=== PATIENT | male | born 1995 | race African-American/Black ===

== ENCOUNTER 2016-04-19 17:35 | Inpatient (IN) | payer MEDICAID ==
[~2016-04-19] VITALS: Ht 167.6 cm; Wt 55.6 kg
[2016-04-19 17:44] VITALS: BP 111/71; PULSE 130; RESP 18; TEMP 99.9; O2SAT 100
[2016-04-19] MEDS ORDERED: SODIUM CHLORIDE 0.9% FLUSH 5 ML FLUSH IVF PRN (19:00)
[2016-04-19 19:33] LABS: AUTOMATED NEUTROPHIL # 2.6 TH/MM3 (1.8-7.7); BASOPHIL % 0.4 % (0.0-2.0); EOSINOPHIL % 0.1 % (0.0-4.0); HEMATOCRIT 30.2 % (39.0-51.0); HEMO FLAGS DIFF FINAL; LYMPH % 44.9 % (9.0-44.0); LYMPHOCYTE # 2.5 TH/MM3 (1.0-4.8); MEAN CELL VOLUME 77.3 FL (80.0-100.0); MEAN CORPUSCULAR HEMOGLOBIN 25.5 PG (27.0-34.0); MONO % 7.2 % (0.0-8.0); NEUT % 47.4 % (16.0-70.0); PLATELET COUNT 249 TH/MM3 (150-450); RED BLOOD COUNT 3.91 MIL/MM3 (4.50-5.90); RED CELL DISTRIBUTION WIDTH 11.8 % (11.6-17.2); WHITE BLOOD COUNT 5.5 TH/MM3 (4.0-11.0)
[2016-04-19 19:43] LABS: CHLORIDE 101 MEQ/L (98-107); POTASSIUM 3.4 MEQ/L (3.5-5.1); SODIUM (NA) 137 MEQ/L (136-145)
[2016-04-19] MEDS ORDERED: AZTREONAM INJ 1,000 MG in SODIUM CHLORIDE 0.9% INJ 100 ML IV ONE (19:45)
[2016-04-19] MEDS ORDERED: VANCOMYCIN INJ 1,000 MG in SODIUM CHLOR 0.9% 250 ML INJ 250 ML IV ONE (19:45)
[2016-04-19 19:46] LABS: ANION GAP 8 MEQ/L (5-15); BICARBONATE 28.2 MEQ/L (21.0-32.0)
[2016-04-19 19:47] LABS: BLOOD UREA NITROGEN 10 MG/DL (7-18)
[2016-04-19 19:49] LABS: APTT (PATIENT) 32.7 SEC (24.3-30.1); INTERNATIONAL NORMALIZED RATIO 1.1 RATIO; PROTHROMBIN TIME - PATIENT 11.9 SEC (9.8-11.6)
[2016-04-19 19:50] LABS: ALT (GPT) 26 U/L (9-52); AST (GOT) 28 U/L (15-39); GLOMERULAR FILTRATION RATE 103 ML/MIN (>89)
[2016-04-19 19:51] LABS: TOTAL BILIRUBIN ADULT 0.6 MG/DL (0.2-1.0)
[2016-04-19 19:52] LABS: ALKALINE PHOSPHATASE 170 U/L (45-117)
[2016-04-19 20:40] VITALS: RESP 18; O2SAT 100
[2016-04-19 20:41] VITALS: BP 94/47; PULSE 124; RESP 18; O2SAT 100
[2016-04-19] MEDS ORDERED: SODIUM CHLOR 0.9% 1000 ML INJ 1,000 ML IV ONE ×2 (20:45)
[2016-04-19] MEDS ORDERED: SODIUM CHLORIDE 0.9% FLUSH 5 ML FLUSH FLUSH PRN (21:30)
[2016-04-19] MEDS ORDERED: NALOXONE HCL 0.4 MG/ML AMP IV PRN (21:30)
[2016-04-19 21:35] VITALS: BP 113/53; PULSE 112; RESP 18; TEMP 97.5; TEMP 99; O2SAT 100
[2016-04-19 21:55] LABS: BLOOD, URINE TRACE (NEG); GLUCOSE,URINE NEG (NEG); KETONE, URINE NEG (NEG); NITRITE,URINE NEG (NEG)
[2016-04-19 22:09] LABS: METHOD OF COLLECTION VOIDED; MUCUS URINE RARE /lpf (OCC); URINE COLOR YELLOW (YELLW/STRAW); WBC, URINE 0-2 /hpf (0-5)
[2016-04-19 22:10] LABS: COMMENT (UR) CULT NOT INDICATED; CULTURE IF INDICATED CULT NOT INDICATED; SQUAMOUS EPITHELIAL CELL URINE 0-2 /hpf (0-5)
[2016-04-19 22:12] LABS: AMPHETAMINE, URINE NEG (NEG); BARBITURATES, URINE NEG (NEG)
[2016-04-19 22:17] LABS: COCAINE, URINE NEG (NEG)
--- NOTE | 2016-04-19 22:29 | PD ---
HPI Chief Complaint: Skin Problem Time Seen by Provider: 18:22 Travel History International Travel<30 days: No Contact w/Intl Traveler<30days: No Traveled to known affect area: No History of Present Illness HPI Patient is a 20-year-old male presents to emergency department with fever and rash. Patient states that he's been having the rash for 2 weeks and is not getting any better. [facility] and was diagnosed himself with chickenpox. He came in to have confirmation. Patient states his been fairly rundown. He does admit to me that he is homosexual and does have anal sex states he uses protection. States he had an HIV test a year ago but it was negative. Patient denies any nausea vomiting diarrhea abdominal pain. Patient denies any headache or nuchal rigidity. PFSH Past Medical History ADHD: No Asthma: Yes (CHILDHOOD) Cancer: No Cardiovascular Problems: No Diabetes: No Diminished Hearing: No Psychiatric: No Respiratory: Yes (ASTHMA AT ) Immunizations Current: Yes Migraines: No Seizures: No Thyroid Disease: No Tetanus Vaccination: > 5 Years Influenza Vaccination: No Past Surgical History Other Surgery: No Social History Alcohol Use: No Tobacco Use: No Substance Use: No Allergies-Medications (Allergen,Severity, Reaction): Coded Allergies: Penicillin (Verified Allergy, Severe, RASH, 04/19/16) Reported Meds & Prescriptions Reported Meds & Active Scripts Active No Active Prescriptions or Reported Medications Review of Systems Except as stated in HPI: all other systems reviewed are Neg Physical Exam Narrative GENERAL: Well-developed well-nourished no apparent distress SKIN: The entirety of the patient's skin is covered with papule or lesions on that of erythema. There are no vesicles. I do not see any that are scabbed. There is no palmar involvement. No oral lesions that I can see. The lesions do bruno with some pressure. They are raised. They're approximately half centimeter in diameter each. Fairly consistent distribution over the head neck chest back abdomen extremities. HEAD: Atraumatic. Normocephalic. EYES: Pupils equal and round. No scleral icterus. No injection or drainage. ENT: No nasal bleeding or discharge. Mucous membranes pink and moist. NECK: Trachea midline. No JVD. CARDIOVASCULAR: Regular rate and rhythm. No murmur appreciated. RESPIRATORY: No accessory muscle use. Clear to auscultation. Breath sounds equal bilaterally. GASTROINTESTINAL: Abdomen soft, non-tender, nondistended. Hepatic and splenic margins not palpable. MUSCULOSKELETAL: No obvious deformities. No clubbing. No cyanosis. No edema. NEUROLOGICAL: Awake and alert. No obvious cranial nerve deficits. Motor grossly within normal limits. Normal speech. PSYCHIATRIC: Appropriate mood and affect; insight and judgment normal. Data Data Last Documented VS Vital Signs Date Time Temp Pulse Resp B/P Pulse Ox O2 Delivery O2 Flow Rate FiO2 04/19/16 20:41 124 18 94/47 100 Room Air 04/19/16 17:44 99.9 Orders Complete Blood Count With Diff (04/19/16 18:57) Comprehensive Metabolic Panel (04/19/16 18:57) Westergren Sedimentation Rate (04/19/16 18:57) C-Reactive Protein (Crp) (04/19/16 18:57) Prothrombin Time / Inr (Pt) (04/19/16 18:57) Act Partial Throm Time (Ptt) (04/19/16 18:57) Ecg Monitoring (04/19/16 18:57) Iv Access Insert/Monitor (04/19/16 18:57) Oximetry (04/19/16 18:57) Sodium Chloride 0.9% Flush (Ns Flush) (04/19/16 19:00) Rpr With Reflex To Fta Abs (04/19/16 18:57) Blood Culture (04/19/16 19:40) Lactic Acid (04/19/16 19:40) Hiv Antibody Screen (04/19/16 19:40) Vancomycin Inj (Vancomycin Inj) (04/19/16 19:45) Aztreonam Inj (Azactam Inj) (04/19/16 19:45) Sodium Chlor 0.9% 1000 Ml Inj (Ns 1000 M (04/19/16 20:45) Sodium Chlor 0.9% 1000 Ml Inj (Ns 1000 M (04/19/16 20:45) Admit To Inpatient (04/19/16 ) Admit Order (Ed Use Only) (04/19/16 ) Labs Laboratory Tests Test 04/19/16 04/19/16 19:20 20:05 White Blood Count 5.5 TH/MM3 Red Blood Count 3.91 MIL/MM3 Hemoglobin 9.9 GM/DL Hematocrit 30.2 % Mean Corpuscular Volume 77.3 FL Mean Corpuscular Hemoglobin 25.5 PG Mean Corpuscular Hemoglobin 33.0 % Concent Red Cell Distribution Width 11.8 % Platelet Count 249 TH/MM3 Mean Platelet Volume 8.2 FL Neutrophils (%) (Auto) 47.4 % Lymphocytes (%) (Auto) 44.9 % Monocytes (%) (Auto) 7.2 % Eosinophils (%) (Auto) 0.1 % Basophils (%) (Auto) 0.4 % Neutrophils # (Auto) 2.6 TH/MM3 Lymphocytes # (Auto) 2.5 TH/MM3 Monocytes # (Auto) 0.4 TH/MM3 Eosinophils # (Auto) 0.0 TH/MM3 Basophils # (Auto) 0.0 TH/MM3 CBC Comment DIFF FINAL Differential Comment Erythrocyte Sedimentation Rate 68 mm/hr Prothrombin Time 11.9 SEC Prothromb Time International 1.1 RATIO Ratio Activated Partial 32.7 SEC Thromboplast Time Sodium Level 137 MEQ/L Potassium Level 3.4 MEQ/L Chloride Level 101 MEQ/L Carbon Dioxide Level 28.2 MEQ/L Anion Gap 8 MEQ/L Blood Urea Nitrogen 10 MG/DL Creatinine 1.10 MG/DL Estimat Glomerular Filtration 103 ML/MIN Rate Random Glucose 98 MG/DL Calcium Level 8.4 MG/DL Total Bilirubin 0.6 MG/DL Aspartate Amino Transf 28 U/L (AST/SGOT) Alanine Aminotransferase 26 U/L (ALT/SGPT) Alkaline Phosphatase 170 U/L C-Reactive Protein 1.10 MG/DL Total Protein 8.0 GM/DL Albumin 3.1 GM/DL Lactic Acid Level 1.0 mmol/L [facility] Medical Decision Making Medical Screen Exam Complete: Yes Emergency Medical Condition: Yes Differential Diagnosis Septicemia, sepsis, bacteremia, HIV, syphilis, chickenpox Narrative Course Patient was roomed emergency department, initially seen very briefly by my PA who asked me to see the patient. I think the rash is highly inconsistent with chickenpox. He does have risk factors for HIV and may be immunocompromised. He does meet SIRS criteria. His white blood cell count is normal. He does have some minimal elevation of ESR and CRP. I still have a high suspicion for bacteremia in this patient given the nature of the rash and discussed my concerns with Dr. Shaffer who will admit and further evaluate. He is started on vancomycin as well as aztreonam. An RPR was sent to the emergency department. Diagnosis Primary Impression: Sepsis Qualified Code: A41.9 - Sepsis, due to unspecified organism Additional Impression: Sepsis affecting skin Admitting Information Admitting Physician Requests: Admit Scripts No Active Prescriptions or Reported Meds Condition: Simone Capone MD Apr 19, 2016 22:29
[2016-04-19 22:48] VITALS: BP 116/64; PULSE 118; RESP 20; TEMP 103; O2SAT 100
[2016-04-19 23:09] VITALS: PULSE 113
[2016-04-20] VITALS (10 sets, daily range): BP systolic 90–122; BP diastolic 38–60; PULSE 85–131; RESP 18–20; TEMP 97.3–104; O2SAT 95–100
[2016-04-20 01:42] LABS: CHLAMYDIA PCR NOT DETECTED (NOT DETECT); NEISSERIA PCR NOT DETECTED (NOT DETECT)
[2016-04-20] MEDS ORDERED: Vancomycin Consult Pharmacy 1 EA OTHER SCH (06:15)
[2016-04-20] MEDS ORDERED: ACETAMINOPHEN 325 MG TAB PO PRN (06:15)
[2016-04-20 06:33] LABS: CHLORIDE 103 MEQ/L (98-107); POTASSIUM 4.1 MEQ/L (3.5-5.1); SODIUM (NA) 138 MEQ/L (136-145)
[2016-04-20 06:36] LABS: ANION GAP 11 MEQ/L (5-15); BICARBONATE 23.7 MEQ/L (21.0-32.0)
[2016-04-20 06:37] LABS: BLOOD UREA NITROGEN 10 MG/DL (7-18)
[2016-04-20 06:39] LABS: AUTOMATED NEUTROPHIL # 2.8 TH/MM3 (1.8-7.7); BASOPHIL % 0.1 % (0.0-2.0); EOSINOPHIL % 0.1 % (0.0-4.0); HEMATOCRIT 29.2 % (39.0-51.0); LYMPH % 33.7 % (9.0-44.0); LYMPHOCYTE # 1.6 TH/MM3 (1.0-4.8); MEAN CELL VOLUME 77.2 FL (80.0-100.0); MEAN CORPUSCULAR HEMOGLOBIN 24.6 PG (27.0-34.0); MEAN CORPUSCULAR HGB CONC 31.8 % (32.0-36.0); MONO % 8.3 % (0.0-8.0); NEUT % 57.8 % (16.0-70.0); PLATELET COUNT 248 TH/MM3 (150-450); RED BLOOD COUNT 3.79 MIL/MM3 (4.50-5.90); RED CELL DISTRIBUTION WIDTH 11.9 % (11.6-17.2); WHITE BLOOD COUNT 4.8 TH/MM3 (4.0-11.0)
[2016-04-20 06:42] LABS: HEMO FLAGS AUTO DIFF
[2016-04-20 06:46] LABS: ALKALINE PHOSPHATASE 221 U/L (45-117); ALT (GPT) 52 U/L (9-52); AST (GOT) 104 U/L (15-39); GLOMERULAR FILTRATION RATE 103 ML/MIN (>89); TOTAL BILIRUBIN ADULT 0.8 MG/DL (0.2-1.0)
--- NOTE | 2016-04-20 06:52 | RADHPO ---
EXAM DATE/TIME: 04/20/2016 06:32 [place] COMPARISON: No previous studies available for comparison. INDICATIONS : Fever MEDICAL HISTORY : Skin rash SURGICAL HISTORY : None. ENCOUNTER: Initial ACUITY: 1 day PAIN SCORE: 5/10 LOCATION: Bilateral chest FINDINGS: PA and lateral views of the chest demonstrate the lungs to be symmetrically aerated without evidence of mass, infiltrate or effusion. The cardiomediastinal contours are unremarkable. Osseous structure s are intact. CONCLUSION: No acute disease. Cristian Warner MD on April 20, 2016 at 6:50 Board Certified Radiologist. This report was verified electronically.
[2016-04-20 07:24] LABS: SCAN/DIFF AUTO DIFF CONFIRMED
[2016-04-20] MEDS: VANCOMYCIN 1,000 MG/NS 250 ML IV SCH ×4 (08:46→22:07)
[2016-04-20] MEDS: SODIUM CHLORIDE 0.9% FLUSH 5 ML FLUSH FLUSH SCH ×2 (08:46→22:07)
--- NOTE | 2016-04-20 13:00 | HHI.HP ---
HPI Service [facility] Primary Care Physician No Primary Care Physician Admission Diagnosis Sepsis, Rash, Fever. Diagnoses: Chief Complaint: Rash and fever Travel History International Travel<30 Days: No Contact w/Intl Traveler <30 Da: No Traveled to Known Affected Are: No Sepsis Criteria SIRS Criteria (2 or more): Temp > 100.9 or < 96.8, Heart rate over 90 Sepsis Criteria (SIRS+source): Infect source susp/known History of Present Illness . The patient has had no penile discharge or dysuria. The rash has been 1 on for 2 weeks and has gotten more progressive. He reports chills and fevers at home. He finally came to the emergency room on the advice of his mother. Patient is a homosexual male who admits protected sex with multiple partners. Most recently he had a trip to [place] and had illicit sexual activity. Patient at this size been admitted to the hospital through the emergency room due to fever and rash and signs and symptoms consistent with sepsis due to tachycardia and fever with a maximum temperature 104. Patient at this point does have a positive RPR and positive HIV test which are new to him. For these reasons the patient is admitted to the hospital. Apparently he has a penicillin allergy per his mother and will need desensitization as per the infectious disease team. This is discussed with the patient at length Review of Systems Constitutional: COMPLAINS OF: Fatigue, Fever, Chills, Dizziness, Night Sweats, DENIES: Diaphoretic episodes, Weight gain, Weight loss, Change in appetite Endocrine: DENIES: Heat/cold intolerance, Polydipsia, Polyuria, Polyphagia Eyes: DENIES: Blurred vision, Diplopia, Eye inflammation, Eye pain, Vision loss , Photosensitivity, Double Vision Ears, nose, mouth, throat: DENIES: Tinnitus, Hearing loss, Vertigo, Nasal discharge, Oral lesions, Throat pain, Hoarseness, Ear Pain, Running Nose, Epistaxis, Sinus Pain, Toothache, Odynophagia Respiratory: DENIES: Apneas, Cough, Snoring, Wheezing, Hemoptysis, Sputum production, Shortness of breath Cardiovascular: DENIES: Chest pain, Palpitations, Syncope, Dyspnea on Exertion , PND, Lower Extremity Edema, Orthopnea, Claudication Gastrointestinal: DENIES: Abdominal pain, Black stools, Bloody stools, Constipation, Diarrhea, Nausea, Vomiting, Difficulty Swallowing, Anorexia Genitourinary: DENIES: Sexual dysfunction, Urinary frequency, Urinary incontinence, Urgency, Hematuria, Dysuria, Nocturia, Penile Discharge, Testicular Pain, Testicular Swelling Musculoskeletal: DENIES: Joint pain, Muscle aches, Stiffness, Joint Swelling, Back pain, Neck pain Integumentary: DENIES: Abnormal pigmentation, Nail changes, Pruritus, Rash Hematologic/lymphatic: DENIES: Bruising, Lymphadenopathy Immunologic/allergic: DENIES: Eczema, Urticaria Neurologic: DENIES: Abnormal gait, Headache, Localized weakness, Paresthesias, Seizures, Speech Problems, Tremor, Poor Balance Psychiatric: DENIES: Anxiety, Confusion, Mood changes, Depression, Hallucinations, Agitation, Suicidal Ideation, Homicidal Ideation, Delusions Past Family Social History Past Medical History denies Past Surgical History denies Reported Medications denies Allergies: Coded Allergies: Penicillin (Verified Allergy, Severe, RASH, 04/19/16) Active Ordered Medications Reviewed in the medical record Family History Mom has diabetes Social History No tobacco or alcohol dependency Homosexual male with a history of unprotected sex, denies IV drug use Physical Exam Vital Signs Vital Signs Date Time Temp Pulse Resp B/P Pulse Ox O2 Delivery O2 Flow Rate FiO2 04/20/16 08:00 102.2 105 18 112/50 97 04/20/16 06:10 99.3 04/20/16 05:20 103.1 04/20/16 04:00 104.0 131 20 116/38 100 04/20/16 02:29 100.9 04/19/16 23:09 113 04/19/16 22:48 103.0 118 20 116/64 100 04/19/16 21:35 99.0 112 18 113/53 100 Room Air 04/19/16 21:35 99.0 112 18 113/53 100 Room Air 04/19/16 20:41 124 18 94/47 100 Room Air 04/19/16 20:40 18 100 Room Air 04/19/16 17:44 99.9 130 18 111/71 100 Physical Exam GENERAL: This is a thin, well-developed patient, in no apparent distress. SKIN: diffuse nontender papular rash sparing palms and soles; . Cool and dry. HEAD: Atraumatic. Normocephalic. No temporal or scalp tenderness. EYES: Pupils equal round and reactive. Extraocular motions intact. No scleral icterus. No injection or drainage. ENT: Nose without bleeding, purulent drainage or septal hematoma. Throat without erythema, tonsillar hypertrophy or exudate. Uvula midline. Airway patent. NECK: Trachea midline. No JVD or lymphadenopathy. Supple, nontender, no meningeal signs. CARDIOVASCULAR: Regular rate and rhythm without murmurs, gallops, or rubs. RESPIRATORY: Clear to auscultation. Breath sounds equal bilaterally. No wheezes , rales, or rhonchi. GASTROINTESTINAL: Abdomen soft, non-tender, nondistended. No hepato-splenomegaly , or palpable masses. No guarding. MUSCULOSKELETAL: Extremities without clubbing, cyanosis, or edema. No joint tenderness, effusion, or edema noted. No calf tenderness. Negative Homans sign bilaterally. NEUROLOGICAL: Awake and alert. Cranial nerves II through XII intact. Motor and sensory grossly within normal limits. Five out of 5 muscle strength in all muscle groups. Normal speech. Laboratory Laboratory Tests Test 04/19/16 04/19/16 04/19/16 04/20/16 19:20 20:05 21:40 05:45 White Blood Count 5.5 4.8 Red Blood Count 3.91 3.79 Hemoglobin 9.9 9.3 Hematocrit 30.2 29.2 Mean Corpuscular Volume 77.3 77.2 Mean Corpuscular Hemoglobin 25.5 24.6 Mean Corpuscular Hemoglobin 33.0 31.8 Concent Red Cell Distribution Width 11.8 11.9 Platelet Count 249 248 Mean Platelet Volume 8.2 9.1 Neutrophils (%) (Auto) 47.4 57.8 Lymphocytes (%) (Auto) 44.9 33.7 Monocytes (%) (Auto) 7.2 8.3 Eosinophils (%) (Auto) 0.1 0.1 Basophils (%) (Auto) 0.4 0.1 Neutrophils # (Auto) 2.6 2.8 Lymphocytes # (Auto) 2.5 1.6 Monocytes # (Auto) 0.4 0.4 Eosinophils # (Auto) 0.0 0.0 Basophils # (Auto) 0.0 0.0 CBC Comment DIFF FINAL AUTO DIFF Differential Comment AUTO DIFF CONFIRMED Erythrocyte Sedimentation Rate 68 Prothrombin Time 11.9 Prothromb Time International 1.1 Ratio Activated Partial 32.7 Thromboplast Time Sodium Level 137 138 Potassium Level 3.4 4.1 Chloride Level 101 103 Carbon Dioxide Level 28.2 23.7 Anion Gap 8 11 Blood Urea Nitrogen 10 10 Creatinine 1.10 1.10 Estimat Glomerular Filtration 103 103 Rate Random Glucose 98 105 Calcium Level 8.4 8.1 Total Bilirubin 0.6 0.8 Aspartate Amino Transf 28 104 (AST/SGOT) Alanine Aminotransferase 26 52 (ALT/SGPT) Alkaline Phosphatase 170 221 C-Reactive Protein 1.10 Total Protein 8.0 7.3 Albumin 3.1 2.7 Lactic Acid Level 1.0 Urine Collection Type VOIDED Urine Color YELLOW Urine Turbidity CLEAR Urine pH 6.0 Urine Specific [place] 1.015 Urine Protein TRACE Urine Glucose (UA) NEG Urine Ketones NEG Urine Occult Blood TRACE Urine Nitrite NEG Urine Bilirubin NEG Urine Leukocyte Esterase NEG Urine WBC 0-2 Urine Squamous Epithelial 0-2 Cells Urine Mucus RARE Microscopic Urinalysis Comment CULT NOT INDICATED Urine Opiates Screen NEG Urine Barbiturates Screen NEG Urine Amphetamines Screen NEG Urine Benzodiazepines Screen NEG Urine Cocaine Screen NEG Urine Cannabinoids Screen POS Chlamydia trachomatis DNA NOT DETECTED (PCR) Neisseria gonorrhoeae DNA NOT DETECTED (PCR) Rapid Plasma Reagin REACTIVE HIV (1&2) Antibody REFLEX Date/Time Procedure Status Source Growth 04/19/16 20:05 Aerobic Blood Culture - Preliminary Resulted Blood Peripheral NO GROWTH IN 1 DAY 04/19/16 20:05 Anaerobic Blood Culture - Preliminary Resulted Blood Peripheral NO GROWTH IN 1 DAY 04/19/16 19:40 Aerobic Blood Culture Received Blood Peripheral Pending 04/19/16 19:40 Anaerobic Blood Culture Received Blood Peripheral Pending Result Diagram: 04/20/16 0545 04/20/16 0545 Imaging Last Impressions Chest X-Ray 04/20/16 0000 Signed Impressions: Service Date/Time: Wednesday, April 20, 2016 06:32 - CONCLUSION: No acute disease. Cristian Warner MD Septic Shock Reassessment Heart: Other (tahycardia) Lungs: Clear Skin: Warm Peripheral Pulses: Bounding Right Radial Bounding Left Radial Bounding Right Popliteal Bounding Left Popliteal Bounding Right Dorsalis Pedis Bounding Left Dorsalis Pedis Bounding Right Posterior Tibial Bounding Left Posterior Tibial Assessment and Plan Problem List: (1) Rash ICD Code: R21 Status: Acute Plan: With associated fever Reactive HIV (new), reactive RPR (new) Patient allergic to penicillin (and a child his mother reports a severe reaction ) the patient will need desensitization which will need to be done at the main hospital This is discussed with ID team as well as the patient CD4 count, blood cultures pending Physician Certification 2 Midnight Certification Type: Admission for Inpatient Services Order for Inpatient Services The services are ordered in accordance with Medicare regulations or non- Medicare payer requirements, as applicable. In the case of services not specified as inpatient-only, they are appropriately provided as inpatient services in accordance with the 2-midnight benchmark. Estimated LOS (days): 5 5 days is the estimated time the patient will need to remain in the hospital, assuming treatment plan goals are met and no additional complications. Post-Hospital Plan: Monserrat Boo MD Apr 20, 2016 13:00
[2016-04-20] MEDS: SODIUM CHLOR 0.9% 1000 ML INJ 1,000 ML IV SCH ×2 (15:27→23:00)
[2016-04-21] VITALS (7 sets, daily range): BP systolic 90–128; BP diastolic 42–59; PULSE 92–106; RESP 16–20; TEMP 98–98.9; O2SAT 97–100
[2016-04-21 07:55] LABS: ALKALINE PHOSPHATASE 194 U/L (45-117); ALT (GPT) 47 U/L (9-52); ANION GAP 7 MEQ/L (5-15); AST (GOT) 40 U/L (15-39); BICARBONATE 27.3 MEQ/L (21.0-32.0); BLOOD UREA NITROGEN 8 MG/DL (7-18); CHLORIDE 105 MEQ/L (98-107); GLOMERULAR FILTRATION RATE 154 ML/MIN (>89); POTASSIUM 4.1 MEQ/L (3.5-5.1); SODIUM (NA) 139 MEQ/L (136-145); TOTAL BILIRUBIN ADULT 0.4 MG/DL (0.2-1.0)
[2016-04-21] MEDS ORDERED: PHARMACY ORDERED LAB XX ONE ×2 (08:45)
[2016-04-21] MEDS: SODIUM CHLORIDE 0.9% FLUSH 5 ML FLUSH FLUSH SCH ×2 (09:17→21:00)
[2016-04-21] MEDS: VANCOMYCIN 1,000 MG/NS 250 ML IV SCH ×4 (09:17→16:11)
[2016-04-21] MEDS: SODIUM CHLOR 0.9% 1000 ML INJ 1,000 ML IV SCH ×2 (09:18→16:12)
--- NOTE | 2016-04-21 11:46 | HHI.PR ---
Objective Vitals Vital Signs Date Time Temp Pulse Resp B/P Pulse Ox O2 Delivery O2 Flow Rate FiO2 04/21/16 04:00 98.1 98 16 90/42 99 04/21/16 00:00 98.2 97 16 100/55 97 04/20/16 20:21 94 04/20/16 20:00 97.8 117 18 122/60 98 04/20/16 17:03 97.3 85 18 114/58 100 04/20/16 15:17 98.0 85 18 90/48 95 04/20/16 12:00 98.5 94 18 94/52 100 I/O 04/20/16 04/20/16 04/20/16 04/21/16 04/21/16 04/21/16 07:00 15:00 23:00 07:00 15:00 23:00 Intake Total 503 ml 842 ml 876 ml Output Total 250 ml 900 ml 700 ml Balance 253 ml -900 ml 142 ml 876 ml Intake Oral 503 ml 240 ml 120 ml IV Total 0 ml 602 ml 756 ml Output Urine Total 250 ml 900 ml 700 ml # Voids 1 1 1 # Bowel Movements 0 0 0 Result Diagram: 04/20/16 0545 04/21/16 0704 A/P Problem List: (1) Rash ICD Code: R21 Status: Acute Lety Matthews MD Apr 21, 2016 11:46
--- NOTE | 2016-04-21 13:32 | HHI.PR ---
Subjective Remarks HIV-positive patient transferred from [facility] due to developing acute skin rash on the which may need penicillin desensitization Patient laying in bed, skin rash still present, is non-pruritic, no fever or chills, awaiting ID consultation Objective Vitals Vital Signs Date Time Temp Pulse Resp B/P Pulse Ox O2 Delivery O2 Flow Rate FiO2 04/21/16 04:00 98.1 98 16 90/42 99 04/21/16 00:00 98.2 97 16 100/55 97 04/20/16 20:21 94 04/20/16 20:00 97.8 117 18 122/60 98 04/20/16 17:03 97.3 85 18 114/58 100 04/20/16 15:17 98.0 85 18 90/48 95 I/O 04/20/16 04/20/16 04/20/16 04/21/16 04/21/16 04/21/16 07:00 15:00 23:00 07:00 15:00 23:00 Intake Total 503 ml 842 ml 876 ml Output Total 250 ml 900 ml 700 ml Balance 253 ml -900 ml 142 ml 876 ml Intake Oral 503 ml 240 ml 120 ml IV Total 0 ml 602 ml 756 ml Output Urine Total 250 ml 900 ml 700 ml # Voids 1 1 1 # Bowel Movements 0 0 0 Result Diagram: 04/20/16 0545 04/21/16 0704 Objective Remarks GENERAL: This is a well-nourished, well-developed patient, in no apparent distress. SKIN: Diffuse nonpertinent nontender papular skin rash head to toe preserving palms and soles, it percent on the scrotum to HEAD: Atraumatic. Normocephalic. EYES: Pupils equal round and reactive. Extraocular motions intact. No scleral icterus. ENT: Nose without bleeding, or drainage, Airway patent. NECK: Trachea midline. Supple CARDIOVASCULAR: Regular rate and rhythm without murmurs, gallops, or rubs. RESPIRATORY: Fair air entry bilaterally. No wheezes, rales, or rhonchi. GASTROINTESTINAL: Abdomen soft, non-tender, nondistended. Positive bowel sounds MUSCULOSKELETAL: Extremities without clubbing, cyanosis, or edema. Pedal pulses appreciated NEUROLOGICAL: Awake and alert. Moves all extremity. Normal speech.no focal neurological deficit A/P Problem List: (1) Rash ICD Code: R21 Status: Acute Assessment and Plan Acute skin rash with fever With newly reactive Reactive HIV AND RPR Patient allergic to penicillin (and a child his mother reports a severe reaction ) the patient will need desensitization which will need to be done at the main hospital This is discussed with ID team as well as the patient CD4 count, blood cultures pending Awaiting ID consultation for further recommendation Lety Matthews MD Apr 21, 2016 13:32
--- NOTE | 2016-04-21 15:28 | PD.ID.CON ---
History of Present Illness Service ID Consult Requested By Dr Cabello Reason for Consult rash and STD Primary Care Physician No Primary Care Physician Diagnoses: History of Present Illness 20 yo homosexual male with h/o anprotected sex (anal, genital and oral) with anonimous parthnres presents with fever and rash x 2 weeks Rash is no proritic denies oral lesions Fever high up to 102-103, but no fever today HIs RPR was + 1:4, FTA -abs test is P HIV ZEENAT also positive with confirmation P Pt was never diagnosed with syphilis, but reports a negative HIV test 1 yr ago He denies headache, difficulty walking but gives a hstory of blury vision about a week ago which got better Review of Systems Constitutional: COMPLAINS OF: Fever, Chills Eyes: COMPLAINS OF: Blurred vision, DENIES: Diplopia, Eye inflammation, Eye pain, Vision loss, Photosensitivity, Double Vision Integumentary: COMPLAINS OF: Rash, DENIES: Pruritus Neurologic: DENIES: Abnormal gait, Headache, Localized weakness, Paresthesias, Seizures, Speech Problems, Tremor, Poor Balance Other as per history of present illnees, the rest of 12 point review is negative unless mentioned above Past Family Social History Allergies: Coded Allergies: Penicillin (Verified Allergy, Severe, RASH, 04/19/16) Past Medical History denies Past Surgical History hand sx Active Ordered Medications Medications where reviewed in EMR Antibiotics Include: vancomycin Family History Non-Contributory. Social History No Tobacco. No ETOH. No Illicit Drugs. Physical Exam Vital Signs Vital Signs Date Time Temp Pulse Resp B/P Pulse Ox O2 Delivery O2 Flow Rate FiO2 04/21/16 12:00 98.0 97 20 108/59 100 04/21/16 08:00 98.3 105 20 128/58 99 04/21/16 04:00 98.1 98 16 90/42 99 04/21/16 00:00 98.2 97 16 100/55 97 04/20/16 20:21 94 04/20/16 20:00 97.8 117 18 122/60 98 04/20/16 17:03 97.3 85 18 114/58 100 04/20/16 15:17 98.0 85 18 90/48 95 Physical Exam CONSTITUTIONAL/GENERAL: This is a thin and chronically ill appearing patient, in no apparent distress. TUBES/LINES/DRAINS: SKIN: No jaundice, Diffuse papular -pustular rash involnving skin of face, torso and esxteremities , lesions present on palms and soles. Skin temperature appropriate. Not diaphoretic. HEAD: Atraumatic. Normocephalic. EYES: Pupils equal and round and reactive. Extraocular motions intact. No scleral icterus. No injection or drainage. Fundi not examined. ENT: Hearing grossly normal. Nose without bleeding or purulent drainage. Throat without visible erythema, exudates, masses, or lesions. NECK: Trachea midline. Supple, nontender. No palpable thyroid enlargement or nodularity. CARDIOVASCULAR: Regular rate and rhythm without murmurs, gallops, or rubs. No JVD. Peripheral pulses symmetric. RESPIRATORY/CHEST: Symmetric, unlabored respirations. Clear to auscultation. Breath sounds equal bilaterally. No wheezes, rales, or rhonchi. GASTROINTESTINAL: Abdomen soft, non-tender, nondistended. No hepato-splenomegaly , or palpable masses. No guarding. Bowel sounds present. GENITOURINARY: Without palpable bladder distension. Scrotum with a painless ulcer on the anterior aspect ? healing shancre MUSCULOSKELETAL: Extremities without clubbing, cyanosis, or edema. No joint tenderness or effusion noted. No calf tenderness. No mottling or clubbing. LYMPHATICS: No palpable cervical or supraclavicular adenopathy. NEUROLOGICAL: Awake and alert. Motor and sensory grossly within normal limits. Follows commands. Speech normal Moves all extremities. PSYCHIATRIC: calm, cooperative Laboratory Laboratory Tests Test 04/21/16 04/21/16 07:04 09:15 Sodium Level 139 Potassium Level 4.1 Chloride Level 105 Carbon Dioxide Level 27.3 Anion Gap 7 Blood Urea Nitrogen 8 Creatinine 0.78 Estimat Glomerular Filtration 154 Rate Random Glucose 84 Calcium Level 8.1 Total Bilirubin 0.4 Aspartate Amino Transf 40 (AST/SGOT) Alanine Aminotransferase 47 (ALT/SGPT) Alkaline Phosphatase 194 Total Protein 7.1 Albumin 2.6 Vancomycin Level Trough 7.5 Date/Time Procedure Status Source Growth 04/19/16 20:05 Aerobic Blood Culture - Preliminary Resulted Blood Peripheral NO GROWTH IN 2 DAYS 04/19/16 20:05 Anaerobic Blood Culture - Preliminary Resulted Blood Peripheral NO GROWTH IN 2 DAYS 04/19/16 19:40 Aerobic Blood Culture Received Blood Peripheral Pending 04/19/16 19:40 Anaerobic Blood Culture Received Blood Peripheral Pending Result Diagram: 04/20/16 0545 04/21/16 0704 Imaging Last Impressions Chest X-Ray 04/20/16 0000 Signed Impressions: Service Date/Time: Wednesday, April 20, 2016 06:32 - CONCLUSION: No acute disease. 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 Rocephin is an option if ocular and neuro syphilis are ruled out in case of HIV coinfection dc vancomycin - awaiting for FTA abs result ; if positive will start tx for syphilis - if FTA + will need chemistry department chair consult to ro syphilitic uveitis ( vision disturbances) - awaiting for HIV confirmatory test -probably LP with confirmed HIV/syphilis coinfx (will definetely need it if CD4<350); after results available will define the tx duration Discussed Condition With Dr Irineo Krueger from pharmacy pt Nataliia Webster MD Apr 21, 2016 15:27
[2016-04-21 16:19] LABS: HIV 1 AB DIFFERENTIATION Positive (Negative); HIV 1/2 AG AND AB SCREEN Reactive (Negative); HIV 2 AB DIFFERENTIATION Negative (Negative)
[2016-04-22] VITALS (7 sets, daily range): BP systolic 99–115; BP diastolic 50–53; PULSE 89–101; RESP 16–18; TEMP 97.6–98.8; O2SAT 96–100
[2016-04-22] MEDS: VANCOMYCIN 1,000 MG/NS 250 ML IV SCH ×4 (01:41→08:11)
[2016-04-22] MEDS: SODIUM CHLOR 0.9% 1000 ML INJ 1,000 ML IV SCH ×2 (04:48→15:00)
[2016-04-22] MEDS: SODIUM CHLORIDE 0.9% FLUSH 5 ML FLUSH FLUSH SCH ×2 (08:14→20:26)
--- NOTE | 2016-04-22 09:44 | HHI.PR ---
Addendum to Inpatient Note Additional Information HIV confirmed awaiting FTA fu CD4 Nataliia Cortez MD Apr 22, 2016 09:44
[2016-04-22] MEDS ORDERED: ONDANSETRON HCL 4 MG/2 ML VIAL IV PRN (11:30)
[2016-04-22] MEDS ORDERED: DOCUSATE SODIUM 100 MG CAP PO PRN (11:30)
[2016-04-22] MEDS ORDERED: TEMAZEPAM 15 MG CAP PO PRN (11:30)
--- NOTE | 2016-04-22 11:30 | HHI.PR ---
Subjective Remarks Follow-up newly diagnosed HIV/rule out syphilis/skin rash 04/22/16-patient seen and examined; currently afebrile and denies any significant pruritus. Denies any blurred vision. HIV 1 positive. CD4 count finding. FTA antibody pending Objective Vitals Vital Signs Date Time Temp Pulse Resp B/P Pulse Ox O2 Delivery O2 Flow Rate FiO2 04/22/16 09:00 90 04/22/16 08:00 97.7 97 18 115/53 100 04/22/16 04:00 97.6 89 18 104/52 97 04/22/16 00:00 98.2 94 18 109/53 96 04/21/16 20:00 98.0 104 18 111/53 98 04/21/16 20:00 94 04/21/16 16:00 98.9 106 20 126/58 100 04/21/16 12:00 98.0 97 20 108/59 100 I/O 04/21/16 04/21/16 04/21/16 04/22/16 04/22/16 04/22/16 07:00 15:00 23:00 07:00 15:00 23:00 Intake Total 876 ml 240 ml 360 ml 240 ml Output Total 250 ml 600 ml 450 ml Balance 876 ml -10 ml -240 ml -210 ml Intake Oral 120 ml 240 ml 360 ml 240 ml IV Total 756 ml Output Urine Total 250 ml 600 ml 450 ml # Voids 1 # Bowel Movements 0 1 0 0 Result Diagram: 04/20/16 0545 04/21/16 0704 Imaging Last Impressions Chest X-Ray 04/20/16 0000 Signed Impressions: Service Date/Time: Wednesday, April 20, 2016 06:32 - CONCLUSION: No acute disease. Cristian Warner MD Objective Remarks GENERAL: NAD SKIN: Systemic skin rash, covering entire body HEAD: Normocephalic. EYES: No scleral icterus. No injection or drainage. NECK: Supple, trachea midline. No JVD or lymphadenopathy. CARDIOVASCULAR: Regular rate and rhythm without murmurs, gallops, or rubs. RESPIRATORY: Breath sounds equal bilaterally. No accessory muscle use. GASTROINTESTINAL: Abdomen soft, non-tender, nondistended. MUSCULOSKELETAL: No cyanosis, or edema. BACK: Nontender without obvious deformity. No CVA tenderness. A/P Problem List: (1) Rash ICD Code: R21 Status: Acute (2) Newly diagnosed HIV-positive ICD Code: Z21 Status: Acute (3) Syphilis ICD Code: A53.9 Status: Acute Assessment and Plan 20-year-old male with 1-Newly diagnosed HIV 1 positive: HIV 1 antibody positive pending CD4 count. Appreciate input from infectious disease. Therapy to be dictated when all workup completed 2-Rule out syphilis: RPR titer elevated and RPR positive, FTA antibody pending prior to starting therapy as patient with history of penicillin allergy. If FTA + will need ophthalmology consult to rule out syphilitic uveitis 3-DVT prophylaxis: Not indicated Cristian Traore MD Apr 22, 2016 11:30
--- NOTE | 2016-04-22 18:09 | PD.CONS ---
History of Present Illness Service Ophthalmology Consult Requested By Reason for Consult blurred vision Primary Care Physician No Primary Care Physician Diagnoses: History of Present Illness 20 yo homosexual male recently diagnosed with syphilis and HIV. Ophthalmology was consulted due to the patient having new visual complaints. Patient denies any current problems with his eyes or vision. He states his eyes were blurry a few weeks ago but it has gone back to normal. Ocular history significant for glasses, which the patient does not have with him. Past Family Social History Allergies: Coded Allergies: Penicillin (Verified Allergy, Severe, RASH, 04/19/16) Physical Exam Vital Signs Vital Signs Date Time Temp Pulse Resp B/P Pulse Ox O2 Delivery O2 Flow Rate FiO2 04/22/16 16:00 98.2 101 18 99/50 98 04/22/16 12:00 98.8 95 18 101/51 97 04/22/16 09:00 90 04/22/16 08:00 97.7 97 18 115/53 100 04/22/16 04:00 97.6 89 18 104/52 97 04/22/16 00:00 98.2 94 18 109/53 96 04/21/16 20:00 98.0 104 18 111/53 98 04/21/16 20:00 94 Physical Exam Va sc at near OD 20/20, OS 20/20 EOM full OU, no diplopia CVF full OU Pupils 2-1 no APD OU IOP normal to palpation OU Anterior exam OD - normal eyelid, C/S W&Q, K clear, AC deep, pupil round, lens clear OS - normal eyelid, C/S W&Q, K clear, AC deep, pupil round, lens clear Laboratory Date/Time Procedure Status Source Growth 04/19/16 20:05 Aerobic Blood Culture - Preliminary Resulted Blood Peripheral NO GROWTH IN 3 DAYS 04/19/16 20:05 Anaerobic Blood Culture - Preliminary Resulted Blood Peripheral NO GROWTH IN 3 DAYS 04/19/16 19:40 Aerobic Blood Culture Received Blood Peripheral Pending 04/19/16 19:40 Anaerobic Blood Culture Received Blood Peripheral Pending Result Diagram: 04/20/16 0545 04/21/16 0704 Assessment and Plan Problem List: (1) Newly diagnosed HIV-positive Status: Acute Plan: Patient currently not having visual problems. Can follow up as outpatient for dilated exam. CD4 pending. Page De MD Apr 22, 2016 18:09
[2016-04-23] VITALS (11 sets, daily range): BP systolic 101–123; BP diastolic 53–62; PULSE 90–110; RESP 16–20; TEMP 98.2–101.9; O2SAT 95–100
[2016-04-23] MEDS ORDERED: PHARMACY ORDERED LAB XX ONE (00:45)
[2016-04-23] MEDS: SODIUM CHLOR 0.9% 1000 ML INJ 1,000 ML IV SCH ×3 (01:48→21:55)
[2016-04-23 03:52] LABS: CD4/CD8 RATIO 0.1 (0.86-5.00)
[2016-04-23] MEDS: SODIUM CHLORIDE 0.9% FLUSH 5 ML FLUSH FLUSH SCH ×2 (07:48→21:53)
--- NOTE | 2016-04-23 11:18 | HHI.PR ---
Subjective Remarks Follow-up newly diagnosed HIV/rule out syphilis/skin rash 04/22/16-patient seen and examined; currently afebrile and denies any significant pruritus. Denies any blurred vision. HIV 1 positive. CD4 count finding. FTA antibody pending 04/23/16-patient seen and examined; FTA antibody reactive. Case discussed with Dr. Cortez, ID and plan for LP and then transferred to ICU for PCN desensitization Objective Vitals Vital Signs Date Time Temp Pulse Resp B/P Pulse Ox O2 Delivery O2 Flow Rate FiO2 04/23/16 08:00 100.3 98 16 107/53 100 04/23/16 07:44 Room Air 04/23/16 04:00 98.7 96 20 123/60 98 04/23/16 00:07 98.8 96 16 121/58 99 04/22/16 20:00 98.6 96 16 102/50 100 04/22/16 19:30 Room Air 04/22/16 16:00 98.2 101 18 99/50 98 04/22/16 12:00 98.8 95 18 101/51 97 I/O 04/22/16 04/22/16 04/22/16 04/23/16 04/23/16 04/23/16 07:00 15:00 23:00 07:00 15:00 23:00 Intake Total 240 ml 360 ml 720 ml 1660 ml Output Total 450 ml 300 ml 700 ml Balance -210 ml 360 ml 420 ml 960 ml Intake Oral 240 ml 360 ml 720 ml 960 ml IV Total 700 ml Output Urine Total 450 ml 300 ml 700 ml # Voids 2 # Bowel Movements 0 0 0 Result Diagram: 04/20/16 0545 04/21/16 0704 Imaging Last Impressions Chest X-Ray 04/20/16 0000 Signed Impressions: Service Date/Time: Wednesday, April 20, 2016 06:32 - CONCLUSION: No acute disease. Cristian Warner MD Objective Remarks GENERAL: NAD SKIN: Systemic skin rash, covering entire body HEAD: Normocephalic. EYES: No scleral icterus. No injection or drainage. NECK: Supple, trachea midline. No JVD or lymphadenopathy. CARDIOVASCULAR: Regular rate and rhythm without murmurs, gallops, or rubs. RESPIRATORY: Breath sounds equal bilaterally. No accessory muscle use. GASTROINTESTINAL: Abdomen soft, non-tender, nondistended. MUSCULOSKELETAL: No cyanosis, or edema. BACK: Nontender without obvious deformity. No CVA tenderness. A/P Problem List: (1) Rash ICD Code: R21 Status: Acute (2) Newly diagnosed HIV-positive ICD Code: Z21 Status: Acute (3) Syphilis ICD Code: A53.9 Status: Acute Assessment and Plan 20-year-old male with 1-Newly diagnosed HIV 1 positive: HIV 1 antibody positive,absolute CD4 count 186 and % CD4 12. Appreciate input from infectious disease. Therapy to be dictated when all workup completed 2-Rule out syphilis: RPR titer elevated and RPR positive, FTA antibody reactive however will get LP CSF VDRL today 04/23/16 prior to starting therapy as patient with history of penicillin allergy. Transfer to ICU after LP. Patient will also need ophthalmology consult to rule out syphilitic uveitis 3-DVT prophylaxis: Not indicated Cristian Traore MD Apr 23, 2016 11:18
--- NOTE | 2016-04-23 12:39 | PD.RAD ---
Post Procedure Progress Note Pre Procedure Diagnosis: (1) Newly diagnosed HIV-positive (2) Sepsis (3) Syphilis Post Procedure Diagnosis: (1) Newly diagnosed HIV-positive (2) Sepsis (3) Syphilis Procedure Date: Apr 23, 2016 Supervising Radiologist: Brendon Palacio Proceduralist/Assist: Anna Mauricio, RT(R), RT Peggy(R)() Anesthesia: Local Plan of Activity Patient to Unit: Nursing Unit Patient Condition: Fair See PACS Report for procedural detail/treatment Spinal Procedure Lumbar Puncture L4-L5 Fluid Removal (CCs): 15 Fluid Description: Clear Puncture Time: 12:13 Findings: opening pressure 19-20 cm H2O Brendon Palacio MD Apr 23, 2016 12:39
--- NOTE | 2016-04-23 12:43 | RADRPT ---
EXAM DATE/TIME: 04/23/2016 12:15 [facility] COMPARISON: No previous studies available for comparison. INDICATIONS : Patient with HIV in need of lumbar puncture to rule out neurosyphilis. MEDICAL HISTORY : Asthma SURGICAL HISTORY : Hand surgery ENCOUNTER: Initial ACUITY: 2 weeks PAIN SCORE: 0/10 LUMBAR PUNCTURE TIME: 1213 hours FLUORO TIME: 0.58 minutes ACCESS LEVEL: L4-5 OPENING PRESSURE: 19-20 cm of water FLUID: 15 cc of clear CSF was collected and sent to the laboratory for analysis. PROCEDURE : 1. Fluoroscopic guided lumbar puncture. 2. Recording of opening pressure. The risks, benefits and alternatives to the procedure were explained and verbal and written consent w as obtained. The site was prepped in sterile fashion. Full sterile technique was used, including ca p, mask, sterile gloves and gown and a large sterile sheet. Hand hygiene and 2% chlorhexidine and/or betadine/alcohol prep was utilized per protocol for cutaneous antisepsis. The skin and subcutaneous tissues were infiltrated with local anesthetic solution. With fluoroscopic guidance the lumbar thecal sac was punctured at the above level described above and the opening pressure was recorded. The above described fluid was removed without difficulty. The patient tolerated the procedure well and there were no complications. CONCLUSION: Uncomplicated fluoroscopically guided lumbar puncture with pressures as above. Brendon Palacio MD on April 23, 2016 at 12:40 Board Certified Radiologist. This report was verified electronically.
--- NOTE | 2016-04-23 13:56 | HHI.IDPN ---
Subjective Subjective Remarks cont to have low gradce fever pt was seen by instructor programmable controllers, no e/o uveitis Pt s blurry vision smx resolved LP was done but results not available yet Allergies: Coded Allergies: Penicillin (Verified Allergy, Severe, RASH, 04/19/16) Objective . Vital Signs Date Time Temp Pulse Resp B/P Pulse Ox O2 Delivery O2 Flow Rate FiO2 04/23/16 13:00 90 04/23/16 13:00 98.2 90 17 111/58 95 04/23/16 08:00 100.3 98 16 107/53 100 04/23/16 07:57 90 04/23/16 07:44 Room Air 04/23/16 04:00 98.7 96 20 123/60 98 04/23/16 00:07 98.8 96 16 121/58 99 04/22/16 20:00 98.6 96 16 102/50 100 04/22/16 19:30 Room Air 04/22/16 16:00 98.2 101 18 99/50 98 04/22/16 04/22/16 04/23/16 15:00 23:00 07:00 Intake Total 360 ml 720 ml 1660 ml Output Total 300 ml 700 ml Balance 360 ml 420 ml 960 ml Intake Oral 360 ml 720 ml 960 ml IV Total 700 ml Output Urine Total 300 ml 700 ml # Voids 2 # Bowel Movements 0 0 . Microbiology Date/Time Procedure Status Source Growth 04/23/16 12:13 Gram Stain Received Cerebral Spinal Fluid Lumbar Puncture Pending 04/23/16 12:13 CSF Culture Received Cerebral Spinal Fluid Lumbar Puncture Pending Imaging Last Impressions Lumbar Puncture Fluoroscopy 04/23/16 0000 Signed Impressions: Service Date/Time: Saturday, April 23, 2016 12:15 - CONCLUSION: Uncomplicated fluoroscopically guided lumbar puncture with pressures as above. Brendon Palacio MD Chest X-Ray 04/20/16 0000 Signed Impressions: Service Date/Time: Wednesday, April 20, 2016 06:32 - CONCLUSION: No acute disease. Cristian Warner MD Physical Exam CONSTITUTIONAL/GENERAL: This is a thin and chronically ill appearing patient, in no apparent distress. TUBES/LINES/DRAINS: SKIN: No jaundice, Diffuse papular -pustular rash involnving skin of face, torso and esxteremities , lesions present on palms and soles. Rash is less prominernt resolving on palms Skin temperature appropriate. Not diaphoretic. HEAD: Atraumatic. Normocephalic. EYES: Pupils equal and round and reactive. Extraocular motions intact. No scleral icterus. No injection or drainage. Fundi not examined. ENT: Hearing grossly normal. Oral mucosae without visible erythema, exudates, masses, or lesions. POor dentition NECK: Trachea midline. Supple, nontender. No palpable thyroid enlargement or nodularity. CARDIOVASCULAR: Regular rate and rhythm without murmurs, gallops, or rubs. No JVD. Peripheral pulses symmetric. RESPIRATORY/CHEST: Symmetric, unlabored respirations. Clear to auscultation. Breath sounds equal bilaterally. No wheezes, rales, or rhonchi. GASTROINTESTINAL: Abdomen soft, non-tender, nondistended. No hepato-splenomegaly , or palpable masses. No guarding. Bowel sounds present. GENITOURINARY: Without palpable bladder distension. Scrotum with a painless ulcer on the anterior aspect ? healing shancre MUSCULOSKELETAL: Extremities without clubbing, cyanosis, or edema. No joint tenderness or effusion noted. No calf tenderness. No mottling or clubbing. NEUROLOGICAL: Awake and alert. Motor and sensory grossly within normal limits. Follows commands. Speech normal Moves all extremities. 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 - pt stated that he never had Keflex REC'S: Pt is going to have PCN desensitization protocol and after it to have one dose of benzyl PCN G IM In case CSF sugg of neurosyphilis on cell count and diff will have to change to neurosyphilis Rx VDRL should be followed and in case of positivity should be Rx d as neurolues Pt can go back to regular floor after desensitisation is completed Pt should be refierred to HIV provider to start o/p Rx Will need to be on PCP profilaxis (will order later, after PCN tx completed) Hepatitis profile dw Evans Salcido from pharmacy, RN Time spent in access of 30 min in coordinating care, communicating with other providers Nataliia Cortez MD Apr 23, 2016 13:56
[2016-04-23] MEDS ORDERED: diphenhydrAMINE HCL 50 MG/ML VIAL IV PRN (14:00)
[2016-04-23 15:19] LABS: GROSS BLOOD TUBE #1 0 (0); GROSS BLOOD TUBE #2 0 (0); GROSS BLOOD TUBE #3 0 (0); SUPERNATE COLOR TUBE #1 CLEAR (CLEAR); SUPERNATE COLOR TUBE #2 CLEAR (CLEAR); SUPERNATE COLOR TUBE #3 CLEAR (CLEAR); SUPERNATE COLOR TUBE #4 CLEAR (CLEAR); VOLUME TUBE # 2 3.9 ML; VOLUME TUBE # 3 4.1 ML; VOLUME TUBE # 4 4.4 ML
[2016-04-23 15:20] LABS: CSF LYMPHOCYTES 93 %; CSF MONOCYTES 1 %; CSF NEUTROPHILS 6 %
[2016-04-23] MEDS ORDERED: EPINEPHrine HCL (1:10,000) 1 MG/10 ML SYRINGE ONE (15:20)
[2016-04-23] MEDS ORDERED: PENICILLIN POTASSIUM IV SCH (16:00)
[2016-04-23] MEDS ORDERED: SODIUM CHLORIDE 0.9% IV SCH (16:00)
--- NOTE | 2016-04-23 16:19 | PD.CONS ---
HPI Service Critical Care Medicine Consult Requested By Dr. Cortez Reason for Consult PNC desensitization Primary Care Physician No Primary Care Physician History of Present Illness 20 year old homosexual male with recent history of unprotected sex (anal, genital and oral) with anonymous partners presents with fever and rash x 2 weeks. Fever high up to 102-103. FTA -abs test is positive as well as HIV ZEENAT with confirmation. He has a history of Penicillin allergies and is admitted to ICU for desensitization to be able to treat Syphilis with Penicillin which the only treatment of this disease and is absolute medical necessity. Review of Systems Constitutional: COMPLAINS OF: Diaphoretic episodes, Fever, Chills, Night Sweats , DENIES: Fatigue, Weight gain, Weight loss, Dizziness, Change in appetite Endocrine: DENIES: Heat/cold intolerance, Polydipsia, Polyuria, Polyphagia Eyes: DENIES: Blurred vision, Diplopia, Eye inflammation, Eye pain, Vision loss , Photosensitivity, Double Vision Ears, nose, mouth, throat: DENIES: Tinnitus, Hearing loss, Vertigo, Nasal discharge, Oral lesions, Throat pain, Hoarseness, Ear Pain, Running Nose, Epistaxis, Sinus Pain, Toothache, Odynophagia Respiratory: DENIES: Apneas, Cough, Snoring, Wheezing, Hemoptysis, Sputum production, Shortness of breath Cardiovascular: DENIES: Chest pain, Palpitations, Syncope, Dyspnea on Exertion , PND, Lower Extremity Edema, Orthopnea, Claudication Gastrointestinal: DENIES: Abdominal pain, Black stools, Bloody stools, Constipation, Diarrhea, Nausea, Vomiting, Difficulty Swallowing, Anorexia Genitourinary: DENIES: Sexual dysfunction, Urinary frequency, Urinary incontinence, Urgency, Hematuria, Dysuria, Nocturia, Penile Discharge, Testicular Pain, Testicular Swelling Musculoskeletal: DENIES: Joint pain, Muscle aches, Stiffness, Joint Swelling, Back pain, Neck pain Integumentary: DENIES: Abnormal pigmentation, Nail changes, Pruritus, Rash Hematologic/lymphatic: DENIES: Bruising, Lymphadenopathy Immunologic/allergic: DENIES: Eczema, Urticaria Neurologic: COMPLAINS OF: Headache, DENIES: Abnormal gait, Localized weakness , Paresthesias, Seizures, Speech Problems, Tremor, Poor Balance Psychiatric: DENIES: Anxiety, Confusion, Mood changes, Depression, Hallucinations, Agitation, Suicidal Ideation, Homicidal Ideation, Delusions Past Family Social History Allergies: Coded Allergies: Penicillin (Verified Allergy, Severe, RASH, 04/19/16) Past Medical History None Past Surgical History None Reported Medications None Active Ordered Medications Current Medications Medications (Trade) Dose Ordered Sig/Kailyn Route PRN Reason Start Time Stop Time Status Last Admin Dose Admin IV Flush (NS Flush) 2 ml UNSCH PRN FLUSH FLUSH AFTER USING IV ACCESS 04/19/16 21:30 IV Flush (NS Flush) 2 ml BID FLUSH 04/20/16 09:00 04/22/16 20:26 Naloxone HCl (Narcan Inj) 0.4 mg UNSCH PRN IV SEE LABEL COMMENTS 04/19/16 21:30 Acetaminophen 650 mg 650 mg Q4H PRN PO fever >101 04/20/16 06:15 04/20/16 08:46 Sodium Chloride (NS 1000 ml Inj) 1,000 ml @ 100 mls/hr Q10H IV 04/20/16 13:00 04/23/16 11:18 Ondansetron HCl (Zofran Inj) 4 mg Q6H PRN IV NAUSEA 04/22/16 11:30 Docusate Sodium (Colace) 100 mg BID PRN PO CONSTIPATION 04/22/16 11:30 Temazepam 15 mg 15 mg HS PRN PO INSOMNIA 04/22/16 11:30 Penicillin G Potassium/Sodium Chloride (Pfizerpen-G Inj/ NS Inj) 50 ml @ 200 mls/hr ONCE IV 04/23/16 16:00 04/23/16 22:00 Penicillin G Benzathine (Bicillin L-A Inj) 2,400,000 units ONCE ONCE IM 04/24/16 02:00 04/24/16 02:01 Diphenhydramine HCl (Benadryl Inj) 50 mg Q2H PRN IV LABEL COMMENTS 04/23/16 14:00 04/23/16 23:59 Family History Noncontributory Social History Negative Physical Exam Vital Signs Vital Signs Date Time Temp Pulse Resp B/P Pulse Ox O2 Delivery O2 Flow Rate FiO2 04/23/16 14:00 94 04/23/16 13:00 90 04/23/16 13:00 98.2 90 17 111/58 95 04/23/16 08:00 100.3 98 16 107/53 100 04/23/16 07:57 90 04/23/16 07:44 Room Air 04/23/16 04:00 98.7 96 20 123/60 98 04/23/16 00:07 98.8 96 16 121/58 99 04/22/16 20:00 98.6 96 16 102/50 100 04/22/16 19:30 Room Air Physical Exam GENERAL: Well-nourished, well-developed patient. SKIN: Warm and dry. HEAD: Normocephalic. EYES: No scleral icterus. No injection or drainage. NECK: Supple, trachea midline. No JVD or lymphadenopathy. CARDIOVASCULAR: Regular rate and rhythm without murmurs, gallops, or rubs. RESPIRATORY: Breath sounds equal bilaterally. No accessory muscle use. GASTROINTESTINAL: Abdomen soft, non-tender, nondistended. MUSCULOSKELETAL: No cyanosis, or edema. BACK: Nontender without obvious deformity. No CVA tenderness. Laboratory Laboratory Tests Test 04/23/16 12:13 CSF Volume (Tube 1) 2.0 CSF Supernatant Color (tube 1) CLEAR CSF Gross Blood (Tube 1) 0 CSF Volume (Tube 2) 3.9 CSF Supernatant Color (tube 2) CLEAR CSF Gross Blood (Tube 2) 0 CSF Volume (Tube 3) 4.1 CSF Supernatant Color (tube 3) CLEAR CSF Gross Blood (Tube 3) 0 CSF Volume (Tube 4) 4.4 CSF Supernatant Color (tube 4) CLEAR CSF Neutrophils 6 CSF Lymphocytes 93 CSF Monocytes 1 CSF Glucose 40 CSF Total Protein 35.1 Date/Time Procedure Status Source Growth 04/23/16 12:13 Gram Stain - Final Resulted Cerebral Spinal Fluid Lumbar Puncture 04/23/16 12:13 CSF Culture Resulted Cerebral Spinal Fluid Lumbar Puncture Pending 04/19/16 20:05 Aerobic Blood Culture - Preliminary Resulted Blood Peripheral NO GROWTH IN 4 DAYS 04/19/16 20:05 Anaerobic Blood Culture - Preliminary Resulted Blood Peripheral NO GROWTH IN 4 DAYS 04/19/16 19:40 Aerobic Blood Culture Received Blood Peripheral Pending 04/19/16 19:40 Anaerobic Blood Culture Received Blood Peripheral Pending Result Diagram: 04/20/16 0545 04/21/16 0704 Imaging Last 24 hours Impressions Lumbar Puncture Fluoroscopy 04/23/16 0000 Signed Impressions: Service Date/Time: Saturday, April 23, 2016 12:15 - CONCLUSION: Uncomplicated fluoroscopically guided lumbar puncture with pressures as above. Brendon Palacio MD Septic Shock Reassessment Heart: Regular rate and rhythm Lungs: Clear Peripheral Pulses: Bounding Right Radial Bounding Left Radial Assessment and Plan Problem List: (1) Newly diagnosed HIV-positive ICD Code: Z21 Status: Acute (2) Syphilis ICD Code: A53.9 Status: Acute Assessment and Plan HIV/AIDS - CD4 182 - Rx per ID Secondary syphilis - Penicillin - Desensitization protocol first as this is the only option and available treatment as well as an absolute medical necessity. Level 1 Bon Ragland MD Apr 23, 2016 16:19
[2016-04-23 16:31] LABS: WBC TUBE #4 34 /MM3 (0-10)
--- NOTE | 2016-04-23 21:08 | HHI.PR ---
Addendum to Inpatient Note Additional Information CSF reviewed WBC 34; 93% lymphs - will switch to neurosyphilis Rx -PCN G 4 mln U q 4 hrs x 10-14 days dw RN : pt tolerating desentization protocol Nataliia Knight MD Apr 23, 2016 21:08
[2016-04-24 00:53] VITALS: BP 107/53; PULSE 102; RESP 16; TEMP 99.1; O2SAT 99
[2016-04-24] MEDS ORDERED: PENICILLIN G BENZATHINE 2,400,000 UNITS/4 ML SYRINGE IM ONE (03:00)
[2016-04-24] MEDS: PENICILLIN G POTASSIUM INJ 4,000,000 UNITS in SODIUM CHLORIDE 0.9% INJ 100 ML IV SCH ×6 (03:15→22:37)
[2016-04-24 04:00] VITALS: BP 107/55; PULSE 103; RESP 17; TEMP 100.7; O2SAT 97
[2016-04-24] MEDS: SODIUM CHLOR 0.9% 1000 ML INJ 1,000 ML IV SCH ×2 (06:29→21:19)
[2016-04-24 08:00] VITALS: BP 110/55; PULSE 89; RESP 16; TEMP 97.7; O2SAT 98
[2016-04-24] MEDS: SODIUM CHLORIDE 0.9% FLUSH 5 ML FLUSH FLUSH SCH ×2 (08:52→21:00)
[2016-04-24 12:00] VITALS: BP 118/65; PULSE 99; RESP 16; TEMP 98.2; O2SAT 98
--- NOTE | 2016-04-24 12:17 | HHI.PR ---
Subjective Remarks Follow-up newly diagnosed HIV/syphilis/skin rash 04/22/16-patient seen and examined; currently afebrile and denies any significant pruritus. Denies any blurred vision. HIV 1 positive. CD4 count finding. FTA antibody pending 04/23/16-patient seen and examined; FTA antibody reactive. Case discussed with Dr. Cortez, ID and plan for LP and then transferred to ICU for PCN desensitization 04/24/16-patient seen and examined, currently on penicillin for neurosyphilis pending CSF VDRL. LP completed yesterday. case discussed with patient's mom via telephone Objective Vitals Vital Signs Date Time Temp Pulse Resp B/P Pulse Ox O2 Delivery O2 Flow Rate FiO2 04/24/16 08:50 98 Room Air 21 04/24/16 08:00 97.7 89 16 110/55 98 04/24/16 04:00 100.7 103 17 107/55 97 04/24/16 01:02 99 Room Air 04/24/16 00:53 99.1 102 16 107/53 99 04/23/16 22:00 97 04/23/16 20:00 101.9 106 17 101/54 100 04/23/16 20:00 110 04/23/16 19:00 Room Air 100 04/23/16 18:00 100 04/23/16 16:00 107 04/23/16 16:00 101.9 107 17 114/62 99 04/23/16 14:00 94 04/23/16 13:00 90 04/23/16 13:00 98.2 90 17 111/58 95 I/O 04/23/16 04/23/16 04/23/16 04/24/16 04/24/16 04/24/16 07:00 15:00 23:00 07:00 15:00 23:00 Intake Total 1660 ml 480 ml 824 ml 480 ml 397 ml Output Total 700 ml 600 ml 600 ml 550 ml Balance 960 ml -120 ml 224 ml -70 ml 397 ml Intake Oral 960 ml 480 ml 340 ml 480 ml IV Total 700 ml 484 ml 397 ml Output Urine Total 700 ml 600 ml 600 ml 550 ml # Bowel Movements 0 0 Result Diagram: 04/20/16 0545 04/21/16 0704 Imaging Last Impressions Lumbar Puncture Fluoroscopy 04/23/16 0000 Signed Impressions: Service Date/Time: Saturday, April 23, 2016 12:15 - CONCLUSION: Uncomplicated fluoroscopically guided lumbar puncture with pressures as above. Brendon Palacio MD Chest X-Ray 04/20/16 0000 Signed Impressions: Service Date/Time: Wednesday, April 20, 2016 06:32 - CONCLUSION: No acute disease. Cristian Warner MD Objective Remarks GENERAL: NAD SKIN: Systemic skin rash, covering entire body HEAD: Normocephalic. EYES: No scleral icterus. No injection or drainage. NECK: Supple, trachea midline. No JVD or lymphadenopathy. CARDIOVASCULAR: Regular rate and rhythm without murmurs, gallops, or rubs. RESPIRATORY: Breath sounds equal bilaterally. No accessory muscle use. GASTROINTESTINAL: Abdomen soft, non-tender, nondistended. MUSCULOSKELETAL: No cyanosis, or edema. BACK: Nontender without obvious deformity. No CVA tenderness. A/P Problem List: (1) Rash ICD Code: R21 Status: Acute (2) Newly diagnosed HIV-positive ICD Code: Z21 Status: Acute (3) Syphilis ICD Code: A53.9 Status: Acute (4) Neurosyphilis in adult ICD Code: A52.3 Status: Acute Assessment and Plan 20-year-old male with 1-Newly diagnosed HIV 1 positive: HIV 1 antibody positive,absolute CD4 count 186 and % CD4 12. Appreciate input from infectious disease. Therapy to be dictated when all workup completed 2-Neurosyphilis:RPR titer elevated and RPR positive, FTA antibody reactive; status post LP with elevated the WBC pending CSF VDRL. Underwent desensitization for PCN. Currently on PCN G 4H 10-14 days per infectious disease specialist. Patient will also need ophthalmology consult to rule out syphilitic uveitis 3-DVT prophylaxis: Not indicated Cristian Traore MD Apr 24, 2016 12:17
[2016-04-24 16:00] VITALS: BP 121/62; PULSE 85; RESP 14; TEMP 98.4; O2SAT 98
[2016-04-24 20:00] VITALS: BP 109/53; PULSE 101; RESP 17; TEMP 101; O2SAT 98
[2016-04-25] VITALS: BP 120/58; PULSE 84; RESP 17; TEMP 98.5; O2SAT 99
[2016-04-25] MEDS: PENICILLIN G POTASSIUM INJ 4,000,000 UNITS in SODIUM CHLORIDE 0.9% INJ 100 ML IV SCH ×6 (03:08→22:47)
[2016-04-25] MEDS: SODIUM CHLOR 0.9% 1000 ML INJ 1,000 ML IV SCH ×3 (03:08→21:39)
[2016-04-25 04:00] VITALS: BP 107/56; PULSE 103; RESP 16; TEMP 99.5; O2SAT 99
[2016-04-25 08:00] VITALS: BP 131/60; PULSE 64; RESP 18; TEMP 98; O2SAT 97
[2016-04-25] MEDS: SODIUM CHLORIDE 0.9% FLUSH 5 ML FLUSH FLUSH SCH ×2 (09:00→21:34)
--- NOTE | 2016-04-25 11:26 | HHI.PR ---
Subjective Remarks Follow-up newly diagnosed HIV/syphilis/skin rash 04/22/16-patient seen and examined; currently afebrile and denies any significant pruritus. Denies any blurred vision. HIV 1 positive. CD4 count finding. FTA antibody pending 04/23/16-patient seen and examined; FTA antibody reactive. Case discussed with Dr. Cortez, ID and plan for LP and then transferred to ICU for PCN desensitization 04/24/16-patient seen and examined, currently on penicillin for neurosyphilis pending CSF VDRL. LP completed yesterday. case discussed with patient's mom via telephone 04/25/16-patient seen and examined; Tmax 101.0 at 8 PM however currently afebrile. No other issues Objective Vitals Vital Signs Date Time Temp Pulse Resp B/P Pulse Ox O2 Delivery O2 Flow Rate FiO2 04/25/16 08:14 99 Room Air 21 04/25/16 08:00 98.0 64 18 131/60 97 04/25/16 04:00 99.5 103 16 107/56 99 04/25/16 00:00 98.5 84 17 120/58 99 04/24/16 21:30 98 Room Air 04/24/16 20:00 101.0 101 17 109/53 98 04/24/16 16:00 98.4 85 14 121/62 98 04/24/16 12:00 98.2 99 16 118/65 98 I/O 04/24/16 04/24/16 04/24/16 04/25/16 04/25/16 04/25/16 07:00 15:00 23:00 07:00 15:00 23:00 Intake Total 480 ml 1960 ml 1760 ml 1280 ml Output Total 550 ml 1500 ml 1100 ml 1470 ml 350 ml Balance -70 ml 460 ml 660 ml -190 ml -350 ml Intake Oral 480 ml 720 ml 960 ml 480 ml IV Total 1240 ml 800 ml 800 ml Output Urine Total 550 ml 1500 ml 1100 ml 1470 ml 350 ml # Bowel Movements 1 Result Diagram: 04/21/16 0704 Imaging Last Impressions Lumbar Puncture Fluoroscopy 04/23/16 0000 Signed Impressions: Service Date/Time: Saturday, April 23, 2016 12:15 - CONCLUSION: Uncomplicated fluoroscopically guided lumbar puncture with pressures as above. Brendon Palacio MD Chest X-Ray 04/20/16 0000 Signed Impressions: Service Date/Time: Wednesday, April 20, 2016 06:32 - CONCLUSION: No acute disease. Cristian Warner MD Objective Remarks GENERAL: NAD SKIN: Systemic skin rash, covering entire body HEAD: Normocephalic. EYES: No scleral icterus. No injection or drainage. NECK: Supple, trachea midline. No JVD or lymphadenopathy. CARDIOVASCULAR: Regular rate and rhythm without murmurs, gallops, or rubs. RESPIRATORY: Breath sounds equal bilaterally. No accessory muscle use. GASTROINTESTINAL: Abdomen soft, non-tender, nondistended. MUSCULOSKELETAL: No cyanosis, or edema. BACK: Nontender without obvious deformity. No CVA tenderness. A/P Problem List: (1) Rash ICD Code: R21 Status: Acute (2) Newly diagnosed HIV-positive ICD Code: Z21 Status: Acute (3) Syphilis ICD Code: A53.9 Status: Acute (4) Neurosyphilis in adult ICD Code: A52.3 Status: Acute Assessment and Plan 20-year-old male with 1-Newly diagnosed HIV 1 positive: HIV 1 antibody positive,absolute CD4 count 186 and % CD4 12. Appreciate input from infectious disease. Therapy to be dictated when all workup completed 2-Neurosyphilis:RPR titer elevated and RPR positive, FTA antibody reactive; status post LP with elevated the WBC and nonreactive CSF FTA pending CSF VDRL. Underwent desensitization for PCN 04/23/16. Currently on PCN G 4H 10-14 days per infectious disease specialist. Patient will also need ophthalmology consult to rule out syphilitic uveitis 3-DVT prophylaxis: Not indicated Cristian Traore MD Apr 25, 2016 11:26
[2016-04-25 12:00] VITALS: BP 128/70; PULSE 70; RESP 16; TEMP 97.4; O2SAT 96
[2016-04-25 16:00] VITALS: BP 132/65; PULSE 62; RESP 18; TEMP 98.2; O2SAT 97
[2016-04-25 20:00] VITALS: BP 111/59; PULSE 89; RESP 17; TEMP 97.1; O2SAT 100
[2016-04-26] VITALS: BP 102/51; PULSE 95; RESP 16; TEMP 97.7; O2SAT 99
[2016-04-26] MEDS: PENICILLIN G POTASSIUM INJ 4,000,000 UNITS in SODIUM CHLORIDE 0.9% INJ 100 ML IV SCH ×6 (03:31→22:12)
[2016-04-26 04:00] VITALS: BP 95/55; PULSE 90; RESP 16; TEMP 98; O2SAT 100
[2016-04-26 08:00] VITALS: BP 111/48; PULSE 99; RESP 16; TEMP 97.4; O2SAT 92
[2016-04-26] MEDS: SODIUM CHLORIDE 0.9% FLUSH 5 ML FLUSH FLUSH SCH ×2 (09:00→21:00)
[2016-04-26] MEDS: SODIUM CHLOR 0.9% 1000 ML INJ 1,000 ML IV SCH ×2 (09:06→22:12)
[2016-04-26 12:00] VITALS: BP 108/47; PULSE 104; RESP 18; TEMP 96.4; O2SAT 99
--- NOTE | 2016-04-26 12:49 | HHI.PR ---
Subjective Remarks Follow-up newly diagnosed HIV/syphilis/skin rash 04/22/16-patient seen and examined; currently afebrile and denies any significant pruritus. Denies any blurred vision. HIV 1 positive. CD4 count finding. FTA antibody pending 04/23/16-patient seen and examined; FTA antibody reactive. Case discussed with Dr. Cortez, ID and plan for LP and then transferred to ICU for PCN desensitization 04/24/16-patient seen and examined, currently on penicillin for neurosyphilis pending CSF VDRL. LP completed yesterday. case discussed with patient's mom via telephone 04/25/16-patient seen and examined; Tmax 101.0 at 8 PM however currently afebrile. No other issues 04/26/16-patient seen and examined, currently afebrile. No chest pain or shortness of breath CSF VDRL pending Objective Vitals Vital Signs Date Time Temp Pulse Resp B/P Pulse Ox O2 Delivery O2 Flow Rate FiO2 04/26/16 12:00 96.4 104 18 108/47 99 04/26/16 09:10 Room Air 04/26/16 08:00 97.4 99 16 111/48 92 04/26/16 04:00 98.0 90 16 95/55 100 04/26/16 00:00 97.7 95 16 102/51 99 04/25/16 21:40 96 Room Air 04/25/16 20:00 97.1 89 17 111/59 100 04/25/16 16:00 98.2 62 18 132/65 97 I/O 04/25/16 04/25/16 04/25/16 04/26/16 04/26/16 04/26/16 07:00 15:00 23:00 07:00 15:00 23:00 Intake Total 1280 ml 1971 ml 1520 ml 1040 ml Output Total 1470 ml 1100 ml 400 ml 850 ml 1200 ml Balance -190 ml 871 ml 1120 ml 190 ml -1200 ml Intake Oral 480 ml 1080 ml 720 ml 240 ml IV Total 800 ml 891 ml 800 ml 800 ml Output Urine Total 1470 ml 1100 ml 400 ml 850 ml 1200 ml # Bowel Movements 0 Objective Remarks GENERAL: NAD SKIN: Systemic skin rash improving, covering entire body HEAD: Normocephalic. EYES: No scleral icterus. No injection or drainage. NECK: Supple, trachea midline. No JVD or lymphadenopathy. CARDIOVASCULAR: Regular rate and rhythm without murmurs, gallops, or rubs. RESPIRATORY: Breath sounds equal bilaterally. No accessory muscle use. GASTROINTESTINAL: Abdomen soft, non-tender, nondistended. MUSCULOSKELETAL: No cyanosis, or edema. BACK: Nontender without obvious deformity. No CVA tenderness. A/P Problem List: (1) Rash ICD Code: R21 Status: Acute (2) Newly diagnosed HIV-positive ICD Code: Z21 Status: Acute (3) Syphilis ICD Code: A53.9 Status: Acute (4) Neurosyphilis in adult ICD Code: A52.3 Status: Acute Assessment and Plan 20-year-old male with 1-Newly diagnosed HIV 1 positive: HIV 1 antibody positive,absolute CD4 count 186 and % CD4 12. Appreciate input from infectious disease. Therapy to be dictated when all workup completed 2-Neurosyphilis?:RPR titer elevated and RPR positive, FTA antibody reactive; status post LP with elevated the WBC and nonreactive CSF FTA pending CSF VDRL. CSF fluid negative. Underwent desensitization for PCN 04/23/16. Currently on PCN G 4H 10-14 days per infectious disease specialist. Patient will also need ophthalmology consult to rule out syphilitic uveitis 3-DVT prophylaxis: Not indicated Cristian Traore MD Apr 26, 2016 12:49
[2016-04-26 13:17] LABS: CSF CRYPTOCOCCUS AG CONF ND (NOT DETECTD)
--- NOTE | 2016-04-26 13:42 | HHI.PR ---
Addendum to Inpatient Note Additional Information IF both CSF VDRL and CSF FTA abs are negative in this pt with significant > 20 lymphocytic pleocytosis , will dc neurosyphilis Rx and just will give him a dose of benzathine PCN G 2.4 mln U x 1 4 hrs after the l;ast PCN G potassium dose PLAN cont curretnPCN IV Rx for now - fu CSF VDRL Nataliia Cortez MD Apr 26, 2016 13:42
[2016-04-26 13:45] VITALS: BP 114/55
[2016-04-26 14:44] LABS: RAPID PLASMA REAGIN SCREEN REACTIVE (NON-REACTVE)
--- NOTE | 2016-04-26 19:04 | HHI.IDPN ---
Subjective Subjective Remarks no fever since 04/24 pt co rash denies itching no new co Antibiotics PCN G Past Medical History HIV AIDS Allergies: Coded Allergies: Penicillin (Verified Allergy, Severe, RASH, 04/19/16) Objective . Vital Signs Date Time Temp Pulse Resp B/P Pulse Ox O2 Delivery O2 Flow Rate FiO2 04/26/16 13:45 114/55 04/26/16 12:00 96.4 104 18 108/47 99 04/26/16 09:10 Room Air 04/26/16 08:00 97.4 99 16 111/48 92 04/26/16 04:00 98.0 90 16 95/55 100 04/26/16 00:00 97.7 95 16 102/51 99 04/25/16 21:40 96 Room Air 04/25/16 20:00 97.1 89 17 111/59 100 04/25/16 04/25/16 04/26/16 15:00 23:00 07:00 Intake Total 1971 ml 1520 ml 1040 ml Output Total 1100 ml 400 ml 850 ml Balance 871 ml 1120 ml 190 ml Intake Oral 1080 ml 720 ml 240 ml IV Total 891 ml 800 ml 800 ml Output Urine Total 1100 ml 400 ml 850 ml # Bowel Movements 0 Imaging Last Impressions Lumbar Puncture Fluoroscopy 04/23/16 0000 Signed Impressions: Service Date/Time: Saturday, April 23, 2016 12:15 - CONCLUSION: Uncomplicated fluoroscopically guided lumbar puncture with pressures as above. Brendon Palacio MD Chest X-Ray 04/20/16 0000 Signed Impressions: Service Date/Time: Wednesday, April 20, 2016 06:32 - CONCLUSION: No acute disease. Cristian Warner MD Physical Exam CONSTITUTIONAL/GENERAL: This is a thin and chronically ill appearing patient, in no apparent distress. TUBES/LINES/DRAINS: SKIN: No jaundice, Diffuse papular -pustular rash involnving skin of face, torso and esxteremities , lesions present on palms and soles. Rash is less prominernt resolving on palms Skin temperature appropriate. Not diaphoretic. HEAD: Atraumatic. Normocephalic. EYES: Pupils equal and round and reactive. Extraocular motions intact. No scleral icterus. No injection or drainage. Fundi not examined. ENT: Hearing grossly normal. NECK: Trachea midline. Supple, nontender. RESPIRATORY/CHEST: Symmetric, unlabored respirations. GASTROINTESTINAL: Abdomen soft, non-tender, nondistended. MUSCULOSKELETAL: Extremities without clubbing, cyanosis, or edema. NEUROLOGICAL: Awake and alert. Motor and sensory grossly within normal limits. Follows commands. Speech normal Moves all extremities. 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 - pt stated that he never had Keflex - sp successful PCN desensitization protocol no HCV/HBV REC'S: IF both CSF VDRL and CSF FTA abs are negative in this pt with significant > 20 lymphocytic pleocytosis , will dc neurosyphilis Rx and just will give him a dose of benzathine PCN G 2.4 mln U x 1 dose 4 hrs after the l;ast PCN G potassium dose If VDRL positive will need to complete PCN G neurolues Rx Start Bactrim DS daily (or 3 x/week) for PCP profilaxis AFTER PCN completed Pt can be d/c'd afte the last dose of abx pt is instructed to cont to report PCN allergy. He understands that desensitisation is temporarily short term and if needs PCN in future he will need again undergo desensitisation Pt should be referred to HIV provider to start o/p Rx ([facility]); no indications tostart in-house HAART Nataliia Cortez MD Apr 26, 2016 19:03
[2016-04-26 20:00] VITALS: BP 118/54; PULSE 95; RESP 18; TEMP 96.7; O2SAT 100
[2016-04-27] VITALS: BP 99/48; PULSE 86; RESP 15; TEMP 96.6; O2SAT 98
[2016-04-27] MEDS: PENICILLIN G POTASSIUM INJ 4,000,000 UNITS in SODIUM CHLORIDE 0.9% INJ 100 ML IV SCH ×6 (02:10→23:41)
[2016-04-27 04:00] VITALS: BP 100/50; PULSE 98; RESP 15; TEMP 96.2; O2SAT 99
[2016-04-27 08:00] VITALS: BP 103/47; PULSE 88; RESP 18; TEMP 97.1; O2SAT 100
[2016-04-27] MEDS: SODIUM CHLORIDE 0.9% FLUSH 5 ML FLUSH FLUSH SCH ×2 (09:00→20:31)
--- NOTE | 2016-04-27 09:19 | HHI.PR ---
Subjective Remarks Follow-up newly diagnosed HIV/syphilis/skin rash 04/22/16-patient seen and examined; currently afebrile and denies any significant pruritus. Denies any blurred vision. HIV 1 positive. CD4 count finding. FTA antibody pending 04/23/16-patient seen and examined; FTA antibody reactive. Case discussed with Dr. Cortez, ID and plan for LP and then transferred to ICU for PCN desensitization 04/24/16-patient seen and examined, currently on penicillin for neurosyphilis pending CSF VDRL. LP completed yesterday. case discussed with patient's mom via telephone 04/25/16-patient seen and examined; Tmax 101.0 at 8 PM however currently afebrile. No other issues 04/26/16-patient seen and examined, currently afebrile. No chest pain or shortness of breath CSF VDRL pending 04/27/16-patient seen and examined; stable and no complaint. Afebrile Objective Vitals Vital Signs Date Time Temp Pulse Resp B/P Pulse Ox O2 Delivery O2 Flow Rate FiO2 04/27/16 04:00 96.2 98 15 100/50 99 04/27/16 00:00 96.6 86 15 99/48 98 04/26/16 22:00 Room Air 04/26/16 20:00 96.7 95 18 118/54 100 04/26/16 13:45 114/55 04/26/16 12:00 96.4 104 18 108/47 99 I/O 04/26/16 04/26/16 04/26/16 04/27/16 04/27/16 04/27/16 07:00 15:00 23:00 07:00 15:00 23:00 Intake Total 1040 ml 840 ml 240 ml 480 ml Output Total 850 ml 1900 ml 1350 ml Balance 190 ml -1060 ml 240 ml -870 ml Intake Oral 240 ml 840 ml 240 ml 480 ml IV Total 800 ml Output Urine Total 850 ml 1900 ml 1350 ml # Voids 1 Objective Remarks GENERAL: NAD SKIN: Systemic skin rash improving, covering entire body HEAD: Normocephalic. EYES: No scleral icterus. No injection or drainage. NECK: Supple, trachea midline. No JVD or lymphadenopathy. CARDIOVASCULAR: Regular rate and rhythm without murmurs, gallops, or rubs. RESPIRATORY: Breath sounds equal bilaterally. No accessory muscle use. GASTROINTESTINAL: Abdomen soft, non-tender, nondistended. MUSCULOSKELETAL: No cyanosis, or edema. BACK: Nontender without obvious deformity. No CVA tenderness. A/P Problem List: (1) Rash ICD Code: R21 Status: Acute (2) Newly diagnosed HIV-positive ICD Code: Z21 Status: Acute (3) Syphilis ICD Code: A53.9 Status: Acute (4) Neurosyphilis in adult ICD Code: A52.3 Status: Acute Assessment and Plan 20-year-old male with 1-Newly diagnosed HIV 1 positive/AIDS: HIV 1 antibody positive,absolute CD4 count 186 and % CD4 12. Appreciate input from infectious disease. Patient will need follow-up heart she had care department to establish care with HIV specialist for ART therapy. Currently on Bactrim daily for prophylaxis 2-Neurosyphilis?:RPR titer elevated and RPR positive, FTA antibody reactive; status post LP with elevated the WBC and nonreactive CSF FTA pending CSF VDRL. CSF fluid negative. Underwent desensitization for PCN 04/23/16. Currently on PCN G 4H 10-14 days per infectious disease specialist. However per infectious disease specialist if both CSF VDRL as well as CSF FTA negative patient would only need PCN G 2.4 mln U x 14hrs from last PCN G prior to discharge; otherwise will have to complete 10- 14 days therapy if positive 3-DVT prophylaxis: Not indicated Cristian Traore MD Apr 27, 2016 09:19
[2016-04-27] MEDS: SODIUM CHLOR 0.9% 1000 ML INJ 1,000 ML IV SCH ×2 (10:57→15:00)
[2016-04-27 12:00] VITALS: BP 119/54; PULSE 93; RESP 16; TEMP 99.3; O2SAT 100
[2016-04-27 16:00] VITALS: BP 116/55; PULSE 102; RESP 16; TEMP 98.2; O2SAT 100
[2016-04-27 20:00] VITALS: BP 101/49; PULSE 95; RESP 16; TEMP 96.9; O2SAT 100
[2016-04-28 00:04] VITALS: BP 106/65; PULSE 94; RESP 16; TEMP 98.5; O2SAT 100
[2016-04-28] MEDS: SODIUM CHLOR 0.9% 1000 ML INJ 1,000 ML IV SCH (01:00)
[2016-04-28] MEDS: PENICILLIN G POTASSIUM INJ 4,000,000 UNITS in SODIUM CHLORIDE 0.9% INJ 100 ML IV SCH ×2 (03:09→06:47)
[2016-04-28 04:47] VITALS: BP 104/54; PULSE 89; RESP 16; TEMP 97.3; O2SAT 98
[2016-04-28 08:00] VITALS: BP 106/53; PULSE 84; RESP 20; TEMP 97.4; O2SAT 98
--- NOTE | 2016-04-28 09:45 | HHI.PR ---
Subjective Remarks Follow-up newly diagnosed HIV/syphilis/skin rash 04/22/16-patient seen and examined; currently afebrile and denies any significant pruritus. Denies any blurred vision. HIV 1 positive. CD4 count finding. FTA antibody pending 04/23/16-patient seen and examined; FTA antibody reactive. Case discussed with Dr. Cortez, ID and plan for LP and then transferred to ICU for PCN desensitization 04/24/16-patient seen and examined, currently on penicillin for neurosyphilis pending CSF VDRL. LP completed yesterday. case discussed with patient's mom via telephone 04/25/16-patient seen and examined; Tmax 101.0 at 8 PM however currently afebrile. No other issues 04/26/16-patient seen and examined, currently afebrile. No chest pain or shortness of breath CSF VDRL pending 04/27/16-patient seen and examined; stable and no complaint. Afebrile 04/28/16-patient seen and examined; CSF VDRL nonreactive, afebrile and no complaint. Objective Vitals Vital Signs Date Time Temp Pulse Resp B/P Pulse Ox O2 Delivery O2 Flow Rate FiO2 04/28/16 08:50 Room Air 04/28/16 04:47 97.3 89 16 104/54 98 04/28/16 00:04 98.5 94 16 106/65 100 04/27/16 20:34 Room Air 04/27/16 20:00 96.9 95 16 101/49 100 04/27/16 16:00 98.2 102 16 116/55 100 04/27/16 12:00 99.3 93 16 119/54 100 04/27/16 09:50 Room Air I/O 04/27/16 04/27/16 04/27/16 04/28/16 04/28/16 04/28/16 07:00 15:00 23:00 07:00 15:00 23:00 Intake Total 480 ml 480 ml 4022 ml 500 ml Output Total 1350 ml 1400 ml 600 ml 900 ml Balance -870 ml -920 ml 3422 ml -400 ml Intake Oral 480 ml 480 ml 400 ml 500 ml IV Total 3622 ml Output Urine Total 1350 ml 1400 ml 600 ml 900 ml # Bowel Movements 0 0 Imaging Last Impressions Lumbar Puncture Fluoroscopy 04/23/16 0000 Signed Impressions: Service Date/Time: Saturday, April 23, 2016 12:15 - CONCLUSION: Uncomplicated fluoroscopically guided lumbar puncture with pressures as above. Brendon Palacio MD Chest X-Ray 04/20/16 0000 Signed Impressions: Service Date/Time: Wednesday, April 20, 2016 06:32 - CONCLUSION: No acute disease. Cristian Warner MD Objective Remarks GENERAL: NAD SKIN: Systemic skin rash improving, covering entire body HEAD: Normocephalic. EYES: No scleral icterus. No injection or drainage. NECK: Supple, trachea midline. No JVD or lymphadenopathy. CARDIOVASCULAR: Regular rate and rhythm without murmurs, gallops, or rubs. RESPIRATORY: Breath sounds equal bilaterally. No accessory muscle use. GASTROINTESTINAL: Abdomen soft, non-tender, nondistended. MUSCULOSKELETAL: No cyanosis, or edema. BACK: Nontender without obvious deformity. No CVA tenderness. A/P Problem List: (1) Rash ICD Code: R21 Status: Acute (2) Newly diagnosed HIV-positive ICD Code: Z21 Status: Acute (3) Syphilis ICD Code: A53.9 Status: Acute (4) Neurosyphilis in adult ICD Code: A52.3 Status: Acute Assessment and Plan 20-year-old male with 1-Newly diagnosed HIV 1 positive/AIDS: HIV 1 antibody positive,absolute CD4 count 186 and % CD4 12. Appreciate input from infectious disease. Patient will need follow-up heart she had care department to establish care with HIV specialist for ART therapy. Currently on Bactrim daily for prophylaxis 2-Neurosyphilis?:RPR titer elevated and RPR positive, FTA antibody reactive; status post LP with elevated the WBC and nonreactive CSF FTA as well as CSF VDRL. CSF fluid negative. Underwent desensitization for PCN 04/23/16. Currently on PCN G 4H 10-14 days per infectious disease specialist. However per infectious disease specialist if both CSF VDRL and CSF FTA negative patient would only need PCN G 2.4 mln U x 1 4hrs from last PCN G prior to discharge today 04/28/16. Appreciate input from ophthalmology as patient has no visual problems associated with syphilis 3-DVT prophylaxis: Not indicated Cristian Traore MD Apr 28, 2016 09:45
--- NOTE | 2016-04-28 09:50 | HHI.DS ---
Discharge Summary Admission Date Apr 19, 2016 at 21:08 Discharge Date: Apr 28, 2016 Admitting Diagnosis Sepsis, Rash, Fever. (1) Rash ICD Code: R21 (2) Newly diagnosed HIV-positive ICD Code: Z21 (3) Syphilis ICD Code: A53.9 (4) Neurosyphilis in adult ICD Code: A52.3 Procedures Penicillin desensitization Brief History - From Admission . The patient has had no penile discharge or dysuria. The rash has been 1 on for 2 weeks and has gotten more progressive. He reports chills and fevers at home. He finally came to the emergency room on the advice of his mother. Patient is a homosexual male who admits protected sex with multiple partners. Most recently he had a trip to [place] and had illicit sexual activity. Patient at this size been admitted to the hospital through the emergency room due to fever and rash and signs and symptoms consistent with sepsis due to tachycardia and fever with a maximum temperature 104. Patient at this point does have a positive RPR and positive HIV test which are new to him. For these reasons the patient is admitted to the hospital. Apparently he has a penicillin allergy per his mother and will need desensitization as per the infectious disease team. This is discussed with the patient at length Imaging Last Impressions Lumbar Puncture Fluoroscopy 04/23/16 0000 Signed Impressions: Service Date/Time: Saturday, April 23, 2016 12:15 - CONCLUSION: Uncomplicated fluoroscopically guided lumbar puncture with pressures as above. Brendon Palacio MD Chest X-Ray 04/20/16 0000 Signed Impressions: Service Date/Time: Wednesday, April 20, 2016 06:32 - CONCLUSION: No acute disease. Cristian Warner MD PE at Discharge GENERAL: NAD SKIN: Systemic skin rash improving, covering entire body HEAD: Normocephalic. EYES: No scleral icterus. No injection or drainage. NECK: Supple, trachea midline. No JVD or lymphadenopathy. CARDIOVASCULAR: Regular rate and rhythm without murmurs, gallops, or rubs. RESPIRATORY: Breath sounds equal bilaterally. No accessory muscle use. GASTROINTESTINAL: Abdomen soft, non-tender, nondistended. MUSCULOSKELETAL: No cyanosis, or edema. BACK: Nontender without obvious deformity. No CVA tenderness. Hospital Course Patient was admitted and was diagnosed with HIV 1 as well as AIDS due to CD4 count of less than 200. He had positive RPR titer and RPR positive along with FTA antibody reactive for which after he underwent desensitization to penicillin on 04/23/16 patient was started on PCN G per infectious disease specialist. LP was obtained and CSF VDRL and CSF FTA were both nonreactive. He was given PCN G 2.4 mln U x 1. Patient was evaluated by ophthalmology who ruled out any visual problems associated with syphilis. Patient will receive Bactrim DS prophylaxis on discharge after completed penicillin therapy. Vitals were stable prior to discharge. Patient will follow up with [facility] to establish care with HIV specialist and start HAART Pt Condition on Discharge: Stable Discharge Disposition: Discharge Home Discharge Time: <= 30 minutes Discharge Instructions DIET: Follow Instructions for: As Tolerated, No Restrictions Follow up Referrals: Infectious Disease - 1 Week PCP Follow-up - 1 Week New Medications: Sulfamethoxazole-Trimethoprim (Bactrim DS) 800-160 Mg Tab 1 TAB PO DAILY Infection #30 Ref 12 TAB Cristian Troare MD Apr 28, 2016 09:50
[2016-04-28] MEDS ORDERED: BACT800T5 PO (09:53)
[2016-04-28] MEDS ORDERED: PENICILLIN G BENZATHINE 2,400,000 UNITS/4 ML SYRINGE IM ONE (11:00)
[2016-04-28] MEDS: SODIUM CHLORIDE 0.9% FLUSH 5 ML FLUSH FLUSH SCH (11:13)
[2016-04-28 11:41] VITALS: BP 112/59; PULSE 101; RESP 20; TEMP 97.3; O2SAT 94
== END 2016-04-28 14:13 | disposition home or self-care (01) | DRG 977 ==
LOC: PHEFT 17:35 → PHEDA 21:08 → PH3B 22:48 → N04B 04-20 16:40 → N03B 04-23 13:55 → HOCA 04-24 00:38 → HOCB 04-27 12:47 → HOCA 04-27 12:47 → HOCB 04-27 12:53 → HOCA 04-27 12:55
PROVIDERS: ADMIT Hospitalist; ATTEND Hospitalist
PROC: 009U3ZX Drainage of Spinal Canal, Percutaneous Approach, Diagnostic (ICD-10-PCS; principal; 2016-04-23)
DX: B20 Human immunodeficiency virus [HIV] disease (principal); A52.3 Neurosyphilis, unspecified; A51.49 Other secondary syphilitic conditions; H53.8 Other visual disturbances; R21 Rash and other nonspecific skin eruption; Z88.0 Allergy status to penicillin
CPT/HCPCS: 62270; 71020; 77003; 80053; 80074; 80202; 80307; 81001; 82945; 83605; 84157; 85025; 85610; 85652; 85730; 86140; 86355; 86357; 86359; 86360; 86403; 86592; 86593; 86701; 86702; 86703; 86780; 87040; 87070; 87205; 87491; 87591; 89051; 96365; 96375; J0171; J0561; J2540; J3370; J7030; J7050

== ENCOUNTER 2017-08-28 19:39 | Observation (INO) | payer SELFPAY ==
[~2017-08-28 19:39] MED LIST: BACT800T5 PO
[2017-08-28 19:55] VITALS: BP 155/88; PULSE 114; RESP 16; TEMP 99.9; O2SAT 100
[2017-08-28 20:14] VITALS: BP 137/75; PULSE 129; RESP 20; TEMP 98.5; O2SAT 100
--- NOTE | 2017-08-28 20:41 | PD ---
HPI Chief Complaint: Fever Time Seen by Provider: 20:04 Travel History International Travel<30 days: No Contact w/Intl Traveler<30days: No Traveled to known affect area: No History of Present Illness HPI 22-year-old black male presents emergency department evaluation of right sided sensory loss. Patient states that he has had a history of HIV is is and syphilis. Patient has been off his medications for the past 6 months. The patient reportedly had a episode of slurred speech, right sided sensory loss involving the right upper extremity, right lower extremity and reportedly the right side of his face for approximately 30 minutes approximately 1-1-1/2 hours prior to arrival. He states that the episode lasted for approximately 30 minutes and then resolve spontaneously.The patient also reports that he felt somewhat weak on that side as well. This is also resolved. He denies any associated headache, chest pain, shortness of breath, focal weakness nausea, vomiting or abdominal pain. The patient is concerned that this may be associated with having had unprotected intercourse a few months ago and is concerned that he may have syphilis. He has also reported congestion, cough and general malaise. He denies any genital sores but he has had a rash in his groin for some time. No urethral symptoms. Patient reportedly has an appointment this week with [employer] patient assistance. [facility], [facility] Past Medical History Narrative Medical Asthma, HIV, syphilis ADHD: No Asthma: Yes (CHILDHOOD) Heart Rhythm Problems: No Cancer: No Cardiovascular Problems: No High Cholesterol: No Diabetes: No Diminished Hearing: No Endocrine: No Genitourinary: No Musculoskeletal: No Neurologic: No Psychiatric: No Reproductive: No Respiratory: Yes (ASTHMA AT ) Immunizations Current: Yes Migraines: No Seizures: No Thyroid Disease: No Tetanus Vaccination: Unknown Past Surgical History Abdominal Surgery: No Cardiac Surgery: No Ear Surgery: No Endocrine Surgery: No Eye Surgery: No Genitourinary Surgery: No Oral Surgery: No Thoracic Surgery: No Other Surgery: No Social History Alcohol Use: No Tobacco Use: No Substance Use: No Allergies-Medications (Allergen,Severity, Reaction): Coded Allergies: penicillin G (Unverified Allergy, Severe, RASH, 08/28/17) Reported Meds & Prescriptions Reported Meds & Active Scripts Active No Active Prescriptions or Reported Medications Review of Systems General / Constitutional: No: Fever Eyes: No: Visual changes HENT: No: Headaches Cardiovascular: No: Chest Pain or Discomfort Respiratory: Positive: Cough, Other (Brown sputum), No: Shortness of Breath Gastrointestinal: No: Abdominal Pain Genitourinary: No: Dysuria Musculoskeletal: No: Pain Skin: Positive Rash Neurologic: Positive: Weakness, Focal Abnormalities, Slurred Speech, Paresthesia, Sensory Disturbance, No: Coordination Problem, Headache, Change in Mentation Psychiatric: No: Depression Endocrine: No: Polydipsia Hematologic/Lymphatic: No: Easy Bruising Physical Exam Narrative GENERAL: Well-developed, well-nourished in no apparent distress. Nontoxic appearing. HEAD: Normocephalic, atraumatic. EYES: Pupils equal round and reactive. Extraocular motions intact. No scleral icterus. No injection or drainage. ENT: Nose clear. Throat without erythema, tonsillar hypertrophy or exudate. Uvula midline. Airway patent. NECK: Trachea midline. Supple, nontender, moves head freely. No central bony tenderness or spasm. CARDIOVASCULAR: Regular rate and rhythm without murmurs, gallops, or rubs. RESPIRATORY: Clear to auscultation. Breath sounds equal bilaterally. No wheezes , rales, or rhonchi. GASTROINTESTINAL: Abdomen soft, non-tender, nondistended. No hepato-splenomegaly , or palpable masses. No guarding. EXTREMITIES: No clubbing, cyanosis, or edema. No joint tenderness. BACK: Nontender without deformity. No flank tenderness. NEUROLOGICAL: Awake, alert and oriented x 3 .Cranial nerves grossly intact. Motor and sensory grossly within normal limits. Normal speech. Skin: Patient has dermatitis in the groin consistent with tinea Data Data Last Documented VS Vital Signs Date Time Temp Pulse Resp B/P (MAP) Pulse Ox O2 Delivery O2 Flow Rate FiO2 08/28/17 20:14 98.5 129 20 137/75 (95) 100 Room Air Orders Orders Complete Blood Count With Diff (08/28/17 20:14) Comprehensive Metabolic Panel (08/28/17 20:14) Prothrombin Time / Inr (Pt) (08/28/17 20:14) Act Partial Throm Time (Ptt) (08/28/17 20:14) C-Reactive Protein (Crp) (08/28/17 20:14) Ua Includes Microscopic (08/28/17 20:14) Westergren Sedimentation Rate (08/28/17 20:14) Thyroid Stimulating Hormone (08/28/17 20:14) Gc And Chlamydia Pcr (08/28/17 20:14) Chest, Single Ap (08/28/17 20:14) Ct Brain W/O Iv Contrast(Rout) (08/28/17 20:14) Iv Access Insert/Monitor (08/28/17 20:14) Rapid Plasmin Reagin Screen (08/28/17 20:14) Electrocardiogram (08/28/17 20:22) Potassium Chloride (Kcl) (08/28/17 21:45) Labs Laboratory Tests Test 08/28/17 20:20 08/28/17 20:50 08/28/17 20:55 White Blood Count 7.0 TH/MM3 Red Blood Count 3.84 MIL/MM3 Hemoglobin 9.8 GM/DL Hematocrit 29.7 % Mean Corpuscular Volume 77.2 FL Mean Corpuscular Hemoglobin 25.5 PG Mean Corpuscular Hemoglobin Concent 33.0 % Red Cell Distribution Width 13.3 % Platelet Count 215 TH/MM3 Mean Platelet Volume 8.5 FL CBC Comment AUTO DIFF Erythrocyte Sedimentation Rate 45 mm/hr Blood Urea Nitrogen 14 MG/DL Creatinine 1.25 MG/DL Random Glucose 139 MG/DL Total Protein 7.9 GM/DL Albumin 3.5 GM/DL Calcium Level 8.5 MG/DL Alkaline Phosphatase 188 U/L Aspartate Amino Transf (AST/SGOT) 40 U/L Alanine Aminotransferase (ALT/SGPT) 40 U/L Total Bilirubin 0.3 MG/DL Sodium Level 139 MEQ/L Potassium Level 3.1 MEQ/L Chloride Level 101 MEQ/L Carbon Dioxide Level 28.1 MEQ/L Anion Gap 10 MEQ/L Estimat Glomerular Filtration Rate 88 ML/MIN C-Reactive Protein LESS THAN 0.29 MG/DL Thyroid Stimulating Hormone 3rd Gen 0.556 uIU/ML Urine Color LIGHT-YELLOW Urine Turbidity CLEAR Urine pH 6.0 Urine Specific [place] 1.012 Urine Protein TRACE mg/dL Urine Glucose (UA) NEG mg/dL Urine Ketones NEG mg/dL Urine Occult Blood NEG Urine Nitrite NEG Urine Bilirubin NEG Urine Urobilinogen LESS THAN 2.0 MG/DL Urine Leukocyte Esterase NEG Urine RBC LESS THAN 1 /hpf Urine WBC LESS THAN 1 /hpf Urine Squamous Epithelial Cells <1 /hpf Prothrombin Time 11.1 SEC Prothromb Time International Ratio 1.1 RATIO Activated Partial Thromboplast Time 27.5 SEC MDM Medical Decision Making Medical Screen Exam Complete: Yes Emergency Medical Condition: Yes Medical Record Reviewed: Yes Interpretation(s) EKG: Sinus rhythm with a ventricular rate of 99. Normal intervals. No ST-T wave elevation. CBC & BMP Diagram 08/28/17 20:20 Total Protein 7.9, Albumin 3.5, Calcium Level 8.5, Alkaline Phosphatase 188 H, Aspartate Amino Transf (AST/SGOT) 40 H, Alanine Aminotransferase (ALT/SGPT) 40, Total Bilirubin 0.3 Last [address] 08/28/172013 Signed Impressions: Service Date/Time: Monday, August 28, 2017 20:39 - CONCLUSION: 1. No acute intracranial abnormality. Dave Rivero MD Chest X-Ray 08/28/172013 Signed Impressions: Service Date/Time: Monday, August 28, 2017 20:41 - CONCLUSION: 1. No acute cardiopulmonary disease. Dave Rivero MD Differential Diagnosis Differential diagnosis: CVA, TIA, septic emboli, brain tumor, HIV disease, syphilis, electrolyte abnormality, anxiety Narrative Course IV access is obtained. Routine laboratories including CBC, chemistry, sed rate , CRP, CT brain, chest x-ray, EKG have been performed The CT is unremarkable. I reviewed the patient's medical record from his last admission last year. It appears that the patient tested positive for syphilis. He was treated as an inpatient and was discharged on Bactrim. The patient here is a poor historian. He does not appear to be a reliable individual. He continues to have unprotected promiscuous intercourse. The patient reports acute neurological symptoms prior to coming in which have resolved. He is not on antiviral therapy. It is not clear the true etiology of his symptoms. I have advised him that he will need further diagnostic testing possibly including an LP and further evaluation by a neurologist. The patient verbally states understanding and agrees to stay. I discussed the case with Dr. Bolanos the admitting service who is agreed to admit the patient to observation status. This is neurological symptoms-resolved, HIV positive, history of neurosyphilis Diagnosis Primary Impression: Neurological symptoms-resolved Additional Impression: AIDS (acquired immunodeficiency syndrome), CD4 <=200 Scripts No Active Prescriptions or Reported Meds Condition: Stable Denis Chang August 28, 2017 20:41
[2017-08-28 20:51] LABS: HEMATOCRIT 29.7 % (39.0-51.0); HEMOGLOBIN 9.8 GM/DL (13.0-17.0); MEAN CELL VOLUME 77.2 FL (80.0-100.0); MEAN CORPUSCULAR HEMOGLOBIN 25.5 PG (27.0-34.0); MEAN PLATELET VOLUME 8.5 FL (7.0-11.0); PLATELET COUNT 215 TH/MM3 (150-450); RED BLOOD COUNT 3.84 MIL/MM3 (4.50-5.90); RED CELL DISTRIBUTION WIDTH 13.3 % (11.6-17.2)
--- NOTE | 2017-08-28 20:54 | RADRPT ---
EXAM DATE/TIME: 08/28/2017 20:39 [facility] COMPARISON: No previous studies available for comparison. INDICATIONS : Altered mental status. RADIATION DOSE: 38.53 CTDIvol (mGy) MEDICAL HISTORY : None SURGICAL HISTORY : None. ENCOUNTER: Initial ACUITY: 1 day PAIN SCALE: 0/10 LOCATION: cranial TECHNIQUE: Multiple contiguous axial images were obtained of the head. Using automated exposure control and adj ustment of the mA and/or kV according to patient size, radiation dose was kept as low as reasonably a chievable to obtain optimal diagnostic quality images. DICOM format image data is available electro nically for review and comparison. FINDINGS: CEREBRUM: The ventricles are normal for age. No evidence of midline shift, mass lesion, hemorrhage or acute in farction. No extra-axial fluid collections are seen. POSTERIOR FOSSA: The cerebellum and brainstem are intact. The 4th ventricle is midline. The cerebellopontine angle i s unremarkable. EXTRACRANIAL: The visualized portion of the orbits is intact. SKULL: The calvaria is intact. No evidence of skull fracture. CONCLUSION: 1. No acute intracranial abnormality. Dave Rivero MD on August 28, 2017 at 20:51 Board Certified Radiologist. This report was verified electronically.
[2017-08-28 21:09] LABS: ALBUMIN 3.5 GM/DL (3.4-5.0); AST (GOT) 40 U/L (15-37); BICARBONATE 28.1 MEQ/L (21.0-32.0); BLOOD UREA NITROGEN 14 MG/DL (7-18); CALCIUM 8.5 MG/DL (8.5-10.1); CHLORIDE 101 MEQ/L (98-107); CREATININE 1.25 MG/DL (0.60-1.30); GLOMERULAR FILTRATION RATE 88 ML/MIN (>89); GLUCOSE,RANDOM 139 MG/DL (74-106); SODIUM (NA) 139 MEQ/L (136-145)
[2017-08-28 21:11] LABS: ALT (GPT) 40 U/L (12-78); C-REACTIVE PROTEIN LESS THAN 0.29 MG/DL (0.00-0.30)
[2017-08-28 21:11] LABS: BILIRUBIN, URINE NEG (NEG); BLOOD, URINE NEG (NEG); GLUCOSE,URINE NEG (NEG); KETONE, URINE NEG (NEG); NITRITE,URINE NEG (NEG); SQUAMOUS EPITHELIAL CELL URINE <1 /hpf (0-5); URINE COLOR LIGHT-YELLOW (YELLW/STRAW); URINE LEUKOCYTE ESTERASE NEG (NEG)
[2017-08-28 21:14] LABS: INTERNATIONAL NORMALIZED RATIO 1.1 RATIO; PROTHROMBIN TIME - PATIENT 11.1 SEC (9.8-11.6)
--- NOTE | 2017-08-28 21:18 | RADRPT ---
EXAM DATE/TIME: 08/28/2017 20:41 [facility] COMPARISON: No previous studies available for comparison. INDICATIONS : Cough MEDICAL HISTORY : Asthma SURGICAL HISTORY : Hand Surgery ENCOUNTER: Initial ACUITY: 1 day PAIN SCORE: 0/10 LOCATION: chest FINDINGS: A single view of the chest demonstrates the lungs to be symmetrically aerated without evidence of mas s, infiltrate or effusion. The cardiomediastinal contours are unremarkable. Osseous structures are intact. CONCLUSION: 1. No acute cardiopulmonary disease. Dave Rivero MD on August 28, 2017 at 21:16 Board Certified Radiologist. This report was verified electronically.
[2017-08-28 21:20] LABS: ALKALINE PHOSPHATASE 188 U/L (45-117); TOTAL BILIRUBIN ADULT 0.3 MG/DL (0.2-1.0); TOTAL PROTEIN 7.9 GM/DL (6.4-8.2)
[2017-08-28 21:41] LABS: BANDS 3 % (0-6); BASOPHILS 1 % (0-2); LYMPHOCYTES 43 % (9-44); MONOCYTES 5 % (0-8); NEUTROPHIL # MANUAL DIFF 3.2 TH/MM3 (1.8-7.7); POLYS (SEG NEUTROPHILS) 43 % (16-70)
[2017-08-28 21:42] LABS: OVALOCYTES 1+ (NORMAL)
[2017-08-28] MEDS: SODIUM CHLOR 0.9% 1000 ML INJ 1,000 ML IV SCH (21:43)
[2017-08-28] MEDS ORDERED: ACETAMINOPHEN/HYDROcodone 325 MG/10 MG TAB PO PRN (21:45)
[2017-08-28] MEDS ORDERED: SENNOSIDES 8.6 MG TAB PO PRN (21:45)
[2017-08-28] MEDS ORDERED: ACETAMINOPHEN/HYDROcodone 325 MG/5 MG TAB PO PRN (21:45)
[2017-08-28] MEDS ORDERED: SODIUM CHLORIDE 0.9% FLUSH 10 ML FLUSH IV FLUSH PRN (21:45)
[2017-08-28] MEDS ORDERED: BISACODYL 10 MG SUPP RECTAL PRN (21:45)
[2017-08-28] MEDS ORDERED: METOCLOPRAMIDE HCL 10 MG/2 ML VIAL IV PUSH PRN (21:45)
[2017-08-28] MEDS ORDERED: MAGNESIUM HYDROXIDE SUSP 30 ML CUP PO PRN (21:45)
[2017-08-28] MEDS ORDERED: LACTULOSE SYRUP 20 GM/30 ML CUP PO PRN (21:45)
[2017-08-28] MEDS ORDERED: ACETAMINOPHEN 325 MG TAB PO PRN (21:45)
[2017-08-28] MEDS ORDERED: POTASSIUM CHLORIDE 20 MEQ CONTROLLED RELEASE TAB PO ONE (21:45)
--- NOTE | 2017-08-28 21:46 | HHI.HP ---
[facility] No Primary Care Physician Admission Diagnosis Diagnoses: (1) Fever Diagnosis: Principal (2) AIDS (acquired immunodeficiency syndrome), CD4 <=200 Diagnosis: Principal (3) Syphilis Diagnosis: Principal Travel History International Travel<30 Days: No Contact w/Intl Traveler <30 Da: No Traveled to Known Affected Are: No History of Present Illness This is a 22-year-old male with PMH of HIV/AIDS (CD4 186 04/20/16) and h/o Syphilis who presented to the ER w/ complaints of fever x1 wk and right-sided numbness/tingling starting earlier tonight. Previous admit 04/2016 at which time he was newly diagnosed w/ HIV, CD4 186 at that time, also found to have Syphilis, s/p desensitization due to PCN ALLERGY and ultimately d/c'd on Bactrim w/ instructions to follow up as outpatient for initiation of HAART. Pt has been non-compliant w/ follow up and has not started HAART, states he has appt w/ [facility] [employer] on Tuesday. Reports fever, nasal congestion and non-productive cough x1 wk, in addition to right facial and RUE/RLE numbness /tingling starting today. Also notes difficulty w/ speech, now resolved. On arrival, BP 155/88, HR 114, O2 sat 100% on RA, Temp 99.9. WBC 7.0. Hemoglobin 9.8. No shift or bandemia. K+ 3.1. Chemistry otherwise unremarkable. INR 1.1. UA negative for UTI. CXR with no acute findings. CT Head negative. Review of Systems Except as stated in HPI: all other systems reviewed are Neg ROS: 14 point review of systems otherwise negative. Past Family Social History Past Medical History PMH: HIV/AIDS (CD4 186 04/20/16) and h/o Syphilis Past Surgical History PAST SURGICAL HISTORY: None Allergies: Coded Allergies: penicillin G (Unverified Allergy, Severe, RASH, 08/28/17) Family History PAST FAMILY HISTORY: Reviewed. No h/o DM or CAD Social History PAST SOCIAL HISTORY: Negative for alcohol, tobacco or drugs. Physical Exam Vital Signs Vital Signs Date Time Temp Pulse Resp B/P (MAP) Pulse Ox O2 Delivery O2 Flow Rate FiO2 08/28/17 20:14 98.5 129 20 137/75 (95) 100 Room Air 08/28/17 19:55 99.9 114 16 155/88 (110) 100 Physical Exam PE: GENERAL: Thin young black male in no acute distress. HEENT: PERRLA, EOMI. No scleral icterus or conjunctival pallor. No lid lag or facial droop. CARDIOVASCULAR: Regular rate and rhythm. No obvious murmurs to auscultation. No chest tenderness to palpation. RESPIRATORY: No obvious rhonchi or wheezing. Clear to auscultation. Breath sounds equal bilaterally. GASTROINTESTINAL: Abdomen soft, non-tender, nondistended. BS normal. MUSCULOSKELETAL: Extremities without clubbing, cyanosis, or edema. No obvious deformities. NEUROLOGICAL: Awake, alert and oriented x4. No focal neurologic deficits. Moving both upper and lower extremities spontaneously. Laboratory Laboratory Tests Test 08/28/17 20:20 08/28/17 20:50 08/28/17 20:55 White Blood Count 7.0 Red Blood Count 3.84 Hemoglobin 9.8 Hematocrit 29.7 Mean Corpuscular Volume 77.2 Mean Corpuscular Hemoglobin 25.5 Mean Corpuscular Hemoglobin Concent 33.0 Red Cell Distribution Width 13.3 Platelet Count 215 Mean Platelet Volume 8.5 CBC Comment AUTO DIFF Differential Total Cells Counted 100 Neutrophils % (Manual) 43 Band Neutrophils % 3 Lymphocytes % 43 Monocytes % 5 Eosinophils % 5 Basophils % 1 Neutrophils # (Manual) 3.2 Differential Comment FINAL DIFF MANUAL Atypical Lymphocytes Platelet Estimate NORMAL Platelet Morphology Comment NORMAL Ovalocytes 1+ Erythrocyte Sedimentation Rate 45 Blood Urea Nitrogen 14 Creatinine 1.25 Random Glucose 139 Total Protein 7.9 Albumin 3.5 Calcium Level 8.5 Alkaline Phosphatase 188 Aspartate Amino Transf (AST/SGOT) 40 Alanine Aminotransferase (ALT/SGPT) 40 Total Bilirubin 0.3 Sodium Level 139 Potassium Level 3.1 Chloride Level 101 Carbon Dioxide Level 28.1 Anion Gap 10 Estimat Glomerular Filtration Rate 88 C-Reactive Protein LESS THAN 0.29 Thyroid Stimulating Hormone 3rd Gen 0.556 Urine Color LIGHT-YELLOW Urine Turbidity CLEAR Urine pH 6.0 Urine Specific [place] 1.012 Urine Protein TRACE Urine Glucose (UA) NEG Urine Ketones NEG Urine Occult Blood NEG Urine Nitrite NEG Urine Bilirubin NEG Urine Urobilinogen LESS THAN 2.0 Urine Leukocyte Esterase NEG Urine RBC LESS THAN 1 Urine WBC LESS THAN 1 Urine Squamous Epithelial Cells <1 Prothrombin Time 11.1 Prothromb Time International Ratio 1.1 Activated Partial Thromboplast Time 27.5 Result Diagram: 08/28/17201908/28/172019 Capkatja VTE Risk Assessment Caprini VTE Risk Assessment: No/Low Risk (score <= 1) Caprini Risk Assessment Model Point Value = 1 Point Value = 2 Point Value = 3 Point Value = 5 Age 41-60 Minor surgery BMI > 25 kg/m2 Swollen legs Varicose veins or History of unexplained or recurrent spontaneous Oral contraceptives or hormone replacement Sepsis (< 1 month) Serious lung disease, including pneumonia (< 1 month) Abnormal pulmonary function Acute myocardial infarction Congestive heart failure (< 1 month) History of inflammatory bowel disease Medical patient at bed rest Age 61-74 Arthroscopic surgery Major open surgery (> 45 min) Laparoscopic surgery (> 45 min) Malignancy Confined to bed (> 72 hours) Immobilizing plaster cast Central venous access Age >= 75 History of VTE Family history of VTE Factor V Leiden Prothrombin [id number] Lupus anticoagulant Anticardiolipin antibodies Elevated serum homocysteine Heparin-induced thrombocytopenia Other congenital or acquired thrombophilia Stroke (< 1 month) Elective arthroplasty Hip, pelvis, or leg fracture Acute spinal cord injury (< 1 month) Prophylaxis Regimen Total Risk Factor Score Risk Level Prophylaxis Regimen 0-1 Low Early ambulation 2 Moderate Order ONE of the following: *Sequential Compression Device (SCD) *Heparin 5000 units SQ BID 3-4 Higher Order ONE of the following medications: *Heparin 5000 units SQ TID *Enoxaparin/Lovenox 40 mg SQ daily (WT < 150 kg, CrCl > 30 mL/min) *Enoxaparin/Lovenox 30 mg SQ daily (WT < 150 kg, CrCl > 10-29 mL/min) *Enoxaparin/Lovenox 30 mg SQ BID (WT < 150 kg, CrCl > 30 mL/min) AND/OR *Sequential Compression Device (SCD) 5 or more Highest Order ONE of the following medications: *Heparin 5000 units SQ TID (Preferred with Epidurals) *Enoxaparin/Lovenox 40 mg SQ daily (WT < 150 kg, CrCl > 30 mL/min) *Enoxaparin/Lovenox 30 mg SQ daily (WT < 150 kg, CrCl > 10-29 mL/min) *Enoxaparin/Lovenox 30 mg SQ BID (WT < 150 kg, CrCl > 30 mL/min) AND *Sequential Compression Device (SCD) Assessment and Plan Problem List: (1) Fever ICD Code: R50.9 - Fever, unspecified (2) AIDS (acquired immunodeficiency syndrome), CD4 <=200 ICD Code: B20 - Human immunodeficiency virus [HIV] disease Status: Acute (3) Syphilis ICD Code: A53.9 - Syphilis, unspecified Status: Acute Assessment and Plan A/P: 1. Fever: reports fever x1 wk w/ associated nasal congestion/non-productive cough, Temp 99.9 on arrival, WBC normal, no shift/no bandemia. Possibly related to underlying HIV infection. CXR w/ no acute findings, images reviewed by me, U/a negative for UTI. Check Blood Cultures. Repeat labs in am. 2. HIV/AIDS: Diagnosed 04/2016 on previous admit, CD4 186 at that time, non- compliant w/ follow-up, not on HAART. Start Bactrim/Zithro prophylaxis. Consult ID for further evaluation/recommendations. Acute onset facial/right- sided numbness/tingling, CT Head w/ no acute findings, images reviewed by me, Check MRI Brain to eval for possible [employer] Lesions. 3. Syphilis: h/o Syphilis s/p desensitization and treatment w/ PCN by ID on last admit, Check RPR. Consult ID as above 4. DVT Prophylaxis: SCD/Teds 5. Social work for d/c planning as needed. 6. Case discussed w/ ER physician at length, labs/records/imaging reviewed by me. Milagros Bolanos MD August 28, 2017 21:46
[2017-08-28] MEDS ORDERED: GADODIAMIDE PF 287 MG/ML 5 ML VIAL (for RAD MRI) IVCONTRAST ONE ×2 (21:51)
[2017-08-28] MEDS ORDERED: AZITHROMYCIN 600 MG TAB PO SCH (22:00)
[2017-08-28 22:41] VITALS: BP 115/62; PULSE 110; RESP 20; O2SAT 100
[2017-08-28 23:15] VITALS: BP 116/56; RESP 18; TEMP 99.1; O2SAT 99
[2017-08-29 07:31] VITALS: BP 107/55; PULSE 87; RESP 18; TEMP 98.7; O2SAT 100
--- NOTE | 2017-08-29 08:06 | EKG ---
Date Performed: 08/28/2017 Time Performed: 21:18:01 PTAGE: 22 years EKG: Sinus rhythm NONSPECIFIC T-WAVE ABNORMALITY BORDERLINE ECG NO PREVIOUS TRACING DOCTOR: Shukri Mcdonnell Interpretating Date/Time 08/29/2017 08:05:47
[2017-08-29 09:22] LABS: AUTOMATED NEUTROPHIL # 1.8 TH/MM3 (1.8-7.7); BASOPHIL % 0.4 % (0.0-2.0); EOSINOPHIL # 0.1 TH/MM3 (0-0.4); EOSINOPHIL % 2.4 % (0.0-4.0); HEMATOCRIT 28.1 % (39.0-51.0); HEMOGLOBIN 9.2 GM/DL (13.0-17.0); LYMPH % 51.6 % (9.0-44.0); LYMPHOCYTE # 2.5 TH/MM3 (1.0-4.8); MEAN CELL VOLUME 77.6 FL (80.0-100.0); MEAN CORPUSCULAR HEMOGLOBIN 25.6 PG (27.0-34.0); MEAN CORPUSCULAR HGB CONC 32.9 % (32.0-36.0); MEAN PLATELET VOLUME 8.8 FL (7.0-11.0); MONO % 9.1 % (0.0-8.0); MONOCYTE # 0.4 TH/MM3 (0-0.9); NEUT % 36.5 % (16.0-70.0); PLATELET COUNT 188 TH/MM3 (150-450); RED BLOOD COUNT 3.62 MIL/MM3 (4.50-5.90); RED CELL DISTRIBUTION WIDTH 13.4 % (11.6-17.2); WHITE BLOOD COUNT 4.8 TH/MM3 (4.0-11.0)
[2017-08-29 09:54] LABS: ALKALINE PHOSPHATASE 175 U/L (45-117); ALT (GPT) 35 U/L (12-78); AST (GOT) 32 U/L (15-37); BICARBONATE 27.8 MEQ/L (21.0-32.0); BLOOD UREA NITROGEN 13 MG/DL (7-18); CALCIUM 8.4 MG/DL (8.5-10.1); CHLORIDE 106 MEQ/L (98-107); CREATININE 0.95 MG/DL (0.60-1.30); GLOMERULAR FILTRATION RATE 120 ML/MIN (>89); GLUCOSE,RANDOM 78 MG/DL (74-106); SODIUM (NA) 142 MEQ/L (136-145); TOTAL BILIRUBIN ADULT 0.3 MG/DL (0.2-1.0)
[2017-08-29] MEDS: DOCUSATE SODIUM 50 MG/SENNA 8.6 MG TAB PO SCH ×2 (09:55→20:54)
[2017-08-29] MEDS: SODIUM CHLORIDE 0.9% FLUSH 10 ML FLUSH IV FLUSH SCH ×2 (09:56→20:55)
[2017-08-29] MEDS: SULFAMETHOXAZOLE-TRIMETHOPRIM DS 800-160 MG TAB PO SCH (09:56)
[2017-08-29 11:33] VITALS: BP 123/68; PULSE 86; RESP 18; TEMP 98.3; O2SAT 100
[2017-08-29] MEDS: SODIUM CHLOR 0.9% 1000 ML INJ 1,000 ML IV SCH ×2 (11:43→19:44)
--- NOTE | 2017-08-29 12:03 | RADRPT ---
EXAM DATE/TIME: 08/29/2017 10:53 [facility] COMPARISON: No previous studies available for comparison. INDICATIONS : Neurosyphilis. CONTRAST: 9 cc Omniscan (gadodiamide) IV MEDICAL HISTORY : HIV. SURGICAL HISTORY : Left thumb sx. ENCOUNTER: Initial ACUITY: 1 day PAIN SCORE: 04/20 LOCATION: Bilateral cranial TECHNIQUE: Multiplanar, multisequence MRI of the brain was performed both prior to and following the administrat ion of paramagnetic contrast. FINDINGS: CEREBRUM: The ventricles are normal for age. No evidence of midline shift, mass lesion, hemorrhage or acute in farction. No extraaxial fluid collections are seen. The pituitary gland and suprasellar cistern are normal in configuration. WHITE MATTER: No significant signal abnormalities are seen in the white matter. POSTERIOR FOSSA: The cerebellum and brainstem are intact. The 4th ventricle is midline. The cerebellopontine angle is unremarkable. The cerebellar tonsils are normal in position. DIFFUSION IMAGING: No focal areas of restricted diffusion are seen. No evidence of acute infarction. EXTRACRANIAL: The visualized portions of the orbits and paranasal sinuses are unremarkable. POST-CONTRAST: No abnormal areas of parenchymal or dural enhancement. No evidence of blood-brain barrier breakdown. CONCLUSION: Normal examination. Brendon Palacio MD on August 29, 2017 at 11:59 Board Certified Radiologist. This report was verified electronically.
[2017-08-29] MEDS ORDERED: ASPIRIN EC 81 MG TABEC PO SCH (13:00)
--- NOTE | 2017-08-29 13:02 | HHI.PR ---
Subjective Remarks Follow-up neuro symptoms. States he had transient numbness of the right hand and right lower extremity with aphasia for 30 minutes yesterday. Today he is feeling better tolerated liquid. No bleeding issues. States he follows with HIV doctor outpatient (Dr. Munir Diop) Objective Vitals Vital Signs Date Time Temp Pulse Resp B/P (MAP) Pulse Ox O2 Delivery O2 Flow Rate FiO2 08/29/17 11:33 98.3 86 18 123/68 (86) 100 08/29/17 07:31 98.7 87 18 107/55 (72) 100 08/28/17 23:15 99.1 18 116/56 (76) 99 08/28/17 22:41 110 20 115/62 (79) 100 Room Air 08/28/17 20:14 98.5 129 20 137/75 (95) 100 Room Air 08/28/17 19:55 99.9 114 16 155/88 (110) 100 I/O 08/28/17 08/28/17 08/28/17 08/29/17 08/29/17 08/29/17 07:00 15:00 23:00 07:00 15:00 23:00 Output Total 900 ml Balance -900 ml Output Urine Total 900 ml Result Diagram: 08/29/17 0824 08/29/17 0824 Imaging Last Impressions Brain MRI 08/29/17 0000 Signed Impressions: Service Date/Time: Tuesday, August 29, 2017 10:53 - CONCLUSION: Normal examination. Brendon Palacio MD Head CT 08/28/172013 Signed Impressions: Service Date/Time: Monday, August 28, 2017 20:39 - CONCLUSION: 1. No acute intracranial abnormality. Dave Rivero MD Chest X-Ray 08/28/172013 Signed Impressions: Service Date/Time: Monday, August 28, 2017 20:41 - CONCLUSION: 1. No acute cardiopulmonary disease. Dave Rivero MD Objective Remarks GENERAL: Thin young black male in no acute distress. CARDIOVASCULAR: Regular rate and rhythm. No obvious murmurs to auscultation. No chest tenderness to palpation. RESPIRATORY: No obvious rhonchi or wheezing. Clear to auscultation. Breath sounds equal bilaterally. GASTROINTESTINAL: Abdomen soft, non-tender, nondistended. BS normal. MUSCULOSKELETAL: Extremities without clubbing, cyanosis, or edema. No obvious deformities. NEUROLOGICAL: Awake, alert and oriented x4. No focal neurologic deficits. Moving both upper and lower extremities spontaneously. Procedures none A/P Problem List: (1) Fever ICD Code: R50.9 - Fever, unspecified (2) AIDS (acquired immunodeficiency syndrome), CD4 <=200 ICD Code: B20 - Human immunodeficiency virus [HIV] disease Status: Acute (3) Syphilis ICD Code: A53.9 - Syphilis, unspecified Status: Acute Assessment and Plan 1. Fever: reports fever x1 wk w/ associated nasal congestion/non-productive cough, Temp 99.9 on arrival, WBC normal, no shift/no bandemia. Possibly related to underlying HIV infection. CXR w/ no acute findings, images reviewed by me, U/a negative for UTI. Check Blood Cultures. No recurrence 2. HIV/AIDS: Diagnosed 04/2016 on previous admit, CD4 186 at that time, non- compliant w/ follow-up, not on HAART. Start Bactrim/Zithro prophylaxis. Outpatient follow-up with HIV MD 3. Acute onset facial/right-sided numbness/tingling, CT Head w/ no acute findings, images reviewed by me. Unremarkable brain MRI. Possibly TIA. Start aspirin and initiate stroke workup with 2D echo and carotid ultrasound. Monitor on telemetry. EKG with sinus rhythm. Consult neurology, PT and ST 3. Syphilis: h/o Syphilis s/p desensitization and treatment w/ PCN by ID on last admit, RPR nonreactive. 4. DVT Prophylaxis: SCD/Teds Discharge Planning Discharge pending neurology [place] Wong MD August 29, 2017 13:02
[2017-08-29] MEDS ORDERED: SULF1TAB23 PO (13:04)
[2017-08-29] MEDS ORDERED: ECASA81 PO (13:04)
[2017-08-29] MEDS ORDERED: AZIT600T PO (13:04)
--- NOTE | 2017-08-29 13:04 | HHI.DCPOC ---
Discharge Care Plan Diagnosis: (1) AIDS (acquired immunodeficiency syndrome), CD4 <=200 Your Health Problems Are: Difficulty with ADL Exercise Tolerance Goals to Promote Your Health * To prevent worsening of your condition and complications * To maintain your health at the optimal level Directions to Meet Your Goals Take your medications as prescribed Follow your dietary instruction Follow activity as directed Keep your appointments as scheduled Take your immunizations and boosters as scheduled If your symptoms worsen call your PCP, if no PCP go to Urgent Care Center or Emergency Room Smoking is Dangerous to Your Health. Avoid second hand smoke Call the 24-hour hour crisis hotline for domestic abuse at [facility] Bonner MD August 29, 2017 13:04
[2017-08-29 13:39] LABS: CHOLESTEROL/ HDL RATIO 2.85 RATIO; HDL CHOLESTEROL 36.4 MG/DL (40.0-60.0)
[2017-08-29 15:15] VITALS: BP 109/59; PULSE 91; RESP 16; TEMP 98.7; O2SAT 100
--- NOTE | 2017-08-29 15:21 | RADRPT ---
EXAM DATE/TIME: 08/29/2017 14:07 [facility] COMPARISON: No previous studies available for comparison. INDICATIONS : Transient ischemic attack. MEDICAL HISTORY : Asthma. HIV+. SURGICAL HISTORY : Left thumb surgery. ENCOUNTER: Initial ACUITY: 1 day PAIN SCORE: 0/10 LOCATION: Bilateral neck PEAK SYSTOLIC VELOCITIES (cm/sec): ICA/CCA RATIO: Right: 0.8 Left: 0.6 ICA: Right: 107 Left: 90 CCA: Right: 134 Left: 144 ECA: Right: 63 Left: 66 VERTEBRAL: Right: 51 antegrade Left: 67 antegrade Elevated flow velocities and ICA/CCA ratios have been found to correlate with increased degrees of vessel stenosis, calculated as percentage of diameter relative to a normal segment of distal ICA/CCA FINDINGS: RIGHT CAROTID: No significant stenosis is visualized. The waveforms are within normal limits. LEFT CAROTID: No significant stenosis is visualized. The waveforms are within normal limits. VERTEBRAL ARTERIES: Antegrade flow is seen in both vertebral arteries. MISCELLANEOUS: None. CONCLUSION: Negative exam. Pietro Corado MD on August 29, 2017 at 15:18 Board Certified Radiologist. This report was verified electronically.
--- NOTE | 2017-08-29 17:18 | ECHRPT ---
Indication: Afib Flutter CONCLUSIONS The left ventricular systolic function is mildly abnormal; estimated LVEF is about 45% (no more than 50%) with mild global hypokinesis. The aortic root and proximal ascending aorta are not well visualized. No tricuspid valve stenosis there is trace tricuspid valve regurgitation. BP: / HR: Rhythm: MEASUREMENTS (Male / Female) Normal Values Technical Quality: 2D ECHO LV Diastolic Diameter PLAX 4.7 cm 4.2 - 5.9 / 3.9 - 5.3 cm LV Systolic Diameter PLAX 3.3 cm IVS Diastolic Thickness 0.9 cm 0.6 - 1.0 / 0.6 - 0.9 cm LVPW Diastolic Thickness 0.8 cm 0.6 - 1.0 / 0.6 - 0.9 cm LV Relative Wall Thickness 0.4 RV Internal Dim ED PLAX 1.3 cm M-MODE Aortic Root Diameter MM 2.8 cm LA Systolic Diameter MM 2.2 cm LA Ao Ratio MM 0.8 AV Cusp Separation MM 1.8 cm DOPPLER Mitral E Point Velocity 141.0 cm/s Mitral A Point Velocity 65.2 cm/s Mitral E to A Ratio 2.2 FINDINGS LEFT VENTRICLE Normal left ventricular size and wall thickness. The left ventricular systolic function is mildly ab normal; estimated LVEF is about 45% (no more than 50%) with mild global hypokinesis. RIGHT VENTRICLE Normal right ventricular size and systolic function. LEFT ATRIUM The left atrial size is normal. RIGHT ATRIUM The right atrial size is normal. ATRIAL SEPTUM Normal atrial septal thickness without atrial level shunting by limited color doppler interrogation. AORTA The aortic root and proximal ascending aorta are not well visualized. MITRAL VALVE Structurally normal mitral valve. No mitral valve stenosis or regurgitation. AORTIC VALVE Trileaflet aortic valve. No aortic valve stenosis or regurgitation. TRICUSPID VALVE Structurally normal tricuspid valve. No tricuspid valve stenosis there is trace tricuspid valve regu rgitation. PULMONARY VALVE No pulmonary valve regurgitation or stenosis. VESSELS The inferior vena cava is normal in size. PERICARDIUM No pericardial effusion. Neel Bauman MD (Electronically Signed) Final Date:29 Aug 2017 17:17
[2017-08-29 17:30] VITALS: PULSE 72
[2017-08-29] MEDS: ASPIRIN EC 325 MG TABEC PO SCH (19:00)
--- NOTE | 2017-08-29 19:31 | MB ---
cc: Sagar Pineda MD DATE: 08/29/2017 HISTORY OF PRESENT ILLNESS: A 22-year-old right-handed man without significant past medical history except he is HIV positive, not on antivirals. He is supposed to have evidently some kind of meeting or appointment next week about that. He has history of ADHD. Yesterday he was just doing some work around his house and he developed some tingling in the right hand and it slowly went up to his right shoulder, his face and then down his right leg. It took about 10 minutes to spread fully. Then, he had some slurred speech which lasted about 30-40 minutes, and he was admitted to the hospital. PAST MEDICAL HISTORY: History of ADHD. Evidently has a history of syphilis also. ALLERGIES: ALLERGIC TO PENICILLIN. MEDICATIONS: None. REVIEW OF SYSTEMS: He denied any headache, chest pain or palpitations. He gets rare headaches, maybe 1 a month or so, nothing major over the years. He denies any history of hypertension, diabetes, hypercholesterolemia, NM, CABG, cardiac arrhythmia, renal, hepatic or pulmonary disease, thyroid disease, lupus, ulcer, cancer, seizure or stroke. SOCIAL HISTORY: He is not a smoker. He denies any drinking or drugs. Lives with his mother. FAMILY HISTORY: Negative for cancer, seizure or stroke. MEDICATIONS: He does not take an aspirin a day. PHYSICAL EXAMINATION: VITAL SIGNS: He has been in sinus rhythm here. Afebrile, 91, 16, 109/59. NECK: There were no carotid bruits. HEART: Regular rhythm. I did not detect a murmur. NEUROLOGIC: Pupils are equal. Visual roberts are full. Extraocular movements intact without nystagmus. He denied any vision change with this. Face is symmetric with normal sensation. Tongue was midline. There is no drift. He had normal strength in upper and lower extremities bilaterally. DTRs are trace throughout. Toes downgoing bilaterally. Pinprick is intact to face, arm, and leg bilaterally. He is not ataxic on pocves-we-snus. Speech is fluent. He is not aphasic. Gives a good history. LABORATORY DATA: CBC shows an MCV of 77, which he has had that before. Hematocrit is only 28, platelet count 188. Sedimentation rate is 45; it had been 68 in April. RPR was 1:4 in April of 2016 and nonreactive now. Gonorrhea was negative. Absolute CD4 count low at 186, percent CD4 count was low at 12. UA is negative. Coags normal. Basic metabolic profile was normal. LFTs normal. CRP normal. LDL cholesterol normal at 46. TSH normal. EKG shows sinus rhythm. IMAGING STUDIES: MRI of the brain was read as normal; it was done with and without contrast, carotid ultrasound negative. Chest x-ray negative. Head CT normal. Review of the MRI of the brain films: MRI of the brain is normal. No acute infarct is noted. Hippocampi look normal looks. His echocardiogram: Ejection fraction 45%, mild hypokinesis globally. LA size 22. Aortic and mitral valve normal. IMPRESSION: The onset of the symptoms over 10 minutes makes stroke less likely. Usually that would come on very suddenly. Complicated acephalgic migraine could be considered. Small seizure is a consideration. He has got a low ejection fraction and he should have a Holter monitor done and consider having Cardiology see him. We will check a CPK and troponin on him and a couple of other blood tests including a hypercoagulable screen. RECOMMENDATIONS: I will put him on a baby aspirin a day, check an EEG and MRA of the neck and [place] and I would have the medication team consider if they want Cardiology see him with the low ejection fraction at such a young age, whether he could have some HIV involvement in his heart. His exam has normalized now and the MRI does not show a stroke. We will also check an MR venogram of the brain. MD ANA Garrison/TIMOTHY , 06:57 PM , 07:30 PM
[2017-08-29 20:21] VITALS: BP 108/49; PULSE 84; RESP 16; TEMP 98.4; O2SAT 100
[2017-08-29 23:00] VITALS: PULSE 84
[2017-08-29 23:22] LABS: FOLATE 8.8 NG/ML (3.1-17.5); TROPONIN I LESS THAN 0.02 NG/ML (0.02-0.05)
[2017-08-30] VITALS (10 sets, daily range): BP systolic 105–136; BP diastolic 52–75; PULSE 68–96; RESP 16–20; TEMP 97.8–98.9; O2SAT 98–100
--- NOTE | 2017-08-30 07:27 | HHI.PR ---
Subjective Remarks sr Objective Vital Signs Date Time Temp Pulse Resp B/P (MAP) Pulse Ox O2 Delivery O2 Flow Rate FiO2 08/30/17 05:12 97.8 68 18 121/62 (81) 98 08/30/17 01:04 98.2 77 16 111/55 (73) 99 08/29/17 23:00 84 08/29/17 20:21 98.4 84 16 108/49 (68) 100 08/29/17 17:30 72 08/29/17 15:15 98.7 91 16 109/59 (76) 100 08/29/17 11:33 98.3 86 18 123/68 (86) 100 08/29/17 07:31 98.7 87 18 107/55 (72) 100 I/O 08/29/17 08/29/17 08/29/17 08/30/17 08/30/17 08/30/17 07:00 15:00 23:00 07:00 15:00 23:00 Intake Total 360 ml Output Total 900 ml 300 ml Balance -900 ml 60 ml Intake Oral 360 ml Output Urine Total 900 ml 300 ml Result Diagram: 08/29/1782308/29/1724 Objective Remarks alert no focal deficit no new numbness Assessment and Plan Assessment and Plan imp lower ef possible tia hiv pos triop neg labs pend asa have cards see mra eeg hyper screen fu holter needs hiv meds eduarda ?should id see him? defer to med team on that if cards clears and mras nl and holter done could dc on asa Sagar Pineda MD August 30, 2017 07:27
[2017-08-30] MEDS ORDERED: GADODIAMIDE PF 287 MG/ML 20 ML VIAL (for RAD MRI) IVCONTRAST ONE (09:00)
[2017-08-30] MEDS: DOCUSATE SODIUM 50 MG/SENNA 8.6 MG TAB PO SCH ×2 (10:38→21:00)
[2017-08-30] MEDS: SODIUM CHLORIDE 0.9% FLUSH 10 ML FLUSH IV FLUSH SCH ×2 (10:39→21:34)
[2017-08-30] MEDS: ASPIRIN EC 325 MG TABEC PO SCH (10:39)
--- NOTE | 2017-08-30 10:56 | RADRPT ---
EXAM DATE: 08/30/2017 10:31 AM EDT AGE/SEX: 22 years / Male INDICATIONS: Altered mental status. Neurosyphillis. CLINICAL DATA: This is the patient's subsequent encounter. Patient reports that signs and symptoms h ave been present for 2 days and indicates a pain score of 0/10. MEDICAL/SURGICAL HISTORY: HIV. . Lt thumb surgery. COMPARISON: No prior [facility] exams available for comparison. TECHNIQUE: 3D jaur-so-nedlam MRA was performed. Source images, multiplanar STS MIP, and 3D volum e MIP reconstructions were reviewed. FINDINGS: There is excellent visualization of the major intracranial arteries out to the second-o rder branch vessels. There is no evidence for aneurysm, vessel truncation or stenosis, and no eviden ce for vascular malformation. There are bilateral patent posterior communicating arteries. CONCLUSION: 1. Unremarkable MRA of the brain Electronically signed by: Demetris Hillman MD 08/30/2017 10:55 AM EDT
--- NOTE | 2017-08-30 11:12 | RADRPT ---
EXAM DATE: 08/30/2017 11:06 AM EDT AGE/SEX: 22 years / Male INDICATIONS: Altered mental status. Neurosyphillis. CLINICAL DATA: This is the patient's subsequent encounter. Patient reports that signs and symptoms h ave been present for 2 days and indicates a pain score of 0/10. MEDICAL/SURGICAL HISTORY: HIV. . Lt thumb sx COMPARISON: No prior [facility] exams available for comparison. TECHNIQUE: 20 ml Omniscan (gadodiamide) contrast infused MRA (single exam dose) of the extracranial circulation was performed using a neurovascular coil. Postprocessing was performed, including rotat ing sub-volume maximum intensity projections of each carotid artery, rotating full-volume maximum int ensity projections of both carotid arteries, sagittal and coronal sliding thin-slab reformations of e ach carotid artery, and left oblique sliding thin-slab reformation through the aortic arch to include the origin of the arch branch vessels. FINDINGS: Aortic Arch : There is a three-vessel origin of the great vessels from the aorta. No evidence of o stial narrowing. Right Carotid : The common carotid artery is intact. The carotid bulb has a normal configuration wi thout ulceration or narrowing. The internal carotid artery lumen is smooth without stenosis. The ex ternal carotid artery is intact. Left Carotid : The common carotid artery is intact. The carotid bulb has a normal configuration wit hout ulceration or narrowing. The internal carotid artery lumen is smooth without stenosis. The ext ernal carotid artery is intact. Vertebrals : The vertebral arteries have a symmetric diameter. No stenotic lesions are seen. CONCLUSION: 1. Unremarkable MRA of the carotids. Percent stenosis is calculated using the diameter of the stenotic region over the diameter of the nor mal distal internal carotid artery Electronically signed by: Demetris Hillman MD 08/30/2017 11:11 AM [facility]
[2017-08-30] MEDS ORDERED: CARVEDILOL 3.125 MG TAB PO ONE (13:00)
[2017-08-30] MEDS ORDERED: RAMIPRIL 2.5 MG CAP PO ONE (13:00)
--- NOTE | 2017-08-30 13:22 | MB ---
cc: Jack Cortez MD DATE: 08/30/2017 HISTORY OF PRESENT ILLNESS: This is a 22-year-old young man who presented with right lower extremity weakness, found to have HIV, cardiomyopathy, ejection fraction of 45% by echocardiogram read by Dr. Neel Bauman. The patient denies shortness of breath, chest pain, fever, chills, cough, GI/ bleeding, pain, orthopnea, syncope or dizziness. Per the ER note, it is also noted he had right sided sensory loss. PAST MEDICAL HISTORY: Includes a history of HIV and syphilis off medications for 6 months. REVIEW OF SYSTEMS: Also significant for a melee "congestion and cough." PAST MEDICAL HISTORY: Includes HIV, syphilis, asthma as a child. SOCIAL HISTORY: Denies tobacco or alcohol use. ALLERGIES: PENICILLIN G. MEDICATIONS: In the hospital aspirin 81 mg a day, Bactrim double strength, azithromycin 1200 mg q. 7 days. PHYSICAL EXAMINATION: VITAL SIGNS: Blood pressure 122/59, pulse 92, respiratory rate 20, saturations 100% on room air, temperature 98.8. GENERAL: He is alert and oriented x 3 in no acute distress. NECK: Supple. No JVD. No bruit. CARDIOVASCULAR: S1, S2. No murmurs, rubs or gallops. LUNGS: Clear to auscultation bilaterally. ABDOMEN: Soft, nontender, nondistended with positive bowel sounds. EXTREMITIES: No lower extremity edema. LABORATORY DATA: Head CT on 08/28/2017, no acute intracranial abnormality. Chest x-ray on 08/28/2017, no acute cardiopulmonary disease. Carotid ultrasound 08/29/2017, negative exam. Brain MRI 08/29/2017, normal examination. Neck MRA, 08/30/2017, unremarkable MRA of the carotids. A head MRA, 08/30/2017, unremarkable MRA of the brain. EKG on 08/28/2017, normal sinus rhythm at 99 beats per minute, otherwise normal. LABS: White count 4.8, hemoglobin at 9.2, hematocrit 28.1, MCV is 77.6, platelet count 188. Sedimentation rate is 45. INR 1.1. Sodium initially 139, potassium 3.1, chloride 101, bicarbonate 28.1, BUN is 14, creatinine 1.25, glucose 139, AST 40, ALT 40, alkaline phosphatase 188, troponin less than 0.02. C-reactive protein less than 0.29. Albumin 3.0. LDL is 46. TSH 0.556. Toxicology is positive for cannabinoids. Blood cultures are pending. DIAGNOSES: 1. Cardiomyopathy. 2. Human immunodeficiency virus. 3. Syphilis. 4. Possible transient ischemic attack. DISCUSSION: At this point in time, given the patient's unstable neurologic presentation, recommend treating the patient empirically for his cardiomyopathy with BANDAR inhibitors and beta blockers. He is also anemic making potential PCI high risk. Jack Cortez MD AWC/DL , 12:57 PM , 01:20 PM
--- NOTE | 2017-08-30 16:00 | HHI.PR ---
Subjective Remarks Follow-up TIA. Patient is doing well. Neurological workup reveals cardiomyopathy cardiology recommending medical management at this time Objective Vitals Vital Signs Date Time Temp Pulse Resp B/P (MAP) Pulse Ox O2 Delivery O2 Flow Rate FiO2 08/30/17 15:04 98.0 84 18 113/59 (77) 100 08/30/17 11:46 98.8 92 20 122/59 (80) 100 08/30/17 09:36 98.1 88 18 123/55 (77) 100 08/30/17 05:12 97.8 68 18 121/62 (81) 98 08/30/17 01:04 98.2 77 16 111/55 (73) 99 08/29/17 23:00 84 08/29/17 20:21 98.4 84 16 108/49 (68) 100 08/29/17 17:30 72 I/O 08/29/17 08/29/17 08/29/17 08/30/17 08/30/17 08/30/17 07:00 15:00 23:00 07:00 15:00 23:00 Intake Total 360 ml Output Total 900 ml 300 ml 750 ml Balance -900 ml 60 ml -750 ml Intake Oral 360 ml Output Urine Total 900 ml 300 ml 750 ml Result Diagram: 08/29/17 0824 08/29/17823 Imaging Last Impressions Neck Magnetic Resonance Angiography 08/30/171854 Signed Impressions: CONCLUSION: Head Magnetic Resonance Angiography 08/30/171854 Signed Impressions: CONCLUSION: Carotid Artery Ultrasound 08/29/17 0000 Signed Impressions: Service Date/Time: Tuesday, August 29, 2017 14:07 - CONCLUSION: Negative exam. Pietro Corado MD Brain MRI 08/29/17 0000 Signed Impressions: Service Date/Time: Tuesday, August 29, 2017 10:53 - CONCLUSION: Normal examination. Brendon Palacio MD Head CT 08/28/172013 Signed Impressions: Service Date/Time: Monday, August 28, 2017 20:39 - CONCLUSION: 1. No acute intracranial abnormality. Dave Rivero MD Chest X-Ray 08/28/172013 Signed Impressions: Service Date/Time: Monday, August 28, 2017 20:41 - CONCLUSION: 1. No acute cardiopulmonary disease. Dave Rivero MD Objective Remarks GENERAL: Thin young black male in no acute distress. CARDIOVASCULAR: Regular rate and rhythm. No obvious murmurs to auscultation. No chest tenderness to palpation. RESPIRATORY: No obvious rhonchi or wheezing. Clear to auscultation. Breath sounds equal bilaterally. GASTROINTESTINAL: Abdomen soft, non-tender, nondistended. BS normal. MUSCULOSKELETAL: Extremities without clubbing, cyanosis, or edema. No obvious deformities. NEUROLOGICAL: Awake, alert and oriented x4. No focal neurologic deficits. Moving both upper and lower extremities spontaneously. Procedures none A/P Problem List: (1) Fever ICD Code: R50.9 - Fever, unspecified (2) AIDS (acquired immunodeficiency syndrome), CD4 <=200 ICD Code: B20 - Human immunodeficiency virus [HIV] disease Status: Acute (3) Syphilis ICD Code: A53.9 - Syphilis, unspecified Status: Acute Assessment and Plan 1. Fever: reports fever x1 wk w/ associated nasal congestion/non-productive cough, Temp 99.9 on arrival, WBC normal, no shift/no bandemia. Possibly related to underlying HIV infection. CXR w/ no acute findings, images reviewed by me, U/a negative for UTI. Check Blood Cultures. No recurrence 2. HIV/AIDS: Diagnosed 04/2016 on previous admit, CD4 186 at that time, non- compliant w/ follow-up, not on HAART. Start Bactrim/Zithro prophylaxis. Outpatient follow-up with HIV MD 3. Acute onset facial/right-sided numbness/tingling, CT Head w/ no acute findings, images reviewed by me. Unremarkable brain MRI. Possibly TIA. Continue aspirin. Monitor on telemetry which is unremarkable. EKG with sinus rhythm. Consulted neurology, PT and ST. Risk factor modification fasting glucose 78 LDL 44 4. Cardiomyopathy. Compensated at this time. Cardiology recommended medical management with BANDAR and beta-marifer consider ischemic workup when cleared by neurology with stable anemia. 5. Syphilis: h/o Syphilis s/p desensitization and treatment w/ PCN by ID on last admit, RPR nonreactive. 6. DVT Prophylaxis: SCD/Teds Discharge Planning Possible discharge in the morning will observe patient hemodynamic status while being started on BANDAR inhibitor and beta-marifer. Mt Bonner MD August 30, 2017 15:59
[2017-08-30] MEDS ORDERED: RAMI2.5C PO (16:03)
[2017-08-30] MEDS ORDERED: CARV3.125 PO (16:03)
--- NOTE | 2017-08-30 20:35 | MG ---
cc: Sagar Pineda MD, David J MD EEG 18-850 A 22-year-old man with right-sided numbness. Aspirin. Azithromycin INTERPRETATION: A 9 Hz, 60 microvolt symmetric posterior rhythm is seen. Hyperventilation was performed with fair effort without change in the background. Photic stimulation was performed without any posterior driving. No epileptiform or seizure activity was noted. There were no hemisphere asymmetries. IMPRESSION: Normal awake electroencephalogram. No evidence for a focal or diffuse abnormality. No left hemisphere abnormalities are noted. MD ANA Garrison/ , 07:46 PM , 08:34 PM
[2017-08-30] MEDS: CARVEDILOL 3.125 MG TAB PO SCH (21:34)
[2017-08-31 04:00] VITALS: PULSE 92
[2017-08-31 04:05] VITALS: BP 96/54; PULSE 101; RESP 16; TEMP 98.4; O2SAT 99
--- NOTE | 2017-08-31 07:52 | HHI.PR ---
Subjective Remarks sr Objective Vital Signs Date Time Temp Pulse Resp B/P (MAP) Pulse Ox O2 Delivery O2 Flow Rate FiO2 08/31/17 04:05 98.4 101 16 96/54 (68) 99 08/31/17 04:00 92 08/30/17 23:44 98.9 96 16 105/52 (69) 99 08/30/17 20:05 98.8 93 16 136/75 (95) 98 08/30/17 19:59 98.6 94 16 116/55 (75) 99 08/30/17 15:04 98.0 84 18 113/59 (77) 100 08/30/17 15:00 86 08/30/17 11:46 98.8 92 20 122/59 (80) 100 08/30/17 10:30 76 08/30/17 09:36 98.1 88 18 123/55 (77) 100 I/O 08/30/17 08/30/17 08/30/17 08/31/17 08/31/17 08/31/17 07:00 15:00 23:00 07:00 15:00 23:00 Intake Total 480 ml Output Total 750 ml Balance -750 ml 480 ml Intake Oral 480 ml Output Urine Total 750 ml Result Diagram: 08/29/1724 08/29/1724 Objective Remarks alert no focal deficit no new numbness nad Assessment and Plan Assessment and Plan imp lower ef possible tia hiv pos trop neg labs pend neg so far asa cards saw mra neg eeg neg hyper screen pend fu holter pend needs hiv meds eduarda ?should id see him? defer to med team on that can dc on asa Sagar Pineda MD August 31, 2017 07:51
[2017-08-31 08:37] VITALS: BP 121/58; PULSE 96; RESP 18; TEMP 99; O2SAT 100
[2017-08-31] MEDS ORDERED: RAMIPRIL 2.5 MG CAP PO SCH (09:00)
[2017-08-31 09:50] VITALS: PULSE 103
[2017-08-31] MEDS: DOCUSATE SODIUM 50 MG/SENNA 8.6 MG TAB PO SCH (09:52)
[2017-08-31] MEDS: SULFAMETHOXAZOLE-TRIMETHOPRIM DS 800-160 MG TAB PO SCH (09:52)
[2017-08-31] MEDS: CARVEDILOL 3.125 MG TAB PO SCH (09:52)
[2017-08-31] MEDS: SODIUM CHLORIDE 0.9% FLUSH 10 ML FLUSH IV FLUSH SCH (09:52)
[2017-08-31] MEDS: ASPIRIN EC 325 MG TABEC PO SCH (09:53)
[2017-08-31 10:01] LABS: BICARBONATE 25.8 MEQ/L (21.0-32.0); CALCIUM 8.6 MG/DL (8.5-10.1); MAGNESIUM 1.6 MG/DL (1.5-2.5)
[2017-08-31 10:11] LABS: CREATININE 1.13 MG/DL (0.60-1.30)
--- NOTE | 2017-08-31 12:26 | HHI.PR ---
Subjective Remarks F/U TIA and CMP. Doing ok stable for dc pending labs and HM Objective Vitals Vital Signs Date Time Temp Pulse Resp B/P (MAP) Pulse Ox O2 Delivery O2 Flow Rate FiO2 08/31/17 08:37 99.0 96 18 121/58 (79) 100 08/31/17 04:05 98.4 101 16 96/54 (68) 99 08/31/17 04:00 92 08/30/17 23:44 98.9 96 16 105/52 (69) 99 08/30/17 20:05 98.8 93 16 136/75 (95) 98 08/30/17 19:59 98.6 94 16 116/55 (75) 99 08/30/17 15:04 98.0 84 18 113/59 (77) 100 08/30/17 15:00 86 I/O 08/30/17 08/30/17 08/30/17 08/31/17 08/31/17 08/31/17 07:00 15:00 23:00 07:00 15:00 23:00 Intake Total 480 ml Output Total 750 ml Balance -750 ml 480 ml Intake Oral 480 ml Output Urine Total 750 ml Result Diagram: 08/29/17 0824 08/31/17 0905 Imaging Last Impressions Neck Magnetic Resonance Angiography 08/30/171854 Signed Impressions: CONCLUSION: Head Magnetic Resonance Angiography 08/30/171854 Signed Impressions: CONCLUSION: Carotid Artery Ultrasound 08/29/17 0000 Signed Impressions: Service Date/Time: Tuesday, August 29, 2017 14:07 - CONCLUSION: Negative exam. Pietro Corado MD Brain MRI 08/29/17 0000 Signed Impressions: Service Date/Time: Tuesday, August 29, 2017 10:53 - CONCLUSION: Normal examination. Brendon Palacio MD Head CT 08/28/172013 Signed Impressions: Service Date/Time: Monday, August 28, 2017 20:39 - CONCLUSION: 1. No acute intracranial abnormality. Dave Rivero MD Chest X-Ray 08/28/172013 Signed Impressions: Service Date/Time: Monday, August 28, 2017 20:41 - CONCLUSION: 1. No acute cardiopulmonary disease. Dave Rivero MD Objective Remarks GENERAL: Thin young black male in no acute distress. CARDIOVASCULAR: Regular rate and rhythm. No obvious murmurs to auscultation. No chest tenderness to palpation. RESPIRATORY: No obvious rhonchi or wheezing. Clear to auscultation. Breath sounds equal bilaterally. GASTROINTESTINAL: Abdomen soft, non-tender, nondistended. BS normal. MUSCULOSKELETAL: Extremities without clubbing, cyanosis, or edema. No obvious deformities. NEUROLOGICAL: Awake, alert and oriented x4. No focal neurologic deficits. Moving both upper and lower extremities spontaneously. Procedures none A/P Problem List: (1) Fever ICD Code: R50.9 - Fever, unspecified (2) AIDS (acquired immunodeficiency syndrome), CD4 <=200 ICD Code: B20 - Human immunodeficiency virus [HIV] disease Status: Acute (3) Syphilis ICD Code: A53.9 - Syphilis, unspecified Status: Acute Assessment and Plan 1. Fever: reports fever x1 wk w/ associated nasal congestion/non-productive cough, Temp 99.9 on arrival, WBC normal, no shift/no bandemia. Possibly related to underlying HIV infection. CXR w/ no acute findings, images reviewed by me, U/a negative for UTI. Check Blood Cultures. No recurrence 2. HIV/AIDS: Diagnosed 04/2016 on previous admit, CD4 186 at that time, non- compliant w/ follow-up, not on HAART. Start Bactrim/Zithro prophylaxis. Outpatient follow-up with HIV MD 3. Acute onset facial/right-sided numbness/tingling, CT Head w/ no acute findings, images reviewed by me. Unremarkable brain MRI. Possibly TIA. Continue aspirin. Monitor on telemetry which is unremarkable. EKG with sinus rhythm. Consulted neurology, PT and ST. Risk factor modification fasting glucose 78 LDL 44. Per neuro dc after HM is started pt to bring back HM after 24 hrs 4. Cardiomyopathy. Compensated at this time. Cardiology recommended medical management with BANDAR and beta-marifer consider ischemic workup when cleared by neurology with stable anemia. 5. Syphilis: h/o Syphilis s/p desensitization and treatment w/ PCN by ID on last admit, RPR nonreactive. 6. DVT Prophylaxis: SCD/Teds Discharge Planning Stable for dc Mt Bonner MD August 31, 2017 12:26
[2017-08-31 12:46] VITALS: BP 103/57; PULSE 123; RESP 18; TEMP 98.7; O2SAT 100
[2017-08-31 14:07] LABS: CARDIOLIPIN IGG AB <9.4 GPL; CARDIOLIPIN IGM AB 10.6 MPL
--- NOTE | 2017-08-31 15:24 | PD.CARD.PN ---
Subjective Subjective Remarks assymptomatic, in nad Objective Medications Current Medications Medications (Trade) Dose Ordered Sig/Kailyn Route Start Time Stop Time Status Last Admin (Bactrim Ds 800-160 Mg) 1 tab MoWeFr@09 PO 08/29/17 09:00 08/31/17 09:52 (Zithromax) 1,200 mg Q7D PO 08/28/17 22:00 08/28/17 22:00 (NS Flush) 2 ml UNSCH PRN IV FLUSH 08/28/17 21:45 (NS Flush) 2 ml BID IV FLUSH 08/29/17 09:00 08/31/17 09:52 (Reglan Inj) 5 mg Q6H PRN IV PUSH 08/28/17 21:45 (Tylenol) 650 mg Q6H PRN PO 08/28/17 21:45 ([place] 5-325 Mg) 1 tab Q4H PRN PO 08/28/17 21:45 ([place] 10-325 Mg) 1 tab Q4H PRN PO 08/28/17 21:45 (Dorothy-Colace) 1 tab BID PO 08/29/17 09:00 08/31/17 09:52 (Milk Of Magnesia Liq) 30 ml Q12H PRN PO 08/28/17 21:45 (Senokot) 17.2 mg Q12H PRN PO 08/28/17 21:45 (Dulcolax Supp) 10 mg DAILY PRN RECTAL 08/28/17 21:45 (Lactulose Liq) 30 ml DAILY PRN PO 08/28/17 21:45 (Ecotrin Ec) 81 mg DAILY PO 08/29/17 19:00 08/31/17 09:53 (Coreg) 3.125 mg Q12HR PO 08/30/17 21:00 08/31/17 09:52 (Altace) 2.5 mg DAILY PO 08/31/17 09:00 08/31/17 09:52 Vital Signs / I&O Vital Signs Date Time Temp Pulse Resp B/P (MAP) Pulse Ox O2 Delivery O2 Flow Rate FiO2 08/31/17 12:46 98.7 123 18 103/57 (72) 100 08/31/17 08:37 99.0 96 18 121/58 (79) 100 08/31/17 04:05 98.4 101 16 96/54 (68) 99 08/31/17 04:00 92 08/30/17 23:44 98.9 96 16 105/52 (69) 99 08/30/17 20:05 98.8 93 16 136/75 (95) 98 08/30/17 19:59 98.6 94 16 116/55 (75) 99 I/O 08/30/17 08/30/17 08/30/17 08/31/17 08/31/17 08/31/17 07:00 15:00 23:00 07:00 15:00 23:00 Intake Total 480 ml Output Total 750 ml Balance -750 ml 480 ml Intake Oral 480 ml Output Urine Total 750 ml Physical Exam GENERAL: SKIN: Warm and dry. HEAD: Normocephalic. EYES: No scleral icterus. No injection or drainage. NECK: Supple, trachea midline. No JVD or lymphadenopathy. CARDIOVASCULAR: Regular rate and rhythm without murmurs, gallops, or rubs. RESPIRATORY: Breath sounds equal bilaterally. No accessory muscle use. GASTROINTESTINAL: Abdomen soft, non-tender, nondistended. MUSCULOSKELETAL: No cyanosis, or edema. BACK: Nontender without obvious deformity. No CVA tenderness. Laboratory Laboratory Tests Test 08/31/17 09:05 Blood Urea Nitrogen 13 MG/DL Creatinine 1.13 MG/DL Random Glucose 89 MG/DL Calcium Level 8.6 MG/DL Magnesium Level 1.6 MG/DL Sodium Level 139 MEQ/L Potassium Level 4.0 MEQ/L Chloride Level 104 MEQ/L Carbon Dioxide Level 25.8 MEQ/L Anion Gap 9 MEQ/L Estimat Glomerular Filtration Rate 98 ML/MIN B-Type Natriuretic Peptide 2 PG/ML Imaging Last 24 hours Impressions Neck Magnetic Resonance Angiography 08/30/171854 Signed Impressions: CONCLUSION: Head Magnetic Resonance Angiography 08/30/171854 Signed Impressions: CONCLUSION: Assessment and Plan Problem List: (1) Cardiomyopathy ICD Codes: I42.9 - Cardiomyopathy, unspecified (2) Newly diagnosed HIV-positive ICD Codes: Z21 - Asymptomatic human immunodeficiency virus [HIV] infection status Status: Acute Assessment and Plan 1.) Cardiomyopathy - recent tia, nyha class 1, mild, continue coreg, lisinopril Jack Cortez MD August 31, 2017 15:24
[2017-08-31 15:43] VITALS: PULSE 95
--- NOTE | 2017-08-31 15:59 | HHI.DS ---
Discharge Summary Admission Date August 28, 2017 at 21:50 Discharge Date: August 31, 2017 Admitting Diagnosis (1) Fever ICD Code: R50.9 - Fever, unspecified Diagnosis: Principal (2) AIDS (acquired immunodeficiency syndrome), CD4 <=200 ICD Code: B20 - Human immunodeficiency virus [HIV] disease Diagnosis: Principal Status: Acute (3) Syphilis ICD Code: A53.9 - Syphilis, unspecified Diagnosis: Principal Status: Acute (4) Cardiomyopathy ICD Code: I42.9 - Cardiomyopathy, unspecified Diagnosis: Principal Procedures none Brief History - From Admission This is a 22-year-old male with PMH of HIV/AIDS (CD4 186 04/20/16) and h/o Syphilis who presented to the ER w/ complaints of fever x1 wk and right-sided numbness/tingling starting earlier tonight. Previous admit 04/2016 at which time he was newly diagnosed w/ HIV, CD4 186 at that time, also found to have Syphilis, s/p desensitization due to PCN ALLERGY and ultimately d/c'd on Bactrim w/ instructions to follow up as outpatient for initiation of HAART. Pt has been non-compliant w/ follow up and has not started HAART, states he has appt w/ [facility] on Tuesday. Reports fever, nasal congestion and non-productive cough x1 wk, in addition to right facial and RUE/RLE numbness /tingling starting today. Also notes difficulty w/ speech, now resolved. On arrival, BP 155/88, HR 114, O2 sat 100% on RA, Temp 99.9. WBC 7.0. Hemoglobin 9.8. No shift or bandemia. K+ 3.1. Chemistry otherwise unremarkable. INR 1.1. UA negative for UTI. CXR with no acute findings. CT Head negative. CBC/BMP: 08/29/17 0824 08/31/17 0905 Significant Findings Laboratory Tests Test 08/28/17 20:14 08/28/17 20:20 08/28/17 20:50 08/28/17 20:55 Red Blood Count 3.84 MIL/MM3 (4.50-5.90) Hemoglobin 9.8 GM/DL (13.0-17.0) Hematocrit 29.7 % (39.0-51.0) Mean Corpuscular Volume 77.2 FL (80.0-100.0) Mean Corpuscular Hemoglobin 25.5 PG (27.0-34.0) Eosinophils % 5 % (0-4) Ovalocytes 1+ (NORMAL) Erythrocyte Sedimentation Rate 45 mm/hr (0-15) Random Glucose 139 MG/DL (74-106) Alkaline Phosphatase 188 U/L (45-117) Aspartate Amino Transf (AST/SGOT) 40 U/L (15-37) Potassium Level 3.1 MEQ/L (3.5-5.1) Estimat Glomerular Filtration Rate 88 ML/MIN (>89) Test 08/29/17 08:24 08/29/17 22:12 08/30/17 03:38 08/31/17 09:05 Red Blood Count 3.62 MIL/MM3 (4.50-5.90) Hemoglobin 9.2 GM/DL (13.0-17.0) Hematocrit 28.1 % (39.0-51.0) Mean Corpuscular Volume 77.6 FL (80.0-100.0) Mean Corpuscular Hemoglobin 25.6 PG (27.0-34.0) Lymphocytes (%) (Auto) 51.6 % (9.0-44.0) Monocytes (%) (Auto) 9.1 % (0.0-8.0) Albumin 3.0 GM/DL (3.4-5.0) Calcium Level 8.4 MG/DL (8.5-10.1) Alkaline Phosphatase 175 U/L (45-117) Cholesterol Level 104 MG/DL (120-200) HDL Cholesterol 36.4 MG/DL (40.0-60.0) Troponin I LESS THAN 0.02 NG/ML Vitamin B12 Level 1028 PG/ML (193-986) Urine Cannabinoids Screen POS (NEG) Imaging Last Impressions Neck Magnetic Resonance Angiography 08/30/171854 Signed Impressions: CONCLUSION: Head Magnetic Resonance Angiography 08/30/171854 Signed Impressions: CONCLUSION: Carotid Artery Ultrasound 08/29/17 0000 Signed Impressions: Service Date/Time: Tuesday, August 29, 2017 14:07 - CONCLUSION: Negative exam. Pietro Corado MD Brain MRI 08/29/17 Signed Impressions: Service Date/Time: Tuesday, August 29, 2017 10:53 - CONCLUSION: Normal examination. Brendon Palacio MD Head CT 08/28/172013 Signed Impressions: Service Date/Time: Monday, August 28, 2017 20:39 - CONCLUSION: 1. No acute intracranial abnormality. Dave Rivero MD Chest X-Ray 08/28/172013 Signed Impressions: Service Date/Time: Monday, August 28, 2017 20:41 - CONCLUSION: 1. No acute cardiopulmonary disease. Dave Rivero MD PE at Discharge GENERAL: Thin young black male in no acute distress. CARDIOVASCULAR: Regular rate and rhythm. No obvious murmurs to auscultation. No chest tenderness to palpation. RESPIRATORY: No obvious rhonchi or wheezing. Clear to auscultation. Breath sounds equal bilaterally. GASTROINTESTINAL: Abdomen soft, non-tender, nondistended. BS normal. MUSCULOSKELETAL: Extremities without clubbing, cyanosis, or edema. No obvious deformities. NEUROLOGICAL: Awake, alert and oriented x4. No focal neurologic deficits. Moving both upper and lower extremities spontaneously. Hospital Course 1. Fever: reports fever x1 wk w/ associated nasal congestion/non-productive cough, Temp 99.9 on arrival, WBC normal, no shift/no bandemia. Possibly related to underlying HIV infection. CXR w/ no acute findings, images reviewed by me, U/a negative for UTI. Check Blood Cultures. No recurrence 2. HIV/AIDS: Diagnosed 04/2016 on previous admit, CD4 186 at that time, non- compliant w/ follow-up, not on HAART. Start Bactrim/Zithro prophylaxis. Outpatient follow-up with HIV MD 3. Acute onset facial/right-sided numbness/tingling, CT Head w/ no acute findings, images reviewed by me. Unremarkable brain MRI. Possibly TIA. Continue aspirin. Monitor on telemetry which is unremarkable. EKG with sinus rhythm. Consulted neurology, PT and ST. Risk factor modification fasting glucose 78 LDL 44. Per neuro dc after HM is started pt to bring back HM after 24 hrs 4. Cardiomyopathy. Compensated at this time. Cardiology recommended medical management with BANDAR and beta-marifer consider ischemic workup when cleared by neurology with stable anemia. 5. Syphilis: h/o Syphilis s/p desensitization and treatment w/ PCN by ID on last admit, RPR nonreactive. 6. DVT Prophylaxis: SCD/Teds Pt Condition on Discharge: Stable Discharge Disposition: Discharge Home Discharge Time: > 30 minutes Discharge Instructions DIET: Follow Instructions for: Heart Healthy Diet Activities you can perform: Regular-No Restrictions Activities to Avoid: Driving Follow up Referrals: Appointment for Follow Up - 1 Week with [facility] PCP Follow-up - 1 Week New Medications: Aspirin DR (Aspirin DR) 81 Mg Tabdr 81 MG PO DAILY for Prevent Blood Clot, #30 TAB Azithromycin (Azithromycin) 600 Mg Tab 1200 MG PO Q7D for Infection, #6 TAB Carvedilol (Coreg) 3.125 Mg Tab 3.125 MG PO Q12HR for Prevent Heart Failure, #60 TAB Ramipril (Ramipril) 2.5 Mg Cap 2.5 MG PO DAILY for Prevent Heart Failure, #30 CAP Sulfamethoxazole-Trimethoprim (Sulfamethoxazole-Trimethoprim) 800-160 Mg Tab 1 TAB PO MoWeFr@09 for Infection, #15 TAB Mt Bonner MD August 31, 2017 15:59
[2017-09-02 03:51] LABS: ANTI-THROMBIN III ACT 104 (80-120)
[2017-09-02 15:39] LABS: METHYLMALONIC ACID 0.2 nmol/mL (<=0.40)
[2017-09-02 23:51] LABS: DRVVT 1:1 MIX ND (CORRECTED); DRVVT CONFIRM ND (NEGATIVE); FACTOR VIII(8) ACTIVITY 89 (50-180); HEXAGONAL PHASE CONFIRM ND (NEGATIVE)
== END 2017-08-31 17:15 | disposition home or self-care (01) ==
LOC: NEPD 19:39 → NEDA 21:50 → NEPHCDU 22:58
PROVIDERS: ADMIT Internal Medicine; ATTEND Internal Medicine
DX: B20 Human immunodeficiency virus [HIV] disease (principal); I42.9 Cardiomyopathy, unspecified; G45.9 Transient cerebral ischemic attack, unspecified; R94.31 Abnormal electrocardiogram [ECG] [EKG]; Z88.0 Allergy status to penicillin; Z79.82 Long term (current) use of aspirin; Z91.19 Patient's noncompliance with other medical treatment and regimen
CPT/HCPCS: 70450; 70544; 70548; 70553; 71045; 80048; 80053; 80061; 80307; 81001; 81240; 81241; 81291; 82550; 82607; 82746; 83735; 83880; 83921; 84207; 84425; 84443; 84484; 85007; 85025; 85027; 85240; 85300; 85303; 85306; 85610; 85613; 85652; 85730; 86038; 86140; 86147; 86592; 87040; 87491; 87591; 92610; 93005; 93306; 93880; 95819; 96360; 96361; 97161; 99285; A9579; G0378; G8987; G8988; G8996; G8997; G8998; J7030

== ENCOUNTER 2017-10-11 13:17 | Observation (INO) ==
[2017-10-11] MEDS ORDERED: Sod Chloride 0.9% Inj 1,000 ML IV.SIG ONE (13:30)
[2017-10-11] MEDS ORDERED: levETIRAcetam 500mg/100mL Inj 100 ML IV.SIG ONE (13:32)
--- NOTE | 2017-10-11 13:34 | ED ---
HPI General Chief Complaint: Seizure Stated Complaint: EVAC/SEIZURE Time Seen by Provider: 10/11/17 13:26 Source: patient and EMS Mode of arrival: EMS Limitations: other History of Present Illness HPI Narrative: 22-year-old -Turkish male with history of HIV and syphilis in the past, presents emergency department status post his first witnessed tonic-clonic seizure. Patient was seen here last in August, and admitted for some neurological symptoms with no seizure. MD complaint: seizure Onset (ago): hour(s) Description of Episode: loss of consciousness and tonic-clonic movement -: second(s) Witnessed: yes - by bystander Trauma: Yes (Bit telling otherwise no trauma) Seizure History: none Place: street/outdoors Possible Precipitating Event: none Associated symptoms: denies other symptoms Treatments prior to arrival: none Related Data Home Medications Medication Instructions Recorded Confirmed No Known Home Medications 10/11/17 10/11/17 Allergies Allergy/AdvReac Type Severity Reaction Status Date / Time penicillin G Allergy Severe RASH Verified 10/11/17 14:00 Review of Systems ROS Unobtainable All other systems reviewed negative except as stated in HPI Constitutional Reports as per HPI Eyes Reports as per HPI ENT Reports system reviewed and no additional complaints, except as docu Cardiovascular Reports as per HPI Respiratory Reports as per HPI Gastrointestinal Reports as per HPI Genitourinary Reports system reviewed and no additional complaints, except as docu and Reports as per HPI Musculoskeletal Reports system reviewed and no additional complaints, except as docu and Reports as per HPI Neurologic Reports system reviewed and no additional complaints, except as docu and Reports as per HPI Psychiatric Reports system reviewed and no additional complaints, except as docu and Reports as per HPI Endocrine Reports system reviewed and no additional complaints, except as docu and Reports as per HPI Hematologic/Lymphatic Reports other (Patient has a history of HIV currently not on medications) [facility] Medical History Medical History Cardiomyopathy (Acute) HIV (human immunodeficiency virus infection) (Acute) Noncompliance with medication regimen (Acute) Seizure disorder (Acute) TIA (transient ischemic attack) (Acute) Surgical History Surgical History No history of previous surgery (Acute) Family History Family History Other Family history of diabetes mellitus Social History Social History Substance History: No History of Abuse Second Hand Smoke Exposure: No Smoking Status: Never smoker Tobacco Type: Cigarettes How Often Do You Have a Drink Containing Alcohol: Monthly or less (Patient reports last alcoholic beverages was over a week ago) Recent Travel in [facility] within the Last 8 Weeks: No Recent Out of Country Travel within the Last 8 Weeks: No Exam Const General: cooperative, healthy appearing, comfortable, no acute distress, well developed and well groomed Nutritional Appearance: average body habitus Orientation: alert, awake and oriented x3 [facility] Head: normal to inspection, no palpable skull fracture, normocephalic and atraumatic Ears: hearing grossly normal bilaterally, external ears normal and TM's normal bilaterally Nose: external nose normal, nares normal and no nasal polyps Face and sinus: normal facial exam, sinuses nontender and face symmetric Mouth: oral mucosae normal, abnormal tongue (Patient is small superficial bite marilee to the right lateral tongue) and oropharynx normal Teeth and gingiva: dentition normal Throat: posterior oropharynx normal Eyes General: appearance normal, both eyes and all related structures Visual Sandoval: normal visual sandoval by confrontation Pupils: PERRL EOM: EOM intact bilaterally and No nystagmus Neck Neck: normal visual inspection, full ROM, no lymphadenopathy, supple and no midline deformity Thyroid: thyroid normal Carotids: normal carotid upstroke Lymphatic: no lymphadenopathy noted Chest Chest: normal inspection of the chest Resp Effort & Inspection: normal respiratory effort and able to speak in complete sentences Auscultation: clear to auscultation bilaterally Cardio Rate: tachycardic Rhythm: regular rhythm GI Inspection: normal to inspection Palpation: soft and no hepatosplenomegaly Percussion: normal to percussion Auscultation: normal bowel sounds Back/Spine/Pelvis Back: no CVA tenderness Cervical Spine: normal cervical lordosis and No pain with cervical ROM Thoracic/Lumbar Spine: thoracic and lumbar spine normal to inspection and No pain with thoraco-lumbar ROM Skin General: no rashes or lesions noted, elasticity normal and turgor normal Hair: normal Neuro General: alert, awake, oriented x3, moves all extremities and no focal motor deficits Cranial Nerves: CN's II-XI intact bilaterally Speech: speech normal Gait: normal gait Motor: muscle tone normal throughout Sensory Exam: no sensory deficits noted Extrem General: normal to inspection, full ROM and normal capillary refill Psych Appearance: grossly normal and well kempt Mental Status: mental status grossly normal Speech and Movement: speech and movement normal Course Initial Documented Vital Signs Temperature 98.4 F 10/11/17 13:31 Pulse Rate 104 H 10/11/17 13:31 Respiratory Rate 20 10/11/17 13:31 Blood Pressure 129/60 10/11/17 13:31 Pulse Oximetry 100 10/11/17 13:31 Last Documented Vital Signs Temperature 99.4 F 10/12/17 16:00 Pulse Rate 101 H 10/12/17 16:00 Respiratory Rate 18 10/12/17 16:00 Blood Pressure 99/57 L 10/12/17 16:00 Pulse Oximetry 99 10/12/17 16:00 Medical Decision Making SREEKANTH Attestation SREEKANTH supervised visit: Yes MDM Narrative Medical decision making narrative: Patient has new onset seizure witnessed as tonic-clonic. Patient has history of HIV currently not being treated. Patient has history of syphilis, currently not being treated. Patient appears medically stable at time of exam. Labs ordered including CBC, CMP, magnesium, urinalysis, urine drug screen. CT of the brain is ordered as well as chest x-ray Patient is discussed with Dr. Barakat, who feels the patient warrants at least observation, as this is a new onset seizure with fairly significant underlying diseases that are not being treated. Findings were discussed with the patient and he agrees to be admitted for further workup. Hospitalist was called for admission. Differential Diagnosis Differential Diagnosis: New onset seizure. Intracranial process. HIV flare. History of syphilis. Lab Data Result diagrams: 10/11/17 14:49 10/12/17 03:26 Lab Results 10/11/17 10/11/17 10/11/17 Range/Units 14:49 14:49 14:49 WBC 4.9 (4.0-11.0) th/mm3 RBC 3.94 L (4.50-5.90) mil/mm3 Hgb 9.9 L (13.0-17.0) gm/dL Hct 31.0 L (39.0-51.0) % MCV 78.6 L (80.0-100.0) fL MCH 25.1 L (27.0-34.0) pg MCHC 31.9 L (32.0-36.0) % RDW 14.4 (11.6-17.2) % Plt Count 192 (150-450) th/mm3 MPV 9.2 (7.0-11.0) fL Neut % (Auto) 34.7 (16.0-70.0) % Lymph % (Auto) 56.9 H (9.0-44.0) % [place] % (Auto) 4.5 (0.0-8.0) % Eos % (Auto) 3.5 (0.0-4.0) % Baso % (Auto) 0.4 (0.0-2.0) % Neut # (Auto) 1.7 L (1.8-7.7) th/mm3 Lymph # (Auto) 2.8 (1.0-4.8) th/mm3 [place] # (Auto) 0.2 (0.0-0.9) th/mm3 Eos # (Auto) 0.2 (0.0-0.4) th/mm3 Baso # (Auto) 0.0 (0.0-0.2) th/mm3 WBC Differential . Differential Comment Auto diff final Sodium Cancelled Potassium Cancelled Chloride Cancelled Carbon Dioxide Cancelled Anion Gap Cancelled BUN Cancelled Creatinine Cancelled Estimated GFR Cancelled Random Glucose Cancelled Calcium Cancelled Magnesium Cancelled Iron (65-175) mcg/dL TIBC (250-450) mcg/dL % Saturation (20-50) % Ferritin (26-388) ng/mL Total Bilirubin (0.2-1.0) mg/dL AST (15-37) U/L ALT (12-78) U/L Alkaline Phosphatase (45-117) U/L Total Protein (6.4-8.2) g/dL Albumin (3.4-5.0) g/dL Urine Opiates Screen (Neg) Ur Barbiturates Screen (Neg) Ur Amphetamines Screen (Neg) U Benzodiazepines Scrn (Neg) Urine Cocaine Screen (Neg) U Cannabinoids Screen (Neg) Serum Alcohol Cancelled 10/11/17 10/12/17 10/12/17 Range/Units 14:49 01:00 03:26 WBC (4.0-11.0) th/mm3 RBC (4.50-5.90) mil/mm3 Hgb (13.0-17.0) gm/dL Hct (39.0-51.0) % MCV (80.0-100.0) fL MCH (27.0-34.0) pg MCHC (32.0-36.0) % RDW (11.6-17.2) % Plt Count (150-450) th/mm3 MPV (7.0-11.0) fL Neut % (Auto) (16.0-70.0) % Lymph % (Auto) (9.0-44.0) % [place] % (Auto) (0.0-8.0) % Eos % (Auto) (0.0-4.0) % Baso % (Auto) (0.0-2.0) % Neut # (Auto) (1.8-7.7) th/mm3 Lymph # (Auto) (1.0-4.8) th/mm3 [place] # (Auto) (0.0-0.9) th/mm3 Eos # (Auto) (0.0-0.4) th/mm3 Baso # (Auto) (0.0-0.2) th/mm3 WBC Differential Differential Comment Sodium 143 140 Potassium 3.4 L 3.6 Chloride 108 H 105 Carbon Dioxide 21.4 22.2 Anion Gap 14 13 BUN 11 10 Creatinine 1.02 1.08 Estimated GFR Greater than 89 Greater than 89 Random Glucose 96 66 L Calcium 8.6 8.5 Magnesium 1.5 Iron (65-175) mcg/dL TIBC (250-450) mcg/dL % Saturation (20-50) % Ferritin (26-388) ng/mL Total Bilirubin 0.4 (0.2-1.0) mg/dL AST 32 (15-37) U/L ALT 44 (12-78) U/L Alkaline Phosphatase 169 H (45-117) U/L Total Protein 7.7 (6.4-8.2) g/dL Albumin 3.5 (3.4-5.0) g/dL Urine Opiates Screen Neg (Neg) Ur Barbiturates Screen Neg (Neg) Ur Amphetamines Screen Neg (Neg) U Benzodiazepines Scrn Neg (Neg) Urine Cocaine Screen Neg (Neg) U Cannabinoids Screen Pos (Neg) Serum Alcohol Less than 3 10/12/17 Range/Units 03:26 WBC (4.0-11.0) th/mm3 RBC (4.50-5.90) mil/mm3 Hgb (13.0-17.0) gm/dL Hct (39.0-51.0) % MCV (80.0-100.0) fL MCH (27.0-34.0) pg MCHC (32.0-36.0) % RDW (11.6-17.2) % Plt Count (150-450) th/mm3 MPV (7.0-11.0) fL Neut % (Auto) (16.0-70.0) % Lymph % (Auto) (9.0-44.0) % [place] % (Auto) (0.0-8.0) % Eos % (Auto) (0.0-4.0) % Baso % (Auto) (0.0-2.0) % Neut # (Auto) (1.8-7.7) th/mm3 Lymph # (Auto) (1.0-4.8) th/mm3 [place] # (Auto) (0.0-0.9) th/mm3 Eos # (Auto) (0.0-0.4) th/mm3 Baso # (Auto) (0.0-0.2) th/mm3 WBC Differential Differential Comment Sodium Potassium Chloride Carbon Dioxide Anion Gap BUN Creatinine Estimated GFR Random Glucose Calcium Magnesium Iron 31 L (65-175) mcg/dL TIBC 322 (250-450) mcg/dL % Saturation 9.6 L (20-50) % Ferritin 507 H (26-388) ng/mL Total Bilirubin (0.2-1.0) mg/dL AST (15-37) U/L ALT (12-78) U/L Alkaline Phosphatase (45-117) U/L Total Protein (6.4-8.2) g/dL Albumin (3.4-5.0) g/dL Urine Opiates Screen (Neg) Ur Barbiturates Screen (Neg) Ur Amphetamines Screen (Neg) U Benzodiazepines Scrn (Neg) Urine Cocaine Screen (Neg) U Cannabinoids Screen (Neg) Serum Alcohol Imaging Data Radiologist's impression: ITS Impressions Head CT 10/11/17 14:00 CONCLUSION: No evidence of acute intracranial pathology. No masses are identified. Chest X-Ray 10/11/17 14:03 CONCLUSION: No acute cardiopulmonary disease Discharge Plan Discharge Disposition Patient Disposition: 30 Still Patient Discharge Condition Condition: Stable Discharge Details Discharge Problem: New onset seizure, Epileptic seizure Physicians Team ED Provider: Rashaun Barakat ED Midlevel Provider: Fredo Simenatl Primary Care Provider: Primary Care Physici,Nyasia Attending Provider: Kimi Cruz Other Providers: Keara Maynard Status ED Status: Left Department Discharge Information Discharge Date/Time: 10/12/17 07:34
--- NOTE | 2017-10-11 14:38 | XR ---
EXAM DATE: 10/11/2017 2:24 PM EDT AGE/SEX: 22 years / Male INDICATIONS: Seizure at work today. Cough for a month. CLINICAL DATA: This is the patient's initial encounter. Patient reports that signs and symptoms have been present for 1 day and indicates a pain score of 0/10. MEDICAL/SURGICAL HISTORY: . Smoker. None. COMPARISON: [facility], CHEST SINGLE AP, 08/28/2017. . FINDINGS: PA and lateral views of the chest demonstrate the lungs to be symmetrically aerated without evidence of mass, infiltrate or effusion. The cardiomediastinal contours are unremarkable. Osseous structures are intact. CONCLUSION: No acute cardiopulmonary disease Electronically signed by: Cristian Warner MD 10/11/2017 2:37 PM EDT
[2017-10-11 15:09] LABS: Baso % (Auto) 0.4 % (0.0-2.0); Eos # (Auto) 0.2 th/mm3 (0.0-0.4); Eos % (Auto) 3.5 % (0.0-4.0); Hemoglobin 9.9 gm/dL (13.0-17.0); Lymph # (Auto) 2.8 th/mm3 (1.0-4.8); Lymph % (Auto) 56.9 % (9.0-44.0); Mean Corpuscular HGB Conc 31.9 % (32.0-36.0); Mean Corpuscular Hemoglobin 25.1 pg (27.0-34.0); Mean Corpuscular Volume 78.6 fL (80.0-100.0); Mean Platelet Volume 9.2 fL (7.0-11.0); Mono # (Auto) 0.2 th/mm3 (0.0-0.9); Mono % (Auto) 4.5 % (0.0-8.0); Neut # (Auto) 1.7 th/mm3 (1.8-7.7); Neut % (Auto) 34.7 % (16.0-70.0); Platelet Count 192 th/mm3 (150-450); Red Blood Count 3.94 mil/mm3 (4.50-5.90); Red Cell Distribution Width 14.4 % (11.6-17.2); White Blood Count 4.9 th/mm3 (4.0-11.0)
[2017-10-11 15:27] LABS: Alanine Aminotransferase 44 U/L (12-78); Albumin 3.5 g/dL (3.4-5.0); Anion Gap 14 meq/L (5-15); Aspartate Aminotransferase 32 U/L (15-37); Blood Urea Nitrogen 11 mg/dL (7-18); Calcium 8.6 mg/dL (8.5-10.1); Carbon Dioxide 21.4 meq/L (21.0-32.0); Chloride 108 meq/L (98-107); Glomerular Filtration Rate Greater Than 89 mL/min (>89); Glucose,Random 96 mg/dL (74-106); Magnesium 1.5 mg/dL (1.5-2.5); Potassium 3.4 meq/L (3.5-5.1); Sodium 143 meq/L (136-145)
[2017-10-11 15:29] LABS: Alkaline Phosphatase 169 U/L (45-117); Total Protein 7.7 g/dL (6.4-8.2)
--- NOTE | 2017-10-11 18:51 | P.HP ---
History of Present Illness Primary Care Physician: No Primary Care Physician Chief Complaint: New onset seizure History of Present Illness: This is a 22-year-old -Latvian male with past medical history significant for HIV noncompliant off of HAART medications for the past 6-8 months, cardiomyopathy, history of syphilis status post treatment and recent admission in August of this year with acute onset facial/right-sided numbness and tingling likely secondary to TIA who presents to [facility] ED with complaints of new onset seizures. Patient denies any previous history of seizure. Patient had a witnessed tonic-clonic seizure. He reports biting his tongue. He denies any urinary or bowel incontinence. He does endorse post ictal confusion. Patient states that he has had cough and chills for the past several weeks. He denies any recorded temperatures. He denies any chest pain or shortness of breath. He denies any nausea, vomiting or abdominal pain. Patient has not yet followed up with HIV/infectious disease physician as an outpatient. He states that he ran out of all of his medications a couple of weeks ago. In the ED, head CT was obtained was unremarkable. Patient was started on IV Keppra. CBC was significant for hypochromic, microcytic anemia. White count was WNL. He is mildly hypokalemic and was given repletion in the ED. - Inpatient Certification If this patient has been admitted as an Inpatient: I certify that the inpatient services were ordered in accordance with Medicare regulations governing the order. This includes certification that hospital inpatient services are reasonable and necessary and in the case of services not specified as inpatient-only under 42 CFR 419.22(n), that they are appropriately provided as inpatient services in accordance to with the 2-midnight benchmark under 43 CFR 412.3(e) Review of Systems All other systems reviewed negative except as stated in HPI PMFSH - History History Provided By: Patient - Medical / Surgical Hx Neg / Unobtainable Medical Problems Denied: Yes - Medical History Medical History: Medical History (Last Updated 10/11/17 @ 18:22 by Christen Yin) Cardiomyopathy HIV (human immunodeficiency virus infection) Noncompliance with medication regimen Seizure disorder TIA (transient ischemic attack) - Surgical History Surgical History: Surgical History (Last Updated 10/11/17 @ 18:22 by Christen Yin) No history of previous surgery - Family History Family History: Family History (Last Updated 10/11/17 @ 18:23 by Christen Yin) Other Family history of diabetes mellitus - Tobacco History Second Hand Smoke Exposure: No Tobacco Use In Past 30 Days: Yes (Patient reports tobacco use of 5 cigs/week) Tobacco Type: Cigarettes - Alcohol History How Often Do You Have a Drink Containing Alcohol: Monthly or less (Patient reports last alcoholic beverages was over a week ago) - Substance Use History Substance History: No History of Abuse - Travel History Recent Travel in the [place] Within the Last 8 Weeks: No Recent Travel Out of the Country Within the Last 8 Weeks: No - Immunization History Tetanus Immunization: Unsure Hx Influenza Vaccine This Season: Unable to Assess Medications and Allergies Active Medications: Active Medications Levetiracetam (Keppra) 500 mg PO BID FILEMON Sodium Chloride (Ns Flush) 2 ml IV.FLUSH PRN PRN PRN Reason: FLUSH AFTER USING IV ACCESS Last Admin: 10/11/17 14:03 Dose: 2 ml Allergies Allergy/AdvReac Type Severity Reaction Status Date / Time penicillin G Allergy Severe RASH Verified 10/11/17 14:00 Home Medications Medication Instructions Recorded Confirmed Type No Known Home Medications 10/11/17 10/11/17 History Exam Vital signs: Vital Signs 10/11/17 13:31 10/11/17 14:04 10/11/17 15:57 Temperature 98.4 F 98.4 F 98.8 F Pulse Rate 104 H 111 H 108 H Respiratory Rate 20 18 18 Blood Pressure 129/60 129/60 118/63 Pulse Oximetry 100 100 Intake & Output 10/10/17 10/11/17 10/11/17 18:59 06:59 18:59 Weight 61.235 kg Narrative: GENERAL: This is a thin well-developed well-nourished young male patient, in no acute distress. Awake and alert. SKIN: Warm and dry. Hypopigmented facial rash. HEAD: Atraumatic. Normocephalic. EYES: Pupils equal and round. No scleral icterus. No injection or drainage. ENT: No nasal bleeding or discharge. Mucous membranes pink and moist. + Tongue contusion NECK: Trachea midline. No JVD. CARDIOVASCULAR: Tachycardic, no murmurs rubs or gallops RESPIRATORY: Nonlabored. Clear to auscultation. Breath sounds equal bilaterally. GASTROINTESTINAL: Abdomen soft, non-tender, nondistended. Hepatic and splenic margins not palpable. MUSCULOSKELETAL: Extremities without clubbing, cyanosis, or edema. No obvious deformities. NEUROLOGICAL: Awake and alert. No obvious cranial nerve deficits. Motor grossly within normal limits. Five out of 5 muscle strength in the arms and legs. Normal speech. PSYCHIATRIC: Appropriate mood and affect; insight and judgment normal. Results - Labs CBC & Chem 7: 10/11/17 14:49 10/11/17 14:49 Labs: Laboratory Results - last 24 hr 10/11/17 10/11/17 10/11/17 14:49 14:49 14:49 WBC 4.9 RBC 3.94 L Hgb 9.9 L Hct 31.0 L MCV 78.6 L MCH 25.1 L MCHC 31.9 L RDW 14.4 Plt Count 192 MPV 9.2 Neut % (Auto) 34.7 Lymph % (Auto) 56.9 H [place] % (Auto) 4.5 Eos % (Auto) 3.5 Baso % (Auto) 0.4 Neut # (Auto) 1.7 L Lymph # (Auto) 2.8 [place] # (Auto) 0.2 Eos # (Auto) 0.2 Baso # (Auto) 0.0 WBC Differential . Differential Comment Auto diff final Sodium Cancelled Potassium Cancelled Chloride Cancelled Carbon Dioxide Cancelled Anion Gap Cancelled BUN Cancelled Creatinine Cancelled Estimated GFR Cancelled Random Glucose Cancelled Calcium Cancelled Magnesium Cancelled Total Bilirubin AST ALT Alkaline Phosphatase Total Protein Albumin Serum Alcohol Cancelled 10/11/17 14:49 WBC RBC Hgb Hct MCV MCH MCHC RDW Plt Count MPV Neut % (Auto) Lymph % (Auto) [place] % (Auto) Eos % (Auto) Baso % (Auto) Neut # (Auto) Lymph # (Auto) [place] # (Auto) Eos # (Auto) Baso # (Auto) WBC Differential Differential Comment Sodium 143 Potassium 3.4 L Chloride 108 H Carbon Dioxide 21.4 Anion Gap 14 BUN 11 Creatinine 1.02 Estimated GFR Greater than 89 Random Glucose 96 Calcium 8.6 Magnesium 1.5 Total Bilirubin 0.4 AST 32 ALT 44 Alkaline Phosphatase 169 H Total Protein 7.7 Albumin 3.5 Serum Alcohol Less than 3 - Imaging Impressions Head CT 10/11/17 14:00 CONCLUSION: No evidence of acute intracranial pathology. No masses are identified. Chest X-Ray 10/11/17 14:03 CONCLUSION: No acute cardiopulmonary disease Caprini VTE Risk Assessment Caprini VTE Risk Assessment: No/Low Risk (score <= 1) Caprini Risk Assessment Model: Point Value = 1 Point Value = 2 Point Value = 3 Point Value = 5 Age 41-60 Minor surgery BMI > 25 kg/m2 Swollen legs Varicose veins or History of unexplained or recurrent spontaneous Oral contraceptives or hormone replacement Sepsis (< 1 month) Serious lung disease, including pneumonia (< 1 month) Abnormal pulmonary function Acute myocardial infarction Congestive heart failure (< 1 month) History of inflammatory bowel disease Medical patient at bed rest Age 61-74 Arthroscopic surgery Major open surgery (> 45 min) Laparoscopic surgery (> 45 min) Malignancy Confined to bed (> 72 hours) Immobilizing plaster cast Central venous access Age >= 75 History of VTE Family history of VTE Factor V Leiden Prothrombin [id number] Lupus anticoagulant Anticardiolipin antibodies Elevated serum homocysteine Heparin-induced thrombocytopenia Other congenital or acquired thrombophilia Stroke (< 1 month) Elective arthroplasty Hip, pelvis, or leg fracture Acute spinal cord injury (< 1 month) Prophylaxis Regimen: Total Risk Factor Score Risk Level Prophylaxis Regimen 0-1 Low Early ambulation 2 Moderate Order ONE of the following: *Sequential Compression Device (SCD) *Heparin 5000 units SQ BID 3-4 Higher Order ONE of the following medications: *Heparin 5000 units SQ TID *Enoxaparin/Lovenox 40 mg SQ daily (WT < 150 kg, CrCl > 30 mL/min) *Enoxaparin/Lovenox 30 mg SQ daily (WT < 150 kg, CrCl > 10-29 mL/min) *Enoxaparin/Lovenox 30 mg SQ BID (WT < 150 kg, CrCl > 30 mL/min) AND/OR *Sequential Compression Device (SCD) 5 or more Highest Order ONE of the following medications: *Heparin 5000 units SQ TID (Preferred with Epidurals) *Enoxaparin/Lovenox 40 mg SQ daily (WT < 150 kg, CrCl > 30 mL/min) *Enoxaparin/Lovenox 30 mg SQ daily (WT < 150 kg, CrCl > 10-29 mL/min) *Enoxaparin/Lovenox 30 mg SQ BID (WT < 150 kg, CrCl > 30 mL/min) AND *Sequential Compression Device (SCD) Assessment and Plan - Plan This is a 22-year-old -Latvian male with past medical history significant for HIV noncompliant off of HAART medications for the past 6-8 months, cardiomyopathy, history of syphilis status post treatment and recent admission in August of this year with acute onset facial/right-sided numbness and tingling likely secondary to TIA who presents to [facility] ED with complaints of new onset seizures. New onset seizure, witnessed by bystanders +tongue biting no urinary or bowel incontinence Patient given IV Keppra in ED -obtain UDS -Consult neurology, appreciate assistance -Start on po Keppra -EEG ordered -fall and seizure precautions -No driving 6 months or until cleared by neurologist HIV, medication noncompliant Patient has not been on HAART medications for the past 6-8 mos -obtain CD4 count -Begin prophylaxis with azithromycin and Bactrim -Patient will need to follow-up with HIV/ID specialist as outpatient Hypokalemia -po repletion given by ED -repeat BMP to monitor response Hypochromic, microcytic anemia, chronic -H/H appears stable -obtain iron studies, B12 elevated in August -repeat CBC as indicated Cardiomyopathy, medication noncompliant Echo 08/29/17 EF 45% with mild global hypokinesis -Resume patient on BANDAR and beta-marifer with holding parameters Recent TIA Patient admitted 08/26 right sided numbness/tingling, likely TIA -ASA daily -monitor Syphilis -hx of syphilis s/p desensitization and treatment with PCN,, repeat RPR negative in August 2017 DVT prophylaxis -Bilateral SCD/SETH angulo Discussed Condition With: patient
[2017-10-12] MEDS: levETIRAcetam 500 MG Tablet PO SCH ×3 (00:50→21:08)
[2017-10-12 01:53] LABS: Amphetamine Screen,Urine Neg (Neg); Barbiturate Screen,Urine Neg (Neg); Cannabinoid Screen,Urine Pos (Neg); Cocaine Screen,Urine Neg (Neg); Opiate Screen,Urine Neg (Neg)
[2017-10-12 05:42] LABS: Anion Gap 13 meq/L (5-15); Blood Urea Nitrogen 10 mg/dL (7-18); Calcium 8.5 mg/dL (8.5-10.1); Carbon Dioxide 22.2 meq/L (21.0-32.0); Chloride 105 meq/L (98-107); Glomerular Filtration Rate Greater Than 89 mL/min (>89); Glucose,Random 66 mg/dL (74-106); Potassium 3.6 meq/L (3.5-5.1); Sodium 140 meq/L (136-145)
[2017-10-12 05:52] LABS: % Iron Saturation 9.6 % (20-50)
[2017-10-12] MEDS: Sulfamethoxazole/Trimethoprim 400/80 MG Tablet PO SCH (09:09)
--- NOTE | 2017-10-12 09:59 | MB ---
cc: Keara Maynard MD DATE: 10/12/2017 REASON FOR CONSULTATION: Seizure. 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 Apparent had some cough and chills the last few weeks. He was started in the ED on Keppra, noted to be anemic with a normal white count and hypokalemic, given potassium. PAST MEDICAL HISTORY: Also of epilepsy and possible TIA in the past. PHYSICAL EXAMINATION: VITAL SIGNS: Temperature is 100.0, pulse 95, respiratory rate 18, blood pressure 106/59, saturating at 100% on room air. NEUROLOGIC: He is awake and alert. He has a slight slur from his tongue biting. His pupils are reactive. Otherwise, face is symmetrical. Motor rivers, he does not have any drift or leg lag. No tremor. Cerebellar is normal. DTRs are intact. Toes downgoing. Gait is held at this time. LABORATORY STUDIES: His white count is 4.9; hemoglobin 9.9; platelets are 192,000. Chemistries: Potassium currently is 3.6. Ferritin 507. Alkaline phosphatase 169, glucose 66. Tox screen was positive for cannabinoids. Immunology CD4 count, viral load, all that is pending. IMAGING STUDIES: Chest x-ray did not show any acute cardiopulmonary disease. Head CT was also unremarkable. IMPRESSION AND RECOMMENDATIONS: Seizure with a patient with a history of epilepsy. Continue the Keppra. He was given 500 mg once in the emergency department. Continue 500 mg b.i.d. Hopefully, he will be compliant and able to obtain it. Have case management assist. Get an EEG. Maintain seizure precautions. Defer treatment for his fever to the primary team. Continue current care. Further recommendations will be made if needed. Please call me with any questions or concerns. Keara Maynard MD DF/SUZY , 09:30 AM , 09:57 AM
--- NOTE | 2017-10-12 10:13 | P.PN ---
Subjective Interval history: Patient states that his tongue is sore. Otherwise denies any chest pain, shortness of breath, nausea or vomiting. States he has no insurance and does not have a primary care doctor. He tells me this was the first episode of seizure and has not had one since his been in the hospital. Physical Exam Vital signs: Vital Signs 10/11/17 13:31 10/11/17 14:04 10/11/17 15:57 Temperature 98.4 F 98.4 F 98.8 F Pulse Rate 104 H 111 H 108 H Respiratory Rate 20 18 18 Blood Pressure 129/60 129/60 118/63 Pulse Oximetry 100 100 10/11/17 20:00 10/11/17 23:33 10/12/17 00:46 Temperature 99.0 F 98.2 F Pulse Rate 111 H 109 H Respiratory Rate 16 18 Blood Pressure 124/67 117/59 L Pulse Oximetry 99 99 97 10/12/17 07:43 Temperature 100.0 F H Pulse Rate 95 H Respiratory Rate 18 Blood Pressure 106/59 L Pulse Oximetry 100 Intake & Output 10/11/17 10/12/17 10/12/17 18:59 06:59 18:59 Weight 61.235 kg Narrative: GENERAL: This is a thin well-developed well-nourished young male patient. Awake and alert. SKIN: Warm and dry. Hypopigmented facial rash. ENT: Mild thrush noted + Tongue contusion no overt wound CARDIOVASCULAR: Regular rate and rhythm no murmurs rubs or gallops RESPIRATORY: Nonlabored. Clear to auscultation. Breath sounds equal bilaterally. GASTROINTESTINAL: Abdomen soft, non-tender, nondistended. MUSCULOSKELETAL: Extremities without edema. No obvious deformities. NEUROLOGICAL: Awake and alert. Moves extremities with no difficulty Results - Labs CBC & Chem 7: 10/11/17 14:49 10/12/17 03:26 Laboratory Results - last 24 hr 10/11/17 10/11/17 10/11/17 14:49 14:49 14:49 WBC 4.9 RBC 3.94 L Hgb 9.9 L Hct 31.0 L MCV 78.6 L MCH 25.1 L MCHC 31.9 L RDW 14.4 Plt Count 192 MPV 9.2 Neut % (Auto) 34.7 Lymph % (Auto) 56.9 H Coleman % (Auto) 4.5 Eos % (Auto) 3.5 Baso % (Auto) 0.4 Neut # (Auto) 1.7 L Lymph # (Auto) 2.8 Coleman # (Auto) 0.2 Eos # (Auto) 0.2 Baso # (Auto) 0.0 WBC Differential . Differential Comment Auto diff final Sodium Cancelled Potassium Cancelled Chloride Cancelled Carbon Dioxide Cancelled Anion Gap Cancelled BUN Cancelled Creatinine Cancelled Estimated GFR Cancelled Random Glucose Cancelled Calcium Cancelled Magnesium Cancelled Iron TIBC % Saturation Ferritin Total Bilirubin AST ALT Alkaline Phosphatase Total Protein Albumin Urine Opiates Screen Ur Barbiturates Screen Ur Amphetamines Screen U Benzodiazepines Scrn Urine Cocaine Screen U Cannabinoids Screen Serum Alcohol Cancelled 10/11/17 10/12/17 10/12/17 14:49 01:00 03:26 WBC RBC Hgb Hct MCV MCH MCHC RDW Plt Count MPV Neut % (Auto) Lymph % (Auto) Coleman % (Auto) Eos % (Auto) Baso % (Auto) Neut # (Auto) Lymph # (Auto) Coleman # (Auto) Eos # (Auto) Baso # (Auto) WBC Differential Differential Comment Sodium 143 140 Potassium 3.4 L 3.6 Chloride 108 H 105 Carbon Dioxide 21.4 22.2 Anion Gap 14 13 BUN 11 10 Creatinine 1.02 1.08 Estimated GFR Greater than 89 Greater than 89 Random Glucose 96 66 L Calcium 8.6 8.5 Magnesium 1.5 Iron TIBC % Saturation Ferritin Total Bilirubin 0.4 AST 32 ALT 44 Alkaline Phosphatase 169 H Total Protein 7.7 Albumin 3.5 Urine Opiates Screen Neg Ur Barbiturates Screen Neg Ur Amphetamines Screen Neg U Benzodiazepines Scrn Neg Urine Cocaine Screen Neg U Cannabinoids Screen Pos Serum Alcohol Less than 3 10/12/17 03:26 WBC RBC Hgb Hct MCV MCH MCHC RDW Plt Count MPV Neut % (Auto) Lymph % (Auto) Coleman % (Auto) Eos % (Auto) Baso % (Auto) Neut # (Auto) Lymph # (Auto) Coleman # (Auto) Eos # (Auto) Baso # (Auto) WBC Differential Differential Comment Sodium Potassium Chloride Carbon Dioxide Anion Gap BUN Creatinine Estimated GFR Random Glucose Calcium Magnesium Iron 31 L TIBC 322 % Saturation 9.6 L Ferritin 507 H Total Bilirubin AST ALT Alkaline Phosphatase Total Protein Albumin Urine Opiates Screen Ur Barbiturates Screen Ur Amphetamines Screen U Benzodiazepines Scrn Urine Cocaine Screen U Cannabinoids Screen Serum Alcohol - Imaging Impressions Head CT 10/11/17 14:00 CONCLUSION: No evidence of acute intracranial pathology. No masses are identified. Chest X-Ray 10/11/17 14:03 CONCLUSION: No acute cardiopulmonary disease Assessment and Plan - Plan This is a 22-year-old -[place] male with past medical history significant for HIV noncompliant off of HAART medications for the past 6-8 months, cardiomyopathy, history of syphilis status post treatment and recent admission in August of this year with acute onset facial/right-sided numbness and tingling likely secondary to TIA who presents to [facility] ED with complaints of new onset seizures. New onset seizure, witnessed by bystanders +tongue biting no urinary or bowel incontinence Patient given IV Keppra in ED -UDS for cannabinoids -Neurology was consulted and evaluated the patient. Per neurology's note, pt has a hx of epilepsy. Recommends continuing the Keppra 500 mg twice daily. EEG pending seizure/fall precautions. There is concern for non compliance which may be due to lack of financial assistance. will consult CM for d/c planning -No driving 6 months or until cleared by neurologist HIV, medication noncompliant Patient has not been on HAART medications for the past 6-8 mos -CD4 count pending -on prophylaxis with azithromycin and Bactrim -Patient will need to follow-up with HIV/ID specialist as outpatient - Tmax 100.0, monitor closely Hypokalemia -po repletion given by ED -repeat BMP to monitor response Hypochromic, microcytic anemia, chronic -H/H appears stable -obtain iron studies, B12 elevated in August -repeat CBC as indicated Cardiomyopathy, medication noncompliant Echo 08/29/17 EF 45% with mild global hypokinesis - on BANDAR and beta-marifer with holding parameters Recent TIA Patient admitted 08/26 right sided numbness/tingling, likely TIA -ASA daily -monitor Syphilis -hx of syphilis s/p desensitization and treatment with PCN,, repeat RPR negative in August 2017 DVT prophylaxis -Bilateral SCD/SETH hose
[2017-10-12] MEDS: Nystatin Liq 500,000 UNIT/5 ML UDC SWISH-SWAL SCH ×3 (13:40→21:08)
[2017-10-13 06:58] LABS: Alanine Aminotransferase 47 U/L (12-78); Albumin 3.3 g/dL (3.4-5.0); Anion Gap 11 meq/L (5-15); Aspartate Aminotransferase 51 U/L (15-37); Blood Urea Nitrogen 13 mg/dL (7-18); Calcium 8.3 mg/dL (8.5-10.1); Carbon Dioxide 23.2 meq/L (21.0-32.0); Chloride 106 meq/L (98-107); Glomerular Filtration Rate Greater Than 89 mL/min (>89); Glucose,Random 73 mg/dL (74-106); Potassium 3.9 meq/L (3.5-5.1); Sodium 140 meq/L (136-145)
[2017-10-13 07:00] LABS: Alkaline Phosphatase 165 U/L (45-117); Total Protein 7.1 g/dL (6.4-8.2)
[2017-10-13] MEDS: Sulfamethoxazole/Trimethoprim 400/80 MG Tablet PO SCH (09:03)
[2017-10-13] MEDS: levETIRAcetam 500 MG Tablet PO SCH ×2 (09:03→21:42)
[2017-10-13] MEDS: Nystatin Liq 500,000 UNIT/5 ML UDC SWISH-SWAL SCH ×4 (09:03→21:42)
--- NOTE | 2017-10-13 10:28 | P.PN ---
Subjective Interval history: Pt states his tongue still hurts but is improving. has been doing the nystatin as recommended. denies any CP/SOB/N/v. admits to chills. has a mild cough but not much. denies any burning w urination or urinary frequency. denies any new rashes or wounds. Physical Exam Vital signs: Vital Signs 10/12/17 12:15 10/12/17 16:00 10/12/17 20:52 Temperature 98.1 F 99.4 F 98.2 F Pulse Rate 94 H 101 H 110 H Respiratory Rate 18 18 17 Blood Pressure 94/53 L 99/57 L 122/57 L Pulse Oximetry 100 99 98 10/13/17 00:43 10/13/17 03:29 Temperature 98.0 F 100.5 F H Pulse Rate 105 H 107 H Respiratory Rate 17 18 Blood Pressure 98/57 L 110/63 Pulse Oximetry 94 L 96 Intake & Output 10/12/17 10/13/17 10/13/17 18:59 06:59 18:59 Intake Total 1100 / 1100 Output Total 300 / 300 Balance 800 / 800 Intake: IV 1100 / 1100 Output: Urine 300 / 300 Narrative: GENERAL: Awake and alert. SKIN: Hypopigmented facial rash. no open sores or wound noted ENT: thrush noted + Tongue contusion no overt wound CARDIOVASCULAR: Regular rate and rhythm no murmurs RESPIRATORY: Nonlabored. Clear to auscultation. Breath sounds equal bilaterally. GASTROINTESTINAL: Abdomen soft, non-tender, nondistended. MUSCULOSKELETAL: Extremities without edema. No obvious deformities. NEUROLOGICAL: Awake and alert. Moves extremities with no difficulty Results - Labs CBC & Chem 7: 10/11/17 14:49 10/13/17 06:00 Laboratory Results - last 24 hr 10/13/17 06:00 Sodium 140 Potassium 3.9 Chloride 106 Carbon Dioxide 23.2 Anion Gap 11 BUN 13 Creatinine 1.07 Estimated GFR Greater than 89 Random Glucose 73 L Calcium 8.3 L Total Bilirubin 0.4 AST 51 H ALT 47 Alkaline Phosphatase 165 H Total Protein 7.1 D Albumin 3.3 L Assessment and Plan - Plan This is a 22-year-old -[place] male with past medical history significant for HIV noncompliant off of HAART medications for the past 6-8 months, cardiomyopathy, history of syphilis status post treatment and recent admission in August of this year with acute onset facial/right-sided numbness and tingling likely secondary to TIA who presents to [facility] ED with complaints of new onset seizures. New onset seizure, witnessed by bystanders +tongue biting no urinary or bowel incontinence Patient given IV Keppra in ED -UDS for cannabinoids -Neurology was consulted and evaluated the patient. Per neurology's note, pt has a hx of epilepsy. Recommends continuing the Keppra 500 mg twice daily. EEG pending seizure/fall precautions. There is concern for non compliance which may be due to lack of financial assistance. will consult CM for d/c planning -No driving 6 months or until cleared by neurologist HIV, medication noncompliant. Pt had a Tmax of 100.5 today Patient has not been on HAART medications for the past 6-8 mos -CD4 count pending -on prophylaxis with azithromycin and Bactrim -Patient will need to follow-up with HIV/ID specialist as outpatient -u/a ordered, blood cx ordered. ID consulted. May need LP, will defer to ID. chest x-ray reviewed no acute disease. Hypokalemia -po repletion given by ED -repeat BMP to monitor response Hypochromic, microcytic anemia, chronic -H/H appears stable -obtain iron studies, B12 elevated in August -repeat CBC as indicated Cardiomyopathy, medication noncompliant Echo 08/29/17 EF 45% with mild global hypokinesis - on BANDAR and beta-marifer with holding parameters Recent TIA Patient admitted 08/26 right sided numbness/tingling, likely TIA -ASA daily -monitor Syphilis -hx of syphilis s/p desensitization and treatment with PCN,, repeat RPR negative in August 2017 DVT prophylaxis -Bilateral SCD/SETH angulo
[2017-10-13 10:59] LABS: Baso % (Auto) 0.4 % (0.0-2.0); Eos # (Auto) 0.1 th/mm3 (0.0-0.4); Eos % (Auto) 1.4 % (0.0-4.0); Hematocrit 29.4 % (39.0-51.0); Hemoglobin 9.6 gm/dL (13.0-17.0); Lymph # (Auto) 1.5 th/mm3 (1.0-4.8); Lymph % (Auto) 38.8 % (9.0-44.0); Mean Corpuscular HGB Conc 32.8 % (32.0-36.0); Mean Corpuscular Volume 76.4 fL (80.0-100.0); Mono # (Auto) 0.3 th/mm3 (0.0-0.9); Mono % (Auto) 8.8 % (0.0-8.0); Neut % (Auto) 50.6 % (16.0-70.0); Platelet Count 192 th/mm3 (150-450); Red Blood Count 3.84 mil/mm3 (4.50-5.90); Red Cell Distribution Width 14.6 % (11.6-17.2)
--- NOTE | 2017-10-13 15:35 | MG ---
cc: Everett Westbrook MD, PhD DATE OF STUDY: 10/13/2017 TEST NUMBER: [id number] TECHNIQUE: A 17-channel EEG. DESCRIPTION: The background rhythm reveals slowing in the theta range at 6 Hz, amplitude of 10-20 microvolts. No epileptiform discharges are seen. No lateralizing features are identified. Photic results in a fairly well-developed driving response. INTERPRETATION: Abnormal study consistent with a mild encephalopathy or drowsiness. Everett Westbrook MD, PhD MAURI/SUZY , 03:25 PM , 03:33 PM
--- NOTE | 2017-10-13 17:12 | P.CONID ---
History of Present Illness Service: Infectious disease Consult date: 10/13/17 Requesting Physician: Kimi Cruz Reason for Consult: Evaluate patient with HIV and fever Primary Care Provider: No Primary Care Physician Family Provider: No Primary Care Physician Chief Complaint: New onset seizure History of Present Illness: Patient seen and examined. Records reviewed. Patient is a 22-year-old male, presented to the hospital after he had acute onset of tonic-clonic seizure. He gave a history that he had history of epilepsy, but has not been on any medication. Patient was seen by neurologist and put back on anticonvulsant therapy. CT of the head was negative. He has not had any recurrent seizures. Since admission, patient has had 2 episodes of low-grade temps. He denies any headache or any neck pain. Patient has a chronic smoker's cough, and brings up some green phlegm. He denies any chest pain or any shortness of breath. He has not had any nausea or vomiting, diarrhea or any urinary complaints. He is complaining of some swelling in his mouth area due to the fact that he bit his tongue when he had the seizure. Patient has known HIV, and he really could not tell me how long he has had it. He was in the hospital in April, and at that time his CD4 count was 186. He was treated for syphilis and has had follow-up RPR that is now nonreactive. Patient was supposed to follow-up with an HIV provider but he never did. His WBC is normal. Chest x-ray is normal. Infectious disease consultation has been requested to evaluate the patient with low-grade fevers. Review of Systems Constitutional: Reports fever(s), Denies chills, Denies headache(s) Eyes: Denies discharge, Denies pain Ears, Nose, Mouth, and Throat: Reports mouth lesions, Denies difficulty swallowing, Denies dry mouth, Denies sore throat, Denies throat swelling Cardiovascular: Denies chest pain, Denies shortness of breath Respiratory: Reports cough, Denies pain on inspiration, Denies pain with cough, Denies shortness of breath Gastrointestinal: Denies abdominal pain, Denies nausea, Denies pain with swallowing, Denies vomiting Genitourinary: Denies painful urination, Denies urinary frequency, Denies urinary urgency Musculoskeletal: Denies joint swelling Skin/Breast: Denies rash Neurologic: Reports convulsions, Denies headache(s) PMFSH - History History Provided By: Patient - Medical / Surgical Hx Neg / Unobtainable Medical Problems Denied: Yes - Medical History Medical History: Medical History (Last Updated 10/13/17 @ 17:08 by Mayela Salas MD) Cardiomyopathy HIV (human immunodeficiency virus infection) Noncompliance with medication regimen Seizure disorder Syphilis TIA (transient ischemic attack) - Surgical History Surgical History: Surgical History (Last Reviewed 10/13/17 @ 17:08 by Mayela Salas MD) No history of previous surgery - Family History Family History: Family History (Last Reviewed 10/13/17 @ 17:08 by Mayela Salas MD) Other Family history of diabetes mellitus - Tobacco History Second Hand Smoke Exposure: No Tobacco Use In Past 30 Days: Yes (Patient reports tobacco use of 5 cigs/week) Smoking Status: Never smoker Tobacco Type: Cigarettes - Alcohol History How Often Do You Have a Drink Containing Alcohol: Monthly or less (Patient reports last alcoholic beverages was over a week ago) - Substance Use History Substance History: No History of Abuse - Travel History Recent Travel in the [place] Within the Last 8 Weeks: No Recent Travel Out of the Country Within the Last 8 Weeks: No - Immunization History Tetanus Immunization: Unsure Hx Influenza Vaccine This Season: Unable to Assess Medications and Allergies Active Medications: Active Medications Aspirin (Ecotrin) 81 mg PO DAILY [facility] Last Admin: 10/13/17 09:03 Dose: Not Given Azithromycin (Zithromax) 1,200 mg PO WEEKLY [facility] Carvedilol (Coreg) 3.125 mg PO BID [facility] Last Admin: 10/13/17 09:03 Dose: 3.125 mg Levetiracetam (Keppra) 500 mg PO BID [facility] Last Admin: 10/13/17 09:03 Dose: 500 mg Nystatin (Mycostatin Liq) 5 ml SWISH-SWAL QID [facility] Last Admin: 10/13/17 09:03 Dose: 5 ml Ramipril (Altace) 1.25 mg PO DAILY [facility] Last Admin: 10/13/17 09:03 Dose: 1.25 mg Sodium Chloride (Ns Flush) 2 ml IV.FLUSH PRN PRN PRN Reason: FLUSH AFTER USING IV ACCESS Last Admin: 10/11/17 14:03 Dose: 2 ml Trimethoprim/Sulfamethoxazole (Bactrim) 1 tab PO DAILY [facility] Last Admin: 10/13/17 09:03 Dose: 1 tab Allergies Allergy/AdvReac Type Severity Reaction Status Date / Time penicillin G Allergy Severe RASH Verified 10/11/17 14:00 Home Medications Medication Instructions Recorded Confirmed Type No Known Home Medications 10/11/17 10/11/17 History Exam Vital signs: Vital Signs 10/12/17 20:52 10/13/17 00:43 10/13/17 03:29 Temperature 98.2 F 98.0 F 100.5 F H Pulse Rate 110 H 105 H 107 H Respiratory Rate 17 17 18 Blood Pressure 122/57 L 98/57 L 110/63 Pulse Oximetry 98 94 L 96 10/13/17 08:24 Temperature 97.6 F Pulse Rate 99 H Respiratory Rate 18 Blood Pressure 124/60 Pulse Oximetry Intake & Output 10/12/17 10/13/17 10/13/17 18:59 06:59 18:59 Intake Total 1100 / 1100 Output Total 300 / 300 Balance 800 / 800 Intake: IV 1100 / 1100 Output: Urine 300 / 300 Narrative: Physical Examination GENERAL: Patient is a thin, well-developed young male, awake and alert, not in respiratory distress. SKIN: Warm and dry. No generalized rash, no ecchymoses and no evidence of embolic lesions. HEAD: Atraumatic. Normocephalic. No temporal wasting, or tenderness. EYES: [place] conjunctiva. No petechia or hemorrhage. Pupils equal, round and reactive to light. Extraocular movements full and intact. No scleral icterus. No injection or drainage. EARS, NOSE AND THROAT: Nose without bleeding or purulent nasal discharge. No sinus tenderness. Mucous membranes pink and moist. Has ulcer lateral tongue with white exudate. NECK: Trachea midline. Supple and not tender, no meningeal signs CARDIOVASCULAR: Regular rate and rhythm. No murmurs, rubs or gallops heard RESPIRATORY: Clear to auscultation. Breath sounds equal bilaterally. No rales , wheezing or rhonchi ABDOMEN: Soft, non-tender, nondistended. Bowel sounds present and normoactive. No guarding. No rebound. No organomegaly. EXTREMITIES: No clubbing, cyanosis, or edema.No joint effusion, has good ROM. No calf tenderness. Well perfused and warm. NEUROLOGICAL: Awake and alert. Cranial nerves grossly intact. Motor grossly within normal limits. PSYCHIATRIC: Normal affect, calm and cooperative. LINE: No evidence of infection Results - Labs CBC & Chem 7: 10/13/17 10:30 10/13/17 06:00 Labs: Laboratory Results - last 24 hr 10/13/17 10/13/17 06:00 10:30 WBC 4.0 RBC 3.84 L Hgb 9.6 L Hct 29.4 L MCV 76.4 L MCH 25.0 L MCHC 32.8 RDW 14.6 Plt Count 192 MPV 9.0 Neut % (Auto) 50.6 Lymph % (Auto) 38.8 Randall % (Auto) 8.8 H Eos % (Auto) 1.4 Baso % (Auto) 0.4 Neut # (Auto) 2.0 Lymph # (Auto) 1.5 Randall # (Auto) 0.3 Eos # (Auto) 0.1 Baso # (Auto) 0.0 WBC Differential . Differential Comment Auto diff final Sodium 140 Potassium 3.9 Chloride 106 Carbon Dioxide 23.2 Anion Gap 11 BUN 13 Creatinine 1.07 Estimated GFR Greater than 89 Random Glucose 73 L Calcium 8.3 L Total Bilirubin 0.4 AST 51 H ALT 47 Alkaline Phosphatase 165 H Total Protein 7.1 D Albumin 3.3 L - Imaging Head CT 10/11/17 14:00 CONCLUSION: No evidence of acute intracranial pathology. No masses are identified. Chest X-Ray 10/11/17 14:03 CONCLUSION: No acute cardiopulmonary disease Assessment and Plan - Plan Impression Low grade fevers, intermittent - has cough, same as before, smoker's cough, CXR negative Seizure, known hx, not on meds HIV, has not followup with HIV provider - last CD4 count 186 Recommendation Continue prophylaxis: Zithromax and Bactrim Check UA and C/S Levaquin x 7 days for his cough Follow temps Await CD4 counts Monitor progress I will follow along with you Thank you for this consultation
[2017-10-13] MEDS: levoFLOXacin 500 MG Tablet PO SCH (20:36)
[2017-10-14 06:50] LABS: Baso % (Auto) 0.3 % (0.0-2.0); Eos # (Auto) 0.1 th/mm3 (0.0-0.4); Eos % (Auto) 1.8 % (0.0-4.0); Hemoglobin 9.6 gm/dL (13.0-17.0); Lymph # (Auto) 1.8 th/mm3 (1.0-4.8); Lymph % (Auto) 45.3 % (9.0-44.0); Mean Corpuscular HGB Conc 33.2 % (32.0-36.0); Mean Corpuscular Hemoglobin 25.3 pg (27.0-34.0); Mean Corpuscular Volume 76.3 fL (80.0-100.0); Mean Platelet Volume 8.7 fL (7.0-11.0); Mono # (Auto) 0.4 th/mm3 (0.0-0.9); Mono % (Auto) 10.2 % (0.0-8.0); Neut # (Auto) 1.7 th/mm3 (1.8-7.7); Neut % (Auto) 42.4 % (16.0-70.0); Platelet Count 180 th/mm3 (150-450); Red Cell Distribution Width 14.6 % (11.6-17.2); White Blood Count 3.9 th/mm3 (4.0-11.0)
[2017-10-14 07:13] LABS: Albumin 3.1 g/dL (3.4-5.0); Anion Gap 11 meq/L (5-15); Aspartate Aminotransferase 38 U/L (15-37); Blood Urea Nitrogen 12 mg/dL (7-18); Calcium 9.1 mg/dL (8.5-10.1); Carbon Dioxide 25.2 meq/L (21.0-32.0); Chloride 103 meq/L (98-107); Glomerular Filtration Rate Greater Than 89 mL/min (>89); Glucose,Random 82 mg/dL (74-106); Potassium 4.2 meq/L (3.5-5.1); Sodium 139 meq/L (136-145)
[2017-10-14 07:15] LABS: Alanine Aminotransferase 48 U/L (12-78)
[2017-10-14 07:17] LABS: Alkaline Phosphatase 163 U/L (45-117); Total Protein 7.5 g/dL (6.4-8.2)
[2017-10-14] MEDS: levETIRAcetam 500 MG Tablet PO SCH ×2 (09:32→23:01)
[2017-10-14] MEDS: Sulfamethoxazole/Trimethoprim 400/80 MG Tablet PO SCH (09:32)
[2017-10-14] MEDS: levoFLOXacin 500 MG Tablet PO SCH (09:32)
[2017-10-14] MEDS: Nystatin Liq 500,000 UNIT/5 ML UDC SWISH-SWAL SCH ×4 (09:33→23:02)
--- NOTE | 2017-10-14 11:36 | P.PNIM ---
Subjective Interval history: Patient reports he is feeling okay. Maximum temperature last night was 100.0. He denies any chills. No shortness of breath. I had a long discussion with the patient and his mother over the phone regarding the need to be compliant with medications. Physical Exam Vital signs: Vital Signs 10/13/17 12:32 10/13/17 16:45 10/13/17 20:00 Temperature 98.0 F 98.0 F 98.0 F Pulse Rate 106 H 106 H 105 H Respiratory Rate 18 18 18 Blood Pressure 109/59 L 109/59 L 110/60 Pulse Oximetry 100 10/13/17 22:49 10/13/17 23:45 10/14/17 04:00 Temperature 100.0 F H 99.4 F Pulse Rate 100 H 83 Respiratory Rate 18 18 15 Blood Pressure 106/59 L 107/65 Pulse Oximetry 100 100 99 10/14/17 08:00 Temperature 97.8 F Pulse Rate 93 H Respiratory Rate 16 Blood Pressure 107/60 Pulse Oximetry 98 Intake & Output 10/13/17 10/14/17 10/14/17 18:59 06:59 18:59 Intake Total 280 / 280 Balance 280 / 280 Intake: Oral 280 / 280 Narrative: GENERAL: This is a well-nourished, well-developed patient, in no apparent distress. CARDIOVASCULAR: Normal rate and regular rhythm without murmurs, gallops, or rubs. RESPIRATORY: Good respiratory efforts. Breath sounds equal and clear to auscultation bilaterally. GASTROINTESTINAL: Abdomen soft, non-tender, non-distended. Normal active bowel sounds MUSCULOSKELETAL: Extremities without cyanosis, or edema. NEURO: Alert & Oriented x4 to person, place, time, situation. Moves all ext x4 PSYCH: Appropriate mood and affect. Results - Labs CBC & Chem 7: 10/14/17 06:19 10/14/17 06:19 Laboratory Results - last 24 hr 10/14/17 10/14/17 06:19 06:19 WBC 3.9 L RBC 3.80 L Hgb 9.6 L Hct 29.0 L MCV 76.3 L MCH 25.3 L MCHC 33.2 RDW 14.6 Plt Count 180 MPV 8.7 Neut % (Auto) 42.4 Lymph % (Auto) 45.3 H Ripley % (Auto) 10.2 H Eos % (Auto) 1.8 Baso % (Auto) 0.3 Neut # (Auto) 1.7 L Lymph # (Auto) 1.8 [place] # (Auto) 0.4 Eos # (Auto) 0.1 Baso # (Auto) 0.0 WBC Differential . Differential Comment Auto diff final Sodium 139 Potassium 4.2 Chloride 103 Carbon Dioxide 25.2 Anion Gap 11 BUN 12 Creatinine 1.16 Estimated GFR Greater than 89 Random Glucose 82 Calcium 9.1 D Total Bilirubin 0.4 AST 38 H ALT 48 Alkaline Phosphatase 163 H Total Protein 7.5 Albumin 3.1 L Microbiology 10/13/17 10:30 Blood - Peripheral Aerobic Blood Culture - Preliminary No growth in 1 day 10/13/17 10:30 Blood - Peripheral Anaerobic Blood Culture - Preliminary No growth in 1 day 10/13/17 10:20 Blood - Peripheral Aerobic Blood Culture - Preliminary No growth in 1 day 10/13/17 10:20 Blood - Peripheral Anaerobic Blood Culture - Preliminary No growth in 1 day Assessment and Plan - Assessment (1) Epileptic seizure Code(s): G40.909 - Epilepsy, unspecified, not intractable, without status epilepticus Status: Acute (2) HIV (human immunodeficiency virus infection) Code(s): B20 - Human immunodeficiency virus [HIV] disease Status: Acute (3) Fever Code(s): R50.9 - Fever, unspecified Status: Acute (4) Cardiomyopathy Code(s): I42.9 - Cardiomyopathy, unspecified Status: Acute - Plan 22-year-old -[place] male with past medical history significant for HIV noncompliant off of HAART medications for the past 6-8 months, cardiomyopathy, history of syphilis status post treatment and recent admission in August of this year with acute onset facial/right-sided numbness and tingling likely secondary to TIA who presents to [facility] ED with complaints of new onset seizures. Seizure disorder -Neurology was consulted and evaluated the patient. Per neurology's note, pt has a hx of epilepsy. Recommends continuing the Keppra 500 mg twice daily. EEG pending seizure/fall precautions. There is concern for non compliance which may be due to lack of financial assistance. will consult CM for d/c planning -No driving 6 months or until cleared by neurologist HIV, medication noncompliant. Patient has not been on HAART medications for the past 6-8 mos -CD4 count pending -on prophylaxis with azithromycin and Bactrim -Patient will need to follow-up with HIV/ID specialist as outpatient -Levaquin added per ID. Continue to monitor. -I had an extensive discussion with the patient and his mother regarding the need to be compliant with medications. Especially the need to follow-up outpatient for HIV treatment. Hypochromic, microcytic anemia, chronic -H/H appears stable -repeat CBC as indicated Cardiomyopathy, medication noncompliant Echo 08/29/17 EF 45% with mild global hypokinesis - on BANDAR and beta-marifer with holding parameters DVT prophylaxis -Bilateral SCD/SETH hose Discharge Planning: Appreciate infectious disease following. The patient can likely be discharged once cleared by infectious disease.
--- NOTE | 2017-10-14 13:55 | P.PNID ---
Subjective Remarks: Patient is a 22-year-old male, presented to the hospital after he had acute onset of tonic-clonic seizure. He gave a history that he had history of epilepsy, but has not been on any medication. Patient was seen by neurologist and put back on anticonvulsant therapy. CT of the head was negative. He has not had any recurrent seizures. Since admission, patient has had 2 episodes of low-grade temps. He denies any headache or any neck pain. Patient has a chronic smoker's cough, and brings up some green phlegm. He denies any chest pain or any shortness of breath. He has not had any nausea or vomiting, diarrhea or any urinary complaints. He is complaining of some swelling in his mouth area due to the fact that he bit his tongue when he had the seizure. Patient has known HIV, and he really could not tell me how long he has had it. He was in the hospital in April, and at that time his CD4 count was 186. He was treated for syphilis and has had follow-up RPR that is now nonreactive. Patient was supposed to follow-up with an HIV provider but he never did. His WBC is normal. Chest x-ray is normal. Infectious disease consultation has been requested to evaluate the patient with low-grade fevers. Notes reviewed One low grade temps last night He feels ok otherwise No new complaints CD4 count pending Antibiotics: Levaquin Past Medical History: Cardiomyopathy HIV (human immunodeficiency virus infection) Noncompliance with medication regimen Seizure disorder Syphilis TIA (transient ischemic attack) Allergies/Adverse Reactions: Allergies penicillin G Allergy (Severe, Verified 10/11/17 14:00) RASH Objective Vital Signs 10/13/17 16:45 10/13/17 20:00 10/13/17 22:49 Temperature 98.0 F 98.0 F Pulse Rate 106 H 105 H Respiratory Rate 18 18 18 Blood Pressure 109/59 L 110/60 Pulse Oximetry 100 100 10/13/17 23:45 10/14/17 04:00 10/14/17 08:00 Temperature 100.0 F H 99.4 F 97.8 F Pulse Rate 100 H 83 93 H Respiratory Rate 18 15 16 Blood Pressure 106/59 L 107/65 107/60 Pulse Oximetry 100 99 98 10/14/17 12:00 Temperature 98.4 F Pulse Rate 88 Respiratory Rate 16 Blood Pressure 109/58 L Pulse Oximetry 100 Intake & Output 10/13/17 10/14/17 10/14/17 18:59 06:59 18:59 Intake Total 280 / 280 Balance 280 / 280 Intake: Oral 280 / 280 10/13/17 10:30 Blood - Peripheral Aerobic Blood Culture - Preliminary No growth in 1 day 10/13/17 10:30 Blood - Peripheral Anaerobic Blood Culture - Preliminary No growth in 1 day 10/13/17 10:20 Blood - Peripheral Aerobic Blood Culture - Preliminary No growth in 1 day 10/13/17 10:20 Blood - Peripheral Anaerobic Blood Culture - Preliminary No growth in 1 day Lab - Hematology Results 10/13/17 10/14/17 10:30 06:19 WBC 4.0 3.9 L RBC 3.84 L 3.80 L Hgb 9.6 L 9.6 L Hct 29.4 L 29.0 L MCV 76.4 L 76.3 L MCH 25.0 L 25.3 L MCHC 32.8 33.2 RDW 14.6 14.6 Plt Count 192 180 MPV 9.0 8.7 Neut % (Auto) 50.6 42.4 Lymph % (Auto) 38.8 45.3 H [place] % (Auto) 8.8 H 10.2 H Eos % (Auto) 1.4 1.8 Baso % (Auto) 0.4 0.3 Neut # (Auto) 2.0 1.7 L Lymph # (Auto) 1.5 1.8 [place] # (Auto) 0.3 0.4 Eos # (Auto) 0.1 0.1 Baso # (Auto) 0.0 0.0 WBC Differential . . Differential Comment Auto diff final Auto diff final Lab - Chemistry Results 10/13/17 10/14/17 06:00 06:19 Sodium 140 139 Potassium 3.9 4.2 Chloride 106 103 Carbon Dioxide 23.2 25.2 Anion Gap 11 11 BUN 13 12 Creatinine 1.07 1.16 Estimated GFR Greater than 89 Greater than 89 Random Glucose 73 L 82 Calcium 8.3 L 9.1 D Total Bilirubin 0.4 0.4 AST 51 H 38 H ALT 47 48 Alkaline Phosphatase 165 H 163 H Total Protein 7.1 D 7.5 Albumin 3.3 L 3.1 L Imaging: ITS Impressions Head CT 10/11/17 14:00 CONCLUSION: No evidence of acute intracranial pathology. No masses are identified. Chest X-Ray 10/11/17 14:03 CONCLUSION: No acute cardiopulmonary disease Physical Exam: Physical Examination GENERAL: awake and alert, not in respiratory distress. SKIN: Warm and dry. No generalized rash, no ecchymoses and no evidence of embolic lesions. HEAD: Atraumatic. Normocephalic. No temporal wasting, or tenderness. EYES: [place] conjunctiva. No petechia or hemorrhage. Pupils equal, round and reactive to light. Extraocular movements full and intact. No scleral icterus. No injection or drainage. EARS, NOSE AND THROAT: Nose without bleeding or purulent nasal discharge. No sinus tenderness. Mucous membranes pink and moist. Has ulcer lateral tongue with white exudate. NECK: Trachea midline. Supple and not tender, no meningeal signs CARDIOVASCULAR: Regular rate and rhythm. No murmurs, rubs or gallops heard RESPIRATORY: Clear to auscultation. Breath sounds equal bilaterally. No rales , wheezing or rhonchi ABDOMEN: Soft, non-tender, nondistended. Bowel sounds present and normoactive. No guarding. No rebound. No organomegaly. EXTREMITIES: No clubbing, cyanosis, or edema.No joint effusion, has good ROM. No calf tenderness. Well perfused and warm. NEUROLOGICAL: Awake and alert. Cranial nerves grossly intact. Motor grossly within normal limits. PSYCHIATRIC: Normal affect, calm and cooperative. LINE: No evidence of infection Assessment and Plan - Plan Impression Low grade fevers, intermittent - has cough, same as before, smoker's cough, CXR negative Seizure, known hx, not on meds HIV, has not followup with HIV provider - last CD4 count 186 Recommendation Continue prophylaxis: Zithromax and Bactrim Levaquin x 7 days for his cough Follow temps - if temps less than 100 in 24 hours, should be ok To D/C this weekend Await CD4 counts Monitor progress Will need followup with HIV provider
--- NOTE | 2017-10-15 09:07 | P.DS ---
Date of admission: 10/11/17 17:22 Primary care physician: No Primary Care Physician Brief History from admission: HPI from the admitting physician: This is a 22-year-old -Indian male with past medical history significant for HIV noncompliant off of HAART medications for the past 6-8 months, cardiomyopathy, history of syphilis status post treatment and recent admission in August of this year with acute onset facial/right-sided numbness and tingling likely secondary to TIA who presents to [facility] ED with complaints of new onset seizures. Patient denies any previous history of seizure. Patient had a witnessed tonic-clonic seizure. He reports biting his tongue. He denies any urinary or bowel incontinence. He does endorse post ictal confusion. Patient states that he has had cough and chills for the past several weeks. He denies any recorded temperatures. He denies any chest pain or shortness of breath. He denies any nausea, vomiting or abdominal pain. Patient has not yet followed up with HIV/infectious disease physician as an outpatient. He states that he ran out of all of his medications a couple of weeks ago. In the ED, head CT was obtained was unremarkable. Patient was started on IV Keppra. CBC was significant for hypochromic, microcytic anemia. White count was WNL. He is mildly hypokalemic and was given repletion in the ED. DS: Diagnosis - Discharge Diagnosis (1) Epileptic seizure Status: Acute (2) HIV (human immunodeficiency virus infection) Status: Acute (3) Fever Status: Acute (4) Cardiomyopathy Status: Acute (5) Cough Status: Acute DS: Medications - Discharge Medications Prescriptions: aspirin 81 mg PO DAILY #30 tab azithromycin 1,200 mg PO WEEKLY #20 tab carvedilol [Coreg] 3.125 mg PO BID #30 tab levetiracetam [Keppra] 500 mg PO BID #60 tab levofloxacin 500 mg PO DAILY #5 tab ramipril 1.25 mg PO DAILY #30 cap sulfamethoxazole-trimethoprim 1 tab PO DAILY #30 tab DS: Summary Hospital Course: 22-year-old male with HIV, noncompliant with anti-retroviral treatment, cardiomyopathy, history of syphilis status post treatment admitted and treated for the following: Seizure disorder -Neurology was consulted and evaluated the patient. Per neurology's note, pt has a hx of epilepsy. Recommends continuing the Keppra 500 mg twice daily. There is concern for non compliance which may be due to lack of financial assistance. Case management was consulted to assist with outpatient medication. The patient was counseled extensively. I also discussed with his mother extensively regarding the need to be compliant with medications. -No driving 6 months or until cleared by neurologist HIV, medication noncompliant. Patient has not been on HAART medications for the past 6-8 mos -CD4 count 92 -on prophylaxis with azithromycin and Bactrim -Patient will need to follow-up with HIV/ID specialist as outpatient. Case management provided the patient with information for outpatient follow-up. -Levaquin X7 days ID. Continue to monitor. -I had an extensive discussion with the patient and his mother regarding the need to be compliant with medications. Especially the need to follow-up outpatient for HIV treatment. Hypochromic, microcytic anemia, chronic -H/H appears stable Cardiomyopathy, medication noncompliant Echo 08/29/17 EF 45% with mild global hypokinesis - on BANDAR and beta-marifer. Patient advised to follow-up with PCP at [facility]. Fever/cough: Fever resolved. Patient is to take Levaquin X7 days total per ID recs. - Time Spent with Patient Total time spent providing and/or coordinating discharge services: - Quality: VTE Deep Vein Thrombosis/Pulmonary Embolism Present on Admission: No Exam Vital signs: Vital Signs 10/14/17 12:00 10/14/17 16:00 10/14/17 20:13 Temperature 98.4 F 98.4 F 98.5 F Pulse Rate 88 91 H 100 H Respiratory Rate 16 20 17 Blood Pressure 109/58 L 104/56 L 108/57 L Pulse Oximetry 100 96 98 10/15/17 00:01 10/15/17 04:00 10/15/17 04:29 Temperature 98.7 F 97.5 F L Pulse Rate 102 H 93 H Respiratory Rate 16 15 15 Blood Pressure 106/57 L 104/55 L Pulse Oximetry 98 100 10/15/17 08:00 Temperature 97.4 F L Pulse Rate 83 Respiratory Rate 16 Blood Pressure 105/58 L Pulse Oximetry 100 Narrative: GENERAL: This is a well-nourished, well-developed patient, in no apparent distress. CARDIOVASCULAR: Normal rate and regular rhythm without murmurs, gallops, or rubs. RESPIRATORY: Good respiratory efforts. Breath sounds equal and clear to auscultation bilaterally. GASTROINTESTINAL: Abdomen soft, non-tender, non-distended. Normal active bowel sounds MUSCULOSKELETAL: Extremities without cyanosis, or edema. NEURO: Alert & Oriented x4 to person, place, time, situation. Moves all ext x4 PSYCH: Appropriate mood and affect. Results Procedures completed during hospitalization: None Labs on day of discharge: Labs from last 24 hours 10/12/17 03:26 Absolute Lymphocytes 2278 % CD3 Cells 92 H Absolute CD3 Count 2088 % CD3-/CD16+/CD56+ 7 Abs CD3-/CD16+/CD56+ 157 % CD4 Cells 4 L Absolute CD4 Count 92 L T-Help/Suppress Ratio 0.10 L % CD8 Cells 87 H Absolute CD8 Count 1932 H % CD19 Cells 1 L Absolute CD19 Count 26 L Preliminary micro results at discharge 10/13/17 10:30 Aerobic Blood Culture - Preliminary Blood - Peripheral No growth in 1 day Anaerobic Blood Culture - Preliminary No growth in 1 day 10/13/17 10:20 Aerobic Blood Culture - Preliminary Blood - Peripheral No growth in 1 day Anaerobic Blood Culture - Preliminary No growth in 1 day - Impressions ITS Impressions Head CT 10/11/17 14:00 CONCLUSION: No evidence of acute intracranial pathology. No masses are identified. Chest X-Ray 10/11/17 14:03 CONCLUSION: No acute cardiopulmonary disease Discharge Plan - Discharge Disposition Patient Disposition: 01 Discharge Home - Discharge Condition Condition: Stable - Discharge Order Discharge Orders: Discharge Order (Routine); Ordered 10/15/17 Ordered By: Julio Daniels - Physicians Team Primary Care Provider: Primary Care Toyin,Nyasia Attending Provider: Julio Daniels Other Providers: Keara Maynard MD ; Mayela Salas MD
[2017-10-15] MEDS: Sulfamethoxazole/Trimethoprim 400/80 MG Tablet PO SCH (09:52)
[2017-10-15] MEDS: Nystatin Liq 500,000 UNIT/5 ML UDC SWISH-SWAL SCH ×2 (09:52→12:28)
[2017-10-15] MEDS: levoFLOXacin 500 MG Tablet PO SCH (09:52)
[2017-10-15] MEDS: levETIRAcetam 500 MG Tablet PO SCH (09:52)
== END 2017-10-15 15:00 | disposition home or self-care (01) ==
LOC: NEPFCDU 13:17 → NEPD 13:17 → NEDA 17:22 → INTOOBSV 17:22 → NEPFCDU 20:03
PROVIDERS: ADMIT Family Medicine; ATTEND Family Medicine

== ENCOUNTER 2017-11-20 13:14 | Inpatient (IN) ==
[2017-11-20 15:06] LABS: Baso % (Auto) 0.3 % (0.0-2.0); Eos % (Auto) 0.6 % (0.0-4.0); Hematocrit 29.7 % (39.0-51.0); Hemoglobin 9.7 gm/dL (13.0-17.0); Lymph # (Auto) 2.6 th/mm3 (1.0-4.8); Lymph % (Auto) 46.8 % (9.0-44.0); Mean Corpuscular HGB Conc 32.8 % (32.0-36.0); Mean Corpuscular Hemoglobin 25.4 pg (27.0-34.0); Mean Corpuscular Volume 77.3 fL (80.0-100.0); Mean Platelet Volume 9.3 fL (7.0-11.0); Mono # (Auto) 0.4 th/mm3 (0.0-0.9); Mono % (Auto) 7.9 % (0.0-8.0); Neut # (Auto) 2.5 th/mm3 (1.8-7.7); Neut % (Auto) 44.4 % (16.0-70.0); Platelet Count 169 th/mm3 (150-450); Red Blood Count 3.84 mil/mm3 (4.50-5.90); Red Cell Distribution Width 14.4 % (11.6-17.2); White Blood Count 5.5 th/mm3 (4.0-11.0)
--- NOTE | 2017-11-20 15:16 | XR ---
EXAM DATE: 11/20/2017 3:12 PM EDT AGE/SEX: 22 years / Male INDICATIONS: Fever CLINICAL DATA: This is the patient's initial encounter. Patient reports that signs and symptoms have been present for 1 day and indicates a pain score of 0/10. MEDICAL/SURGICAL HISTORY: None. None. COMPARISON: [facility] [place], CHEST 2V PA&LAT, 10/11/2017. . FINDINGS: A single AP view of the chest demonstrates the lungs to be symmetrically aerated without evidence of mass, infiltrate or effusion. The cardiomediastinal contours are unremarkable. Osseous structures a re intact. CONCLUSION: No acute intrathoracic disease. Stable examination. Electronically signed by: Demetris Hillman MD 11/20/2017 3:14 PM EDT
[2017-11-20 15:25] LABS: Albumin 3.6 g/dL (3.4-5.0); Anion Gap 9 meq/L (5-15); Aspartate Aminotransferase 42 U/L (15-37); Blood Urea Nitrogen 18 mg/dL (7-18); Calcium 8.4 mg/dL (8.5-10.1); Carbon Dioxide 25.5 meq/L (21.0-32.0); Chloride 100 meq/L (98-107); Glomerular Filtration Rate 78 mL/min (>89); Glucose,Random 123 mg/dL (74-106); Magnesium 1.6 mg/dL (1.5-2.5); Potassium 4.6 meq/L (3.5-5.1); Sodium 134 meq/L (136-145)
[2017-11-20 15:31] LABS: Alanine Aminotransferase 37 U/L (12-78); Alkaline Phosphatase 199 U/L (45-117); Total Protein 7.9 g/dL (6.4-8.2)
[2017-11-20] MEDS ORDERED: Sod Chloride 0.9% Inj 1,000 ML IV.SIG ONE ×2 (15:31→16:26)
[2017-11-20] MEDS ORDERED: Magnesium Oxide 400 MG Tablet PO ONE (15:31)
--- NOTE | 2017-11-20 15:44 | ED ---
HPI General Chief Complaint: Fever Stated Complaint: weakness Time Seen by Provider: 11/20/17 14:22 Source: patient Mode of arrival: ambulatory Limitations: no limitations History of Present Illness HPI Narrative: Patient is a 22-year-old male presented to the emergency department evaluation of a new onset of fevers. Patient states his mother told him he felt warm this morning and he felt chilled. He reports that he has had a productive cough with yellow sputum for the last 2 weeks. Symptoms started this morning. He denies any shortness of breath, chest pain, nausea, vomiting, abdominal pain, headaches, dizziness. Patient reports a history of HIV, he is not on any antiviral medications, he has not been in the last 9 months. His last CD4 count was 92. Patient is also had a history of epilepsy and syphilis. MD complaint: fever Onset (ago): hour(s) Maximum Temperature: 100.1 F Temperature Source: oral Associated symptoms: chills and cough Relieving factors: nothing Exacerbating factors: nothing Treatments prior to arrival fever: none Related Data Home Medications Medication Instructions Recorded Confirmed No Known Home Medications 10/11/17 11/20/17 Allergies Allergy/AdvReac Type Severity Reaction Status Date / Time penicillin G Allergy Severe RASH Verified 11/20/17 14:29 Review of Systems ROS: all other systems reviewed are negative [facility] Medical History Medical History AIDS (acquired immunodeficiency syndrome), CD4 <=200 (Acute) Cardiomyopathy (Acute) HIV (human immunodeficiency virus infection) (Acute) Noncompliance with medication regimen (Acute) Seizure disorder (Acute) Syphilis (Acute) TIA (transient ischemic attack) (Acute) Surgical History Surgical History No history of previous surgery (Acute) Family History Family History Other Family history of diabetes mellitus Social History Social History Substance History: No History of Abuse Second Hand Smoke Exposure: No Smoking Status: Former smoker Tobacco Type: Cigarettes How Often Do You Have a Drink Containing Alcohol: Never Hx Recent Travel: No Recent Travel in [facility] within the Last 8 Weeks: No Recent Out of Country Travel within the Last 8 Weeks: No Immunization History Tetanus Immunization: >5 Years Hx Influenza Vaccine This Season: Yes Exam Narrative Exam Narrative: GENERAL: Thin, well-developed, alert male. Presenting in no acute distress. SKIN: Focused skin assessment warm/dry. Dry flaky skin noted to the cheeks bilaterally, nose, forehead, well-demarcated, scaling. HEAD: Atraumatic. Normocephalic. EYES: Pupils equal and round. No scleral icterus. No injection or drainage. ENT: No nasal bleeding or discharge. Mucous membranes pink and moist. NECK: Trachea midline. No JVD. CARDIOVASCULAR: Tachycardic. No murmur appreciated. RESPIRATORY: No accessory muscle use. Clear to auscultation. Breath sounds equal bilaterally. GASTROINTESTINAL: Abdomen soft, non-tender, nondistended. Hepatic and splenic margins not palpable. MUSCULOSKELETAL: No obvious deformities. No clubbing. No cyanosis. No edema. NEUROLOGICAL: Awake and alert. No obvious cranial nerve deficits. Motor grossly within normal limits. Normal speech. PSYCHIATRIC: Appropriate mood and affect; insight and judgment normal. Course Initial Documented Vital Signs Temperature 100.1 F H 11/20/17 13:38 Pulse Rate 112 H 11/20/17 13:38 Respiratory Rate 17 11/20/17 13:38 Blood Pressure 125/57 L 11/20/17 13:38 Pulse Oximetry 100 11/20/17 13:38 Last Documented Vital Signs Temperature 98.5 F 11/20/17 17:54 Pulse Rate 90 11/20/17 17:54 Respiratory Rate 18 11/20/17 17:54 Blood Pressure 106/51 L 11/20/17 17:54 Pulse Oximetry 100 11/20/17 17:54 Medical Decision Making [facility] Narrative Medical decision making narrative: Patient is a 22-year-old male, HIV positive noncompliant with antivirals presenting with a fever of unknown origin. Sepsis protocol initiated. Patient was given ibuprofen for pain, IV fluids ordered, labs and imaging ordered. Labs reviewed, patient with mild anemia with a hemoglobin of 9.7/29.7. Creatinine elevated at 1.38. Chest x-ray shows no acute disease, urinalysis unremarkable. Patient will be started on antibiotics empirically, blood cultures are pending. Temperature has trended down after administration of ibuprofen. Patient received a total of 2 L of IV fluids. Lactic acid was borderline at 1.9. Chest x-ray shows no acute disease. Discussed with my attending physician prior to admission. Patient was admitted to Dr. Street. Admit orders placed, patient is agreeable to plan. Differential Diagnosis Differential Diagnosis: UTI versus pneumonia versus metabolic abnormality versus other Medical Records Medical records reviewed: Yes I reviewed the patient's medical records. Lab Data Lab results reviewed: Yes I reviewed the patient's lab results. Result diagrams: 11/20/17 14:41 11/20/17 14:41 Lab Results 11/20/17 11/20/17 11/20/17 Range/Units 14:41 14:41 14:41 WBC 5.5 (4.0-11.0) th/mm3 RBC 3.84 L (4.50-5.90) mil/mm3 Hgb 9.7 L (13.0-17.0) gm/dL Hct 29.7 L (39.0-51.0) % MCV 77.3 L (80.0-100.0) fL MCH 25.4 L (27.0-34.0) pg MCHC 32.8 (32.0-36.0) % RDW 14.4 (11.6-17.2) % Plt Count 169 (150-450) th/mm3 MPV 9.3 (7.0-11.0) fL Neut % (Auto) 44.4 (16.0-70.0) % Lymph % (Auto) 46.8 H (9.0-44.0) % [place] % (Auto) 7.9 (0.0-8.0) % Eos % (Auto) 0.6 (0.0-4.0) % Baso % (Auto) 0.3 (0.0-2.0) % Neut # (Auto) 2.5 (1.8-7.7) th/mm3 Lymph # (Auto) 2.6 (1.0-4.8) th/mm3 [place] # (Auto) 0.4 (0.0-0.9) th/mm3 Eos # (Auto) 0.0 (0.0-0.4) th/mm3 Baso # (Auto) 0.0 (0.0-0.2) th/mm3 WBC Differential . Differential Comment Auto diff final Sodium 134 L (136-145) meq/L Potassium 4.6 (3.5-5.1) meq/L Chloride 100 (98-107) meq/L Carbon Dioxide 25.5 (21.0-32.0) meq/L Anion Gap 9 (5-15) meq/L BUN 18 (7-18) mg/dL Creatinine 1.38 H (0.60-1.30) mg/dL Estimated GFR 78 L (>89) mL/min Random Glucose 123 H (74-106) mg/dL Lactic Acid 1.9 (0.4-2.0) mmol/L Calcium 8.4 L (8.5-10.1) mg/dL Magnesium 1.6 (1.5-2.5) mg/dL Total Bilirubin 0.5 (0.2-1.0) mg/dL AST 42 H (15-37) U/L ALT 37 (12-78) U/L Alkaline Phosphatase 199 H (45-117) U/L Total Protein 7.9 (6.4-8.2) g/dL Albumin 3.6 (3.4-5.0) g/dL Imaging Data Radiologist's impression: Chest X-Ray 11/20/17 14:29 CONCLUSION: No acute intrathoracic disease. Stable examination. Discharge Plan Discharge Disposition Patient Disposition: 30 Still Patient Discharge Condition Condition: Stable Discharge Details Diagnosis: Fever Physicians Team ED Provider: Maco Rudolph ED Midlevel Provider: Teri Chahal Primary Care Provider: Primary Care Nyasia Deal Attending Provider: Bala Street Discharge Interventions Interventions: ED Discharge Assessment Last Done: 11/20/17 17:42 Status ED Status: Left Department Discharge Information Discharge Date/Time: 11/20/17 17:30
[2017-11-20] MEDS ORDERED: Vancomycin Inj 1 GM/200 ML PIGGYBACK IV.SIG ONE (16:26)
[2017-11-20] MEDS ORDERED: Aztreonam Inj 2 GM in Sodium Chloride 0.9% Inj 100 ML IV.SIG STA (16:28)
[2017-11-20] MEDS ORDERED: Vancomycin Inj 1,000 MG in Sodium Chlor 0.9% Inj 250 ML IV.SIG ONE (16:45)
[2017-11-20] MEDS ORDERED: Acetaminophen 325 MG Tablet PO PRN (16:48)
[2017-11-20] MEDS ORDERED: Bisacodyl 10 MG Supp RECTAL PRN (16:48)
[2017-11-20] MEDS ORDERED: Temazepam 15 MG Capsule PO PRN (16:48)
[2017-11-20] MEDS ORDERED: Vancomycin Consult Pharmacy 1 EACH OTHER PRN (17:00)
--- NOTE | 2017-11-20 17:16 | P.HPIM ---
History of Present Illness Service: [facility] Primary Care Physician: No Primary Care Physician Chief Complaint: Fevers History of Present Illness: Patient is a 22-year-old -Congolese gentleman with known history of HIV with previous CD4 count of only about 92 last time it was checked. Had also recently been treated for syphilis in diagnosed with epilepsy also per chart review has a cardiomyopathy. Patient states that his mother told him that he felt warm this morning and he felt chilled. He has had some productive cough with some questionable yellow sputum for the past couple weeks. States that it has been worse this morning. Denies any shortness of breath, denies any chest pain, denies any vomiting, denies any denies any dizziness. Patient has a history of HIV and AIDS not on any chronic medications for this. Had the fevers he states maybe as high as 100.1 at home had chills and cough Review of Systems All other systems reviewed negative except as stated in HPI Constitutional: Reports body ache(s), Reports fatigue, Reports fever(s), Reports malaise Respiratory: Reports cough PMFSH - History History Provided By: Patient - Medical History Medical History: Medical History (Last Updated 11/20/17 @ 17:[address] DO) AIDS (acquired immunodeficiency syndrome), CD4 <=200 Cardiomyopathy HIV (human immunodeficiency virus infection) Noncompliance with medication regimen Seizure disorder Syphilis TIA (transient ischemic attack) - Surgical History Surgical History: Surgical History (Last Reviewed 11/20/17 @ 15:42 by CHIQUITA Reddy) No history of previous surgery - Family History Family History: Family History (Last Reviewed 11/20/17 @ 15:42 by CHIQUITA Reddy) Other Family history of diabetes mellitus - Tobacco History Second Hand Smoke Exposure: No Tobacco Use In Past 30 Days: No Smoking Status: Former smoker Tobacco Type: Cigarettes - Alcohol History How Often Do You Have a Drink Containing Alcohol: Never - Substance Use History Substance History: No History of Abuse - Travel History History of Recent Travel: No Recent Travel in the [place] Within the Last 8 Weeks: No Recent Travel Out of the Country Within the Last 8 Weeks: No - Immunization History Tetanus Immunization: >5 Years Hx Influenza Vaccine This Season: Yes Medications and Allergies Active Medications: Active Medications Acetaminophen (Tylenol) 650 mg PO Q4H PRN PRN Reason: headache/fever/pain1-4 Hydrocodone Bitart/Acetaminophen ([place] 5/325) 1 tab PO Q6H PRN PRN Reason: pain 5-10 Al Hydroxide/Mg Hydroxide (Milk Of Magnesia Liq) 30 ml PO Q12H PRN PRN Reason: Mild Constipation Bisacodyl (Dulcolax Supp) 10 mg RECTAL DAILY PRN PRN Reason: SEVERE CONSITIPATION Vancomycin HCl 1,000 mg/ (Sodium Chloride) 250 mls @ 250 mls/hr IV.SIG ONCE ONE Stop: 11/20/17 17:44 Last Admin: 11/20/17 17:02 Dose: Not Given Metronidazole/Sodium Chloride (Flagyl 500 Mg Inj) 100 mls @ 100 mls/hr IV.SIG STAT STA Stop: 11/20/17 17:27 Last Admin: 11/20/17 16:40 Dose: 100 mls/hr Sodium Chloride (Ns Inj) 1,000 mls @ 100 mls/hr IV.CONT .Q10H [facility] Pharmacy Profile Note (Vancomycin Consult Pharmacy) 0 mls @ 0 mls/hr OTHER UNSCH PRN PRN Reason: ADJUST FOR CREATININE CLRNCE Aztreonam 2 gm/ Sodium (Chloride) 100 mls @ 200 mls/hr IV.SIG Q8H FILE[facility] Lactulose (Lactulose Liq) 30 ml PO DAILY PRN PRN Reason: SEVERE CONSITIPATION Levetiracetam (Keppra) 500 mg PO BID FILE[facility] Ondansetron HCl (Zofran Inj) 4 mg IV.PUSH Q6H PRN PRN Reason: NAUSEA OR VOMITING Senna/Docusate Sodium (Dorothy-Colace) 1 tab PO BID [facility] Sennosides (Senokot) 17.2 mg PO Q12H PRN PRN Reason: Moderate Constipation Temazepam (Restoril) 15 mg PO HS PRN PRN Reason: INSOMNIA Trimethoprim/Sulfamethoxazole (Bactrim Ds) 1 tab PO Q12HR [facility] Allergies Allergy/AdvReac Type Severity Reaction Status Date / Time penicillin G Allergy Severe RASH Verified 11/20/17 14:29 Home Medications Medication Instructions Recorded Confirmed Type No Known Home Medications 10/11/17 11/20/17 History Exam Vital signs: Vital Signs 11/20/17 13:38 11/20/17 14:29 11/20/17 16:00 Temperature 100.1 F H 99.2 F Pulse Rate 112 H 98 H 89 Respiratory Rate 17 16 Blood Pressure 125/57 L 122/77 Pulse Oximetry 100 99 100 Intake & Output 11/19/17 11/20/17 11/20/17 18:59 06:59 18:59 Intake Total 1000 / 1000 Balance 1000 / 1000 Weight 56.699 kg Intake: IV 1000 / 1000 NS Inj 1,000 ML @ Wide Open IV. 1000 / 1000 SIG BOLUS ONE Rx#:[id number] Narrative: GENERAL: Awake alert and oriented 3 talkative and cooperative does not appear to be in any acute distress SKIN: Warm and dry. Mallar-like eczema rash on his face HEAD: Atraumatic. Normocephalic. EYES: Pupils equal and round. No scleral icterus. No injection or drainage. EOMI ENT: No nasal bleeding or discharge. Mucous membranes pink and moist. Tongue is midline NECK: Trachea midline. No JVD. Supple CARDIOVASCULAR: Regular rate and rhythm. S1-S2 no S3 or S4 RESPIRATORY: No accessory muscle use. Clear to auscultation. Breath sounds equal bilaterally. GASTROINTESTINAL: Abdomen soft, non-tender, nondistended. Hepatic and splenic margins not palpable. MUSCULOSKELETAL: Extremities without clubbing, cyanosis, or edema. No obvious deformities. NEUROLOGICAL: Awake and alert. No obvious cranial nerve deficits. Motor grossly within normal limits. Five out of 5 muscle strength in the arms and legs. Normal speech. PSYCHIATRIC: Appropriate mood and affect; insight and judgment ABnormal. Results - Labs CBC & Chem 7: 11/20/17 14:41 11/20/17 14:41 Labs: Short CBC 11/20/17 Range/Units 14:41 WBC 5.5 (4.0-11.0) th/mm3 Hgb 9.7 L (13.0-17.0) gm/dL Hct 29.7 L (39.0-51.0) % Plt Count 169 (150-450) th/mm3 BMP 11/20/17 14:41 Sodium 134 L Potassium 4.6 Chloride 100 Carbon Dioxide 25.5 BUN 18 Creatinine 1.38 H Calcium 8.4 L Liver Function 11/20/17 Range/Units 14:41 Total Bilirubin 0.5 (0.2-1.0) mg/dL AST 42 H (15-37) U/L ALT 37 (12-78) U/L Alkaline Phosphatase 199 H (45-117) U/L Albumin 3.6 (3.4-5.0) g/dL - Imaging Impressions Chest X-Ray 11/20/17 14:29 CONCLUSION: No acute intrathoracic disease. Stable examination. Caprini VTE Risk Assessment Caprini VTE Risk Assessment: No/Low Risk (score <= 1) Caprini Risk Assessment Model: Point Value = 1 Point Value = 2 Point Value = 3 Point Value = 5 Age 41-60 Minor surgery BMI > 25 kg/m2 Swollen legs Varicose veins or History of unexplained or recurrent spontaneous Oral contraceptives or hormone replacement Sepsis (< 1 month) Serious lung disease, including pneumonia (< 1 month) Abnormal pulmonary function Acute myocardial infarction Congestive heart failure (< 1 month) History of inflammatory bowel disease Medical patient at bed rest Age 61-74 Arthroscopic surgery Major open surgery (> 45 min) Laparoscopic surgery (> 45 min) Malignancy Confined to bed (> 72 hours) Immobilizing plaster cast Central venous access Age >= 75 History of VTE Family history of VTE Factor V Leiden Prothrombin [id number] Lupus anticoagulant Anticardiolipin antibodies Elevated serum homocysteine Heparin-induced thrombocytopenia Other congenital or acquired thrombophilia Stroke (< 1 month) Elective arthroplasty Hip, pelvis, or leg fracture Acute spinal cord injury (< 1 month) Prophylaxis Regimen: Total Risk Factor Score Risk Level Prophylaxis Regimen 0-1 Low Early ambulation 2 Moderate Order ONE of the following: *Sequential Compression Device (SCD) *Heparin 5000 units SQ BID 3-4 Higher Order ONE of the following medications: *Heparin 5000 units SQ TID *Enoxaparin/Lovenox 40 mg SQ daily (WT < 150 kg, CrCl > 30 mL/min) *Enoxaparin/Lovenox 30 mg SQ daily (WT < 150 kg, CrCl > 10-29 mL/min) *Enoxaparin/Lovenox 30 mg SQ BID (WT < 150 kg, CrCl > 30 mL/min) AND/OR *Sequential Compression Device (SCD) 5 or more Highest Order ONE of the following medications: *Heparin 5000 units SQ TID (Preferred with Epidurals) *Enoxaparin/Lovenox 40 mg SQ daily (WT < 150 kg, CrCl > 30 mL/min) *Enoxaparin/Lovenox 30 mg SQ daily (WT < 150 kg, CrCl > 10-29 mL/min) *Enoxaparin/Lovenox 30 mg SQ BID (WT < 150 kg, CrCl > 30 mL/min) AND *Sequential Compression Device (SCD) Assessment and Plan - Plan HIV/AIDS with fevers will continue on antibiotics with aztreonam and vancomycin We will restart his Bactrim Consult infectious disease Pharmacy to dose the vancomycin Sepsis and SIRS with tachycardia and fevers No white count probably secondary to his HIV/AIDS -Continue IV fluid rehydration aggressively Renal insufficiency/dehydration -Continue on IV fluid aggressive rehydration also for sepsis and Sirs History of syphilis treated he states Cardiomyopathy by history we will hold off on Coreg and ramipril at this time Noncompliance with medications not a good candidate to start HAART regimen since of poor follow-up and poor compliance with medication Seizure disorders will restart Keppra 500 p.o. twice daily History of TIAs does not appear to be taking anything for it Tachycardia we will continue with fluids for the sepsis and SIRS Continue GI prophylaxis with Pepcid DVT prophylaxis with SCDs Code Status: Full code Discussed Condition With: RN and patient and emergency room Discharge Planning: We will consult infectious disease and pending his improvement
[2017-11-20] MEDS ORDERED: Pharmacy Ordered Lab Info OTHER ONE (18:00)
[2017-11-20] MEDS ORDERED: Aztreonam Inj 2 GM in Sodium Chloride 0.9% Inj 100 ML IV.SIG SCH (18:00)
[2017-11-20] MEDS: Sod Chloride 0.9% Inj 1,000 ML IV.CONT SCH (18:07)
[2017-11-20] MEDS: levETIRAcetam 500 MG Tablet PO SCH (22:17)
[2017-11-20] MEDS: Senna/Docusate Sodium 8.6/50 MG Tablet PO SCH (22:17)
[2017-11-20] MEDS: guaiFENesin 600 MG ER Tablet PO SCH (22:17)
[2017-11-20] MEDS: Famotidine 20 MG Tablet PO SCH (22:17)
[2017-11-21] MEDS: Aztreonam Inj 2 GM in Sodium Chloride 0.9% Inj 100 ML IV.SIG SCH ×4 (02:00→17:19)
[2017-11-21] MEDS ORDERED: Vancomycin Inj 750 MG in Sodium Chlor 0.9% Inj 250 ML IV.SIG SCH (05:00)
[2017-11-21] MEDS: Sod Chloride 0.9% Inj 1,000 ML IV.CONT SCH ×2 (05:57→13:47)
[2017-11-21 09:31] LABS: Baso % (Auto) 0.3 % (0.0-2.0); Eos # (Auto) 0.1 th/mm3 (0.0-0.4); Eos % (Auto) 3.9 % (0.0-4.0); Hematocrit 27.5 % (39.0-51.0); Hemoglobin 9.1 gm/dL (13.0-17.0); Lymph # (Auto) 1.2 th/mm3 (1.0-4.8); Lymph % (Auto) 52.4 % (9.0-44.0); Mean Corpuscular HGB Conc 33.1 % (32.0-36.0); Mean Corpuscular Hemoglobin 25.8 pg (27.0-34.0); Mean Corpuscular Volume 78.1 fL (80.0-100.0); Mean Platelet Volume 9.2 fL (7.0-11.0); Mono # (Auto) 0.3 th/mm3 (0.0-0.9); Mono % (Auto) 12.2 % (0.0-8.0); Neut # (Auto) 0.7 th/mm3 (1.8-7.7); Neut % (Auto) 31.2 % (16.0-70.0); Platelet Count 140 th/mm3 (150-450); Red Blood Count 3.52 mil/mm3 (4.50-5.90); Red Cell Distribution Width 14.4 % (11.6-17.2); White Blood Count 2.4 th/mm3 (4.0-11.0)
[2017-11-21] MEDS: Famotidine 20 MG Tablet PO SCH ×2 (09:47→21:19)
[2017-11-21] MEDS: guaiFENesin 600 MG ER Tablet PO SCH ×2 (09:48→21:19)
[2017-11-21] MEDS: levETIRAcetam 500 MG Tablet PO SCH ×2 (09:48→21:19)
[2017-11-21] MEDS: Senna/Docusate Sodium 8.6/50 MG Tablet PO SCH ×2 (09:49→21:20)
[2017-11-21 10:04] LABS: Anion Gap 7 meq/L (5-15); Aspartate Aminotransferase 70 U/L (15-37); Blood Urea Nitrogen 14 mg/dL (7-18); Calcium 7.9 mg/dL (8.5-10.1); Carbon Dioxide 24.4 meq/L (21.0-32.0); Chloride 112 meq/L (98-107); Glomerular Filtration Rate Greater Than 89 mL/min (>89); Glucose,Random 77 mg/dL (74-106); Magnesium 1.8 mg/dL (1.5-2.5); Potassium 4.4 meq/L (3.5-5.1); Sodium 143 meq/L (136-145)
[2017-11-21 10:06] LABS: Alanine Aminotransferase 55 U/L (12-78); Alkaline Phosphatase 212 U/L (45-117); Free T4 (Free Thyroxine) 1.02 ng/dL (0.76-1.46); Phosphorus 2.4 mg/dL (2.5-4.9); Thyroid Stimulating Hormone 0.652 uIU/mL (0.358-3.740); Total Protein 7.1 g/dL (6.4-8.2)
[2017-11-21 10:51] LABS: Eosinophils 1 % (0-4); Lymphocytes 44 % (9-44); Monocytes 10 % (0-8)
[2017-11-21 10:52] LABS: Ovalocytes 1+; Platelet Morphology Normal (Normal)
--- NOTE | 2017-11-21 11:41 | P.CONID ---
History of Present Illness Service: Infectious Disease Consult date: 11/21/17 Requesting Physician: Bala Street Reason for Consult: Evaluation and Mment of fever in patient with HIV AIDS Primary Care Provider: No Primary Care Physician Family Provider: No Primary Care Physician Chief Complaint: Fevers History of Present Illness: is a 22 y/o AAM who is homosexual. His Past medical history is significant for HIV/AIDS diagnosed in 2017 as well as secondary syphilis. Patient was seen by ID MD Mckeon at that time underwent an LP which showed CSF Pleocytosis and CSF VDRL was negative. His RPR was positive at 1 is to for an FTA antibodies in the serum were positive. 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 Patient was also started on Bactrim for PCP prophylaxis given his low CD4 count. Regarding his HIV patient was following up with Dr. Shields under the [facility] while he was active. He has made several attempts to get restarted on his HIV medicines via the health department but unfortunately due to some documents needed by the health department this is currently on hold. Patient also reports that he has been diagnosed with seizures in the last 1 year and has been on Keppra which she has been compliant with. His last known seizure was 1 month back. Patient reports no cognitive decline or any change in neurological function Patient denies any visual changes Patient reports that he is not sexually active at the present time. Denies any penile discharge or lesions Patient denies any rectal pain discharge or lesions Patient denies any other constitutional symptoms at the present time. Patient reports 2 episodes of loose BMs. Infectious diseases consulted for evaluation and management of fever in a patient with HIV. Review of Systems All other systems reviewed negative except as stated in HPI PMFSH - History History Provided By: Patient - Medical History Medical History: Medical History (Last Updated 11/20/17 @ 17:[address] DO) AIDS (acquired immunodeficiency syndrome), CD4 <=200 Cardiomyopathy HIV (human immunodeficiency virus infection) Noncompliance with medication regimen Seizure disorder Syphilis TIA (transient ischemic attack) - Surgical History Surgical History: Surgical History (Last Reviewed 11/20/17 @ 15:42 by CHIQUITA Reddy) No history of previous surgery - Family History Family History: Family History (Last Reviewed 11/20/17 @ 15:42 by CHIQUITA Reddy) Other Family history of diabetes mellitus - Tobacco History Second Hand Smoke Exposure: No Tobacco Use In Past 30 Days: No Smoking Status: Former smoker Tobacco Type: Cigarettes - Alcohol History How Often Do You Have a Drink Containing Alcohol: Never - Substance Use History Substance History: No History of Abuse - Travel History History of Recent Travel: No Recent Travel in the [place] Within the Last 8 Weeks: No Recent Travel Out of the Country Within the Last 8 Weeks: No - Immunization History Tetanus Immunization: >5 Years Hx Influenza Vaccine This Season: Yes Medications and Allergies Active Medications: Active Medications Acetaminophen (Tylenol) 650 mg PO Q4H PRN PRN Reason: headache/fever/pain1-4 Hydrocodone Bitart/Acetaminophen ([place] 5/325) 1 tab PO Q6H PRN PRN Reason: pain 5-10 Al Hydroxide/Mg Hydroxide (Milk Of Magnesia Liq) 30 ml PO Q12H PRN PRN Reason: Mild Constipation Albuterol (Albuterol Neb (Prn)) 1.25 mg NEB Q4HR NEB PRN PRN Reason: SOB/wheezing Bisacodyl (Dulcolax Supp) 10 mg RECTAL DAILY PRN PRN Reason: SEVERE CONSITIPATION Famotidine (Pepcid) 20 mg PO BID [facility] Last Admin: 11/21/17 09:47 Dose: 20 mg Guaifenesin (Mucinex Er) 600 mg PO BID [facility] Last Admin: 11/21/17 09:48 Dose: 600 mg Sodium Chloride (Ns Inj) 1,000 mls @ 125 mls/hr IV.CONT .Q8H [facility] Last Admin: 11/21/17 05:57 Dose: 125 mls/hr Pharmacy Profile Note (Vancomycin Consult Pharmacy) 0 mls @ 0 mls/hr OTHER UNSCH PRN PRN Reason: ADJUST FOR CREATININE CLRNCE Aztreonam 2 gm/ Sodium (Chloride) 100 mls @ 200 mls/hr IV.SIG Q8H [facility] Last Admin: 11/21/17 10:54 Dose: 200 mls/hr Vancomycin HCl 750 mg/ Sodium (Chloride) 257.5 mls @ 250 mls/hr IV.SIG Q12H [facility] Last Admin: 11/21/17 05:59 Dose: 250 mls/hr Lactulose (Lactulose Liq) 30 ml PO DAILY PRN PRN Reason: SEVERE CONSITIPATION Levetiracetam (Keppra) 500 mg PO BID [facility] Last Admin: 11/21/17 09:48 Dose: 500 mg Miscellaneous Information ([facility] Ordered Lab Info) 0 each OTHER ONCE ONE Stop: 11/22/17 04:46 Ondansetron HCl (Zofran Inj) 4 mg IV.PUSH Q6H PRN PRN Reason: NAUSEA OR VOMITING Senna/Docusate Sodium (Dorothy-Colace) 1 tab PO BID [facility] Last Admin: 11/21/17 09:49 Dose: Not Given Sennosides (Senokot) 17.2 mg PO Q12H PRN PRN Reason: Moderate Constipation Temazepam (Restoril) 15 mg PO HS PRN PRN Reason: INSOMNIA Trimethoprim/Sulfamethoxazole (Bactrim Ds) 1 tab PO Q12HR [facility] Last Admin: 11/21/17 09:48 Dose: 1 tab Allergies Allergy/AdvReac Type Severity Reaction Status Date / Time penicillin G Allergy Severe RASH Verified 11/20/17 14:29 Home Medications Medication Instructions Recorded Confirmed Type No Known Home Medications 10/11/17 11/20/17 History Exam Vital signs: Vital Signs 11/20/17 13:38 11/20/17 14:29 11/20/17 16:00 Temperature 100.1 F H 99.2 F Pulse Rate 112 H 98 H 89 Respiratory Rate 17 16 Blood Pressure 125/57 L 122/77 Pulse Oximetry 100 99 100 11/20/17 17:54 11/20/17 20:00 11/21/17 00:00 Temperature 98.5 F 97.5 F L 97.8 F Pulse Rate 90 101 H 96 H Respiratory Rate 18 16 17 Blood Pressure 106/51 L 109/52 L 109/55 L Pulse Oximetry 100 100 100 11/21/17 04:00 11/21/17 08:00 Temperature 97.5 F L 98.0 F Pulse Rate 74 86 Respiratory Rate 16 18 Blood Pressure 103/48 L 112/54 L Pulse Oximetry 100 96 Intake & Output 11/20/17 11/21/17 11/21/17 18:59 06:59 18:59 Intake Total 1000 / 1000 1580 / 1580 Output Total 1800 / 1800 Balance 1000 / 1000 -220 / -220 Weight 56.699 kg 55.9 kg Intake: IV 1000 / 1000 1100 / 1100 NS Inj 1,000 ML @ 125 mls/hr IV 1000 / 1000 .CONT .Q8H [facility] Rx#:[id number] Azactam Inj 2 GM In NS Inj 100 100 / 100 ML @ 200 mls/hr IV.SIG Q8H [facility] Rx#:[id number] NS Inj 1,000 ML @ Wide Open IV. 1000 / 1000 SIG BOLUS ONE Rx#:[id number] Oral 480 / 480 Output: Urine 1800 / 1800 Other: # Voids 1 Narrative: GENERAL: Well-nourished well-developed, not in acute distress SKIN: Desquamating rash on patient's forehead as well as cheeks. HEAD: Atraumatic. Normocephalic. No temporal or scalp tenderness. EYES: Pupils equal round and reactive. Scleral icterus. No injection or drainage. No petechia ENT: Nothing abnormal detected NECK: Trachea midline. Supple, nontender, no meningeal signs. CARDIOVASCULAR: HS audible. RESPIRATORY: Clear to auscultation bilaterally. GASTROINTESTINAL: Abdomen soft nontender. MUSCULOSKELETAL: Extremities without clubbing, cyanosis. NEUROLOGICAL: Alert oriented 3. Nonfocal. Psych cooperative Gross examination of the rectal area with no obvious discharge or lesions. Patient deferred per rectal finger examination Examination of the genital area with no obvious lesions or any penile discharge. IV line sites ok. Results - Labs CBC & Chem 7: 11/21/17 07:53 11/21/17 07:58 Labs: Laboratory Results - last 24 hr 11/20/17 11/20/17 11/20/17 14:41 14:41 14:41 WBC 5.5 RBC 3.84 L Hgb 9.7 L Hct 29.7 L MCV 77.3 L MCH 25.4 L MCHC 32.8 RDW 14.4 Plt Count 169 MPV 9.3 Prelim Diff (Auto) Neut % (Auto) 44.4 Lymph % (Auto) 46.8 H [place] % (Auto) 7.9 Eos % (Auto) 0.6 Baso % (Auto) 0.3 Neut # (Auto) 2.5 Lymph # (Auto) 2.6 Vernon # (Auto) 0.4 Eos # (Auto) 0.0 Baso # (Auto) 0.0 WBC Differential . Seg Neuts % (Manual) Lymphocytes % (Manual) Monocytes % (Manual) Eosinophils % (Manual) Basophils % (Manual) Abs Neuts (Manual) Differential Comment Auto diff final Platelet Estimate Platelet Morphology Ovalocytes Sodium 134 L Potassium 4.6 Chloride 100 Carbon Dioxide 25.5 Anion Gap 9 BUN 18 Creatinine 1.38 H Estimated GFR 78 L Random Glucose 123 H Lactic Acid 1.9 Calcium 8.4 L Phosphorus Magnesium 1.6 Total Bilirubin 0.5 AST 42 H ALT 37 Alkaline Phosphatase 199 H Total Protein 7.9 Albumin 3.6 TSH Free T4 11/21/17 11/21/17 07:53 07:58 WBC 2.4 L D RBC 3.52 L Hgb 9.1 L Hct 27.5 L MCV 78.1 L MCH 25.8 L MCHC 33.1 RDW 14.4 Plt Count 140 L MPV 9.2 Prelim Diff (Auto) Slide review pending Neut % (Auto) 31.2 Lymph % (Auto) 52.4 H Vernon % (Auto) 12.2 H Eos % (Auto) 3.9 Baso % (Auto) 0.3 Neut # (Auto) 0.7 L Lymph # (Auto) 1.2 Vernon # (Auto) 0.3 Eos # (Auto) 0.1 Baso # (Auto) 0.0 WBC Differential Manual diff final Seg Neuts % (Manual) 44 Lymphocytes % (Manual) 44 Monocytes % (Manual) 10 H Eosinophils % (Manual) 1 Basophils % (Manual) 1 Abs Neuts (Manual) 1.1 L Differential Comment . Platelet Estimate Low L Platelet Morphology Normal Ovalocytes 1+ H Sodium 143 Potassium 4.4 Chloride 112 H D Carbon Dioxide 24.4 Anion Gap 7 BUN 14 Creatinine 0.98 Estimated GFR Greater than 89 Random Glucose 77 Lactic Acid Calcium 7.9 L Phosphorus 2.4 L Magnesium 1.8 Total Bilirubin 0.4 AST 70 H ALT 55 Alkaline Phosphatase 212 H Total Protein 7.1 D Albumin 3.0 L D TSH 0.652 Free T4 1.02 - Imaging Impressions Chest X-Ray 11/20/17 14:29 CONCLUSION: No acute intrathoracic disease. Stable examination. Assessment and Plan - Plan Fever in a patient with HIV AIDS Last known CD4 count 94 currently not on HIV medications for at least the last 1 year. Immune compromised status Neutropenia: AIDS, drug related ? Vanco IV Prior history of secondary syphilis treated with penicillin after desensitization History of seizure disorder, rule out neurosyphilis depending on repeat RPR and MRI findings we will decide on LP. Recommendations Continue aztreonam for now Discontinue vancomycin IV there is no obvious skin source of blood cultures negative Will hold off on Bactrim for now due to Neutropenia. Check AFB blood cultures rule out disseminated BENNY Check fungal blood cultures rule out disseminated fungal infections Serum cryptococcal antigen MRI of the brain with and without contrast possibly in the a.m. since creatinine was abnormal yesterday Check RPR with titers if elevated titers and abnormal imaging will consider a lumbar puncture to rule out neurosyphilis. Check GC and chlamydia Check HIV viral load as well as genotype in anticipation of starting HIV regimen as outpatient. Follow blood cultures Follow clinically Case management to help with outpatient follow up with Health dept when ready for discharge. Discussed with RN Discussed with patient about plan
--- NOTE | 2017-11-21 12:43 | P.PN ---
Subjective Interval history: Patient is a 22-year-old -[place] gentleman with known history of HIV with previous CD4 count of only about 92 last time it was checked. Had also recently been treated for syphilis in diagnosed with epilepsy also per chart review has a cardiomyopathy. Patient states that his mother told him that he felt warm this morning and he felt chilled. He has had some productive cough with some questionable yellow sputum for the past couple weeks. States that it has been worse this morning. Denies any shortness of breath, denies any chest pain, denies any vomiting, denies any denies any dizziness. Patient has a history of HIV and AIDS not on any chronic medications for this. Had the fevers he states maybe as high as 100.1 at home had chills and cough 11/21 -patient seen and examined. Patient complains of episodes of diarrhea, one yesterday into today. He reports feeling chills. Denies any chest pain or shortness of breath. He denies any nausea vomiting or abdominal pain. He denies any dysuria. Physical Exam Vital signs: Vital Signs 11/20/17 13:38 11/20/17 14:29 11/20/17 16:00 Temperature 100.1 F H 99.2 F Pulse Rate 112 H 98 H 89 Respiratory Rate 17 16 Blood Pressure 125/57 L 122/77 Pulse Oximetry 100 99 100 11/20/17 17:54 11/20/17 20:00 11/21/17 00:00 Temperature 98.5 F 97.5 F L 97.8 F Pulse Rate 90 101 H 96 H Respiratory Rate 18 16 17 Blood Pressure 106/51 L 109/52 L 109/55 L Pulse Oximetry 100 100 100 11/21/17 04:00 11/21/17 08:00 Temperature 97.5 F L 98.0 F Pulse Rate 74 86 Respiratory Rate 16 18 Blood Pressure 103/48 L 112/54 L Pulse Oximetry 100 96 Intake & Output 11/20/17 11/21/17 11/21/17 18:59 06:59 18:59 Intake Total 1000 / 1000 1580 / 1580 Output Total 1800 / 1800 Balance 1000 / 1000 -220 / -220 Weight 56.699 kg 55.9 kg Intake: IV 1000 / 1000 1100 / 1100 NS Inj 1,000 ML @ 125 mls/hr IV 1000 / 1000 .CONT .Q8H FILEMON Rx#:[id number] Azactam Inj 2 GM In NS Inj 100 100 / 100 ML @ 200 mls/hr IV.SIG Q8H FILEMON Rx#:[id number] NS Inj 1,000 ML @ Wide Open IV. 1000 / 1000 SIG BOLUS ONE Rx#:[id number] Oral 480 / 480 Output: Urine 1800 / 1800 Other: # Voids 1 Narrative: GENERAL: WDWN young male patient, INAD. Awake alert and oriented 3. SKIN: Warm and dry. Hypopigmented rash on face. HEAD: Atraumatic. Normocephalic. EYES: Pupils equal and round. No scleral icterus. No injection or drainage. EOMI ENT: No nasal bleeding or discharge. Mucous membranes pink and moist. Tongue is midline NECK: Trachea midline. No JVD. Supple CARDIOVASCULAR: Regular rate and rhythm. S1-S2 no S3 or S4 RESPIRATORY: No accessory muscle use. Clear to auscultation. Breath sounds equal bilaterally. GASTROINTESTINAL: Abdomen soft, non-tender, nondistended. +BS. MUSCULOSKELETAL: Extremities without clubbing, cyanosis, or edema. No obvious deformities. NEUROLOGICAL: Awake and alert. No obvious cranial nerve deficits. Motor grossly within normal limits. Five out of 5 muscle strength in the arms and legs. Normal speech. PSYCHIATRIC: Calm and cooperative. Results - Labs CBC & Chem 7: 11/21/17 07:53 11/21/17 07:58 Laboratory Results - last 24 hr 11/20/17 11/20/17 11/20/17 14:41 14:41 14:41 WBC 5.5 RBC 3.84 L Hgb 9.7 L Hct 29.7 L MCV 77.3 L MCH 25.4 L MCHC 32.8 RDW 14.4 Plt Count 169 MPV 9.3 Prelim Diff (Auto) Neut % (Auto) 44.4 Lymph % (Auto) 46.8 H [place] % (Auto) 7.9 Eos % (Auto) 0.6 Baso % (Auto) 0.3 Neut # (Auto) 2.5 Lymph # (Auto) 2.6 [place] # (Auto) 0.4 Eos # (Auto) 0.0 Baso # (Auto) 0.0 WBC Differential . Seg Neuts % (Manual) Lymphocytes % (Manual) Monocytes % (Manual) Eosinophils % (Manual) Basophils % (Manual) Abs Neuts (Manual) Differential Comment Auto diff final Platelet Estimate Platelet Morphology Ovalocytes Sodium 134 L Potassium 4.6 Chloride 100 Carbon Dioxide 25.5 Anion Gap 9 BUN 18 Creatinine 1.38 H Estimated GFR 78 L Random Glucose 123 H Lactic Acid 1.9 Calcium 8.4 L Phosphorus Magnesium 1.6 Total Bilirubin 0.5 AST 42 H ALT 37 Alkaline Phosphatase 199 H Total Protein 7.9 Albumin 3.6 TSH Free T4 11/21/17 11/21/17 07:53 07:58 WBC 2.4 L D RBC 3.52 L Hgb 9.1 L Hct 27.5 L MCV 78.1 L MCH 25.8 L MCHC 33.1 RDW 14.4 Plt Count 140 L MPV 9.2 Prelim Diff (Auto) Slide review pending Neut % (Auto) 31.2 Lymph % (Auto) 52.4 H [place] % (Auto) 12.2 H Eos % (Auto) 3.9 Baso % (Auto) 0.3 Neut # (Auto) 0.7 L Lymph # (Auto) 1.2 [place] # (Auto) 0.3 Eos # (Auto) 0.1 Baso # (Auto) 0.0 WBC Differential Manual diff final Seg Neuts % (Manual) 44 Lymphocytes % (Manual) 44 Monocytes % (Manual) 10 H Eosinophils % (Manual) 1 Basophils % (Manual) 1 Abs Neuts (Manual) 1.1 L Differential Comment . Platelet Estimate Low L Platelet Morphology Normal Ovalocytes 1+ H Sodium 143 Potassium 4.4 Chloride 112 H D Carbon Dioxide 24.4 Anion Gap 7 BUN 14 Creatinine 0.98 Estimated GFR Greater than 89 Random Glucose 77 Lactic Acid Calcium 7.9 L Phosphorus 2.4 L Magnesium 1.8 Total Bilirubin 0.4 AST 70 H ALT 55 Alkaline Phosphatase 212 H Total Protein 7.1 D Albumin 3.0 L D TSH 0.652 Free T4 1.02 Microbiology 11/20/17 14:15 Blood - Peripheral Aerobic Blood Culture - Preliminary No growth in 1 day 11/20/17 14:15 Blood - Peripheral Anaerobic Blood Culture - Preliminary No growth in 1 day 11/20/17 14:41 Blood - Peripheral Aerobic Blood Culture - Preliminary No growth in 1 day 11/20/17 14:41 Blood - Peripheral Anaerobic Blood Culture - Preliminary No growth in 1 day - Imaging Impressions Chest X-Ray 11/20/17 14:29 CONCLUSION: No acute intrathoracic disease. Stable examination. Assessment and Plan - Plan HIV/AIDS with fevers Sepsis and SIRS with tachycardia and fevers Last known CD4 count 94 currently not on HIV medications for at least the last 1 year. Immune compromised status -ID following, appreciate assistance. Continue on aztreonam for now. Discontinue IV vancomycin. Hold Bactrim. Check AFB blood cultures, rule out disseminated BENNY. Check fungal/blood cultures rule out disseminated fungal infections. Obtain MRI of the brain. RPR, GC and Chlamydia. Check HIV viral load. -Patient reports diarrhea. Obtain C. difficile. Monitor stools. -Monitor clinically Neutropenia, possibly secondary to antibiotics WBC 2.4 -Neutropenic precautions -Monitor white count Anemia, microcytic, hypochromic, chronic Thrombocytopenia 7/ iron 31, TIBC 322, %sat 9.6, ferritin 507 -monitor for e/o active bleeding -check B12/folate level -obtain stool hemoccult -monitor CBC Renal insufficiency/dehydration -resolved s/p IVF hydration -Avoid nephrotoxic agents -Continue to monitor History of syphilis s/p treatment - ID workup in place Cardiomyopathy by history we will hold off on Coreg and ramipril at this time Noncompliance with medications not a good candidate to start HAART regimen since of poor follow-up and poor compliance with medication Seizure disorders -continue on Keppra 500 p.o. twice daily -seizure precautions History of TIAs does not appear to be taking anything for it Continue GI prophylaxis with Pepcid DVT prophylaxis with SCDs Code Status: FULL Discussed Condition With: patient, nursing staff, CM Discharge Planning: Not ready for discharge. Discharge pending ID clearance.
[2017-11-22] MEDS: Aztreonam Inj 2 GM in Sodium Chloride 0.9% Inj 100 ML IV.SIG SCH ×2 (01:10→08:45)
[2017-11-22] MEDS ORDERED: Pharmacy Ordered Lab Info OTHER ONE ×2 (04:45→16:45)
[2017-11-22 07:52] LABS: Baso % (Auto) 0.2 % (0.0-2.0); Eos # (Auto) 0.2 th/mm3 (0.0-0.4); Eos % (Auto) 6.2 % (0.0-4.0); Hematocrit 31.5 % (39.0-51.0); Hemoglobin 10.2 gm/dL (13.0-17.0); Lymph # (Auto) 1.7 th/mm3 (1.0-4.8); Lymph % (Auto) 57.4 % (9.0-44.0); Mean Corpuscular HGB Conc 32.5 % (32.0-36.0); Mean Corpuscular Hemoglobin 25.1 pg (27.0-34.0); Mean Corpuscular Volume 77.2 fL (80.0-100.0); Mean Platelet Volume 8.8 fL (7.0-11.0); Mono # (Auto) 0.2 th/mm3 (0.0-0.9); Mono % (Auto) 8.2 % (0.0-8.0); Neut # (Auto) 0.8 th/mm3 (1.8-7.7); Platelet Count 164 th/mm3 (150-450); Red Blood Count 4.08 mil/mm3 (4.50-5.90); Red Cell Distribution Width 14.7 % (11.6-17.2)
[2017-11-22 08:29] LABS: Alanine Aminotransferase 55 U/L (12-78); Albumin 3.1 g/dL (3.4-5.0); Anion Gap 7 meq/L (5-15); Aspartate Aminotransferase 53 U/L (15-37); Blood Urea Nitrogen 12 mg/dL (7-18); Calcium 8.8 mg/dL (8.5-10.1); Chloride 108 meq/L (98-107); Glomerular Filtration Rate Greater Than 89 mL/min (>89); Glucose,Random 85 mg/dL (74-106); Potassium 4.2 meq/L (3.5-5.1); Sodium 141 meq/L (136-145)
[2017-11-22] MEDS: Senna/Docusate Sodium 8.6/50 MG Tablet PO SCH ×2 (08:43→21:06)
[2017-11-22] MEDS: Famotidine 20 MG Tablet PO SCH ×2 (08:45→21:05)
[2017-11-22] MEDS: levETIRAcetam 500 MG Tablet PO SCH ×2 (08:45→21:06)
[2017-11-22] MEDS: guaiFENesin 600 MG ER Tablet PO SCH ×2 (08:45→21:05)
--- NOTE | 2017-11-22 08:45 | P.PN ---
Subjective Interval history: Patient is a 22-year-old -[place] gentleman with known history of HIV with previous CD4 count of only about 92 last time it was checked. Had also recently been treated for syphilis in diagnosed with epilepsy also per chart review has a cardiomyopathy. Patient states that his mother told him that he felt warm this morning and he felt chilled. He has had some productive cough with some questionable yellow sputum for the past couple weeks. States that it has been worse this morning. Denies any shortness of breath, denies any chest pain, denies any vomiting, denies any denies any dizziness. Patient has a history of HIV and AIDS not on any chronic medications for this. Had the fevers he states maybe as high as 100.1 at home had chills and cough 11/21 -patient seen and examined. Patient complains of episodes of diarrhea, one yesterday into today. He reports feeling chills. Denies any chest pain or shortness of breath. He denies any nausea vomiting or abdominal pain. He denies any dysuria. 11/22 -patient has not had any further episodes of diarrhea therefore C. difficile testing unable to be completed. He continues to report feeling chills. He denies any fever, headache, vision changes, nausea, vomiting or abdominal pain. He denies any chest pain or shortness of breath. Physical Exam Vital signs: Vital Signs 11/21/17 16:00 11/21/17 21:32 11/21/17 21:33 Temperature 99.6 F 99.9 F H Pulse Rate 81 90 Respiratory Rate 16 16 Blood Pressure 130/68 111/51 L Pulse Oximetry 94 L 99 99 11/21/17 23:20 11/22/17 04:00 11/22/17 08:00 Temperature 97.6 F 98.0 F 98.2 F Pulse Rate 78 76 78 Respiratory Rate 18 16 16 Blood Pressure 117/55 L 99/54 L 117/53 L Pulse Oximetry 100 98 98 Intake & Output 11/21/17 11/22/17 11/22/17 18:59 06:59 18:59 Intake Total 1820 / 1820 740 / 740 Output Total 1200 / 1200 Balance 1820 / 1820 -460 / -460 Weight 63.5 kg Intake: IV 1100 / 1100 200 / 200 NS Inj 1,000 ML @ 125 mls/hr IV 1000 / 1000 .CONT .Q8H FILEMON Rx#:[id number] Azactam Inj 2 GM In NS Inj 100 100 / 100 200 / 200 ML @ 200 mls/hr IV.SIG Q8H FILEMON Rx#:[id number] Oral 720 / 720 540 / 540 Output: Urine 1200 / 1200 Other: Date of Last Bowel Movement 11/21/17 Narrative: GENERAL: WDWN young male patient, INAD. Awake alert and oriented 3. Sitting up in bed eating breakfast. SKIN: Warm and dry. Hypopigmented rash on face. HEAD: Atraumatic. Normocephalic. EYES: Pupils equal and round. No scleral icterus. No injection or drainage. EOMI ENT: No nasal bleeding or discharge. Mucous membranes pink and moist. Tongue is midline NECK: Trachea midline. CARDIOVASCULAR: Regular rate and rhythm. No murmur appreciated. RESPIRATORY: No accessory muscle use. Clear to auscultation. Breath sounds equal bilaterally. GASTROINTESTINAL: Abdomen soft, non-tender, nondistended. +BS. MUSCULOSKELETAL: Extremities without clubbing, cyanosis, or edema. No obvious deformities. NEUROLOGICAL: Awake and alert. No obvious cranial nerve deficits. Motor grossly within normal limits. No focal neurologic finding appreciated. Normal speech. PSYCHIATRIC: Calm and cooperative. Results - Labs CBC & Chem 7: 11/22/17 06:31 11/22/17 06:31 Laboratory Results - last 24 hr 11/21/17 11/21/17 11/22/17 07:53 07:58 06:31 WBC 2.4 L D RBC 3.52 L Hgb 9.1 L Hct 27.5 L MCV 78.1 L MCH 25.8 L MCHC 33.1 RDW 14.4 Plt Count 140 L MPV 9.2 Prelim Diff (Auto) Slide review pending Neut % (Auto) 31.2 Lymph % (Auto) 52.4 H [place] % (Auto) 12.2 H Eos % (Auto) 3.9 Baso % (Auto) 0.3 Neut # (Auto) 0.7 L Lymph # (Auto) 1.2 [place] # (Auto) 0.3 Eos # (Auto) 0.1 Baso # (Auto) 0.0 WBC Differential Manual diff final Seg Neuts % (Manual) 44 Lymphocytes % (Manual) 44 Monocytes % (Manual) 10 H Eosinophils % (Manual) 1 Basophils % (Manual) 1 Abs Neuts (Manual) 1.1 L Differential Comment . Platelet Estimate Low L Platelet Morphology Normal Ovalocytes 1+ H Sodium 143 141 Potassium 4.4 4.2 Chloride 112 H D 108 H Carbon Dioxide 24.4 26.0 Anion Gap 7 7 BUN 14 12 Creatinine 0.98 1.04 Estimated GFR Greater than 89 Greater than 89 Random Glucose 77 85 Calcium 7.9 L 8.8 D Phosphorus 2.4 L Magnesium 1.8 Total Bilirubin 0.4 AST 70 H 53 H ALT 55 55 Alkaline Phosphatase 212 H Total Protein 7.1 D Albumin 3.0 L D 3.1 L TSH 0.652 Free T4 1.02 11/22/17 06:31 WBC 3.0 L RBC 4.08 L Hgb 10.2 L Hct 31.5 L MCV 77.2 L MCH 25.1 L MCHC 32.5 RDW 14.7 Plt Count 164 MPV 8.8 Prelim Diff (Auto) Slide review pending Neut % (Auto) 28.0 Lymph % (Auto) 57.4 H [place] % (Auto) 8.2 H Eos % (Auto) 6.2 H Baso % (Auto) 0.2 Neut # (Auto) 0.8 L Lymph # (Auto) 1.7 [place] # (Auto) 0.2 Eos # (Auto) 0.2 Baso # (Auto) 0.0 WBC Differential Seg Neuts % (Manual) Lymphocytes % (Manual) Monocytes % (Manual) Eosinophils % (Manual) Basophils % (Manual) Abs Neuts (Manual) Differential Comment . Platelet Estimate Platelet Morphology Ovalocytes Sodium Potassium Chloride Carbon Dioxide Anion Gap BUN Creatinine Estimated GFR Random Glucose Calcium Phosphorus Magnesium Total Bilirubin AST ALT Alkaline Phosphatase Total Protein Albumin TSH Free T4 Microbiology 11/20/17 14:15 Blood - Peripheral Aerobic Blood Culture - Preliminary No growth in 1 day 11/20/17 14:15 Blood - Peripheral Anaerobic Blood Culture - Preliminary No growth in 1 day 11/20/17 14:41 Blood - Peripheral Aerobic Blood Culture - Preliminary No growth in 1 day 11/20/17 14:41 Blood - Peripheral Anaerobic Blood Culture - Preliminary No growth in 1 day - Imaging ITS Impressions Chest X-Ray 11/20/17 14:29 CONCLUSION: No acute intrathoracic disease. Stable examination. - Procedures None Assessment and Plan - Plan HIV/AIDS with fevers Sepsis and SIRS with tachycardia and fevers Last known CD4 count 94 currently not on HIV medications for at least the last 1 year. Immune compromised status RPR nonreactive -ID following, appreciate assistance. D/c Aztreonam. Check AFB blood cultures , rule out disseminated BENNY. Check fungal/blood cultures rule out disseminated fungal infections. Obtain MRI of the brain. Check GC and Chlamydia. Check HIV viral load. Fever possibly secondary to advanced HIV/AIDS -Patient reports diarrhea. Obtain C. difficile -unable to complete test secondary to lack of specimen -Monitor clinically Neutropenia, possibly secondary to antibiotics WBC trending up, 2.4 to 3.0 -Neutropenic precautions -Monitor white count Anemia, microcytic, hypochromic, chronic Thrombocytopenia / iron 31, TIBC 322, %sat 9.6, ferritin 507 -monitor for e/o active bleeding -check B12/folate level -obtain stool hemoccult -monitor CBC Renal insufficiency/dehydration -resolved s/p IVF hydration -Avoid nephrotoxic agents -Continue to monitor History of syphilis s/p treatment - RPR nonreactive Cardiomyopathy by history we will hold off on Coreg and ramipril at this time Noncompliance with medications not a good candidate to start HAART regimen since of poor follow-up and poor compliance with medication Seizure disorders -continue on Keppra 500 p.o. twice daily -seizure precautions History of TIAs does not appear to be taking anything for it Continue GI prophylaxis with Pepcid DVT prophylaxis with SCDs Code Status: FULL Discussed Condition With: patient, nursing staff, CM, Dr. Jackson Discharge Planning: Not ready for discharge. Discharge pending ID clearance.
[2017-11-22 08:47] LABS: Acanthocytes Occ; Eosinophils 6 % (0-4); Lymphocytes 47 % (9-44); Monocytes 5 % (0-8); Ovalocytes 2+; Platelet Estimate Normal (Normal); Platelet Morphology Normal (Normal)
[2017-11-22 09:01] LABS: Alkaline Phosphatase 219 U/L (45-117); Folate 8.8 ng/mL (3.1-17.5); Total Protein 7.5 g/dL (6.4-8.2); Vitamin B12 953 pg/mL (193-986)
--- NOTE | 2017-11-22 13:42 | P.PNID ---
Subjective Remarks: is a 22 y/o AAM who is homosexual. His Past medical history is significant for HIV/AIDS diagnosed in 2017 as well as secondary syphilis. Patient was seen by ID MD Mckeon at that time underwent an LP which showed CSF Pleocytosis and CSF VDRL was negative. His RPR was positive at 1 is to for an FTA antibodies in the serum were positive. 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 Patient was also started on Bactrim for PCP prophylaxis given his low CD4 count. Regarding his HIV patient was following up with Dr. Shields under the [employer] while he was active. He has made several attempts to get restarted on his HIV medicines via the health department but unfortunately due to some documents needed by the health department this is currently on hold. Patient also reports that he has been diagnosed with seizures in the last 1 year and has been on Keppra which she has been compliant with. His last known seizure was 1 month back. Patient reports no cognitive decline or any change in neurological function Patient denies any visual changes Patient reports that he is not sexually active at the present time. Denies any penile discharge or lesions Patient denies any rectal pain discharge or lesions Patient denies any other constitutional symptoms at the present time. Patient reports 2 episodes of loose BMs. Infectious diseases consulted for evaluation and management of fever in a patient with HIV. Overnight events reviewed No fevers No rash No diarrhea WBC at 3.0 Eosinophils in CBC ? drug rash from Vanco IV or Azactam IV. Plus baseline from AIDS. No headache. No seizures. Antibiotics: Azactam IV Lines: Lines ok. Past Medical History: HIV/AIDS Seizure disorder Secondary syphilis s/p Rx. Allergies/Adverse Reactions: Allergies penicillin G Allergy (Severe, Verified 11/20/17 14:29) RASH Objective Vital Signs 11/21/17 16:00 11/21/17 21:32 11/21/17 21:33 Temperature 99.6 F 99.9 F H Pulse Rate 81 90 Respiratory Rate 16 16 Blood Pressure 130/68 111/51 L Pulse Oximetry 94 L 99 99 11/21/17 23:20 11/22/17 04:00 11/22/17 08:00 Temperature 97.6 F 98.0 F 98.2 F Pulse Rate 78 76 78 Respiratory Rate 18 16 16 Blood Pressure 117/55 L 99/54 L 117/53 L Pulse Oximetry 100 98 98 11/22/17 12:00 Temperature 97.5 F L Pulse Rate 85 Respiratory Rate 16 Blood Pressure 113/61 Pulse Oximetry 100 Intake & Output 11/21/17 11/22/17 11/22/17 18:59 06:59 18:59 Intake Total 1820 / 1820 740 / 740 Output Total 1200 / 1200 Balance 1820 / 1820 -460 / -460 Weight 63.5 kg Intake: IV 1100 / 1100 200 / 200 NS Inj 1,000 ML @ 125 mls/hr IV 1000 / 1000 .CONT .Q8H FILEMON Rx#:[id number] Azactam Inj 2 GM In NS Inj 100 100 / 100 200 / 200 ML @ 200 mls/hr IV.SIG Q8H FILEMON Rx#:[id number] Oral 720 / 720 540 / 540 Output: Urine 1200 / 1200 Other: Date of Last Bowel Movement 11/21/17 11/21/17 11/20/17 14:15 Blood - Peripheral Aerobic Blood Culture - Preliminary No growth in 2 days 11/20/17 14:15 Blood - Peripheral Anaerobic Blood Culture - Preliminary No growth in 2 days 11/20/17 14:41 Blood - Peripheral Aerobic Blood Culture - Preliminary No growth in 2 days 11/20/17 14:41 Blood - Peripheral Anaerobic Blood Culture - Preliminary No growth in 2 days 11/21/17 15:01 Blood - Peripheral Blood Fungal Culture - Pending 11/21/17 15:01 Blood - Peripheral Blood Fungal Culture - Pending Lab - Hematology Results 11/20/17 11/21/17 11/22/17 14:41 07:53 06:31 WBC 5.5 2.4 L D 3.0 L RBC 3.84 L 3.52 L 4.08 L Hgb 9.7 L 9.1 L 10.2 L Hct 29.7 L 27.5 L 31.5 L MCV 77.3 L 78.1 L 77.2 L MCH 25.4 L 25.8 L 25.1 L MCHC 32.8 33.1 32.5 RDW 14.4 14.4 14.7 Plt Count 169 140 L 164 MPV 9.3 9.2 8.8 Prelim Diff (Auto) Slide review pending Slide review pending Neut % (Auto) 44.4 31.2 28.0 Lymph % (Auto) 46.8 H 52.4 H 57.4 H [place] % (Auto) 7.9 12.2 H 8.2 H Eos % (Auto) 0.6 3.9 6.2 H Baso % (Auto) 0.3 0.3 0.2 Neut # (Auto) 2.5 0.7 L 0.8 L Lymph # (Auto) 2.6 1.2 1.7 [place] # (Auto) 0.4 0.3 0.2 Eos # (Auto) 0.0 0.1 0.2 Baso # (Auto) 0.0 0.0 0.0 WBC Differential . Manual diff final Manual diff final Seg Neuts % (Manual) 44 39 Band Neuts % (Manual) 2 Lymphocytes % (Manual) 44 47 H Monocytes % (Manual) 10 H 5 Eosinophils % (Manual) 1 6 H Basophils % (Manual) 1 1 Abs Neuts (Manual) 1.1 L 1.2 L Differential Comment Auto diff final . . Platelet Estimate Low L Normal Platelet Morphology Normal Normal Ovalocytes 1+ H 2+ H Acanthocytes (Spur) Occ H Lab - Chemistry Results 11/20/17 11/20/17 11/21/17 14:41 14:41 07:58 Sodium 134 L 143 Potassium 4.6 4.4 Chloride 100 112 H D Carbon Dioxide 25.5 24.4 Anion Gap 9 7 BUN 18 14 Creatinine 1.38 H 0.98 Estimated GFR 78 L Greater than 89 Random Glucose 123 H 77 Lactic Acid 1.9 Calcium 8.4 L 7.9 L Phosphorus 2.4 L Magnesium 1.6 1.8 Total Bilirubin 0.5 0.4 AST 42 H 70 H ALT 37 55 Alkaline Phosphatase 199 H 212 H Total Protein 7.9 7.1 D Albumin 3.6 3.0 L D Vitamin B12 Folate TSH 0.652 Free T4 1.02 11/22/17 06:31 Sodium 141 Potassium 4.2 Chloride 108 H Carbon Dioxide 26.0 Anion Gap 7 BUN 12 Creatinine 1.04 Estimated GFR Greater than 89 Random Glucose 85 Lactic Acid Calcium 8.8 D Phosphorus Magnesium Total Bilirubin 0.3 AST 53 H ALT 55 Alkaline Phosphatase 219 H Total Protein 7.5 Albumin 3.1 L Vitamin B12 953 Folate 8.8 TSH Free T4 Imaging: ITS Impressions Chest X-Ray 11/20/17 14:29 CONCLUSION: No acute intrathoracic disease. Stable examination. Physical Exam: GENERAL: Well-nourished well-developed, not in acute distress SKIN: Desquamating rash on patient's forehead as well as cheeks. HEAD: Atraumatic. Normocephalic. No temporal or scalp tenderness. EYES: Pupils equal round and reactive. Scleral icterus. No injection or drainage. No petechia ENT: Nothing abnormal detected NECK: Trachea midline. Supple, nontender, no meningeal signs. CARDIOVASCULAR: HS audible. RESPIRATORY: Clear to auscultation bilaterally. GASTROINTESTINAL: Abdomen soft nontender. MUSCULOSKELETAL: Extremities without clubbing, cyanosis. NEUROLOGICAL: Alert oriented 3. Nonfocal. Psych cooperative IV line sites ok. Assessment and Plan - Plan Fever in a patient with HIV AIDS Last known CD4 count 94 currently not on HIV medications for at least the last 1 year. Immune compromised status Neutropenia: AIDS, drug related ? Vanco IV Prior history of secondary syphilis treated with penicillin after desensitization History of seizure disorder, rule out neurosyphilis depending on repeat RPR and MRI findings we will decide on LP. Recommendations DC aztreonam Fever on presentation could be from underlying advanced HIV/AIDS. Will hold off on Bactrim for now due to Neutropenia. Please call me when CD4 count and MRI results available. Reordered AFB blood cultures rule out disseminated BENNY Follow fungal blood cultures rule out disseminated fungal infections Reordered Serum cryptococcal antigen MRI of the brain with and without contrast re: seizure new onset with history of AIDS, abnormal LP in past concerning for neurosyphilis rule out [employer] gummas. Check RPR with titers if elevated titers and abnormal imaging will consider a lumbar puncture to rule out neurosyphilis. Check GC and chlamydia Check HIV viral load as well as genotype in anticipation of starting HIV regimen as outpatient. Follow blood cultures Follow clinically Case management to help with outpatient follow up with Health dept when ready for discharge. Discussed with RN Discussed with patient about plan blanka Manuel PA-C
[2017-11-22] MEDS ORDERED: Gadobutrol PF 7.5 MMOL/7.5 ML Vial (for RAD) IV.SIG ONE (18:36)
--- NOTE | 2017-11-22 18:43 | MR ---
EXAM DATE: 11/22/2017 6:35 PM EDT AGE/SEX: 22 years / Male INDICATIONS: Seizure . Concern for Neurosyphilis related BARTENDER gummas CLINICAL DATA: This is the patient's initial encounter. Patient reports that signs and symptoms have been present for 2 days and indicates a pain score of 7/10. MEDICAL/SURGICAL HISTORY: HIV. Seizures. Syphilis. None. COMPARISON: [facility] – [place], CT HEAD W/O CONTRAST, 10/11/2017. . TECHNIQUE: Multiplanar, multisequence examination of the brain was performed without and with 6 ml Ga davist (gadobutrol) contrast as a single exam dose. FINDINGS: Cerebrum: The ventricles are normal for age. No evidence of midline shift, mass lesion, hemorrhage or acute infarction. No extraaxial fluid collections are seen. The pituitary gland and suprasellar cistern are normal in configuration. White Matter: No significant signal abnormalities are seen in the white matter. Posterior Fossa: The cerebellum and brainstem are intact. The 4th ventricle is midline. The cerebel lopontine angle is unremarkable. The cerebellar tonsils are normal in position. Diffusion Imaging: No focal areas of restricted diffusion are seen. No evidence of acute infarction . Extracranial: The visualized portions of the orbits and paranasal sinuses are unremarkable. Post Contrast: No abnormal areas of parenchymal or dural enhancement. No evidence of blood-brain ba rrier breakdown. CONCLUSION: 1. Negative study with no masses or abnormal enhancement. Electronically signed by: Janes Ennis MD 11/22/2017 6:42 PM EDT
[2017-11-22 20:50] VITALS: RESP 18
[2017-11-23 05:42] VITALS: O2SAT 100
[2017-11-23] MEDS: Sod Chloride 0.9% Inj 1,000 ML IV.CONT SCH (06:04)
[2017-11-23 06:07] LABS: Baso % (Auto) 0.2 % (0.0-2.0); Eos # (Auto) 0.2 th/mm3 (0.0-0.4); Hematocrit 29.1 % (39.0-51.0); Hemoglobin 9.7 gm/dL (13.0-17.0); Lymph # (Auto) 1.5 th/mm3 (1.0-4.8); Lymph % (Auto) 44.1 % (9.0-44.0); Mean Corpuscular HGB Conc 33.2 % (32.0-36.0); Mean Corpuscular Hemoglobin 25.2 pg (27.0-34.0); Mean Corpuscular Volume 75.9 fL (80.0-100.0); Mean Platelet Volume 9.1 fL (7.0-11.0); Mono # (Auto) 0.3 th/mm3 (0.0-0.9); Mono % (Auto) 7.8 % (0.0-8.0); Neut # (Auto) 1.4 th/mm3 (1.8-7.7); Neut % (Auto) 42.9 % (16.0-70.0); Platelet Count 149 th/mm3 (150-450); Red Blood Count 3.83 mil/mm3 (4.50-5.90); Red Cell Distribution Width 14.4 % (11.6-17.2); White Blood Count 3.3 th/mm3 (4.0-11.0)
[2017-11-23] MEDS: Senna/Docusate Sodium 8.6/50 MG Tablet PO SCH (08:26)
[2017-11-23] MEDS: Famotidine 20 MG Tablet PO SCH (08:26)
[2017-11-23] MEDS: levETIRAcetam 500 MG Tablet PO SCH (08:26)
[2017-11-23] MEDS: guaiFENesin 600 MG ER Tablet PO SCH (08:26)
[2017-11-23 09:31] LABS: Cryptococcus Ag Screen Negative (Negative)
--- NOTE | 2017-11-23 09:44 | P.DS ---
Date of admission: 11/20/17 17:07 Primary care physician: No Primary Care Physician Attending physician on discharge: Shannan Jackson Anticipated date of discharge: 11/23/17 Brief History from admission: Patient is a 22-year-old -Citizen Of [place] gentleman with known history of HIV with previous CD4 count of only about 92 last time it was checked. Had also recently been treated for syphilis in diagnosed with epilepsy also per chart review has a cardiomyopathy. Patient states that his mother told him that he felt warm this morning and he felt chilled. He has had some productive cough with some questionable yellow sputum for the past couple weeks. States that it has been worse this morning. Denies any shortness of breath, denies any chest pain, denies any vomiting, denies any denies any dizziness. Patient has a history of HIV and AIDS not on any chronic medications for this. Had the fevers he states maybe as high as 100.1 at home had chills and cough DS: Diagnosis - Discharge Diagnosis (1) AIDS Status: Acute (2) Fever Status: Acute (3) HIV (human immunodeficiency virus infection) Status: Acute (4) Granulocytopenia Status: Acute (5) Cardiomyopathy Status: Acute (6) Epileptic seizure Status: Acute DS: Medications - Discharge Medications Prescriptions: carvedilol [Coreg] 3.125 mg PO BID 30 Days #60 tab levetiracetam [Keppra] 500 mg PO BID 30 Days #60 tab ramipril 1.25 mg PO DAILY 30 Days #30 cap sulfamethoxazole-trimethoprim [Bactrim DS] 1 tab PO MOWEFR #30 tab DS: Summary Hospital Course: Patient with HIV/AIDS admitted with sepsis with tachycardia and fevers. Patient 's previous CD4 count was 94. Patient also had prior history of secondary syphilis that was treated with penicillin after desensitization. Patient also history of seizure does recently diagnosed and patient reported being compliant on his Keppra medication. Patient on HIV medications for the past year. Patient's white count was normal. He had a CABG with creatinine 1.38. Patient was started on aztreonam and vancomycin as well as Bactrim. Patient was seen in consultation by infectious disease. Patient developed granulocytopenia. His absolute neutrophil count was 0.7 and white count was 2.4. ID felt this may be related to antibiotics which were discontinued. Extensive workup was ordered by infectious disease. MRI of the brain was obtained was unremarkable. RPR was nonreactive. GC/Chlamydia not detected. Patient did not have any recurrence of fever. His absolute CD4 count was 138. Patient's white count improved to 3.3 and absolute neutrophil count improved 1.4. His creatinine improved. Patient was cleared for discharge from infectious disease standpoint. Case management was consulted to assist with patient following up with health department following discharge. - Time Spent with Patient Total time spent providing and/or coordinating discharge services: Greater than 30 minutes Exam Vital signs: Vital Signs 11/22/17 12:00 11/22/17 16:00 11/22/17 20:00 Temperature 97.5 F L 98 F 97.6 F Pulse Rate 85 98 H 100 H Respiratory Rate 16 16 18 Blood Pressure 113/61 104/51 L 117/47 L Pulse Oximetry 100 100 100 11/23/17 00:00 11/23/17 04:00 Temperature 98.1 F 98.6 F Pulse Rate 90 86 Respiratory Rate 18 18 Blood Pressure 105/52 L 113/55 L Pulse Oximetry 90 L 100 Intake & Output 11/22/17 11/23/17 11/23/17 18:59 06:59 18:59 Intake Total 188 / 188 2557.5 / 2557.5 Output Total 300 / 300 Balance 188 / 188 2257.5 / 2257.5 Intake: IV 2557.5 / 2557.5 Oral 188 / 188 Output: Urine 300 / 300 Other: # Voids 4 2 Date of Last Bowel Movement 11/21/17 11/22/17 11/22/17 # Bowel Movements 0 Narrative: GENERAL: WDWN young male patient, INAD. Awake alert and oriented 3. Sitting up in bed. Patient appears comfortable. SKIN: Warm and dry. Hypopigmented rash on face. HEAD: Atraumatic. Normocephalic. EYES: Pupils equal and round. No scleral icterus. No injection or drainage. EOMI. ENT: No nasal bleeding or discharge. Mucous membranes pink and moist. Tongue is midline NECK: Trachea midline. CARDIOVASCULAR: Regular rate and rhythm. No murmur appreciated. RESPIRATORY: No accessory muscle use. Clear to auscultation. Breath sounds equal bilaterally. GASTROINTESTINAL: Abdomen soft, non-tender, nondistended. +BS. MUSCULOSKELETAL: Extremities without clubbing, cyanosis, or edema. No obvious deformities. NEUROLOGICAL: Awake and alert. No obvious cranial nerve deficits. Motor grossly within normal limits. No focal neurologic finding appreciated. Normal speech. PSYCHIATRIC: Calm and cooperative. Results Procedures completed during hospitalization: None Labs on day of discharge: Labs from last 24 hours 11/23/17 11/23/17 11/22/17 05:17 04:47 15:37 WBC 3.3 L RBC 3.83 L Hgb 9.7 L Hct 29.1 L MCV 75.9 L MCH 25.2 L MCHC 33.2 RDW 14.4 Plt Count 149 L MPV 9.1 Neut % (Auto) 42.9 Lymph % (Auto) 44.1 H [place] % (Auto) 7.8 Eos % (Auto) 5.0 H Baso % (Auto) 0.2 Neut # (Auto) 1.4 L Lymph # (Auto) 1.5 [place] # (Auto) 0.3 Eos # (Auto) 0.2 Baso # (Auto) 0.0 WBC Differential . Differential Comment Auto diff final Levetiracetam Pending Absolute Lymphocytes % CD3 Cells Absolute CD3 Count % CD3-/CD16+/CD56+ Abs CD3-/CD16+/CD56+ % CD4 Cells Absolute CD4 Count T-Help/Suppress Ratio % CD8 Cells Absolute CD8 Count % CD19 Cells Absolute CD19 Count RPR Cryptococcus Ag Screen Pending 11/21/17 11/21/17 11/20/17 15:01 15:01 14:41 WBC RBC Hgb Hct MCV MCH MCHC RDW Plt Count MPV Neut % (Auto) Lymph % (Auto) [place] % (Auto) Eos % (Auto) Baso % (Auto) Neut # (Auto) Lymph # (Auto) [place] # (Auto) Eos # (Auto) Baso # (Auto) WBC Differential Differential Comment Levetiracetam Absolute Lymphocytes 2532 % CD3 Cells 95 H Absolute CD3 Count 2400 % CD3-/CD16+/CD56+ 2 L Abs CD3-/CD16+/CD56+ 46 L % CD4 Cells 5 L Absolute CD4 Count 138 L T-Help/Suppress Ratio 0.10 L % CD8 Cells 88 H Absolute CD8 Count 2270 H % CD19 Cells 2 L Absolute CD19 Count 58 L RPR Nonreactive Nonreactive Cryptococcus Ag Screen Preliminary micro results at discharge 11/20/17 14:15 Aerobic Blood Culture - Preliminary Blood - Peripheral No growth in 2 days Anaerobic Blood Culture - Preliminary No growth in 2 days 11/20/17 14:41 Aerobic Blood Culture - Preliminary Blood - Peripheral No growth in 2 days Anaerobic Blood Culture - Preliminary No growth in 2 days - Impressions ITS Impressions Chest X-Ray 11/20/17 14:29 CONCLUSION: No acute intrathoracic disease. Stable examination. Head MRI 11/22/17 00:00 CONCLUSION: 1. Negative study with no masses or abnormal enhancement. Discharge Plan - Discharge Disposition Patient Disposition: 01 Discharge Home - Discharge Condition Condition: Stable - Discharge Order Discharge Orders: Discharge Order (Routine); Ordered 11/23/17 Ordered By: Christen Yin - Discharge Details Anticipated Discharge Date: 11/23/17 - Physicians Team Primary Care Provider: Primary Care Nyasia Deal Attending Provider: Shannan Jackson Other Providers: Miriam Monsalve MD
[2017-11-23 16:44] VITALS: BP 108/55; PULSE 116; TEMP 97.8
[2017-11-24 14:35] LABS: Darunavir w Ritonavir SUSC; Fosamprenavir w Ritonavir SUSC; HIV 1 Genotyping INTERP; Indinavir w Ritonavir SUSC; Lopinavir w Ritonavir SUSC; Nefinavir SUSC; Saquinavir w Ritonavir SUSC; Tipranavir with Ritanavir SUSC
== END 2017-11-23 18:19 | disposition home or self-care (01) ==
LOC: NEPD 13:14 → NEDA 17:07 → N05 17:50
PROVIDERS: ADMIT Family Medicine; ATTEND Family Medicine

== ENCOUNTER 2017-12-06 19:15 | Inpatient (IN) ==
[2017-12-06] MEDS ORDERED: Acetaminophen 325 MG Tablet PO ONE (19:59)
[2017-12-06] MEDS ORDERED: Sod Chloride 0.9% Inj 1,000 ML IV.SIG ONE ×3 (19:59→21:52)
[2017-12-06] MEDS ORDERED: Aztreonam Inj 2 GM in Sodium Chloride 0.9% Inj 100 ML IV.SIG ONE (20:01)
[2017-12-06] MEDS ORDERED: Vancomycin Inj 1 GM/200 ML PIGGYBACK IV.SIG ONE (20:01)
[2017-12-06] MEDS ORDERED: Vancomycin Inj 1,000 MG in Sodium Chlor 0.9% Inj 250 ML IV.SIG ONE (20:30)
--- NOTE | 2017-12-06 20:33 | ED ---
HPI General Chief complaint: Fever Stated complaint: fever Time Seen by Provider: 12/06/17 19:46 Source: patient Limitations: no limitations History of Present Illness HPI narrative: on admission on November 20 was 138The patient's last CD4 countThe patient is a 22 year old male who presents to the [facility] emergency department with a history of increased fatigue since yesterday. He reports that he was sleeping more than usual. He reports that he also is having intermittent chills. His grandmother felt his head earlier today and told him that he had a temperature. He did not check his temperature with a thermometer. The patient's past medical history is complicated by having HIV that is progressed to AIDS. The patient is not on any medication for his HIV currently according to the record because of a prior history of noncompliance. The patient was recently admitted to the hospital for a fever on November 20. Consultation with infectious disease was made. It appears that attempts were being made by case management for the patient to follow-up with the health department for continuation of his HIV care. He reports that he followed up with the [facility] this past week and is in the process of being referred to a specialist again, however he reports that there has been difficulty with getting this done. He denies having any nausea, vomiting, or diarrhea. He reports that his last bowel movement was yesterday. He denies having any blood in his stool or black or tarry stools. He reports that he has had an occasional cough that has been productive of yellow sputum. He denies having any new rashes, dysuria, hematuria, urinary urgency, or frequency. He denies having any penile discharge, scrotal pain, or scrotal swelling. He denies having any rectal discharge. The patient's CD4 count on admission on November 20 was 138, HIV load was noted to be 217,000. On review of systems otherwise, the patient denies having any headache, neck pain, chest pain, shortness of breath, abdominal pain, or neurologic symptoms. Related Data Previous Rx's Medication Instructions Recorded carvedilol [Coreg] 3.125 mg PO BID 30 Days #60 tab 11/23/17 levetiracetam [Keppra] 500 mg PO BID 30 Days #60 tab 11/23/17 ramipril 1.25 mg PO DAILY 30 Days #30 cap 11/23/17 sulfamethoxazole-trimethoprim 1 tab PO MOWEFR #30 tab 11/23/17 [Bactrim DS] Allergies Allergy/AdvReac Type Severity Reaction Status Date / Time penicillin G Allergy Severe RASH Verified 11/20/17 14:29 Review of Systems ROS: all other systems reviewed are negative (Except for that which was mentioned in the HPI.) [facility] Medical History Medical History AIDS (acquired immunodeficiency syndrome), CD4 <=200 (Acute) Cardiomyopathy (Acute) HIV (human immunodeficiency virus infection) (Acute) Noncompliance with medication regimen (Acute) Seizure disorder (Acute) Syphilis (Acute) TIA (transient ischemic attack) (Acute) Surgical History Surgical History No history of previous surgery (Acute) Family History Family History Other Family history of diabetes mellitus Social History Social History Substance History: No History of Abuse Second Hand Smoke Exposure: No Smoking Status: Former smoker Tobacco Type: Cigarettes How Often Do You Have a Drink Containing Alcohol: Never Hx Recent Travel: No Recent Travel in [facility] within the Last 8 Weeks: No Recent Out of Country Travel within the Last 8 Weeks: No Immunization History Tetanus Immunization: <5 Years Hx Influenza Vaccine This Season: No Exam Const General: cooperative, no acute distress and well developed Nutritional Appearance: thin Orientation: alert, awake and oriented x3 HENMT Head: normocephalic and atraumatic Nose: no nasal discharge and no epistaxis Mouth: moist mucous membranes Throat: posterior oropharynx abnormal (The patient is noted to have thrush.) Eyes Sclera: normal sclerae Pupils: PERRL Neck Neck: no meningeal signs, trachea midline and no JVD Resp Effort & Inspection: no use of accessory muscles Auscultation: clear to auscultation bilaterally Cardio Rate: tachycardic (Sinus tachycardia in the low 100s. No pulse deficits to the extremities on simultaneous auscultation and palpation of his radial artery) Rhythm: regular rhythm Heart Sounds: no gallops, no murmurs and no rubs GI Inspection: non-distended Palpation: soft, no hepatosplenomegaly and nontender Auscultation: normal bowel sounds Back/Spine/Pelvis Back: no CVA tenderness Skin General: dry skin (warm) Neuro General: alert, awake and oriented x3 Cranial Nerves: other (Grossly nonfocal.) Speech: speech normal Motor: no movement abnormalities noted Extrem General: normal to inspection (No calf tenderness on palpation. 2+ pulses in all 4 extremities.), no clubbing, no cyanosis and no edema Psych Mood: congruent mood Affect: normal affect Judgment: judgment good Course Initial Documented Vital Signs Temperature 100.6 F H 12/06/17 19:39 Pulse Rate 129 H 12/06/17 19:39 Respiratory Rate 16 12/06/17 19:39 Blood Pressure 82/47 L 12/06/17 19:39 Pulse Oximetry 99 12/06/17 19:39 Last Documented Vital Signs Temperature 100.6 F H 12/06/17 19:39 Pulse Rate 129 H 12/06/17 19:39 Respiratory Rate 16 12/06/17 19:39 Blood Pressure 89/49 L 12/06/17 19:42 Pulse Oximetry 99 12/06/17 19:39 Medical Decision Making MDM Narrative Medical decision making narrative: During the course of the patient's emergency department visit, the patient's history, examination, and differential diagnosis were reviewed with the patient. The patient was placed on a quality assurance monitor chassis with oximetry and frequent blood pressure monitoring. The patient had IV access obtained and blood work sent for analysis. Diagnostic evaluation was started regarding the patient's fever, sirs criteria, and immunocompromise state. The patient was initially provided normal saline 1 L IV fluid bolus, the patient was started on broad-spectrum antibiotic to include given his penicillin allergy, Azactam, 2 g IV, Flagyl 500 mg IV, vancomycin 1 g IV. Medical Screen Exam Complete: Yes Emergency Medical Condition: Yes Differential Diagnosis Differential Diagnosis: Pneumonia, versus urinary tract infection, versus sepsis of undetermined origin Medical Records Medical records reviewed: Yes I reviewed the patient's medical records. Lab Data Lab results reviewed: Yes I reviewed the patient's lab results. Discharge Plan Discharge Disposition Patient Disposition: 30 Still Patient Physicians Team ED Provider: Perla Bauman Primary Care Provider: Primary Care Nyasia Deal Rxs /Orders / Referrals /Forms Prescriptions: No Action levetiracetam [Keppra] 500 mg Tablet 500 mg PO BID 30 Days Qty: 60 RF: 0 sulfamethoxazole-trimethoprim [Bactrim DS] 800-160 mg Tablet 1 tab PO MOWEFR Qty: 30 RF: 0 carvedilol [Coreg] 3.125 mg Tablet 3.125 mg PO BID 30 Days Qty: 60 RF: 0 ramipril 1.25 mg Capsule 1.25 mg PO DAILY 30 Days Qty: 30 RF: 0 Discharge Interventions Interventions: Vital Signs Last Done: 12/06/17 19:42 Status ED Status: With Doctor
--- NOTE | 2017-12-06 20:40 | XR ---
EXAM DATE: 12/06/2017 8:36 PM EDT AGE/SEX: 22 years / Male INDICATIONS: Fever. CLINICAL DATA: This is the patient's initial encounter. Patient reports that signs and symptoms have been present for 2 days and indicates a pain score of 0/10. MEDICAL/SURGICAL HISTORY: None. None. COMPARISON: . FINDINGS: A single AP view of the chest demonstrates the lungs to be symmetrically aerated without evidence of mass, infiltrate or effusion. The cardiomediastinal contours are unremarkable. Osseous structures a re intact. CONCLUSION: Negative examination. Electronically signed by: Simone Arevalo MD 12/06/2017 8:38 PM EDT
[2017-12-06 21:23] LABS: Activated Partial Thrombo Time 29.3 sec (24.3-30.1); INR 1.1 Ratio; Prothrombin Time 11.1 sec (9.8-11.6)
[2017-12-06 21:27] LABS: Magnesium 1.2 mg/dL (1.5-2.5)
[2017-12-06 21:28] LABS: Bilirubin,Urine Negative (Negative); Clarity,Urine Clear (Clear); Color,Urine Yellow (Yellw/Straw); Glucose,Urine (UA) Negative (Negative); Hyaline Casts,Urine 4 /lpf (0-3); Leukocyte Esterase,Urine Negative (Negative); Mucus,Urine Few /lpf (Occasional); Nitrite,Urine Negative (Negative); Specific Gravity,Urine 1.013 (1.002-1.035)
[2017-12-06 21:31] LABS: Albumin 3.4 g/dL (3.4-5.0); Anion Gap 8 meq/L (5-15); Aspartate Aminotransferase 46 U/L (15-37); Blood Urea Nitrogen 9 mg/dL (7-18); Calcium 8.5 mg/dL (8.5-10.1); Carbon Dioxide 24.7 meq/L (21.0-32.0); Chloride 103 meq/L (98-107); Glomerular Filtration Rate Greater Than 89 mL/min (>89); Glucose,Random 80 mg/dL (74-106); Potassium 4.3 meq/L (3.5-5.1); Sodium 136 meq/L (136-145)
[2017-12-06 21:32] LABS: Alanine Aminotransferase 60 U/L (12-78)
[2017-12-06 21:34] LABS: Alkaline Phosphatase 225 U/L (45-117)
[2017-12-06 21:36] LABS: Hemoglobin 9.5 gm/dL (13.0-17.0); Mean Corpuscular HGB Conc 32.7 % (32.0-36.0); Mean Corpuscular Hemoglobin 25.2 pg (27.0-34.0); Mean Corpuscular Volume 76.9 fL (80.0-100.0); Mean Platelet Volume 9.2 fL (7.0-11.0); Platelet Count 201 th/mm3 (150-450); Red Blood Count 3.77 mil/mm3 (4.50-5.90); Red Cell Distribution Width 14.1 % (11.6-17.2); White Blood Count 7.4 th/mm3 (4.0-11.0)
[2017-12-06 22:32] LABS: Eosinophils 2 % (0-4); Lymphocytes 8 % (9-44); Monocytes 4 % (0-8); Ovalocytes 1+; Platelet Estimate Normal (Normal)
--- NOTE | 2017-12-06 23:03 | P.HPCC ---
History of Present Illness Primary Care Physician: No Primary Care Physician History of Present Illness: 22 year old HIV positive male noncompliant with outpatient medication presents with a history of increased fatigue since yesterday. He reports that he was sleeping more than usual. He reports that he also is having intermittent chills. His grandmother felt his head earlier today and told him that he had an elevated temperature. He did not check his temperature with a thermometer. The patient's past medical history is complicated by having HIV that is progressed to AIDS. The patient is not on any medication for his HIV currently according to the record because of a prior history of noncompliance. The patient was recently admitted to the hospital for a fever on November 20. Consultation with infectious disease was made. It appears that attempts were being made by case management for the patient to follow-up with the health department for continuation of his HIV care. He reports that he followed up with the [facility] this past week and is in the process of being referred to a specialist again, however he reports that there has been difficulty with getting this done. He denies having any nausea, vomiting, or diarrhea. He reports that his last bowel movement was yesterday. He denies having any blood in his stool or black or tarry stools. He reports that he has had an occasional cough that has been productive of yellow sputum. He denies having any new rashes, dysuria, hematuria, urinary urgency, or frequency. He denies having any penile discharge, scrotal pain, or scrotal swelling. He denies having any rectal discharge. The patient's CD4 count on admission on November 20 was 138, HIV load was noted to be 217,000. On review of systems otherwise, the patient denies having any headache, neck pain, chest pain, shortness of breath, abdominal pain, or neurologic symptoms. Inpatient Certification: I certify that the inpatient services were ordered in accordance with Medicare regulations governing the order. This includes certification that hospital inpatient services are reasonable and necessary and in the case of services not specified as inpatient-only under 42 CFR 419.22(n), that they are appropriately provided as inpatient services in accordance to with the 2-midnight benchmark under 43 CFR 412.3(e) Review of Systems All other systems reviewed negative except as stated in HPI PMFSH - History History Provided By: Patient - Medical History Medical History: Medical History (Last Reviewed 12/06/17 @ 20:28 by Perla Bauman MD) AIDS (acquired immunodeficiency syndrome), CD4 <=200 Cardiomyopathy HIV (human immunodeficiency virus infection) Noncompliance with medication regimen Seizure disorder Syphilis TIA (transient ischemic attack) - Surgical History Surgical History: Surgical History (Last Reviewed 12/06/17 @ 20:28 by Perla Bauman MD) No history of previous surgery - Family History Family History: Family History (Last Reviewed 12/06/17 @ 20:28 by Perla Bauman MD) Other Family history of diabetes mellitus - Tobacco History Second Hand Smoke Exposure: No Smoking Status: Former smoker Tobacco Type: Cigarettes - Alcohol History How Often Do You Have a Drink Containing Alcohol: Never - Substance Use History Substance History: No History of Abuse - Travel History History of Recent Travel: No Recent Travel in the [place] Within the Last 8 Weeks: No Recent Travel Out of the Country Within the Last 8 Weeks: No - Immunization History Tetanus Immunization: <5 Years Hx Influenza Vaccine This Season: No Medications and Allergies Active Medications: Active Medications Levetiracetam (Keppra) 500 mg PO BID FILEMON Trimethoprim/Sulfamethoxazole (Bactrim Ds) 1 tab PO MOWEFR FILEMON Current Medications Acetaminophen (Tylenol) 650 mg PO Q6H PRN PRN Reason: PAIN 1-5 AND/OR FEVER >101F Al Hydroxide/Mg Hydroxide (Milk Of Elicia Obrien) 30 ml PO Q12H PRN PRN Reason: Mild Constipation Albuterol (Duoneb Neb (Prn)) 1 ampul NEB Q2HR NEB PRN PRN Reason: WHEEZING Bisacodyl (Dulcolax Supp) 10 mg RECTAL DAILY PRN PRN Reason: SEVERE CONSITIPATION Chlorhexidine Gluconate (Chlorhexidine 2% Cloth) 3 pack TOPICAL DAILY@0400 FILEMON Stop: 12/12/17 03:59 Chlorhexidine Gluconate (Chlorhexidine 2% Cloth) 3 pack TOPICAL DAILY@0400 PRN PRN Reason: Extra cloth needed Stop: 12/12/17 03:59 Famotidine (Pepcid Pf Inj) 20 mg IV.PUSH Q12HR FILEMON Heparin Sodium (Porcine) (Heparin Inj) 5,000 units SQ Q8H FILEMON Hydromorphone HCl (Dilaudid Pf Inj) 1 mg IV.PUSH Q4H PRN PRN Reason: PAIN SCALE 6 TO 10 Aztreonam 2 gm/ Sodium (Chloride) 100 mls @ 200 mls/hr IV.SIG Q8H FILEMON Metronidazole/Sodium Chloride (Flagyl 500 Mg Inj) 100 mls @ 100 mls/hr IV.SIG Q8H FILEMON Sodium Chloride (Ns Inj) 1,000 mls @ 184 mls/hr IV.CONT .Q5H27M FILEMON Aztreonam 2 gm/ Sodium (Chloride) 100 mls @ 200 mls/hr IV.SIG Q8H FILEMON Lactulose (Lactulose Liq) 30 ml PO DAILY PRN PRN Reason: SEVERE CONSITIPATION Levetiracetam (Keppra) 500 mg PO BID FILEMON Ondansetron HCl (Zofran Inj) 4 mg IV.PUSH Q6H PRN PRN Reason: NAUSEA OR VOMITING Senna/Docusate Sodium (Odrothy-Colace) 1 tab PO BID [facility] Sennosides (Senokot) 17.2 mg PO Q12H PRN PRN Reason: Moderate Constipation Sodium Chloride (Ns Flush) 2 ml IV.FLUSH BID FILEMON Sodium Chloride (Ns Flush) 2 ml IV.FLUSH PRN PRN PRN Reason: FLUSH AFTER USING IV ACCESS Temazepam (Restoril) 15 mg PO HS PRN PRN Reason: INSOMNIA Trimethoprim/Sulfamethoxazole (Bactrim Ds) 1 tab PO MOWEFR [facility] Allergies Allergy/AdvReac Type Severity Reaction Status Date / Time penicillin G Allergy Severe RASH Verified 11/20/17 14:29 Results - Labs CBC & Chem 7: 12/06/17 20:20 12/06/17 20:20 Labs: Short CBC 12/06/17 Range/Units 20:20 WBC 7.4 (4.0-11.0) th/mm3 Hgb 9.5 L (13.0-17.0) gm/dL Hct 29.0 L (39.0-51.0) % Plt Count 201 D (150-450) th/mm3 BMP 12/06/17 20:20 Sodium 136 Potassium 4.3 Chloride 103 Carbon Dioxide 24.7 BUN 9 Creatinine 1.03 Calcium 8.5 Liver Function 12/06/17 Range/Units 20:20 Total Bilirubin 0.3 (0.2-1.0) mg/dL AST 46 H (15-37) U/L ALT 60 (12-78) U/L Alkaline Phosphatase 225 H (45-117) U/L Albumin 3.4 (3.4-5.0) g/dL Urine 12/06/17 Range/Units 20:50 Urine Color Yellow (Yellw/Straw) Urine Clarity Clear (Clear) Urine pH 5.0 (5.0-8.5) Ur Specific [place] 1.013 (1.002-1.035) Urine Protein 30 H (Neg-Trace) mg/dL Urine Glucose (UA) Negative (Negative) mg/dL - Imaging Impressions Chest X-Ray 12/06/17 20:00 CONCLUSION: Negative examination. Exam Vital signs: Vital Signs 12/06/17 19:39 12/06/17 19:42 12/06/17 21:30 Temperature 100.6 F H Pulse Rate 129 H 104 H Respiratory Rate 16 20 Blood Pressure 82/47 L 89/49 L 74/38 L Pulse Oximetry 99 99 12/06/17 21:40 12/06/17 21:50 Temperature Pulse Rate 112 H 108 H Respiratory Rate 20 20 Blood Pressure 84/47 L 108/57 L Pulse Oximetry 99 99 Intake & Output 12/06/17 12/06/17 12/07/17 06:59 18:59 06:59 Weight 58.967 kg - Constitutional no acute distress - Routine HEENT Exam Head: Present: normocephalic, atraumatic Eye: Present: EOMI, PERRL, normal accommodation. Absent: conjunctival icterus ENT: Present: mucous membranes moist - Routine Neck Exam Present: supple, full ROM. Absent: JVD, carotid bruit - Routine Respiratory Exam Absent: accessory muscle use, rhonchi, stridor, wheezes - Routine Cardiovascular Exam Present: RRR, S1, S2 - Routine Abdominal Exam Present: soft, normoactive bowel sounds. Absent: tenderness, distended - Routine Extremities Exam Present: full ROM. Absent: cyanosis, clubbing, edema - Routine Skin Exam Absent: intact, cyanosis, erythema - Routine Neurological Exam Present: alert, oriented X3, CN II-XII intact Septic Shock Reassessment Septic shock perfusion: reassessment completed Caprini VTE Risk Assessment Caprini VTE Risk Assessment: Moderate/High Risk (score >= 2) Caprini Risk Assessment Model: Point Value = 1 Point Value = 2 Point Value = 3 Point Value = 5 Age 41-60 Minor surgery BMI > 25 kg/m2 Swollen legs Varicose veins or History of unexplained or recurrent spontaneous Oral contraceptives or hormone replacement Sepsis (< 1 month) Serious lung disease, including pneumonia (< 1 month) Abnormal pulmonary function Acute myocardial infarction Congestive heart failure (< 1 month) History of inflammatory bowel disease Medical patient at bed rest Age 61-74 Arthroscopic surgery Major open surgery (> 45 min) Laparoscopic surgery (> 45 min) Malignancy Confined to bed (> 72 hours) Immobilizing plaster cast Central venous access Age >= 75 History of VTE Family history of VTE Factor V Leiden Prothrombin [id number] Lupus anticoagulant Anticardiolipin antibodies Elevated serum homocysteine Heparin-induced thrombocytopenia Other congenital or acquired thrombophilia Stroke (< 1 month) Elective arthroplasty Hip, pelvis, or leg fracture Acute spinal cord injury (< 1 month) Prophylaxis Regimen: Total Risk Factor Score Risk Level Prophylaxis Regimen 0-1 Low Early ambulation 2 Moderate Order ONE of the following: *Sequential Compression Device (SCD) *Heparin 5000 units SQ BID 3-4 Higher Order ONE of the following medications: *Heparin 5000 units SQ TID *Enoxaparin/Lovenox 40 mg SQ daily (WT < 150 kg, CrCl > 30 mL/min) *Enoxaparin/Lovenox 30 mg SQ daily (WT < 150 kg, CrCl > 10-29 mL/min) *Enoxaparin/Lovenox 30 mg SQ BID (WT < 150 kg, CrCl > 30 mL/min) AND/OR *Sequential Compression Device (SCD) 5 or more Highest Order ONE of the following medications: *Heparin 5000 units SQ TID (Preferred with Epidurals) *Enoxaparin/Lovenox 40 mg SQ daily (WT < 150 kg, CrCl > 30 mL/min) *Enoxaparin/Lovenox 30 mg SQ daily (WT < 150 kg, CrCl > 10-29 mL/min) *Enoxaparin/Lovenox 30 mg SQ BID (WT < 150 kg, CrCl > 30 mL/min) AND *Sequential Compression Device (SCD) Assessment and Plan - Assessment and Plan Plan: Sepsis -Immunocompromised patient -Broad-spectrum antibiotics -Follow-up cultures and de-escalate per sensitivity and results -Infectious disease consultation HIV -HAART per ID Seizure disorder -Keppra DVT GI prophylaxis -Teds SCDs -Subcu heparin -Pepcid The total critical care time was 35 minutes. Time to perform other separately billable procedures was not included in the critical care time.
[2017-12-06] MEDS ORDERED: Vancomycin Consult Pharmacy OTHER ONE (23:39)
[2017-12-06] MEDS ORDERED: Temazepam 15 MG Capsule PO PRN (23:39)
[2017-12-06] MEDS ORDERED: Bisacodyl 10 MG Supp RECTAL PRN (23:39)
[2017-12-06] MEDS ORDERED: Acetaminophen 325 MG Tablet PO PRN (23:39)
[2017-12-07] MEDS ORDERED: Aztreonam Inj 2 GM in Sodium Chloride 0.9% Inj 100 ML IV.SIG SCH ×2
[2017-12-07] MEDS ORDERED: HYDROmorphone PF Inj 2 MG/ML Vial IV.PUSH PRN (00:30)
[2017-12-07] MEDS ORDERED: Vancomycin Consult Pharmacy OTHER PRN (00:35)
[2017-12-07] MEDS: Heparin - SQ 10,000 UNITS/ML Vial SQ SCH ×3 (01:55→15:43)
[2017-12-07] MEDS: Sod Chloride 0.9% Inj 1,000 ML IV.CONT SCH ×5 (01:55→21:33)
[2017-12-07] MEDS: Chlorhexidine Gluconate 2% 1 Pack (2 Cloths) TOPICAL SCH (04:00)
[2017-12-07] MEDS ORDERED: Chlorhexidine Gluconate 2% 1 Pack (2 Cloths) TOPICAL PRN (04:00)
[2017-12-07] MEDS: Aztreonam Inj 2 GM in Sodium Chloride 0.9% Inj 100 ML IV.SIG SCH ×3 (08:00→16:00)
[2017-12-07] MEDS: Famotidine PF Inj 20 MG/2 ML Vial IV.PUSH SCH ×2 (08:05→21:36)
[2017-12-07] MEDS: levETIRAcetam 500 MG Tablet PO SCH ×2 (08:05→21:33)
[2017-12-07] MEDS: Senna/Docusate Sodium 8.6/50 MG Tablet PO SCH ×2 (08:06→21:33)
[2017-12-07] MEDS ORDERED: Potassium Phosphate Inj 30 MMOL in Sodium Chlor 0.9% Inj 250 ML IV.SIG PRN (09:02)
[2017-12-07] MEDS ORDERED: Magnesium Oxide 400 MG Tablet PO PRN (09:02)
[2017-12-07] MEDS ORDERED: Potassium Phosphate 500 MG Soluble Tablet PO PRN ×2 (09:02)
[2017-12-07] MEDS ORDERED: Potassium Chlor 40 mEq Premix 40 MEQ/100 ML PIGGYBACK IV.SIG PRN ×2 (09:02)
[2017-12-07] MEDS ORDERED: Sodium Phosphate Inj 30 MMOL in Sodium Chlor 0.9% Inj 250 ML IV.SIG PRN (09:02)
[2017-12-07] MEDS ORDERED: Magnesium Sulfate Inj 2 GM in Sodium Chlor 0.9% Inj 96 ML IV.SIG PRN (09:02)
[2017-12-07] MEDS ORDERED: Magnesium Sulfate Inj 4 GM in Sodium Chlor 0.9% Inj 92 ML IV.SIG PRN (09:02)
[2017-12-07] MEDS ORDERED: Potassium Chlor 20 mEq Premix 20 MEQ/100 ML PIGGYBACK IV.SIG PRN ×2 (09:02)
[2017-12-07] MEDS ORDERED: Potassium Chloride 25 MEQ Effervescent Tablet PO PRN (09:02)
--- NOTE | 2017-12-07 09:11 | P.PNCC ---
Subjective Subjective Remarks/Hospital Course: 22 year old HIV positive male noncompliant with outpatient medication presents with a history of increased fatigue since yesterday. He reports that he was sleeping more than usual. He reports that he also is having intermittent chills. His grandmother felt his head earlier today and told him that he had an elevated temperature. He did not check his temperature with a thermometer. The patient's past medical history is complicated by having HIV that is progressed to AIDS. The patient is not on any medication for his HIV currently according to the record because of a prior history of noncompliance. The patient was recently admitted to the hospital for a fever on November 20. Consultation with infectious disease was made. It appears that attempts were being made by case management for the patient to follow-up with the health department for continuation of his HIV care. He reports that he followed up with the [facility] this past week and is in the process of being referred to a specialist again, however he reports that there has been difficulty with getting this done. He denies having any nausea, vomiting, or diarrhea. He reports that his last bowel movement was yesterday. He denies having any blood in his stool or black or tarry stools. He reports that he has had an occasional cough that has been productive of yellow sputum. He denies having any new rashes, dysuria, hematuria, urinary urgency, or frequency. He denies having any penile discharge, scrotal pain, or scrotal swelling. He denies having any rectal discharge. The patient's CD4 count on admission on November 20 was 138, HIV load was noted to be 217,000. On review of systems otherwise, the patient denies having any headache, neck pain, chest pain, shortness of breath, abdominal pain, or neurologic symptoms. 12/07 Patient is awake and alert lying in bed in NAD. T:100.6 last night. Objective Vital Signs / I&O: Vital Signs 12/06/17 19:39 12/06/17 19:42 12/06/17 21:30 Temperature 100.6 F H Pulse Rate 129 H 104 H Respiratory Rate 16 20 Blood Pressure 82/47 L 89/49 L 74/38 L Pulse Oximetry 99 99 12/06/17 21:40 12/06/17 21:50 12/06/17 22:10 Temperature Pulse Rate 112 H 108 H 104 H Respiratory Rate 20 20 20 Blood Pressure 84/47 L 108/57 L 93/53 L Pulse Oximetry 99 99 99 12/06/17 22:25 12/06/17 22:40 12/06/17 22:50 Temperature Pulse Rate 106 H 106 H 98 H Respiratory Rate 20 20 20 Blood Pressure 97/47 L 92/50 L 92/53 L Pulse Oximetry 99 100 100 12/06/17 23:05 12/06/17 23:20 12/06/17 23:35 Temperature Pulse Rate 104 H 102 H 102 H Respiratory Rate 20 20 20 Blood Pressure 93/47 L 83/40 L 91/46 L Pulse Oximetry 100 100 99 12/07/17 00:22 12/07/17 01:00 12/07/17 02:00 Temperature 98.1 F Pulse Rate 84 101 H 81 Respiratory Rate 20 21 Blood Pressure 100/56 L 103/53 L Pulse Oximetry 100 100 12/07/17 04:00 12/07/17 06:00 Temperature 98.7 F Pulse Rate 97 H 94 H Respiratory Rate 22 Blood Pressure 104/58 L Pulse Oximetry 100 Intake & Output 12/06/17 12/07/17 12/07/17 18:59 06:59 18:59 Intake Total 350 / 350 Output Total 900 / 900 Balance -550 / -550 Weight 63 kg Intake: IV 350 / 350 Vancomycin Inj 1,000 MG In NS 250 / 250 Inj 250 ML @ 200 mls/hr IV.SIG ONCE ONE Rx#:[id number] Flagyl 500 MG Inj 100 ML @ 100 100 / 100 mls/hr IV.SIG Q8H FILEMON Rx#: [id number] Oral 0 / 0 Output: Urine 900 / 900 Other: # Bowel Movements 0 Weight On Admission 62.3 kg Result Diagrams: 12/06/17 20:20 12/06/17 20:20 Other Results: Laboratory Results - last 12 hr 12/06/17 12/06/17 12/06/17 20:20 20:20 20:20 WBC 7.4 RBC 3.77 L Hgb 9.5 L Hct 29.0 L MCV 76.9 L MCH 25.2 L MCHC 32.7 RDW 14.1 Plt Count 201 D MPV 9.2 Prelim Diff (Auto) Manual diff required WBC Differential Manual diff final Seg Neuts % (Manual) 68 Band Neuts % (Manual) 18 H Lymphocytes % (Manual) 8 L Monocytes % (Manual) 4 Eosinophils % (Manual) 2 Abs Neuts (Manual) 6.4 Differential Comment . Platelet Estimate Normal Platelet Morphology Enlarged H Ovalocytes 1+ H PT 11.1 INR 1.1 APTT 29.3 Sodium Potassium Chloride Carbon Dioxide Anion Gap BUN Creatinine Estimated GFR Random Glucose Lactic Acid Calcium Magnesium 1.2 L Total Bilirubin AST ALT Alkaline Phosphatase Total Protein Albumin Lipase 123 Urine Color Urine Clarity Urine pH Ur Specific [place] Urine Protein Urine Glucose (UA) Urine Ketones Urine Occult Blood Urine Nitrate Urine Bilirubin Urine Urobilinogen Ur Leukocyte Esterase Urine RBC Urine WBC Hyaline Casts Urine Mucus Micro UA Comment Ur Microscopic Review Urine Culture Comments Nasal Screen MRSA (PCR) 12/06/17 12/06/17 12/06/17 20:20 20:25 20:50 WBC RBC Hgb Hct MCV MCH MCHC RDW Plt Count MPV Prelim Diff (Auto) WBC Differential Seg Neuts % (Manual) Band Neuts % (Manual) Lymphocytes % (Manual) Monocytes % (Manual) Eosinophils % (Manual) Abs Neuts (Manual) Differential Comment Platelet Estimate Platelet Morphology Ovalocytes PT INR APTT Sodium 136 Potassium 4.3 Chloride 103 Carbon Dioxide 24.7 Anion Gap 8 BUN 9 Creatinine 1.03 Estimated GFR Greater than 89 Random Glucose 80 Lactic Acid 0.9 Calcium 8.5 Magnesium Total Bilirubin 0.3 AST 46 H ALT 60 Alkaline Phosphatase 225 H Total Protein 8.0 Albumin 3.4 Lipase Urine Color Yellow Urine Clarity Clear Urine pH 5.0 Ur Specific [place] 1.013 Urine Protein 30 H Urine Glucose (UA) Negative Urine Ketones Negative Urine Occult Blood Small H Urine Nitrate Negative Urine Bilirubin Negative Urine Urobilinogen Less than 2 Ur Leukocyte Esterase Negative Urine RBC 1 Urine WBC 1 Hyaline Casts 4 Urine Mucus Few H Micro UA Comment Culture not ind Ur Microscopic Review Not Reportable Urine Culture Comments Culture not ind Nasal Screen MRSA (PCR) 12/07/17 00:50 WBC RBC Hgb Hct MCV MCH MCHC RDW Plt Count MPV Prelim Diff (Auto) WBC Differential Seg Neuts % (Manual) Band Neuts % (Manual) Lymphocytes % (Manual) Monocytes % (Manual) Eosinophils % (Manual) Abs Neuts (Manual) Differential Comment Platelet Estimate Platelet Morphology Ovalocytes PT INR APTT Sodium Potassium Chloride Carbon Dioxide Anion Gap BUN Creatinine Estimated GFR Random Glucose Lactic Acid Calcium Magnesium Total Bilirubin AST ALT Alkaline Phosphatase Total Protein Albumin Lipase Urine Color Urine Clarity Urine pH Ur Specific [place] Urine Protein Urine Glucose (UA) Urine Ketones Urine Occult Blood Urine Nitrate Urine Bilirubin Urine Urobilinogen Ur Leukocyte Esterase Urine RBC Urine WBC Hyaline Casts Urine Mucus Micro UA Comment Ur Microscopic Review Urine Culture Comments Nasal Screen MRSA (PCR) Not detected Imaging: Chest X-Ray 12/06/17 20:00 CONCLUSION: Negative examination. Objective Remarks: GENERAL: Patient is lying in bed in NAD SKIN: Warm and dry. HEAD: Normocephalic. EYES: No scleral icterus. No injection or drainage. NECK: Supple, trachea midline. No JVD or lymphadenopathy. CARDIOVASCULAR: Regular rate and rhythm without murmurs, gallops, or rubs. RESPIRATORY: Breath sounds equal bilaterally. No accessory muscle use. GASTROINTESTINAL: Abdomen soft, non-tender, nondistended. MUSCULOSKELETAL: No cyanosis, or edema. Neuro: Awake and alert Assessment and Plan - Assessment and Plan Plan: 1)Sepsis 2)HIV/AIDS 3)Anemia 4)Seizure disorder 5)Elevated AST Plan Neuro: Awake and alert On Keppra 500mg BID Pulm: Oxygen PRN kep sats >92% CV: Monitor HR and BP keep MAP>65mmHg Lactic acid: 0.9 : Monitor renal function, electrolytes replacement per protocol. Continue IVF GI: On PO diet ID: Continue abx ( On Vanco, Aztreonam, Flagyl, Bactrim) ID consulted. Follow up on cultures CD4 count on admission on November 20 was 138, HIV load was noted to be 217, 000 Heme: Monitor CBC Endo: SSI if needed DVT GI prophylaxis -Teds SCDs -Subcu heparin -Pepcid Level 2
[2017-12-07] MEDS: Vancomycin Inj 1,250 MG in Sodium Chlor 0.9% Inj 250 ML IV.SIG SCH ×2 (09:55→21:37)
[2017-12-07] MEDS ORDERED: Vancomycin Inj 1,000 MG in Sodium Chlor 0.9% Inj 250 ML IV.SIG ONE (10:00)
[2017-12-07 11:22] LABS: Baso % (Auto) 0.1 % (0.0-2.0); Eos # (Auto) 0.1 th/mm3 (0.0-0.4); Eos % (Auto) 2.4 % (0.0-4.0); Hematocrit 25.6 % (39.0-51.0); Hemoglobin 8.3 gm/dL (13.0-17.0); Lymph # (Auto) 1.2 th/mm3 (1.0-4.8); Lymph % (Auto) 24.2 % (9.0-44.0); Mean Corpuscular HGB Conc 32.3 % (32.0-36.0); Mean Corpuscular Hemoglobin 25.3 pg (27.0-34.0); Mean Corpuscular Volume 78.3 fL (80.0-100.0); Mono # (Auto) 0.2 th/mm3 (0.0-0.9); Neut # (Auto) 3.5 th/mm3 (1.8-7.7); Neut % (Auto) 69.3 % (16.0-70.0); Platelet Count 178 th/mm3 (150-450); Red Blood Count 3.28 mil/mm3 (4.50-5.90); Red Cell Distribution Width 14.5 % (11.6-17.2)
[2017-12-07 11:49] LABS: Alanine Aminotransferase 50 U/L (12-78); Albumin 2.7 g/dL (3.4-5.0); Anion Gap 8 meq/L (5-15); Blood Urea Nitrogen 10 mg/dL (7-18); Calcium 7.3 mg/dL (8.5-10.1); Carbon Dioxide 21.7 meq/L (21.0-32.0); Chloride 111 meq/L (98-107); Glomerular Filtration Rate Greater Than 89 mL/min (>89); Glucose,Random 78 mg/dL (74-106); Magnesium 1.1 mg/dL (1.5-2.5); Phosphorus 1.7 mg/dL (2.5-4.9); Potassium 3.8 meq/L (3.5-5.1); Sodium 141 meq/L (136-145)
[2017-12-07 12:14] LABS: Alkaline Phosphatase 203 U/L (45-117); Aspartate Aminotransferase 42 U/L (15-37); Total Protein 6.3 g/dL (6.4-8.2)
--- NOTE | 2017-12-07 19:37 | P.CONID ---
History of Present Illness Service: ID Consult date: 12/07/17 Requesting Physician: Bon Ragland Reason for Consult: fever in HIV + pt Primary Care Provider: No Primary Care Physician Family Provider: No Primary Care Physician History of Present Illness: 22 yo male diagnosed with HIV about 1 year ago also has been diagnosed and treated for syphilis Neurosyphilis was not confirmed with CSF abx studies, but had increased lymphocytioc pleocytosis presentes with fever, reports seizures x 2 mos. Negative MRI 2 weeks ago + reports visaul issues (periodic blurring) non compliant - reports insurance issues last CD4 138, VL 270 K T max 100 F on this admission, no fever today CXR negative reports mild cough Review of Systems All other systems reviewed negative except as stated in HPI Eyes: Reports blurry vision Respiratory: Reports cough Neurologic: Reports seizure-like activity PMFSH - History History Provided By: Patient - Medical History Medical History: Medical History (Last Reviewed 12/07/17 @ 19:41 by Nataliia Cortez MD) AIDS (acquired immunodeficiency syndrome), CD4 <=200 Cardiomyopathy HIV (human immunodeficiency virus infection) Noncompliance with medication regimen Seizure disorder Syphilis TIA (transient ischemic attack) - Surgical History Surgical History: Surgical History (Last Reviewed 12/07/17 @ 19:41 by Nataliia Cortez MD) No history of previous surgery - Family History Family History: Family History (Last Reviewed 12/07/17 @ 19:41 by Nataliia Cortez MD) Other Family history of diabetes mellitus - Tobacco History Second Hand Smoke Exposure: No Smoking Status: Former smoker Tobacco Type: Cigarettes - Alcohol History How Often Do You Have a Drink Containing Alcohol: Never - Substance Use History Substance History: No History of Abuse - Travel History History of Recent Travel: No Recent Travel in the [place] Within the Last 8 Weeks: No Recent Travel Out of the Country Within the Last 8 Weeks: No - Immunization History Tetanus Immunization: <5 Years Hx Influenza Vaccine This Season: No Medications and Allergies Active Medications: Active Medications Acetaminophen (Tylenol) 650 mg PO Q6H PRN PRN Reason: PAIN 1-5 AND/OR FEVER >101F Al Hydroxide/Mg Hydroxide (Milk Of Magnesia Liq) 30 ml PO Q12H PRN PRN Reason: Mild Constipation Albuterol (Duoneb Neb (Prn)) 1 ampul NEB Q2HR NEB PRN PRN Reason: WHEEZING Bisacodyl (Dulcolax Supp) 10 mg RECTAL DAILY PRN PRN Reason: SEVERE CONSITIPATION Chlorhexidine Gluconate (Chlorhexidine 2% Cloth) 3 pack TOPICAL DAILY@0400 [facility] Stop: 12/12/17 03:59 Last Admin: 12/07/17 04:00 Dose: 3 pack Chlorhexidine Gluconate (Chlorhexidine 2% Cloth) 3 pack TOPICAL DAILY@0400 PRN PRN Reason: Extra cloth needed Stop: 12/12/17 03:59 Famotidine (Pepcid Pf Inj) 20 mg IV.PUSH Q12HR [facility] Last Admin: 12/07/17 08:05 Dose: 20 mg Heparin Sodium (Porcine) (Heparin Inj) 5,000 units SQ Q8H [facility] Last Admin: 12/07/17 15:43 Dose: Not Given Hydromorphone HCl (Dilaudid Pf Inj) 1 mg IV.PUSH Q4H PRN PRN Reason: PAIN SCALE 6 TO 10 Metronidazole/Sodium Chloride (Flagyl 500 Mg Inj) 100 mls @ 100 mls/hr IV.SIG Q8H [facility] Last Infusion: 12/07/17 14:00 Dose: Infused Sodium Chloride (Ns Inj) 1,000 mls @ 184 mls/hr IV.CONT .Q5H27M [facility] Last Admin: 12/07/17 15:44 Dose: Not Given Aztreonam 2 gm/ Sodium (Chloride) 100 mls @ 200 mls/hr IV.SIG Q8H [facility] Last Infusion: 12/07/17 18:24 Dose: Infused Magnesium Sulfate Inj 4 gm/ (Sodium Chloride) 100 mls @ 50 mls/hr IV.SIG UNSCH PRN PRN Reason: For Magnesium 0.9 - 1.1 mg/dL Magnesium Sulfate Inj 2 gm/ (Sodium Chloride) 100 mls @ 50 mls/hr IV.SIG UNSCH PRN PRN Reason: For Magnesium 1.2 - 1.6 mg/dL Potassium Chloride (Kcl 20 Meq Premix Inj) 20 meq in 100 mls @ 50 mls/hr IV.SIG Q2H PRN PRN Reason: For Potassium 3.3 - 3.5 mEq/L Potassium Chloride (Kcl 40 Meq Premix Inj) 40 meq in 100 mls @ 25 mls/hr IV.SIG UNSCH PRN PRN Reason: For Potassium 3.3 - 3.5 mEq/L Potassium Chloride (Kcl 20 Meq Premix Inj) 20 meq in 100 mls @ 50 mls/hr IV.SIG Q2H PRN PRN Reason: For Potassium 2.8 - 3.2 mEq/L Potassium Phosphate 30 mmol/ (Sodium Chloride) 260 mls @ 42 mls/hr IV.SIG UNSCH PRN PRN Reason: SEE LABEL COMMENTS Sodium Phosphate 30 mmol/ (Sodium Chloride) 260 mls @ 42 mls/hr IV.SIG UNSCH PRN PRN Reason: For Phosphorus < 2.5 mg/dL Potassium Chloride (Kcl 40 Meq Premix Inj) 40 meq in 100 mls @ 50 mls/hr IV.SIG Q2H PRN PRN Reason: For Potassium 2.8 - 3.2 mEq/L Vancomycin HCl 1,250 mg/ (Sodium Chloride) 262.5 mls @ 250 mls/hr IV.SIG Q12H [facility] Last Infusion: 12/07/17 11:00 Dose: Infused Lactulose (Lactulose Liq) 30 ml PO DAILY PRN PRN Reason: SEVERE CONSITIPATION Levetiracetam (Keppra) 500 mg PO BID [facility] Last Admin: 12/07/17 08:05 Dose: 500 mg Magnesium Oxide (Mag-Ox) 800 mg PO UNSCH PRN PRN Reason: For Magnesium 1.2 - 1.6 mg/dL Miscellaneous Information ([facility] [place] Info) 0 each OTHER ONCE ONE Stop: 12/08/17 09:46 Ondansetron HCl (Zofran Inj) 4 mg IV.PUSH Q6H PRN PRN Reason: NAUSEA OR VOMITING Pharmacy Profile Note (Vancomycin Consult Pharmacy) 1 each OTHER UNSCH PRN PRN Reason: PHARMACY CONSULT Potassium Bicarb/Potassium Chloride (K-Lyte Cl Eff) 50 meq PO UNSCH PRN PRN Reason: For Potassium 3.3 - 3.5 mEq/L Potassium Phosphate (K-Phos Original) 2,000 mg PO Q4H PRN PRN Reason: Phosphorus Less Than 2.5 mg/dL Potassium Phosphate (K-Phos Original) 2,000 mg PO UNSCH PRN PRN Reason: SEE LABEL COMMENTS Senna/Docusate Sodium (Dorothy-Colace) 1 tab PO BID [facility] Last Admin: 12/07/17 08:06 Dose: Not Given Sennosides (Senokot) 17.2 mg PO Q12H PRN PRN Reason: Moderate Constipation Sodium Chloride (Ns Flush) 2 ml IV.FLUSH BID [facility] Last Admin: 12/07/17 08:05 Dose: 2 ml Sodium Chloride (Ns Flush) 2 ml IV.FLUSH PRN PRN PRN Reason: FLUSH AFTER USING IV ACCESS Temazepam (Restoril) 15 mg PO HS PRN PRN Reason: INSOMNIA Trimethoprim/Sulfamethoxazole (Bactrim Ds) 1 tab PO MOWEFR [facility] Allergies Allergy/AdvReac Type Severity Reaction Status Date / Time penicillin G Allergy Severe RASH Verified 11/20/17 14:29 Exam Vital signs: Vital Signs 12/06/17 19:39 12/06/17 19:42 12/06/17 21:30 Temperature 100.6 F H Pulse Rate 129 H 104 H Respiratory Rate 16 20 Blood Pressure 82/47 L 89/49 L 74/38 L Pulse Oximetry 99 99 12/06/17 21:40 12/06/17 21:50 12/06/17 22:10 Temperature Pulse Rate 112 H 108 H 104 H Respiratory Rate 20 20 20 Blood Pressure 84/47 L 108/57 L 93/53 L Pulse Oximetry 99 99 99 12/06/17 22:25 12/06/17 22:40 12/06/17 22:50 Temperature Pulse Rate 106 H 106 H 98 H Respiratory Rate 20 20 20 Blood Pressure 97/47 L 92/50 L 92/53 L Pulse Oximetry 99 100 100 12/06/17 23:05 12/06/17 23:20 12/06/17 23:35 Temperature Pulse Rate 104 H 102 H 102 H Respiratory Rate 20 20 20 Blood Pressure 93/47 L 83/40 L 91/46 L Pulse Oximetry 100 100 99 12/07/17 00:22 12/07/17 01:00 12/07/17 02:00 Temperature 98.1 F Pulse Rate 84 101 H 81 Respiratory Rate 20 21 Blood Pressure 100/56 L 103/53 L Pulse Oximetry 100 100 12/07/17 04:00 12/07/17 06:00 12/07/17 08:00 Temperature 98.7 F 98.8 F Pulse Rate 97 H 94 H 112 H Respiratory Rate 22 20 Blood Pressure 104/58 L 107/66 Pulse Oximetry 100 99 12/07/17 10:00 12/07/17 12:00 12/07/17 14:00 Temperature 98.4 F Pulse Rate 112 H 112 H 101 H Respiratory Rate 27 H Blood Pressure 87/43 L Pulse Oximetry 100 12/07/17 16:00 12/07/17 18:00 Temperature 98.9 F Pulse Rate 98 H 97 H Respiratory Rate 18 Blood Pressure 119/57 L Pulse Oximetry 100 Intake & Output 12/07/17 12/07/17 12/08/17 06:59 18:59 06:59 Intake Total 350 / 350 3312.5 / 3312.5 Output Total 900 / 900 950 / 950 Balance -550 / -550 2362.5 / 2362.5 Weight 63 kg Intake: IV 350 / 350 2562.5 / 2562.5 NS Inj 1,000 ML @ 184 mls/hr IV 1999 / 1999 .CONT .Q5H27M [facility] Rx#:[id number] Azactam Inj 2 GM In NS Inj 100 200 / 200 ML @ 200 mls/hr IV.SIG Q8H [facility] Rx#:[id number] Vancomycin Inj 1,000 MG In NS 250 / 250 Inj 250 ML @ 200 mls/hr IV.SIG ONCE ONE Rx#:[id number] Vancomycin Inj 1,250 MG In NS 262.5 / 262.5 Inj 250 ML @ 250 mls/hr IV.SIG Q12H [facility] Rx#:[id number] Flagyl 500 MG Inj 100 ML @ 100 100 / 100 100 / 100 mls/hr IV.SIG Q8H [facility] Rx#: [id number] Oral 0 / 0 750 / 750 Output: Urine 900 / 900 950 / 950 Other: # Bowel Movements 0 0 Weight On Admission 62.3 kg - Constitutional no acute distress, average body habitus - Routine HEENT Exam Head: Present: normocephalic, atraumatic Eye: Present: EOMI, PERRL ENT: Present: mucous membranes moist, dentition normal Comments: oral thrush, mild - Routine Neck Exam Present: supple, full ROM - Routine Respiratory Exam Present: CTA bilaterally Comments: good effort - Routine Cardiovascular Exam Present: RRR, S1, S2 Comments: no murmurs, rubs, gallops - Routine Abdominal Exam Present: soft, normoactive bowel sounds Comments: no hepatosplenomegaly, masses - Routine Extremities Exam Comments: no cyanosis, clubbing , edema - Routine Skin Exam Present: intact, dry, warm - Routine Neurological Exam Present: alert, oriented X3, vision grossly intact, hearing grossly intact, normal speech - Routine Psychiatric Exam Present: normal affect, cooperative Results - Labs CBC & Chem 7: 12/12/17 03:23 12/12/17 03:23 Labs: Laboratory Results - last 24 hr 12/06/17 12/06/17 12/06/17 20:20 20:20 20:20 WBC 7.4 RBC 3.77 L Hgb 9.5 L Hct 29.0 L MCV 76.9 L MCH 25.2 L MCHC 32.7 RDW 14.1 Plt Count 201 D MPV 9.2 Prelim Diff (Auto) Manual diff required Neut % (Auto) Lymph % (Auto) [place] % (Auto) Eos % (Auto) Baso % (Auto) Neut # (Auto) Lymph # (Auto) [place] # (Auto) Eos # (Auto) Baso # (Auto) WBC Differential Manual diff final Seg Neuts % (Manual) 68 Band Neuts % (Manual) 18 H Lymphocytes % (Manual) 8 L Monocytes % (Manual) 4 Eosinophils % (Manual) 2 Abs Neuts (Manual) 6.4 Differential Comment . Platelet Estimate Normal Platelet Morphology Enlarged H Ovalocytes 1+ H PT 11.1 INR 1.1 APTT 29.3 Sodium Potassium Chloride Carbon Dioxide Anion Gap BUN Creatinine Estimated GFR Random Glucose Lactic Acid Calcium Prot Corrected Calcium Phosphorus Magnesium 1.2 L Total Bilirubin AST ALT Alkaline Phosphatase Total Protein Albumin Lipase 123 Urine Color Urine Clarity Urine pH Ur Specific [place] Urine Protein Urine Glucose (UA) Urine Ketones Urine Occult Blood Urine Nitrate Urine Bilirubin Urine Urobilinogen Ur Leukocyte Esterase Urine RBC Urine WBC Hyaline Casts Urine Mucus Micro UA Comment Ur Microscopic Review Urine Culture Comments Nasal Screen MRSA (PCR) 12/06/17 12/06/17 12/06/17 20:20 20:25 20:50 WBC RBC Hgb Hct MCV MCH MCHC RDW Plt Count MPV Prelim Diff (Auto) Neut % (Auto) Lymph % (Auto) [place] % (Auto) Eos % (Auto) Baso % (Auto) Neut # (Auto) Lymph # (Auto) [place] # (Auto) Eos # (Auto) Baso # (Auto) WBC Differential Seg Neuts % (Manual) Band Neuts % (Manual) Lymphocytes % (Manual) Monocytes % (Manual) Eosinophils % (Manual) Abs Neuts (Manual) Differential Comment Platelet Estimate Platelet Morphology Ovalocytes PT INR APTT Sodium 136 Potassium 4.3 Chloride 103 Carbon Dioxide 24.7 Anion Gap 8 BUN 9 Creatinine 1.03 Estimated GFR Greater than 89 Random Glucose 80 Lactic Acid 0.9 Calcium 8.5 Prot Corrected Calcium Phosphorus Magnesium Total Bilirubin 0.3 AST 46 H ALT 60 Alkaline Phosphatase 225 H Total Protein 8.0 Albumin 3.4 Lipase Urine Color Yellow Urine Clarity Clear Urine pH 5.0 Ur Specific [place] 1.013 Urine Protein 30 H Urine Glucose (UA) Negative Urine Ketones Negative Urine Occult Blood Small H Urine Nitrate Negative Urine Bilirubin Negative Urine Urobilinogen Less than 2 Ur Leukocyte Esterase Negative Urine RBC 1 Urine WBC 1 Hyaline Casts 4 Urine Mucus Few H Micro UA Comment Culture not ind Ur Microscopic Review Not Reportable Urine Culture Comments Culture not ind Nasal Screen MRSA (PCR) 12/07/17 12/07/17 12/07/17 00:50 10:48 10:48 WBC 5.0 RBC 3.28 L Hgb 8.3 L Hct 25.6 L MCV 78.3 L MCH 25.3 L MCHC 32.3 RDW 14.5 Plt Count 178 MPV 9.0 Prelim Diff (Auto) Neut % (Auto) 69.3 Lymph % (Auto) 24.2 [place] % (Auto) 4.0 Eos % (Auto) 2.4 Baso % (Auto) 0.1 Neut # (Auto) 3.5 Lymph # (Auto) 1.2 [place] # (Auto) 0.2 Eos # (Auto) 0.1 Baso # (Auto) 0.0 WBC Differential . Seg Neuts % (Manual) Band Neuts % (Manual) Lymphocytes % (Manual) Monocytes % (Manual) Eosinophils % (Manual) Abs Neuts (Manual) Differential Comment Auto diff final Platelet Estimate Platelet Morphology Ovalocytes PT INR APTT Sodium 141 Potassium 3.8 Chloride 111 H D Carbon Dioxide 21.7 Anion Gap 8 BUN 10 Creatinine 1.04 Estimated GFR Greater than 89 Random Glucose 78 Lactic Acid Calcium 7.3 L* D Prot Corrected Calcium 7.7 L Phosphorus 1.7 L Magnesium 1.1 L Total Bilirubin 0.3 AST 42 H ALT 50 Alkaline Phosphatase 203 H Total Protein 6.3 L D Albumin 2.7 L D Lipase Urine Color Urine Clarity Urine pH Ur Specific [place] Urine Protein Urine Glucose (UA) Urine Ketones Urine Occult Blood Urine Nitrate Urine Bilirubin Urine Urobilinogen Ur Leukocyte Esterase Urine RBC Urine WBC Hyaline Casts Urine Mucus Micro UA Comment Ur Microscopic Review Urine Culture Comments Nasal Screen MRSA (PCR) Not detected - Imaging Impressions Chest X-Ray 12/06/17 20:00 CONCLUSION: Negative examination. Assessment and Plan - Plan HIV, AIDS H/o syphilis sp treatment with PCN after desentisation protocol Neurosyphilis and ocular syphilis were ruled out last year Admitted with Fever, Seizure and new visual changes oral thrush ophalmologist consult for visual changes in AIDS pt Fluconazol for oral thrush RPR titers fu P clx case mngr consult ; pt needs to be f/u with health dprtmnt
[2017-12-08 04:09] LABS: Baso % (Auto) 0.2 % (0.0-2.0); Eos # (Auto) 0.2 th/mm3 (0.0-0.4); Eos % (Auto) 5.9 % (0.0-4.0); Hematocrit 24.9 % (39.0-51.0); Hemoglobin 8.3 gm/dL (13.0-17.0); Lymph # (Auto) 1.7 th/mm3 (1.0-4.8); Lymph % (Auto) 42.4 % (9.0-44.0); Mean Corpuscular HGB Conc 33.4 % (32.0-36.0); Mean Corpuscular Hemoglobin 25.7 pg (27.0-34.0); Mean Corpuscular Volume 76.9 fL (80.0-100.0); Mean Platelet Volume 8.9 fL (7.0-11.0); Mono # (Auto) 0.3 th/mm3 (0.0-0.9); Mono % (Auto) 8.4 % (0.0-8.0); Neut # (Auto) 1.8 th/mm3 (1.8-7.7); Neut % (Auto) 43.1 % (16.0-70.0); Platelet Count 164 th/mm3 (150-450); Red Blood Count 3.23 mil/mm3 (4.50-5.90); Red Cell Distribution Width 14.5 % (11.6-17.2); White Blood Count 4.1 th/mm3 (4.0-11.0)
[2017-12-08 04:25] LABS: Activated Partial Thrombo Time 33.1 sec (24.3-30.1); INR 1.3 Ratio
[2017-12-08 04:28] LABS: Anion Gap 11 meq/L (5-15); Blood Urea Nitrogen 11 mg/dL (7-18); Carbon Dioxide 19.8 meq/L (21.0-32.0); Chloride 109 meq/L (98-107); Glomerular Filtration Rate Greater Than 89 mL/min (>89); Glucose,Random 85 mg/dL (74-106); Sodium 140 meq/L (136-145)
--- NOTE | 2017-12-08 04:35 | XR ---
EXAM DATE: 12/08/2017 4:28 AM EDT AGE/SEX: 22 years / Male INDICATIONS: Shortness of breath, possible pulmonary disease. CLINICAL DATA: This is the patient's subsequent encounter. Patient reports that signs and symptoms h ave been present for 4 - 6 days and indicates a pain score of Nonresponsive. MEDICAL/SURGICAL HISTORY: None. None. COMPARISON: [facility] [place], CHEST 1V SINGLE AP, 12/06/2017. . FINDINGS: A single AP view of the chest demonstrates the lungs to be symmetrically aerated without evidence of mass, infiltrate or effusion. The cardiomediastinal contours are unremarkable. Osseous structures a re intact. CONCLUSION: Lungs are now essentially clear. Electronically signed by: Brendon Luciano MD 12/08/2017 4:34 AM EDT
[2017-12-08] MEDS: Chlorhexidine Gluconate 2% 1 Pack (2 Cloths) TOPICAL SCH (04:54)
[2017-12-08] MEDS: Sod Chloride 0.9% Inj 1,000 ML IV.CONT SCH ×3 (06:05→21:07)
[2017-12-08] MEDS: Senna/Docusate Sodium 8.6/50 MG Tablet PO SCH ×2 (08:37→21:07)
[2017-12-08] MEDS: levETIRAcetam 500 MG Tablet PO SCH ×2 (08:37→21:07)
[2017-12-08] MEDS: Heparin - SQ 10,000 UNITS/ML Vial SQ SCH ×3 (08:38→18:03)
[2017-12-08] MEDS: Famotidine PF Inj 20 MG/2 ML Vial IV.PUSH SCH ×2 (08:39→21:07)
[2017-12-08] MEDS: Aztreonam Inj 2 GM in Sodium Chloride 0.9% Inj 100 ML IV.SIG SCH ×3 (08:39)
[2017-12-08] MEDS ORDERED: Pharmacy Ordered Lab Info OTHER ONE (09:45)
--- NOTE | 2017-12-08 10:52 | P.PNCC ---
Subjective Subjective Remarks/Hospital Course: 22 year old HIV positive male noncompliant with outpatient medication presents with a history of increased fatigue since yesterday. He reports that he was sleeping more than usual. He reports that he also is having intermittent chills. His grandmother felt his head earlier today and told him that he had an elevated temperature. He did not check his temperature with a thermometer. The patient's past medical history is complicated by having HIV that is progressed to AIDS. The patient is not on any medication for his HIV currently according to the record because of a prior history of noncompliance. The patient was recently admitted to the hospital for a fever on November 20. Consultation with infectious disease was made. It appears that attempts were being made by case management for the patient to follow-up with the health department for continuation of his HIV care. He reports that he [facility] and is in the process of being referred to a specialist again, however he reports that there has been difficulty with getting this done. He denies having any nausea, vomiting, or diarrhea. He reports that his last bowel movement was yesterday. He denies having any blood in his stool or black or tarry stools. He reports that he has had an occasional cough that has been productive of yellow sputum. He denies having any new rashes, dysuria, hematuria, urinary urgency, or frequency. He denies having any penile discharge, scrotal pain, or scrotal swelling. He denies having any rectal discharge. The patient's CD4 count on admission on November 20 was 138, HIV load was noted to be 217,000. On review of systems otherwise, the patient denies having any headache, neck pain, chest pain, shortness of breath, abdominal pain, or neurologic symptoms. 12/07 Patient is awake and alert lying in bed in NAD. T:100.6 last night. 12/08: Resting comfortably in bed. Not in any acute distress. Maintaining blood pressure. Objective Vital Signs / I&O: Vital Signs 12/07/17 12:00 12/07/17 14:00 12/07/17 16:00 Temperature 98.4 F 98.9 F Pulse Rate 112 H 101 H 98 H Respiratory Rate 27 H 18 Blood Pressure 87/43 L 119/57 L Pulse Oximetry 100 100 12/07/17 18:00 12/08/17 00:00 12/08/17 04:00 Temperature Pulse Rate 97 H Respiratory Rate 12 24 Blood Pressure Pulse Oximetry 12/08/17 08:00 12/08/17 08:30 12/08/17 09:00 Temperature 99.5 F Pulse Rate 89 90 90 Respiratory Rate 23 14 Blood Pressure 107/55 L 108/63 Pulse Oximetry 98 100 12/08/17 09:30 12/08/17 10:00 12/08/17 10:30 Temperature Pulse Rate 86 86 97 H Respiratory Rate 16 Blood Pressure 106/58 L Pulse Oximetry 99 Intake & Output 12/07/17 12/08/17 12/08/17 18:59 06:59 18:59 Intake Total 3312.5 / 3312.5 2422.5 / 2422.5 Output Total 950 / 950 1575 / 1575 Balance 2362.5 / 2362.5 847.5 / 847.5 Weight 63 kg Intake: IV 2562.5 / 2562.5 1462.5 / 1462.5 NS Inj 1,000 ML @ 184 mls/hr IV 1999 / 1999 1000 / 1000 .CONT .Q5H27M [facility] Rx#:[id number] Azactam Inj 2 GM In NS Inj 100 200 / 200 100 / 100 ML @ 200 mls/hr IV.SIG Q8H [facility] Rx#:[id number] Vancomycin Inj 1,250 MG In NS 262.5 / 262.5 262.5 / 262.5 Inj 250 ML @ 250 mls/hr IV.SIG Q12H [facility] Rx#:[id number] Flagyl 500 MG Inj 100 ML @ 100 100 / 100 100 / 100 mls/hr IV.SIG Q8H [facility] Rx#: [id number] Oral 750 / 750 960 / 960 Output: Urine 950 / 950 1575 / 1575 Other: # Bowel Movements 0 Result Diagrams: 12/08/17 03:51 12/08/17 03:51 Objective Remarks: GENERAL: Patient is lying in bed in NAD SKIN: Warm and dry. HEAD: Normocephalic. EYES: No scleral icterus. No injection or drainage. NECK: Supple, trachea midline. No JVD or lymphadenopathy. CARDIOVASCULAR: Regular rate and rhythm without murmurs, gallops, or rubs. RESPIRATORY: Breath sounds equal bilaterally. No accessory muscle use. GASTROINTESTINAL: Abdomen soft, non-tender, nondistended. MUSCULOSKELETAL: No cyanosis, or edema. Neuro: Awake and alert Assessment and Plan - Assessment and Plan Plan: 1)Sepsis 2)HIV/AIDS 3)Anemia 4)Seizure disorder 5)Elevated AST Plan Neuro: Awake and alert On Keppra 500mg BID Pulm: Oxygen PRN kep sats >92% CV: Monitor HR and BP keep MAP>65mmHg Lactic acid: 0.9 : Monitor renal function, electrolytes replacement per protocol. Continue IVF GI: On PO diet ID: Continue abx ( On Vanco, Aztreonam, Flagyl, Bactrim) ID consulted. Follow up on cultures CD4 count on admission on November 20 was 138, HIV load was noted to be 217, 000 Heme: Monitor CBC Endo: SSI if needed DVT GI prophylaxis -Teds SCDs -Subcu heparin -Pepcid Consult and transfer to hospitalist service for further medical management. Transfer out of ICU. Critical care will be signing off, please reconsult if needed.
[2017-12-08] MEDS: Vancomycin Inj 1,250 MG in Sodium Chlor 0.9% Inj 250 ML IV.SIG SCH ×2 (11:06→22:39)
--- NOTE | 2017-12-08 11:15 | P.PNID ---
Subjective Remarks: afebrile No new c/o stbale vss 1/4 blood clx with GPC Antibiotics: azactam vanco TS fluconazol Allergies/Adverse Reactions: Allergies penicillin G Allergy (Severe, Verified 11/20/17 14:29) RASH Objective Vital Signs 12/07/17 12:00 12/07/17 14:00 12/07/17 16:00 Temperature 98.4 F 98.9 F Pulse Rate 112 H 101 H 98 H Respiratory Rate 27 H 18 Blood Pressure 87/43 L 119/57 L Pulse Oximetry 100 100 12/07/17 18:00 12/08/17 00:00 12/08/17 04:00 Temperature Pulse Rate 97 H Respiratory Rate 12 24 Blood Pressure Pulse Oximetry 12/08/17 08:00 12/08/17 08:30 12/08/17 09:00 Temperature 99.5 F Pulse Rate 89 90 90 Respiratory Rate 23 14 Blood Pressure 107/55 L 108/63 Pulse Oximetry 98 100 12/08/17 09:30 12/08/17 10:00 12/08/17 10:30 Temperature Pulse Rate 86 86 97 H Respiratory Rate 16 Blood Pressure 106/58 L Pulse Oximetry 99 Intake & Output 12/07/17 12/08/17 12/08/17 18:59 06:59 18:59 Intake Total 3312.5 / 3312.5 2422.5 / 2422.5 Output Total 950 / 950 1575 / 1575 Balance 2362.5 / 2362.5 847.5 / 847.5 Weight 63 kg Intake: IV 2562.5 / 2562.5 1462.5 / 1462.5 NS Inj 1,000 ML @ 184 mls/hr IV 1999 / 1999 1000 / 1000 .CONT .Q5H27M [facility] Rx#:[id number] Azactam Inj 2 GM In NS Inj 100 200 / 200 100 / 100 ML @ 200 mls/hr IV.SIG Q8H [facility] Rx#:[id number] Vancomycin Inj 1,250 MG In NS 262.5 / 262.5 262.5 / 262.5 Inj 250 ML @ 250 mls/hr IV.SIG Q12H [facility] Rx#:[id number] Flagyl 500 MG Inj 100 ML @ 100 100 / 100 100 / 100 mls/hr IV.SIG Q8H [facility] Rx#: [id number] Oral 750 / 750 960 / 960 Output: Urine 950 / 950 1575 / 1575 Other: # Bowel Movements 0 12/06/17 20:25 Blood - Peripheral Aerobic Blood Culture - Preliminary No growth in 2 days 12/06/17 20:25 Blood - Peripheral Anaerobic Blood Culture - Preliminary gram positive cocci 12/06/17 20:30 Blood - Peripheral Aerobic Blood Culture - Preliminary No growth in 2 days 12/06/17 20:30 Blood - Peripheral Anaerobic Blood Culture - Preliminary No growth in 2 days Lab - Hematology Results 12/06/17 12/07/17 12/08/17 20:20 10:48 03:51 WBC 7.4 5.0 4.1 RBC 3.77 L 3.28 L 3.23 L Hgb 9.5 L 8.3 L 8.3 L Hct 29.0 L 25.6 L 24.9 L MCV 76.9 L 78.3 L 76.9 L MCH 25.2 L 25.3 L 25.7 L MCHC 32.7 32.3 33.4 RDW 14.1 14.5 14.5 Plt Count 201 D 178 164 MPV 9.2 9.0 8.9 Prelim Diff (Auto) Manual diff required Neut % (Auto) 69.3 43.1 Lymph % (Auto) 24.2 42.4 [place] % (Auto) 4.0 8.4 H Eos % (Auto) 2.4 5.9 H Baso % (Auto) 0.1 0.2 Neut # (Auto) 3.5 1.8 Lymph # (Auto) 1.2 1.7 [place] # (Auto) 0.2 0.3 Eos # (Auto) 0.1 0.2 Baso # (Auto) 0.0 0.0 WBC Differential Manual diff final . . Seg Neuts % (Manual) 68 Band Neuts % (Manual) 18 H Lymphocytes % (Manual) 8 L Monocytes % (Manual) 4 Eosinophils % (Manual) 2 Abs Neuts (Manual) 6.4 Differential Comment . Auto diff final Auto diff final Platelet Estimate Normal Platelet Morphology Enlarged H Ovalocytes 1+ H Lab - Chemistry Results 12/06/17 12/06/17 12/06/17 20:20 20:20 20:25 Sodium 136 Potassium 4.3 Chloride 103 Carbon Dioxide 24.7 Anion Gap 8 BUN 9 Creatinine 1.03 Estimated GFR Greater than 89 Random Glucose 80 Lactic Acid 0.9 Calcium 8.5 Prot Corrected Calcium Phosphorus Magnesium 1.2 L Total Bilirubin 0.3 AST 46 H ALT 60 Alkaline Phosphatase 225 H Total Protein 8.0 Albumin 3.4 Lipase 123 12/07/17 12/08/17 12/08/17 10:48 03:51 03:51 Sodium 141 140 Potassium 3.8 4.0 Chloride 111 H D 109 H Carbon Dioxide 21.7 19.8 L Anion Gap 8 11 BUN 10 11 Creatinine 1.04 1.11 Estimated GFR Greater than 89 Greater than 89 Random Glucose 78 85 Lactic Acid 1.2 Calcium 7.3 L* D 7.0 L* Prot Corrected Calcium 7.7 L 7.6 L Phosphorus 1.7 L Magnesium 1.1 L Total Bilirubin 0.3 AST 42 H ALT 50 Alkaline Phosphatase 203 H Total Protein 6.3 L D 6.0 L Albumin 2.7 L D Lipase Imaging: ITS Impressions Chest X-Ray 12/08/17 06:00 CONCLUSION: Lungs are now essentially clear. Physical Exam: GENERAL: NAD SKIN: Warm and dry. HEAD: Atraumatic. Normocephalic. EYES: Pupils equal and round. No scleral icterus. No injection or drainage. ENT: No nasal bleeding or discharge. Mucous membranes pink and moist. NECK: Trachea midline. No JVD. CARDIOVASCULAR: Regular rate and rhythm. RESPIRATORY: No accessory muscle use. Clear to auscultation. Breath sounds equal bilaterally. GASTROINTESTINAL: Abdomen soft, non-tender, nondistended. Hepatic and splenic margins not palpable. MUSCULOSKELETAL: Extremities without clubbing, cyanosis, or edema. No obvious deformities. NEUROLOGICAL: Awake and alert. No obvious cranial nerve deficits. Motor grossly within normal limits. Five out of 5 muscle strength in the arms and legs. Normal speech. PSYCHIATRIC: Appropriate mood and affect; insight and judgment normal. Assessment and Plan - Plan HIV, AIDS H/o syphilis sp treatment with PCN after desentisation protocol Neuroshpylislis and ocular syphilis were ruled out last year sp treatment of secondary syphilis in 04/27 with PCN after decensitisation Admitted with Fever, Seizure and new visual changes oral thrush GPC bacteremia ? clin significance ophalmologist consult for visual changes in AIDS pt Fluconazol for oral thrush RPR titers; if high will need LP fu P clx cont vanco dc azctam cont fluconazole for oral thrus x 1-2 weeks cont PCP profilaxis with TS case mngr consult ; pt needs to be f/u with health dprtmnt
[2017-12-09] MEDS: Heparin - SQ 10,000 UNITS/ML Vial SQ SCH ×3 (01:30→19:09)
[2017-12-09] MEDS: Sod Chloride 0.9% Inj 1,000 ML IV.CONT SCH ×2 (01:31→22:03)
[2017-12-09] MEDS: Chlorhexidine Gluconate 2% 1 Pack (2 Cloths) TOPICAL SCH (03:07)
[2017-12-09] MEDS: Famotidine PF Inj 20 MG/2 ML Vial IV.PUSH SCH ×2 (08:32→22:04)
[2017-12-09] MEDS: levETIRAcetam 500 MG Tablet PO SCH ×2 (08:32→22:05)
[2017-12-09] MEDS: Vancomycin Inj 1,250 MG in Sodium Chlor 0.9% Inj 250 ML IV.SIG SCH ×2 (10:27→22:05)
[2017-12-09] MEDS: Senna/Docusate Sodium 8.6/50 MG Tablet PO SCH ×2 (10:28→22:05)
--- NOTE | 2017-12-09 11:58 | P.CON ---
History of Present Illness Service: Ophthalmology Reason for Consult: intermittent blurry vision Primary Care Provider: No Primary Care Physician Family Provider: No Primary Care Physician History of Present Illness: 22 year old M with h/o AIDS (CD4 138, viral load 217,000) presents with a history of increased fatigue. The patient is not on any medication for his AIDS. He states he has intermittent blurry vision OU x 2 months. No significant ocular history. [facility] - History History Provided By: Patient - Medical History Medical History: Medical History (Last Reviewed 12/07/17 @ 19:41 by Nataliia Cortez MD) AIDS (acquired immunodeficiency syndrome), CD4 <=200 Cardiomyopathy HIV (human immunodeficiency virus infection) Noncompliance with medication regimen Seizure disorder Syphilis TIA (transient ischemic attack) - Surgical History Surgical History: Surgical History (Last Reviewed 12/07/17 @ 19:41 by Nataliia Cortez MD) No history of previous surgery - Family History Family History: Family History (Last Reviewed 12/07/17 @ 19:41 by Nataliia Cortez MD) Other Family history of diabetes mellitus - Tobacco History Second Hand Smoke Exposure: No Smoking Status: Former smoker Tobacco Type: Cigarettes - Alcohol History How Often Do You Have a Drink Containing Alcohol: Never - Substance Use History Substance History: No History of Abuse - Travel History History of Recent Travel: No Recent Travel in the [place] Within the Last 8 Weeks: No Recent Travel Out of the Country Within the Last 8 Weeks: No - Immunization History Tetanus Immunization: <5 Years Hx Influenza Vaccine This Season: No Medications and Allergies Active Medications: Active Medications Acetaminophen (Tylenol) 650 mg PO Q6H PRN PRN Reason: PAIN 1-5 AND/OR FEVER >101F Al Hydroxide/Mg Hydroxide (Milk Of Elicia Liandreina) 30 ml PO Q12H PRN PRN Reason: Mild Constipation Albuterol (Duoneb Neb (Prn)) 1 ampul NEB Q2HR NEB PRN PRN Reason: WHEEZING Bisacodyl (Dulcolax Supp) 10 mg RECTAL DAILY PRN PRN Reason: SEVERE CONSITIPATION Chlorhexidine Gluconate (Chlorhexidine 2% Cloth) 3 pack TOPICAL DAILY@0400 [facility] Stop: 12/12/17 03:59 Last Admin: 12/09/17 03:07 Dose: Not Given Chlorhexidine Gluconate (Chlorhexidine 2% Cloth) 3 pack TOPICAL DAILY@0400 PRN PRN Reason: Extra cloth needed Stop: 12/12/17 03:59 Famotidine (Pepcid Pf Inj) 20 mg IV.PUSH Q12HR [facility] Last Admin: 12/09/17 08:32 Dose: 20 mg Fluconazole (Diflucan) 200 mg PO DAILY [facility] Last Admin: 12/09/17 08:32 Dose: 200 mg Heparin Sodium (Porcine) (Heparin Inj) 5,000 units SQ Q8H [facility] Last Admin: 12/09/17 08:35 Dose: Not Given Hydromorphone HCl (Dilaudid Pf Inj) 1 mg IV.PUSH Q4H PRN PRN Reason: PAIN SCALE 6 TO 10 Sodium Chloride (Ns Inj) 1,000 mls @ 184 mls/hr IV.CONT .Q5H27M [facility] Last Infusion: 12/09/17 05:06 Dose: Infused Vancomycin HCl 1,250 mg/ (Sodium Chloride) 262.5 mls @ 250 mls/hr IV.SIG Q12H [facility] Last Admin: 12/09/17 10:27 Dose: 250 mls/hr Lactulose (Lactulose Liq) 30 ml PO DAILY PRN PRN Reason: SEVERE CONSITIPATION Levetiracetam (Keppra) 500 mg PO BID [facility] Last Admin: 12/09/17 08:32 Dose: 500 mg Metronidazole (Flagyl) 500 mg PO Q8HR [facility] Miscellaneous Information ([facility] Ordered Lab Info) 0 each OTHER ONCE ONE Stop: 12/10/17 09:46 Ondansetron HCl (Zofran Inj) 4 mg IV.PUSH Q6H PRN PRN Reason: NAUSEA OR VOMITING Pharmacy Profile Note (Vancomycin Consult Pharmacy) 1 each OTHER UNSCH PRN PRN Reason: PHARMACY CONSULT Senna/Docusate Sodium (Dorothy-Colace) 1 tab PO BID [facility] Last Admin: 12/09/17 10:28 Dose: Not Given Sennosides (Senokot) 17.2 mg PO Q12H PRN PRN Reason: Moderate Constipation Sodium Chloride (Ns Flush) 2 ml IV.FLUSH BID [facility] Last Admin: 12/09/17 08:35 Dose: 2 ml Sodium Chloride (Ns Flush) 2 ml IV.FLUSH PRN PRN PRN Reason: FLUSH AFTER USING IV ACCESS Temazepam (Restoril) 15 mg PO HS PRN PRN Reason: INSOMNIA Trimethoprim/Sulfamethoxazole (Bactrim Ds) 1 tab PO MOWEFR [facility] Last Admin: 12/07/17 22:58 Dose: 1 tab Allergies Allergy/AdvReac Type Severity Reaction Status Date / Time penicillin G Allergy Severe RASH Verified 11/20/17 14:29 Physical Exam Vital signs: Vital Signs 12/08/17 12:00 12/08/17 13:00 12/08/17 14:00 Temperature 98.8 F Pulse Rate 92 H 85 83 Respiratory Rate 11 L 17 21 Blood Pressure 103/55 L 111/71 115/61 Pulse Oximetry 100 100 100 12/08/17 16:00 12/08/17 20:00 12/09/17 00:00 Temperature 98.5 F 98.1 F 98 F Pulse Rate 85 75 72 Respiratory Rate 19 18 18 Blood Pressure 116/70 126/58 L 129/62 Pulse Oximetry 97 100 100 12/09/17 08:00 Temperature 99.0 F Pulse Rate 82 Respiratory Rate 17 Blood Pressure 110/51 L Pulse Oximetry 98 Intake & Output 12/08/17 12/09/17 12/09/17 18:59 06:59 18:59 Intake Total 1962.5 / 1962.5 1462.5 / 1462.5 100 / 100 Output Total 1000 / 1000 Balance 962.5 / 962.5 1462.5 / 1462.5 100 / 100 Weight 63 kg Intake: IV 1462.5 / 1462.5 1462.5 / 1462.5 100 / 100 NS Inj 1,000 ML @ 184 mls/hr IV 1000 / 1000 1000 / 1000 .CONT .Q5H27M [facility] Rx#:[id number] Vancomycin Inj 1,250 MG In NS 262.5 / 262.5 262.5 / 262.5 Inj 250 ML @ 250 mls/hr IV.SIG Q12H [facility] Rx#:[id number] Flagyl 500 MG Inj 100 ML @ 100 200 / 200 100 / 100 100 / 100 mls/hr IV.SIG Q8H [facility] Rx#: [id number] Oral 500 / 500 Output: Urine 1000 / 1000 Other: Post Void Residual 700 # Voids 3 - Detailed Eye Exam Comments: Va sc at near OD 20/20, OS 20/20 EOM full OU, no diplopia CVF full OU Pupils 2-1 no APD OU IOP normal to palpation OU Anterior exam OD - normal eyelid, C/S W&Q, K clear, AC deep, pupil round, lens clear OS - normal eyelid, C/S W&Q, K clear, AC deep, pupil round, lens clear Dilated exam unable due to pt being non-cooperative Assessment and Plan - Assessment (1) AIDS Code(s): B20 - Human immunodeficiency virus [HIV] disease Status: Acute Plan: Unable to do dilated eye exam - pt was uncooperative (would not keep eyes open because he was too light sensitive).
[2017-12-09] MEDS: metroNIDAZOLE 500 MG Tablet PO SCH ×2 (14:45→22:04)
--- NOTE | 2017-12-09 17:33 | P.PNCC ---
Subjective Subjective Remarks/Hospital Course: 22 year old HIV positive male noncompliant with outpatient medication presents with a history of increased fatigue since yesterday. He reports that he was sleeping more than usual. He reports that he also is having intermittent chills. His grandmother felt his head earlier today and told him that he had an elevated temperature. He did not check his temperature with a thermometer. The patient's past medical history is complicated by having HIV that is progressed to AIDS. The patient is not on any medication for his HIV currently according to the record because of a prior history of noncompliance. The patient was recently admitted to the hospital for a fever on November 20. Consultation with infectious disease was made. It appears that attempts were being made by case management for the patient to follow-up with the health department for continuation of his HIV care. He reports that he followed up with the [place] [facility] this past week and is in the process of being referred to a specialist again, however he reports that there has been difficulty with getting this done. He denies having any nausea, vomiting, or diarrhea. He reports that his last bowel movement was yesterday. He denies having any blood in his stool or black or tarry stools. He reports that he has had an occasional cough that has been productive of yellow sputum. He denies having any new rashes, dysuria, hematuria, urinary urgency, or frequency. He denies having any penile discharge, scrotal pain, or scrotal swelling. He denies having any rectal discharge. The patient's CD4 count on admission on November 20 was 138, HIV load was noted to be 217,000. On review of systems otherwise, the patient denies having any headache, neck pain, chest pain, shortness of breath, abdominal pain, or neurologic symptoms. 12/07 Patient is awake and alert lying in bed in NAD. T:100.6 last night. 12/08: Resting comfortably in bed. Not in any acute distress. Maintaining blood pressure. 12/09: Ambulating, comfortable, afebrile. Feels well, no cough or diarrhea. He does not have medication for his HIV infection, will need to arrange something with case management for discharge. He was counting large amounts of money on his bed when I visited today. Objective Vital Signs / I&O: Vital Signs 12/08/17 20:00 12/09/17 00:00 12/09/17 08:00 Temperature 98.1 F 98 F 99.0 F Pulse Rate 75 72 82 Respiratory Rate 18 18 17 Blood Pressure 126/58 L 129/62 110/51 L Pulse Oximetry 100 100 98 12/09/17 12:00 Temperature 98.6 F Pulse Rate 73 Respiratory Rate 17 Blood Pressure 126/60 Pulse Oximetry 100 Intake & Output 12/08/17 12/09/17 12/09/17 18:59 06:59 18:59 Intake Total 1962.5 / 1962.5 1462.5 / 1462.5 377 / 377 Output Total 1000 / 1000 Balance 962.5 / 962.5 1462.5 / 1462.5 377 / 377 Weight 63 kg Intake: IV 1462.5 / 1462.5 1462.5 / 1462.5 377 / 377 NS Inj 1,000 ML @ 184 mls/hr IV 1000 / 1000 1000 / 1000 .CONT .Q5H27M [facility] Rx#:[id number] Vancomycin Inj 1,250 MG In NS 262.5 / 262.5 262.5 / 262.5 277 / 277 Inj 250 ML @ 250 mls/hr IV.SIG Q12H [facility] Rx#:[id number] Flagyl 500 MG Inj 100 ML @ 100 200 / 200 100 / 100 100 / 100 mls/hr IV.SIG Q8H [facility] Rx#: [id number] Oral 500 / 500 Output: Urine 1000 / 1000 Other: Post Void Residual 700 # Voids 3 Result Diagrams: 12/08/17 03:51 12/08/17 03:51 Objective Remarks: GENERAL: Patient is sitting up in bed. SKIN: Warm and dry. Well-perfused HEAD: Normocephalic. EYES: No scleral icterus. No injection or drainage. NECK: Supple, trachea midline. Airway widely patent, no obstruction. CARDIOVASCULAR: Regular rate and rhythm without murmurs, gallops, or rubs. No JVD. RESPIRATORY: Breath sounds equal bilaterally. No accessory muscle use. Clear breath sounds throughout without wheezes or crackles. Comfortable respiratory pattern. GASTROINTESTINAL: Abdomen soft, non-tender, nondistended. No guarding, bowel sounds active. MUSCULOSKELETAL: No cyanosis, or edema. Warm, well-perfused. Neuro: Awake and alert. Conversant and appropriate. Moves 4 limbs with 5 out of 5 strength to command. Assessment and Plan - Assessment and Plan Plan: Assessment: 1)Sepsis 2)HIV/AIDS 3)Anemia 4)Seizure disorder 5)Elevated AST Plan Neuro: Awake and alert On Keppra 500mg BID Pulm: Oxygen PRN kep sats >92%. Comfortable on room air. CV: Monitor HR and BP keep MAP>65mmHg Lactic acid: 0.9 : Monitor renal function, electrolytes replacement per protocol. Continue IVF, DC, continue p.o. fluids should be adequate. GI: On PO diet ID: Continue abx ( On Vanco, Aztreonam, Flagyl, Bactrim) ID consulted. Follow up on cultures CD4 count on admission on November 20 was 138, HIV load was noted to be 217, 000 Heme: Monitor CBC Endo: SSI if needed DVT GI prophylaxis -Teds SCDs -Subcu heparin -Pepcid Consult and transfer to hospitalist service for further medical management.
[2017-12-10] MEDS: Sod Chloride 0.9% Inj 1,000 ML IV.CONT SCH ×5 (00:47→20:53)
[2017-12-10] MEDS: Heparin - SQ 10,000 UNITS/ML Vial SQ SCH ×3 (00:50→16:57)
[2017-12-10] MEDS: Chlorhexidine Gluconate 2% 1 Pack (2 Cloths) TOPICAL SCH (04:41)
[2017-12-10] MEDS: metroNIDAZOLE 500 MG Tablet PO SCH ×2 (05:47→15:25)
--- NOTE | 2017-12-10 08:09 | P.PN ---
Subjective Interval history: Patient seen and examined this morning, their vitals are stable and the patient is afebrile. Feels well. Denies chest pain or shortness of breath. Physical Exam Vital signs: Vital Signs 12/09/17 08:00 12/09/17 12:00 12/09/17 16:00 Temperature 99.0 F 98.6 F 98.1 F Pulse Rate 82 73 81 Respiratory Rate 17 17 17 Blood Pressure 110/51 L 126/60 129/59 L Pulse Oximetry 98 100 94 L 12/09/17 20:00 12/10/17 00:00 12/10/17 04:00 Temperature 98.1 F 98 F 98 F Pulse Rate 54 L 56 L 62 Respiratory Rate 17 16 16 Blood Pressure 115/65 114/66 120/62 Pulse Oximetry 100 100 100 Intake & Output 12/09/17 12/10/17 12/10/17 18:59 06:59 18:59 Intake Total 377 / 377 1262.5 / 1262.5 Balance 377 / 377 1262.5 / 1262.5 Weight 63.1 kg Intake: IV 377 / 377 1262.5 / 1262.5 NS Inj 1,000 ML @ 184 mls/hr IV 1000 / 1000 .CONT .Q5H27M [facility] Rx#:[id number] Vancomycin Inj 1,250 MG In NS 277 / 277 262.5 / 262.5 Inj 250 ML @ 250 mls/hr IV.SIG Q12H [facility] Rx#:[id number] Flagyl 500 MG Inj 100 ML @ 100 100 / 100 mls/hr IV.SIG Q8H [facility] Rx#: [id number] Narrative: GENERAL: Well-appearing, no acute distress SKIN: Warm and dry. Ozzy patches on face. HEAD: Normocephalic. EYES: No scleral icterus. No injection or drainage. NECK: Supple, trachea midline. No JVD or lymphadenopathy. CARDIOVASCULAR: Regular rate and rhythm without murmurs, gallops, or rubs. RESPIRATORY: Breath sounds equal bilaterally. No accessory muscle use. GASTROINTESTINAL: Abdomen soft, non-tender, nondistended. MUSCULOSKELETAL: No cyanosis, or edema. Results - Labs CBC & Chem 7: 12/08/17 03:51 12/08/17 03:51 Microbiology 12/06/17 20:25 Blood - Peripheral Aerobic Blood Culture - Preliminary Staphylococcus coag negative 12/06/17 20:25 Blood - Peripheral Anaerobic Blood Culture - Preliminary Staphylococcus epidermidis 12/06/17 20:30 Blood - Peripheral Aerobic Blood Culture - Preliminary No growth in 3 days 12/06/17 20:30 Blood - Peripheral Anaerobic Blood Culture - Preliminary No growth in 3 days Assessment and Plan - Plan In summary this is a 22-year-old male patient with a history of HIV, currently not on antiretrovirals, and seizure disorder who presented to [facility] with fatigue and subjective fever. Patient met sepsis criteria on admission. He was started on broad-spectrum antibiotics, and infectious disease was consulted. Patient was admitted for similar on November 20. Sepsis Blood cultures 1/2 tubes on 12/06 show staph coag negative staph epidermidis Lactic acid 0.9, 1.2 RPR nonreactive Infectious diseases following: Continue fluconazole for oral thrush, continue vancomycin, continue PCP prophylaxis Visual changes Patient with a history of syphilis status post treatment penicillin after desensitization Neurosyphilis and ocular surface were ruled out last year Optho was consulted, exam was limited due to patient unable to participate due to light sensitivity HIV/AIDS - HAART per ID -CD4 count on November was 138, HIV viral load noted to be 217,000. Seizure Disorder - continue patients Keppra DVT prophy - bilat SCDs - Heparin subq Discharge Planning: Will need infectious disease clearance and d/c reccs prior to discharge. Case management to assist with patient follow-up with health department.
[2017-12-10 09:45] LABS: Baso % (Auto) 0.3 % (0.0-2.0); Eos # (Auto) 0.3 th/mm3 (0.0-0.4); Eos % (Auto) 8.2 % (0.0-4.0); Hematocrit 29.1 % (39.0-51.0); Hemoglobin 9.5 gm/dL (13.0-17.0); Lymph % (Auto) 59.8 % (9.0-44.0); Mean Corpuscular HGB Conc 32.7 % (32.0-36.0); Mean Corpuscular Hemoglobin 25.3 pg (27.0-34.0); Mean Corpuscular Volume 77.3 fL (80.0-100.0); Mono # (Auto) 0.3 th/mm3 (0.0-0.9); Mono % (Auto) 8.7 % (0.0-8.0); Neut # (Auto) 0.8 th/mm3 (1.8-7.7); Platelet Count 178 th/mm3 (150-450); Red Blood Count 3.77 mil/mm3 (4.50-5.90); Red Cell Distribution Width 14.8 % (11.6-17.2); White Blood Count 3.4 th/mm3 (4.0-11.0)
[2017-12-10] MEDS ORDERED: Pharmacy Ordered Lab Info OTHER ONE (09:45)
[2017-12-10 10:03] LABS: Glomerular Filtration Rate Greater Than 89 mL/min (>89); Vancomycin,Trough 15.9 mcg/mL (5.0-10.0)
[2017-12-10] MEDS: Famotidine PF Inj 20 MG/2 ML Vial IV.PUSH SCH ×2 (10:10→20:53)
[2017-12-10] MEDS: levETIRAcetam 500 MG Tablet PO SCH ×2 (10:10→20:51)
[2017-12-10] MEDS: Senna/Docusate Sodium 8.6/50 MG Tablet PO SCH ×2 (10:11→20:54)
[2017-12-10] MEDS: Vancomycin Inj 1,250 MG in Sodium Chlor 0.9% Inj 250 ML IV.SIG SCH ×2 (10:20→21:02)
[2017-12-10 14:14] LABS: Acanthocytes Occ; Eosinophils 7 % (0-4); Lymphocytes 54 % (9-44); Monocytes 13 % (0-8); Ovalocytes 1+; Platelet Estimate Normal (Normal); Platelet Morphology Normal (Normal)
--- NOTE | 2017-12-10 17:11 | P.PNID ---
Subjective Remarks: afebrile Pt was non cooperative with ophthalmological exam CMV VL positive / blood clx with GPC Antibiotics: vanco TS fluconazol Allergies/Adverse Reactions: Allergies penicillin G Allergy (Severe, Verified 11/20/17 14:29) RASH Objective Vital Signs 12/09/17 20:00 12/10/17 00:00 12/10/17 04:00 Temperature 98.1 F 98 F 98 F Pulse Rate 54 L 56 L 62 Respiratory Rate 17 16 16 Blood Pressure 115/65 114/66 120/62 Pulse Oximetry 100 100 100 12/10/17 08:00 12/10/17 12:00 Temperature 97.4 F L 97.5 F L Pulse Rate 67 73 Respiratory Rate 17 16 Blood Pressure 121/57 L 119/59 L Pulse Oximetry 100 100 Intake & Output 12/09/17 12/10/17 12/10/17 18:59 06:59 18:59 Intake Total 377 / 377 1262.5 / 1262.5 262.5 / 262.5 Balance 377 / 377 1262.5 / 1262.5 262.5 / 262.5 Weight 63.1 kg Intake: IV 377 / 377 1262.5 / 1262.5 262.5 / 262.5 NS Inj 1,000 ML @ 184 mls/hr IV 1000 / 1000 .CONT .Q5H27M [facility] Rx#:[id number] Vancomycin Inj 1,250 MG In NS 277 / 277 262.5 / 262.5 262.5 / 262.5 Inj 250 ML @ 250 mls/hr IV.SIG Q12H [facility] Rx#:[id number] Flagyl 500 MG Inj 100 ML @ 100 100 / 100 mls/hr IV.SIG Q8H [facility] Rx#: [id number] 12/06/17 20:30 Blood - Peripheral Aerobic Blood Culture - Preliminary No growth in 4 days 12/06/17 20:30 Blood - Peripheral Anaerobic Blood Culture - Preliminary No growth in 4 days 12/06/17 20:25 Blood - Peripheral Aerobic Blood Culture - Preliminary Staphylococcus coag negative 12/06/17 20:25 Blood - Peripheral Anaerobic Blood Culture - Preliminary Staphylococcus epidermidis Lab - Hematology Results 12/10/17 09:02 WBC 3.4 L RBC 3.77 L Hgb 9.5 L Hct 29.1 L MCV 77.3 L MCH 25.3 L MCHC 32.7 RDW 14.8 Plt Count 178 MPV 9.0 Prelim Diff (Auto) Slide review pending Neut % (Auto) 23.0 Lymph % (Auto) 59.8 H [place] % (Auto) 8.7 H Eos % (Auto) 8.2 H Baso % (Auto) 0.3 Neut # (Auto) 0.8 L Lymph # (Auto) 2.0 [place] # (Auto) 0.3 Eos # (Auto) 0.3 Baso # (Auto) 0.0 WBC Differential Manual diff final Seg Neuts % (Manual) 16 Band Neuts % (Manual) 10 H Lymphocytes % (Manual) 54 H Monocytes % (Manual) 13 H Eosinophils % (Manual) 7 H Abs Neuts (Manual) 0.9 L Differential Comment . Platelet Estimate Normal Platelet Morphology Normal Ovalocytes 1+ H Acanthocytes (Spur) Occ H Keratocytes Occ H Lab - Chemistry Results 12/10/17 09:02 Creatinine 0.83 Estimated GFR Greater than 89 Imaging: ITS Impressions Chest X-Ray 12/08/17 06:00 CONCLUSION: Lungs are now essentially clear. Physical Exam: GENERAL: NAD SKIN: Warm and dry. HEAD: Atraumatic. Normocephalic. EYES: Pupils equal and round. No scleral icterus. No injection or drainage. ENT: No nasal bleeding or discharge. Mucous membranes pink and moist. NECK: Trachea midline. No JVD. CARDIOVASCULAR: Regular rate and rhythm. RESPIRATORY: No accessory muscle use. Clear to auscultation. Breath sounds equal bilaterally. GASTROINTESTINAL: Abdomen soft, non-tender, nondistended. Hepatic and splenic margins not palpable. MUSCULOSKELETAL: Extremities without clubbing, cyanosis, or edema. No obvious deformities. NEUROLOGICAL: Awake and alert. No obvious cranial nerve deficits. Motor grossly within normal limits. Five out of 5 muscle strength in the arms and legs. Normal speech. PSYCHIATRIC: judgment is poor. Pt is dramatic, not cooperative, argumentaive. Shows very poor insight in his disease status Assessment and Plan - Plan HIV, AIDS H/o syphilis sp treatment with PCN after desentisation protocol Neuroshpylislis and ocular syphilis were ruled out last year sp treatment of secondary syphilis in 04/27 with PCN after decensitisation Admitted with Fever, CMV viremia Seizure and new visual changes oral thrush: resolved GPC bacteremia , low grade doubt clin significance pt really needs to complete ophalmologist exam to r/o CMV early retinitis complete 10 days of Fluconazol for oral thrush dc vanco dc azctam cont PCP profilaxis with TS pt needs to be f/u with health dprtmnt
[2017-12-11] MEDS: Heparin - SQ 10,000 UNITS/ML Vial SQ SCH ×3 (00:10→16:00)
[2017-12-11] MEDS: Chlorhexidine Gluconate 2% 1 Pack (2 Cloths) TOPICAL SCH (06:23)
[2017-12-11] MEDS: Sod Chloride 0.9% Inj 1,000 ML IV.CONT SCH ×3 (06:23→19:06)
--- NOTE | 2017-12-11 07:48 | P.PN ---
Subjective Interval history: Patient seen and examined this morning, their vitals are stable and the patient is afebrile. No complaints or concerns. Denies fevers and chills. Physical Exam Vital signs: Vital Signs 12/10/17 08:00 12/10/17 12:00 12/10/17 16:00 Temperature 97.4 F L 97.5 F L 97.8 F Pulse Rate 67 73 66 Respiratory Rate 17 16 19 Blood Pressure 121/57 L 119/59 L 121/55 L Pulse Oximetry 100 100 100 12/10/17 20:00 12/11/17 00:00 12/11/17 04:00 Temperature 98 F 97.9 F 98 F Pulse Rate 67 82 70 Respiratory Rate 16 16 18 Blood Pressure 118/61 98/55 L 108/60 Pulse Oximetry 100 100 100 Intake & Output 12/10/17 12/11/17 12/11/17 18:59 06:59 18:59 Intake Total 862.5 / 862.5 750 / 750 Output Total 300 / 300 Balance 562.5 / 562.5 750 / 750 Weight 63.1 kg Intake: IV 262.5 / 262.5 250 / 250 Vancomycin Inj 1,250 MG In NS 262.5 / 262.5 250 / 250 Inj 250 ML @ 250 mls/hr IV.SIG Q12H [facility] Rx#:[id number] Oral 600 / 600 500 / 500 Output: Urine 300 / 300 Other: # Voids 2 # Bowel Movements 1 Narrative: GENERAL: Well-appearing, no acute distress SKIN: Warm and dry. Ozzy patches on face. HEAD: Normocephalic. EYES: No scleral icterus. No injection or drainage. NECK: Supple, trachea midline. No JVD or lymphadenopathy. CARDIOVASCULAR: Regular rate and rhythm without murmurs, gallops, or rubs. RESPIRATORY: Breath sounds equal bilaterally. No accessory muscle use. GASTROINTESTINAL: Abdomen soft, non-tender, nondistended. MUSCULOSKELETAL: No cyanosis, or edema. Results - Labs CBC & Chem 7: 12/11/17 07:58 12/11/17 07:58 Laboratory Results - last 24 hr 12/08/17 12/10/17 12/10/17 03:51 09:02 09:02 WBC 3.4 L RBC 3.77 L Hgb 9.5 L Hct 29.1 L MCV 77.3 L MCH 25.3 L MCHC 32.7 RDW 14.8 Plt Count 178 MPV 9.0 Prelim Diff (Auto) Slide review pending Neut % (Auto) 23.0 Lymph % (Auto) 59.8 H [place] % (Auto) 8.7 H Eos % (Auto) 8.2 H Baso % (Auto) 0.3 Neut # (Auto) 0.8 L Lymph # (Auto) 2.0 [place] # (Auto) 0.3 Eos # (Auto) 0.3 Baso # (Auto) 0.0 WBC Differential Manual diff final Seg Neuts % (Manual) 16 Band Neuts % (Manual) 10 H Lymphocytes % (Manual) 54 H Monocytes % (Manual) 13 H Eosinophils % (Manual) 7 H Abs Neuts (Manual) 0.9 L Differential Comment . Platelet Estimate Normal Platelet Morphology Normal Ovalocytes 1+ H Acanthocytes (Spur) Occ H Keratocytes Occ H Creatinine 0.83 Estimated GFR Greater than 89 Vancomycin Trough 15.9 H CMV Qnt PCR IU/mL 2140 Microbiology 12/06/17 20:30 Blood - Peripheral Aerobic Blood Culture - Preliminary No growth in 4 days 12/06/17 20:30 Blood - Peripheral Anaerobic Blood Culture - Preliminary No growth in 4 days 12/06/17 20:25 Blood - Peripheral Aerobic Blood Culture - Preliminary Staphylococcus coag negative 12/06/17 20:25 Blood - Peripheral Anaerobic Blood Culture - Preliminary Staphylococcus epidermidis Assessment and Plan - Plan In summary this is a 22-year-old male patient with a history of HIV, currently not on antiretrovirals, and seizure disorder who presented to [place] with fatigue and subjective fever. Patient met sepsis criteria on admission. He was started on broad-spectrum antibiotics, and infectious disease was consulted. Patient was admitted for similar on November 20. Sepsis--> CMV viremia Blood cultures 1/2 tubes on 12/06 show staph coag negative staph epidermidis Lactic acid 0.9, 1.2 RPR nonreactive Infectious diseases following: Continue fluconazole for oral thrush x 10 days, discontinue vancomycin and azctam, continue PCP prophylaxis with TS. Patient really needs a complete human resources technician exam to rule out CMV early retinitis Visual changes Patient with a history of syphilis status post treatment penicillin after desensitization Neurosyphilis and ocular surface were ruled out last year Optho was consulted, exam was limited due to patient unable to participate due to light sensitivity HIV/AIDS - HAART per ID -CD4 count on November was 138, HIV viral load noted to be 217,000. Seizure Disorder - continue patients Keppra DVT prophy - bilat SCDs - Heparin subq Discharge Planning: I will reach out to optho and see if patient can follow up on eye exam as an outpatient. Will need infectious disease clearance and d/c reccs prior to discharge. Case management to assist with patient follow-up with health department.
[2017-12-11 08:24] LABS: Baso % (Auto) 0.3 % (0.0-2.0); Eos # (Auto) 0.3 th/mm3 (0.0-0.4); Hematocrit 29.6 % (39.0-51.0); Hemoglobin 9.6 gm/dL (13.0-17.0); Lymph # (Auto) 1.8 th/mm3 (1.0-4.8); Lymph % (Auto) 61.2 % (9.0-44.0); Mean Corpuscular HGB Conc 32.6 % (32.0-36.0); Mean Corpuscular Hemoglobin 25.5 pg (27.0-34.0); Mean Corpuscular Volume 78.2 fL (80.0-100.0); Mean Platelet Volume 8.8 fL (7.0-11.0); Mono # (Auto) 0.3 th/mm3 (0.0-0.9); Mono % (Auto) 9.5 % (0.0-8.0); Neut # (Auto) 0.6 th/mm3 (1.8-7.7); Platelet Count 184 th/mm3 (150-450); Red Blood Count 3.78 mil/mm3 (4.50-5.90); White Blood Count 2.9 th/mm3 (4.0-11.0)
[2017-12-11 08:41] LABS: Anion Gap 9 meq/L (5-15); Blood Urea Nitrogen 8 mg/dL (7-18); Calcium 8.4 mg/dL (8.5-10.1); Chloride 110 meq/L (98-107); Glomerular Filtration Rate Greater Than 89 mL/min (>89); Glucose,Random 91 mg/dL (74-106); Potassium 3.6 meq/L (3.5-5.1); Sodium 144 meq/L (136-145)
[2017-12-11 09:31] LABS: Acanthocytes Occ; Eosinophils 8 % (0-4); Lymphocytes 62 % (9-44); Monocytes 6 % (0-8); Ovalocytes 1+
[2017-12-11 09:32] LABS: Platelet Estimate Normal (Normal); Platelet Morphology Normal (Normal)
[2017-12-11] MEDS: Famotidine PF Inj 20 MG/2 ML Vial IV.PUSH SCH ×2 (09:38→22:30)
[2017-12-11] MEDS: levETIRAcetam 500 MG Tablet PO SCH ×2 (09:38→22:28)
[2017-12-11] MEDS: Senna/Docusate Sodium 8.6/50 MG Tablet PO SCH ×2 (09:39→22:30)
[2017-12-11] MEDS: Vancomycin Inj 1,250 MG in Sodium Chlor 0.9% Inj 250 ML IV.SIG SCH (12:22)
[2017-12-12] MEDS: Heparin - SQ 10,000 UNITS/ML Vial SQ SCH ×2 (00:08→10:16)
[2017-12-12] MEDS: Sod Chloride 0.9% Inj 1,000 ML IV.CONT SCH ×4 (00:08→13:56)
[2017-12-12 04:47] LABS: Baso % (Auto) 0.3 % (0.0-2.0); Eos # (Auto) 0.2 th/mm3 (0.0-0.4); Eos % (Auto) 6.4 % (0.0-4.0); Hematocrit 27.7 % (39.0-51.0); Hemoglobin 9.3 gm/dL (13.0-17.0); Lymph # (Auto) 1.7 th/mm3 (1.0-4.8); Lymph % (Auto) 53.8 % (9.0-44.0); Mean Corpuscular HGB Conc 33.6 % (32.0-36.0); Mean Corpuscular Hemoglobin 25.5 pg (27.0-34.0); Mean Corpuscular Volume 75.7 fL (80.0-100.0); Mean Platelet Volume 9.1 fL (7.0-11.0); Mono # (Auto) 0.3 th/mm3 (0.0-0.9); Mono % (Auto) 8.7 % (0.0-8.0); Neut % (Auto) 30.8 % (16.0-70.0); Platelet Count 192 th/mm3 (150-450); Red Blood Count 3.66 mil/mm3 (4.50-5.90); Red Cell Distribution Width 14.4 % (11.6-17.2); White Blood Count 3.1 th/mm3 (4.0-11.0)
[2017-12-12 05:13] LABS: Glomerular Filtration Rate Greater Than 89 mL/min (>89)
[2017-12-12 05:43] VITALS: RESP 16
--- NOTE | 2017-12-12 08:05 | P.PN ---
Subjective Interval history: Patient seen and examined this morning, their vitals are stable and the patient is afebrile. No overnight events. Patient understands that he is here today with a week and make sure that he has follow-up upon discharge. Physical Exam Vital signs: Vital Signs 12/11/17 12:00 12/11/17 16:00 12/11/17 20:00 Temperature 98.1 F 97.9 F 99.4 F Pulse Rate 71 94 H 73 Respiratory Rate 20 20 18 Blood Pressure 114/68 113/63 116/67 Pulse Oximetry 100 100 100 12/12/17 00:00 12/12/17 04:00 Temperature 98.3 F 98.3 F Pulse Rate 74 76 Respiratory Rate 18 16 Blood Pressure 103/56 L 116/58 L Pulse Oximetry 100 100 Intake & Output 12/11/17 12/12/17 12/12/17 18:59 06:59 18:59 Intake Total 622.5 / 622.5 Output Total 4 / 4 Balance 618.5 / 618.5 Weight 58.3 kg Intake: IV 262.5 / 262.5 Vancomycin Inj 1,250 MG In NS 262.5 / 262.5 Inj 250 ML @ 250 mls/hr IV.SIG Q12H [facility] Rx#:[id number] Oral 360 / 360 Output: Urine 4 / 4 Other: # Voids 2 2 Narrative: GENERAL: Well-appearing, no acute distress SKIN: Warm and dry. Ozzy patches on face. HEAD: Normocephalic. EYES: No scleral icterus. No injection or drainage. NECK: Supple, trachea midline. No JVD or lymphadenopathy. CARDIOVASCULAR: Regular rate and rhythm without murmurs, gallops, or rubs. RESPIRATORY: Breath sounds equal bilaterally. No accessory muscle use. GASTROINTESTINAL: Abdomen soft, non-tender, nondistended. MUSCULOSKELETAL: No cyanosis, or edema. Results - Labs CBC & Chem 7: 12/12/17 03:23 12/12/17 03:23 Laboratory Results - last 24 hr 12/11/17 12/11/17 12/12/17 07:58 07:58 03:23 WBC 2.9 L RBC 3.78 L Hgb 9.6 L Hct 29.6 L MCV 78.2 L MCH 25.5 L MCHC 32.6 RDW 15.0 Plt Count 184 MPV 8.8 Prelim Diff (Auto) Slide review pending Neut % (Auto) 20.0 Lymph % (Auto) 61.2 H [place] % (Auto) 9.5 H Eos % (Auto) 9.0 H Baso % (Auto) 0.3 Neut # (Auto) 0.6 L Lymph # (Auto) 1.8 [place] # (Auto) 0.3 Eos # (Auto) 0.3 Baso # (Auto) 0.0 WBC Differential Manual diff final Seg Neuts % (Manual) 18 Band Neuts % (Manual) 5 Lymphocytes % (Manual) 62 H Monocytes % (Manual) 6 Eosinophils % (Manual) 8 H Basophils % (Manual) 1 Abs Neuts (Manual) 0.7 L Differential Comment . Platelet Estimate Normal Platelet Morphology Normal Ovalocytes 1+ H Acanthocytes (Spur) Occ H Keratocytes Occ H Sodium 144 Potassium 3.6 Chloride 110 H Carbon Dioxide 25.0 Anion Gap 9 BUN 8 Creatinine 0.80 0.78 Estimated GFR Greater than 89 Greater than 89 Random Glucose 91 Calcium 8.4 L 12/12/17 03:23 WBC 3.1 L RBC 3.66 L Hgb 9.3 L Hct 27.7 L MCV 75.7 L MCH 25.5 L MCHC 33.6 RDW 14.4 Plt Count 192 MPV 9.1 Prelim Diff (Auto) Neut % (Auto) 30.8 Lymph % (Auto) 53.8 H [place] % (Auto) 8.7 H Eos % (Auto) 6.4 H Baso % (Auto) 0.3 Neut # (Auto) 1.0 L Lymph # (Auto) 1.7 [place] # (Auto) 0.3 Eos # (Auto) 0.2 Baso # (Auto) 0.0 WBC Differential . Seg Neuts % (Manual) Band Neuts % (Manual) Lymphocytes % (Manual) Monocytes % (Manual) Eosinophils % (Manual) Basophils % (Manual) Abs Neuts (Manual) Differential Comment Auto diff final Platelet Estimate Platelet Morphology Ovalocytes Acanthocytes (Spur) Keratocytes Sodium Potassium Chloride Carbon Dioxide Anion Gap BUN Creatinine Estimated GFR Random Glucose Calcium Microbiology 12/06/17 20:30 Blood - Peripheral Aerobic Blood Culture - Final No growth in 5 days 12/06/17 20:30 Blood - Peripheral Anaerobic Blood Culture - Final No growth in 5 days 12/06/17 20:25 Blood - Peripheral Aerobic Blood Culture - Final Staphylococcus coag negative 12/06/17 20:25 Blood - Peripheral Anaerobic Blood Culture - Final Staphylococcus coag negative Assessment and Plan - Plan In summary this is a 22-year-old male patient with a history of HIV, currently not on antiretrovirals, and seizure disorder who presented to [place] ER with fatigue and subjective fever. Patient met sepsis criteria on admission. He was started on broad-spectrum antibiotics, and infectious disease was consulted. Patient was admitted for similar on November 20. Patient cannot undergo ophthalmologic exam in hospital due to light sensitivity. It was recommended that the patient have this completed as an outpatient with Dr. eD where slit lamp exam could be done. Sepsis--> CMV viremia Blood cultures 1/2 tubes on 12/06 show staph coag negative staph epidermidis Lactic acid 0.9, 1.2 RPR nonreactive Infectious diseases following: Continue fluconazole for oral thrush x 10 days, discontinue vancomycin and azctam, continue PCP prophylaxis with TS. Visual changes Patient with a history of syphilis status post treatment penicillin after desensitization Neurosyphilis and ocular surface were ruled out last year Optho was consulted, exam was limited due to patient unable to participate due to light sensitivity HIV/AIDS - HAART per ID -CD4 count on November was 138, HIV viral load noted to be 217,000. Seizure Disorder - continue patients Keppra DVT prophy - bilat SCDs - Heparin subq Discharge Planning: Patient to follow-up with Dr. De from op so as an outpatient. Case has been discussed with Dr. De and Dr. Cortez from infectious disease. Patient needs to have an appointment with infectious disease prior to discharge, the patient's infectious disease doctor contact information is to be supplied to Dr. Cortez prior to discharge. Case management is aware and is assisting with this.
[2017-12-12] MEDS: Famotidine PF Inj 20 MG/2 ML Vial IV.PUSH SCH (10:15)
[2017-12-12] MEDS: levETIRAcetam 500 MG Tablet PO SCH (10:15)
[2017-12-12] MEDS: Senna/Docusate Sodium 8.6/50 MG Tablet PO SCH (10:15)
--- NOTE | 2017-12-12 12:27 | P.DS ---
Date of admission: 12/06/17 22:28 Primary care physician: No Primary Care Physician Brief History from admission: 22 year old HIV positive male noncompliant with outpatient medication presents with a history of increased fatigue since yesterday. He reports that he was sleeping more than usual. He reports that he also is having intermittent chills. His grandmother felt his head earlier today and told him that he had an elevated temperature. He did not check his temperature with a thermometer. The patient's past medical history is complicated by having HIV that is progressed to AIDS. The patient is not on any medication for his HIV currently according to the record because of a prior history of noncompliance. The patient was recently admitted to the hospital for a fever on November 20. Consultation with infectious disease was made. It appears that attempts were being made by case management for the patient to follow-up with the health department for continuation of his HIV care. He reports that he followed up with the [facility] this past week and is in the process of being referred to a specialist again, however he reports that there has been difficulty with getting this done. He denies having any nausea, vomiting, or diarrhea. He reports that his last bowel movement was yesterday. He denies having any blood in his stool or black or tarry stools. He reports that he has had an occasional cough that has been productive of yellow sputum. He denies having any new rashes, dysuria, hematuria, urinary urgency, or frequency. He denies having any penile discharge, scrotal pain, or scrotal swelling. He denies having any rectal discharge. The patient's CD4 count on admission on November 20 was 138, HIV load was noted to be 217,000. On review of systems otherwise, the patient denies having any headache, neck pain, chest pain, shortness of breath, abdominal pain, or neurologic symptoms. DS: Summary Hospital Course: In summary this is a 22-year-old male patient with a history of HIV, currently not on antiretrovirals, and seizure disorder who presented to [facility] with fatigue and subjective fever. Patient met sepsis criteria on admission. He was started on broad-spectrum antibiotics, and infectious disease was consulted. Patient was admitted for similar on November 20. Patient cannot undergo ophthalmologic exam in hospital due to light sensitivity. It was recommended that the patient have this completed as an outpatient with Dr. De where slit lamp exam could be done. Sepsis--> CMV viremia Blood cultures 1/2 tubes on 12/06 show staph coag negative staph epidermidis Lactic acid 0.9, 1.2 RPR nonreactive Infectious diseases following: Continue fluconazole for oral thrush x 10 days, discontinue vancomycin and azctam, continue PCP prophylaxis with TS. Visual changes Patient with a history of syphilis status post treatment penicillin after desensitization Neurosyphilis and ocular surface were ruled out last year Optho was consulted, exam was limited due to patient unable to participate due to light sensitivity HIV/AIDS - HAART per ID -CD4 count on November was 138, HIV viral load noted to be 217,000. Seizure Disorder - continue patients Keppra DVT prophy - bilat SCDs - Heparin subq - Time Spent with Patient Total time spent providing and/or coordinating discharge services: Greater than 30 minutes - Quality: VTE Deep Vein Thrombosis/Pulmonary Embolism Present on Admission: No Exam Vital signs: Vital Signs 12/11/17 16:00 12/11/17 20:00 12/12/17 00:00 Temperature 97.9 F 99.4 F 98.3 F Pulse Rate 94 H 73 74 Respiratory Rate 20 18 18 Blood Pressure 113/63 116/67 103/56 L Pulse Oximetry 100 100 100 12/12/17 04:00 12/12/17 08:00 Temperature 98.3 F 97.4 F L Pulse Rate 76 87 Respiratory Rate 16 16 Blood Pressure 116/58 L 119/59 L Pulse Oximetry 100 99 Intake & Output 12/11/17 12/12/17 12/12/17 18:59 06:59 18:59 Intake Total 622.5 / 622.5 Output Total 4 / 4 Balance 618.5 / 618.5 Weight 58.3 kg Intake: IV 262.5 / 262.5 Vancomycin Inj 1,250 MG In NS 262.5 / 262.5 Inj 250 ML @ 250 mls/hr IV.SIG Q12H [facility] Rx#:[id number] Oral 360 / 360 Output: Urine 4 / 4 Other: # Voids 2 2 Results Procedures completed during hospitalization: na Labs on day of discharge: Labs from last 24 hours 12/12/17 12/12/17 03:23 03:23 WBC 3.1 L RBC 3.66 L Hgb 9.3 L Hct 27.7 L MCV 75.7 L MCH 25.5 L MCHC 33.6 RDW 14.4 Plt Count 192 MPV 9.1 Neut % (Auto) 30.8 Lymph % (Auto) 53.8 H [place] % (Auto) 8.7 H Eos % (Auto) 6.4 H Baso % (Auto) 0.3 Neut # (Auto) 1.0 L Lymph # (Auto) 1.7 [place] # (Auto) 0.3 Eos # (Auto) 0.2 Baso # (Auto) 0.0 WBC Differential . Differential Comment Auto diff final Creatinine 0.78 Estimated GFR Greater than 89 - Impressions ITS Impressions Chest X-Ray 12/08/17 06:00 CONCLUSION: Lungs are now essentially clear. Discharge Plan - Discharge Disposition Patient Disposition: 01 Discharge Home - Discharge Condition Condition: Stable - Discharge Details Anticipated Discharge Date: 12/11/17 Discharge Comment: D/C when Cleared by Dr. Cortez - Physicians Team Primary Care Provider: Primary Care Toyin,Nyasia Attending Provider: Whit Ashley Other Providers: Nataliia Cortez MD ; Page De MD
[2017-12-12 12:39] VITALS: O2SAT 100
--- NOTE | 2017-12-12 14:16 | P.PNID ---
Subjective Remarks: no vision complaints no other c/o afebrile ANC breiflky to 600, now 1000 CMV VL positive 1/2 blood clx with coag neg staph both bottles, but different morphologies Antibiotics: vanco TS fluconazol Allergies/Adverse Reactions: Allergies penicillin G Allergy (Severe, Verified 11/20/17 14:29) RASH Objective Vital Signs 12/11/17 16:00 12/11/17 20:00 12/12/17 00:00 Temperature 97.9 F 99.4 F 98.3 F Pulse Rate 94 H 73 74 Respiratory Rate 20 18 18 Blood Pressure 113/63 116/67 103/56 L Pulse Oximetry 100 100 100 12/12/17 04:00 12/12/17 08:00 12/12/17 12:00 Temperature 98.3 F 97.4 F L 98 F Pulse Rate 76 87 95 H Respiratory Rate 16 16 16 Blood Pressure 116/58 L 119/59 L 117/64 Pulse Oximetry 100 99 100 Intake & Output 12/11/17 12/12/17 12/12/17 18:59 06:59 18:59 Intake Total 622.5 / 622.5 Output Total 4 / 4 Balance 618.5 / 618.5 Weight 58.3 kg Intake: IV 262.5 / 262.5 Vancomycin Inj 1,250 MG In NS 262.5 / 262.5 Inj 250 ML @ 250 mls/hr IV.SIG Q12H [facility] Rx#:[id number] Oral 360 / 360 Output: Urine 4 / 4 Other: # Voids 2 2 12/06/17 20:30 Blood - Peripheral Aerobic Blood Culture - Final No growth in 5 days 12/06/17 20:30 Blood - Peripheral Anaerobic Blood Culture - Final No growth in 5 days 12/06/17 20:25 Blood - Peripheral Aerobic Blood Culture - Final Staphylococcus coag negative 12/06/17 20:25 Blood - Peripheral Anaerobic Blood Culture - Final Staphylococcus coag negative Lab - Hematology Results 12/10/17 12/11/17 12/12/17 09:02 07:58 03:23 WBC 2.9 L 3.1 L RBC 3.78 L 3.66 L Hgb 9.6 L 9.3 L Hct 29.6 L 27.7 L MCV 78.2 L 75.7 L MCH 25.5 L 25.5 L MCHC 32.6 33.6 RDW 15.0 14.4 Plt Count 184 192 MPV 8.8 9.1 Prelim Diff (Auto) Slide review pending Neut % (Auto) 20.0 30.8 Lymph % (Auto) 61.2 H 53.8 H [place] % (Auto) 9.5 H 8.7 H Eos % (Auto) 9.0 H 6.4 H Baso % (Auto) 0.3 0.3 Neut # (Auto) 0.6 L 1.0 L Lymph # (Auto) 1.8 1.7 [place] # (Auto) 0.3 0.3 Eos # (Auto) 0.3 0.2 Baso # (Auto) 0.0 0.0 WBC Differential Manual diff final Manual diff final . Seg Neuts % (Manual) 16 18 Band Neuts % (Manual) 10 H 5 Lymphocytes % (Manual) 54 H 62 H Monocytes % (Manual) 13 H 6 Eosinophils % (Manual) 7 H 8 H Basophils % (Manual) 1 Abs Neuts (Manual) 0.9 L 0.7 L Differential Comment . Auto diff final Platelet Estimate Normal Normal Platelet Morphology Normal Normal Ovalocytes 1+ H 1+ H Acanthocytes (Spur) Occ H Occ H Keratocytes Occ H Occ H Lab - Chemistry Results 12/11/17 12/12/17 07:58 03:23 Sodium 144 Potassium 3.6 Chloride 110 H Carbon Dioxide 25.0 Anion Gap 9 BUN 8 Creatinine 0.80 0.78 Estimated GFR Greater than 89 Greater than 89 Random Glucose 91 Calcium 8.4 L Imaging: ITS Impressions Chest X-Ray 12/08/17 06:00 CONCLUSION: Lungs are now essentially clear. Physical Exam: GENERAL: NAD SKIN: Warm and dry. HEAD: Atraumatic. Normocephalic. EYES: Pupils equal and round. No scleral icterus. No injection or drainage. ENT: No nasal bleeding or discharge. Mucous membranes pink and moist. NECK: Trachea midline. No JVD. CARDIOVASCULAR: Regular rate and rhythm. RESPIRATORY: No accessory muscle use. Clear to auscultation. Breath sounds equal bilaterally. GASTROINTESTINAL: Abdomen soft, non-tender, nondistended. Hepatic and splenic margins not palpable. MUSCULOSKELETAL: Extremities without clubbing, cyanosis, or edema. No obvious deformities. NEUROLOGICAL: Awake and alert. No obvious cranial nerve deficits. Motor grossly within normal limits. Five out of 5 muscle strength in the arms and legs. Normal speech. PSYCHIATRIC: judgment is poor. O/w cooperative on exam Assessment and Plan - Plan HIV, AIDS H/o syphilis sp treatment with PCN after desentisation protocol Neuroshpylislis and ocular syphilis were ruled out last year sp treatment of secondary syphilis in 04/27 with PCN after decensitisation Admitted with Fever, CMV viremia w/o clinical end organ damage and CD4 > 50 Pt is at high risk of symptomatic CMV dz if cont to be no compliant with HAART Neutropenia (improved) - HIV is most likely Seizure and new visual changes oral thrush: resolved Coasgn neg staph bacteremia , diferent morphologies doubt clin significance pt really needs to complete ophalmologist exam to r/o CMV early retinitis complete 10 days of Fluconazol for oral thrush cont PCP profilaxis with TS i po daily FU with Health Dprtmnt Pt needs to complete ophalmological eval next week, if any findigns for CMV retinitis need to be started on treatment few weeks PRIOR to HAART Fu CBC as o/p pt needs to be f/u with health dprtmnt
[2017-12-12 16:29] VITALS: BP 118/57; PULSE 96; TEMP 98.2
== END 2017-12-12 19:00 | disposition home or self-care (01) ==
LOC: NEPC 19:15 → NEDA 22:28 → HIMC 12-07 00:35 → N05 12-08 14:53
PROVIDERS: ADMIT Family Medicine; ATTEND Family Medicine